=== PATIENT | female | born 1935 | race African-American/Black ===

== ENCOUNTER 2023-05-22 13:44 | Inpatient (IN) | payer MEDICARE, BC, SELFPAY ==
[2023-05-22] VITALS (25 sets, daily range): BP systolic 90–153; BP diastolic 47–126; PULSE 78–117; RESP 16–48; TEMP 36.3–36.8; O2SAT 77–100; BMI 18.2
--- NOTE | ~2023-05-22 | CT_ITS ---
EXAMINATION: CT abdomen pelvis w con DATE: 05/31/2023 14:13 INDICATION: Perforated diverticulitis with pelvic abscess TECHNIQUE: Computed tomography (CT) of the abdomen and pelvis was performed with 100 mL Omnipaque-350 intravenous contrast and following administration of oral and rectal contrast.. Automated exposure c ontrol and iterative reconstruction technique were employed. The dose-length product was 500.26 mGy-c m. COMPARISON: None FINDINGS: Small bilateral posterior layering pleural effusions with dependent compressive atelectasis in the lo wer lobes, left greater than right. Cardiomegaly. Atherosclerotic or artery calcific lesion. No peric ardial effusion. Tip of the right upper extremity PICC line extends into the high right atrium approx imately 2 cm below the level of the superior cavoatrial junction. Gallbladder is distended but withou t evident wall thickening or pericholecystic inflammatory stranding to suggest acute cholecystitis. L iver, spleen, pancreas, bilateral adrenal glands and kidneys are normal. Gas and a Edmonds catheter in the bladder. Extensive body wall edema. Chronic appearing compression fracture at T11 with mild centr al vertebral body height loss. The rectal contrast extends throughout the length of the colon with additional oral contrast extendin g through much of the proximal jejunum. No dilated bowel to suggest obstruction. Again seen are numer ous diverticula along the sigmoid colon. Oral contrast extends from a diverticulum on the medial side of the proximal sigmoid colon to communicate with a gas and contrast filled 3.0 x 2.2 cm loculated e xtraluminal collection. At the operative site of the collection is a contrast-filled proximally 7 mm diameter tract which follows a serpiginous course of approximately 6 cm in length caudally and more p osteriorly to communicate with the 6.6 x 4.0 x 2.8 cm gas and fluid containing pelvic abscess cavity within which is positioned the loop of the percutaneous abscess drain. The diverticulum and adjacent small enhanced abscess cavity can be appreciated on axial series 3, image 127 and coronal series 601, image 52. The MP and the draining tract into the pelvic abscess cavity can be seen in axial series 3 , image 137 and coronal series 601, images 68 & 69. There are a few additional small peripherally enhancing loculated centrally low-attenuation fluid col lections situated amongst the bowels more cephalad in the central lower abdomen which are without vickie dent contrast opacification. The largest collection extends along a 12 cm serpiginous tract from the right lower quadrant of the central abdomen the largest pocket measuring 2.9 x 2.1 x 2.2 cm in the ri ght lower quadrant surrounded by multiple loops of bowel. IMPRESSION: 1. Perforated diverticulitis at the proximal sigmoid colon with rectal contrast extending into an adj acent 3 x 2 cm abscess cavity and from dense along a 6 cm sinus tract to indicate with a larger 6.6 x 4.0 x 2.8 cm pelvic abscess cavity within which is the left transgluteal abscess drain. 2. A few additional small peripherally enhancing loculated abscesses without contrast enhancement in the more cephalad lower abdomen, all of which are surrounded by bowel with no clear path for percutan eous drainage. 3. Small bilateral posterior layering pleural effusions with compressive atelectasis in the bilateral lower lobes. 4. Cardiomegaly. Reviewed, dictated and finalized at location A. IMPRESSION: 1. Perforated diverticulitis at the proximal sigmoid colon with rectal contrast extending into an adjacent 3 x 2 cm abscess cavity and from dense along a 6 cm sinus tract to indicate with a larger 6.6 x 4.0 x 2.8 cm pelvic abscess cavity within which is the left transgluteal abscess drain. 2. A few additional small p
--- NOTE | ~2023-05-22 | CT_ITS ---
EXAMINATION: CT guide absc cath placement DATE: 05/25/2023 16:05 INDICATION: Pelvic abscess TECHNIQUE: The procedure including the risks and benefits was discussed with the patient. Risks discu ssed included bleeding and infection. The patient understood the risks and benefits and agreed to pro ceed. Oral and written consent were also obtained previously from the patient's power of litigation attorney. Th e patient was confirmed to be receiving appropriate antibiotic coverage. The skin overlying the infe rior left buttock was prepped and draped in usual sterile fashion. Anesthetic was administered with 1% lidocaine subcutaneously. Patient also received 50 mcg fentanyl IV for conscious sedation. An 18-g auge trochar needle was inserted into the pelvic fluid collection by trocar technique. The inner styl ette was removed and a J-wire advanced into the fluid collection with position confirmed by CT. Utili zing Seldinger technique the needle was removed over the wire and the tract serially dilated to 10 Fr ench. A 10 Romanian pigtail catheter was advanced over the wire into the fluid collection with position confirmed by CT. The loop was formed and locked and approximately 16 mm of opaque tannish-brown foul -smelling purulent fluid was aspirated and sent to the lab for Gram stain and cultures. The catheter was stitched to the skin with suture. Anabiotic ligament and a sterile dressing were applied. An kae tional adhesive fixation device was applied. There were no immediate complications. The catheter was then attached to suction drainage and was draining additional small amount of purulent fluid at the c onclusion of the procedure. Final CT images were obtained demonstrating the formed pigtail loop of th e catheter within the now nearly decompressed abscess. The dose-length product was 137.22 mGy-cm. FINDINGS: CT images demonstrate the catheter within the fluid collection. 60 mL fluid was aspirated f or testing. IMPRESSION: 1. Successful CT-guided left transgluteal pelvic abscess drain placement. 2. 60 mL fluid was sent for aerobic and anaerobic cultures. 3. The catheter will be managed by Dr. Langford. Reviewed, dictated and finalized at location A. IMPRESSION: 1. Successful CT-guided left transgluteal pelvic abscess drain placement. 2. 60 mL fluid was sent for aerobic and anaerobic cultures. 3. The catheter will be managed by Dr. Lagnford.
--- NOTE | ~2023-05-22 | US_ITS ---
EXAMINATION: US arterial ankle brachial ind DATE: 05/26/2023 12:25 INDICATION: Diminished posterior left lower limb and cool and discolored bilateral lower extremities. TECHNIQUE: Segmental pressures and plethysmographic and Doppler waveforms of the brachial and lower e xtremity arteries were obtained. COMPARISON: None. FINDINGS: Right and left brachial artery pressures of 146 mm Hg and 130 mm Hg, respectively, are concordant (no rmal difference <= 30 mmHg). The right ankle-brachial index (PETER) is unable to be assessed due to inability to occlude the vessels at either ankle (normal >= 0.9-1.0). The right great toe-brachial index (TBI) is unable be obtained with no discernible pulse at the great toe (normal >= 0.65). Arterial Doppler waveforms are biphasic with brisk systolic upstrokes at both right posterior tibial and dorsalis pedis arteries. The left PETER is 1.14. The left TBI is unable to be obtained with no discernible pulse at the left gre at toe. Arterial Doppler waveforms are biphasic with brisk systolic upstrokes at both left posterior tibial and dorsalis pedis arteries. IMPRESSION: 1. No dopplerable pulses at either great toe but with normal left PETER. Right PETER is indeterminate due to inability to occlude the vessels at the right ankle but with biphasic waveforms with brisk systol ic upstrokes at both the right posterior tibial and dorsalis pedis arteries. 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 Reviewed, dictated and finalized at location A. IMPRESSION: 1. No dopplerable pulses at either great toe but with normal left PETER. Right AB I is indeterminate due to inability to occlude the vessels at the right ankle b ut with biphasic waveforms with brisk systolic upstrokes at both the right post erior tibial and dorsalis pedis arteries. Findings suggest more peripheral murphy rial occlusive disease in the smaller vessels below the ankles.
--- NOTE | ~2023-05-22 | CT_ITS ---
EXAMINATION: CTA chest abdomen pelvis DATE: 05/22/2023 15:19 INDICATION: dissection . TECHNIQUE: Computed tomography (CT) of the chest, abdomen, and pelvis was performed with 100 mL Omnip aque-350 intravenous contrast, in the arterial phase. Automated exposure control and iterative recons truction technique were employed. The dose-length product was 340.95 mGy-cm. 3-D volume rendering per formed by the technologist on a separate workstation. COMPARISON: X-ray chest, same date. FINDINGS: Examination is motion limited. CHEST: Thoracic aorta: No significant dilation or calcification. Mild unfolding and arch calcification. Lung parenchyma and airways: Senescent change. Bibasilar scar/atelectasis. Clear airways. Thoracic inlet, axillae and chest wall: No thyroid or soft tissue mass. No axillary lymphadenopathy. Mediastinum: No mass or lymphadenopathy. Heart and pericardium: Cardiomegaly. No pericardial effusion. Coronary artery calcifications: Absent. Pleura: No effusion or mass. Thoracic bones: Moderate compression deformity of T8. ABDOMEN/PELVIS: Liver: Normal. Biliary/Gallbladder: Marked gallbladder enlargement. No wall thickening. Moderate pericholecystic flu id, with fluid extending into Morison's pouch and the right paracolic gutter. No bile duct dilation. Pancreas: No mass or duct dilation. Spleen: Normal. Adrenals:No mass. Kidneys: No suspicious mass, obstructing stone, or hydronephrosis. GI tract: No small or large bowel dilation. Normal appendix. Moderate diverticulosis. 1.7 cm fluid an d gas collection with mild surrounding enhancement adjacent to a segment of proximal sigmoid, possibl y in communication with the serpiginous collection described below. Mesentery/Peritoneum: Mild-moderate volume free air. Retroperitoneum: No mass. Atherosclerotic abdominal aortic and/or arterial calcifications. Pelvis: Absent uterus. 4.8 x 4.4 cm fluid and gas collection in the deep pelvis with mild surrounding enhancement. This appears to be in communication with a serpiginous fluid and gas collection that in sinuates in between adjacent bowel loops extending superiorly. Soft Tissues: Soft tissues and body wall unremarkable. Abdominopelvic bones: No acute osseous finding in the abdomen/pelvis. IMPRESSION: Motion limited examination. No CT evidence of aortic dissection. Mild-moderate pneumoperitoneum. 1.7 cm perisigmoid and 4.8 cm deep pelvic abdominal abscesses, likely in communication with a interco nnecting serpiginous fluid and gas collection that is interspace between adjacent bowel loops. Source may be a ruptured diverticular abscess but is not conclusively visualized. Marked gallbladder hydrops, correlate with biliary labs and right upper quadrant pain. Adjacent fluid may be related to the intraabdominal abscesses, however bile leak cannot be excluded. Moderate compression deformity of T8, of uncertain age, correlate with pain/tenderness. Reviewed, dictated and finalized at location K. IMPRESSION: Motion limited examination. No CT evidence of aortic dissection. Mild-moderate pneumoperitoneum. 1.7 cm perisigmoid and 4.8 cm deep pelvic abdominal abscesses, likely in commun ication with a interconnecting serpiginous fluid and gas collection that is int erspace between adjacent bowel loops. Source may be a ruptured diverticular abs cess but is not conclusively visualized. Marked gallbladder hydrops, correlate with biliary labs and right upper quadran t pain. Adjacent fluid may be related to the intraabdominal abscesses, however bile leak cannot be excluded. Moderate compression deformity of T8, of uncertain age, correlate with pain/ten derness.
--- NOTE | ~2023-05-22 | XR_ITS ---
EXAMINATION: XR chest 1V portable Exam Date/Time: 05/22/2023 13:50 CDT HISTORY: chest pain Comparison: None. RESULT: Lines, tubes, and devices: None. Lungs and pleura: Clear. Cardiomediastinal silhouette: Stable. Other: No acute osseous or upper abdominal finding. IMPRESSION: No acute cardiopulmonary process. Reviewed, dictated and finalized at location K.
--- NOTE | ~2023-05-22 | XR_ITS ---
EXAMINATION: XR chest PICC line DATE: 05/28/2023 13:32 INDICATION: Right PICC line placement TECHNIQUE: frontal view of the chest was obtained. COMPARISON: Chest radiograph dated 05/22/2023 FINDINGS: Right upper extremity peripherally inserted central venous catheter (PICC) tip at the caudal superio r vena cava. Gradient of basilar predominant hazy airspace opacities in bilateral mid to lower lung z ones with more dense opacities and blunting at the costophrenic angles consistent with posterior laye ring small bilateral pleural effusions, left greater than right, with associated atelectasis and/or p neumonia. No pneumothorax. Mild cardiomegaly. IMPRESSION: 1. Right PICC line tip at the caudal superior vena cava. 2. New small bilateral pleural effusions, left greater than right, with associated basilar atelectasi s and/or pneumonia. 3. Cardiomegaly. Reviewed, dictated and finalized at location A. IMPRESSION: 1. Right PICC line tip at the caudal superior vena cava. 2. New small bilateral pleural effusions, left greater than right, with associa bon basilar atelectasis and/or pneumonia. 3. Cardiomegaly.
--- NOTE | ~2023-05-22 | XR_ITS ---
XR chest 1V portable DATE: 05/29/2023 11:29 INDICATION: Decreased oxygen saturation TECHNIQUE: Portable upright AP chest on 05/29/2023 1122 hours COMPARISON: 05/28/2023 portable AP chest FINDINGS: Right upper extremity PIC catheter tip situated near the superior cavoatrial junction. Cardiomegaly. Aortic calcification. There is pulmonary vascular congestion and redistribution. There is interstitial prominence including Jesus B-lines consistent with pulmonary interstitial edema. There are prominent infiltrates particu larly in the central and to a greater extent lower lung zones suggesting pulmonary edema. Pneumonia i s not excluded. There are bilateral moderate moderate pleural effusions. No pneumothorax. Osteopenia. One or more thoracic spine fracture deformities is suggested. IMPRESSION: Congestive changes, bilateral pulmonary infiltrates, increased since 05/28/2023 Reviewed, dictated and finalized at location A. IMPRESSION: Congestive changes, bilateral pulmonary infiltrates, increased sinc e 05/28/2023
--- NOTE | ~2023-05-22 | CT_ITS ---
EXAMINATION: CT pelvis wo con DATE: 06/10/2023 12:04 INDICATION: Persistent pelvic abscesses related to perforated diverticulitis despite left transglutea l abscess drain placement. Plan for upsizing of the abscess drainage catheter and potential placement of a new abscess drain closer to the site of bowel perforation. TECHNIQUE: Computed tomography (CT) of the pelvis was performed without intravenous contrast. Repeat CT of the pelvis was performed following injection of a 19:1 mixture of sterile saline: Omnipaque-350 intravenously existing left transgluteal abscess drain. The drainage catheter was then reattached to suction drainage and additional imaging of the pelvis was obtained. The mAs was manually decreased t o reduce the radiation dosage.The dose-length product was 212.29 mGy-cm. Given the findings which can be discussed below after discussion with calcified vessels with, the planned drainage catheter excha nge and new catheter placement were deferred. The dressing at the existing drainage catheter access s ite was removed, the skin sterilely prepped and antibiotic ointment and a new sterile dressing were a pplied. COMPARISON: 06/08/2023 FINDINGS: Initial research technician image demonstrates a left abdominal diverting colostomy with suture line at the proxima l margin of the long Senior's pouch. There is a small amount of residual contrast material within th e Senior's pouch related to the rectal contrast administered on study 2 days prior. There are multip le diverticula along the compartments pouch. There is also residual excreted contrast along with a sm all amount of gas within the bladder. The previously seen prominent abscess cavity surrounding the lo w loop of the left transgluteal percutaneous abscess drain appears completely decompressed. Significa nt decrease in size of a prior 4.6 x 2.9 cm gas and fluid containing abscess cavity adjacent to the p erforated diverticulum at the proximal aspect of the Senior's pouch which currently is filled with g as measuring 1.5 x 2.5 cm. The 20 mL of injected contrast distends the collapsed cavity to 4.7 x 1.3 x 2.6 cm with small amount of contrast extending cephalad along a narrow tract to the more cephalad a bscess cavity which is decreased in size since the initial imaging and with small amount of contrast extending into the Senior's pouch. There is only minimal residual contrast along the tract between t he Senior's pouch and the drainage catheter on imaging following reattachment of the drainage cathet er to suction. Given the functioning status of the current catheter the planned catheter upsizing and new catheter placement were deferred. IMPRESSION: 1. Functioning left transgluteal percutaneous abscess drain with no residual abscess along the draini ng sinus tract which extends to the perforated diverticulum at the proximal aspect of the Senior's p ouch. Given this finding the planned catheter upsizing and new catheter placement were deferred. Reviewed, dictated and finalized at location A. ORICAL SOCIETY DIRECTOR IMPRESSION: 1. Functioning left transgluteal percutaneous abscess drain with no residual ab scess along the draining sinus tract which extends to the perforated diverticul um at the proximal aspect of the Senior's pouch. Given this finding the planne d catheter upsizing and new catheter placement were deferred.
--- NOTE | ~2023-05-22 | CT_ITS ---
EXAMINATION: CT abdomen pelvis w con INDICATION: Diverticulitis, status post diverting colostomy TECHNIQUE: Computed tomographic images of the abdomen and pelvis were obtained after the administrati on of 100 cc of Omnipaque 350 intravenous contrast. The dose-length product (DLP) was 721.01 mGy-cm. Automated exposure control and iterative reconstruction technique were employed. COMPARISON: 05/31/2023 FINDINGS: There are small to moderate-sized pleural effusions with associated passive dependent atele ctasis of the lungs. Cardiomegaly is noted. The liver, spleen, pancreas, and adrenal glands are reynaldo l. There is unchanged distention of the gallbladder, likely due to fasting state. The kidneys are unr emarkable. There is calcified atherosclerosis of the aorta and many of the other arteries. There are changes of interval left lower quadrant diverting colostomy formation. Tiny foci of intraperitoneal g as and in the anterior abdominal wall are consistent with surgical change. Gas is also present in the urinary bladder which could be due to catheterization. There is a 5.4 x 4.0 cm abscess of the left pelvis with an indwelling percutaneous drainage catheter which is slightly decreased in size. 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 T here is a stable abscess of the mid abdomen measuring approximately 9 cm x 1.1 cm. There are no dilat ed loops of bowel. Diffuse anasarca is noted. IMPRESSION: 1. Interval diverting colostomy formation of the left lower quadrant. 2. Slight decrease in size of a left pelvic abscess with percutaneous drainage catheter in place. 3. 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 Abscess in the midabdomen without significant change. 5. Small pleural effusions with passive atelectasis in the lower lobes. Reviewed, dictated and finalized at location [facility]. [employer]
--- NOTE | 2023-05-22 13:49 | ECG_ITS ---
Measurements Intervals [place] Rate: 103 P: 75 HI: 154 QRS: -23 QRSD: 72 T: 67 QT: 355 QTc: 466 Interpretive Statements POOR QUALITY ECG WITH SIGNIFICANT MOTION ARTIFACT SINUS TACHYCARDIA POSSIBLE LEFT ATRIAL ENLARGEMENT [-0.1mV P WAVE IN V1/V2] LOW QRS VOLTAGE IN EXTREMITY LEADS [QRS DEFLECTION < 0.5 mV IN LIMB LEADS] ANTERIOR MYOCARDIAL INFARCTION , OF INDETERMINATE AGE [40+ ms Q WAVE AND/OR ST/T ABNORMALITY IN V3/V4] INFERIOR MYOCARDIAL INFARCTION , OF INDETERMINATE AGE [40+ ms Q WAVE AND/OR ST/T ABNORMALITY IN II/aVF] ABNORMAL ECG NO PREVIOUS ECG AVAILABLE FOR COMPARISON Electronically Signed On 05-23-2023 8:19:31 CDT by Colin Hoyos M.D.
--- NOTE | 2023-05-22 13:57 | ECG_ITS ---
Measurements Intervals [place] Rate: 64 P: 17 [place]: 196 QRS: 0 QRSD: 85 T: -14 QT: 499 QTc: 516 Interpretive Statements SINUS RHYTHM PROLONGED QT INTERVAL COMPARED TO ECG 05/22/2023 13:47:00 SINUS RHYTHM NOW PRESENT PROLONGED QT INTERVAL NOW PRESENT NONSPECIFIC INFERIOR ST/T CHANGES PRESENT Electronically Signed On 05-25-2023 19:43:36 CDT by Serena Tariq M.D.
[2023-05-22] MEDS: ONDANSETRON INJ 4 MG/2 ML VIAL IV PUSH (14:01)
[2023-05-22] MEDS: MORPHINE SULFATE (*CRX) 2 MG/ML INJ IV PUSH (14:01)
[2023-05-22 14:08] LABS: Hematocrit 40.7 % (37.0-47.0); Hemoglobin 12.8 g/dL (12.0-15.0); Mean Corpuscular HGB Conc 31.4 g/dl (32-36); Mean Corpuscular Hemoglobin 30.7 pg (26-34); Mean Corpuscular Volume 97.6 fl (80-100); Mean Platelet Volume 11.7 fl (7.4-10.4); Platelet Count Result 266 k/mm3 (150-375); Red Blood Count 4.17 M/mm3 (4.2-5.4); White Blood Count 4.5 K/mm3 (4.5-10.0)
[2023-05-22 14:18] LABS: Alanine Aminotransferase 49 U/L (6-35); Albumin Level 3.3 g/dL (3.5-5.1); Alkaline Phosphatase 127 U/L (38-126); Anion Gap 11 mmol/L (8-16); Aspartate Amino Transferase 61 U/L (14-36); Bilirubin,Total 1.3 mg/dL (0.2-1.3); Blood Urea Nitrogen 45 mg/dL (7-17); Calcium 9.1 mg/dL (8.4-10.2); Carbon Dioxide 22 mmol/L (22-30); Chloride 102 mmol/L (98-107); Estimated CRCL calculation 22 ml/min; Estimated Glomerular Filt Rate 43; Glucose 160 mg/dL (65-110); Lipase 90 U/L (23-300); Potassium 3.7 mmol/L (3.4-5.0); Sodium 135 mmol/L (137-145)
[2023-05-22 14:23] LABS: INR 1.3; Prothrombin Time 16.7 Seconds (11.1-14.7)
[2023-05-22 14:24] LABS: Partial Thromboplastin Time 23.7 SECONDS (22.3-36.8)
[2023-05-22 14:35] LABS: Band Neutrophils Percent 34 % (0-6); Eosinophils Absolute Manual 0.04 K/mm3 (0.02-0.5); Eosinophils Percent Manual 1 % (0-4); Lymphocytes Absolute Manual 0.27 K/mm3 (1.1-4.5); Metamyelocytes Percent 1 %; Monocytes Absolute Manual 0.18 K/mm3 (0.1-0.90); Monocytes Percent Manual 4 % (3-9); Neutrophils Absolute Manual 3.96 K/mm3 (1.7-7.2); Neutrophils Percent Manual 54 % (46-73); Total Cells Counted 100
[2023-05-22 14:36] LABS: Anisocytosis 2+ (NORMAL); Crenated RBC 1+ (NORMAL); Large Platelets Present; Ovalocytes 1+ (NORMAL); Platelet Estimate Adequate (Adequate); Schistocytes 1+ (NORMAL)
[2023-05-22 15:34] LABS: NT Pro B Type Natriuretic Pept 745 pg/mL (19.9-100)
--- NOTE | 2023-05-22 16:35 | ED.GENADULT ---
HPI - General Adult General Chief complaint: Abdominal Pain Stated complaint: stemi Time Seen by Provider: 05/22/23 13:49 History of Present Illness HPI narrative: Patient is an 87-year-old male who presents to the ER with abdominal pain. Patient was diagnosed 1 week ago with COVID at home on a home test after having a cough. 3 days ago patient began having lower abdominal as well as epigastric pain. Sharp and crampy in nature. Occasional radiation in the chest. No fevers chills or sweats. Patient fatigued and not providing history but patient's daughter is present and providing history. At baseline patient lives at home and is able to care for self and interact normally. Patient only has history of hypertension according to daughter. EMS in route felt patient had concerns for ST elevation and activated an ST elevation [place] alert. After review of EKG here and prehospital EKG as well as clinical history and discussion with cardiology the STEMI was canceled as patient has severe abdominal pain with guarding. Related Data Allergies Allergy/AdvReac Type Severity Reaction Status Date / Time aloe Allergy Unknown Verified 05/22/23 13:58 Review of Systems Review of Systems: ROS unobtainable: Yes unobtainable due to medical condition PMFSH Past Medical History Medical History (Updated 05/22/23 @ 18:16 by Fernie Frey MD) Hyperlipidemia Hypertension Macular degeneration disease Surgical History Surgical History (Updated 05/22/23 @ 18:07 by Fernie Frey MD) No pertinent past surgical history Exam Narrative: GENERAL: Chronically ill-appearing, then, and in no acute distress. HEAD: Normocephalic, atraumatic. EYES: PERRL and EOMI. ENT: Mucous membranes moist. CHEST: Clear to auscultation. No respiratory distress. HEART: Tachycardic and regular. Normal peripheral pulses. ABDOMEN: Soft, diffusely tender abdomen with guarding, nondistended, normal active bowel sounds. EXTREMITIES: Normal range of motion. No edema. SKIN: Warm, dry, no rash. NEURO: Alert and oriented x3 but poor historian she is withdrawn. Course Course Emergency Course: Patient denied chest pain upon arrival to the ER. Patient with a lot of motion artifact on her EKG different morphologies of the QRS complexes. Patient with abdominal pain with guarding. Work-up shows elevated troponin, additionally he and aortic dissection ruled out by CTA. Patient does have deep abdominal abscess related to diverticular perforation. There is question whether could be gallbladder infection as well however LFTs are not significantly elevated lipase is normal. Care was discussed with Dr. Reina. Patient not recommended to have surgery and is felt more appropriate to have IV antibiotics and percutaneous drain at a later time. Patient has been started on IV Zosyn. Patient has received 1500 mL of fluid which is close to 30 mL/kg dosing per sepsis. Additional fluid is felt agitated at this time as patient's cardiac enzymes are trending up. Per recommendations from cardiology heparin has been initiated. They are aware that enzymes are trending up significantly to 16.9. Diagnosis and treatment plan explained to patient and family. Discussed that patient is seriously ill. Patient is a full code. Patient has been accepted by the hospitalist service. Vital Signs Vital signs: Vital Signs Temperature 98.2 F 05/22/23 13:43 Pulse Rate 105 H 05/22/23 13:43 Respiratory Rate 24 H 05/22/23 13:43 Blood Pressure 144/99 H 05/22/23 13:43 Pulse Oximetry 83 L 05/22/23 13:43 Oxygen Delivery Room Air 05/22/23 13:43 Temperature 98.2 F 05/22/23 13:43 Pulse Rate 94 05/22/23 17:37 Respiratory Rate 33 H 05/22/23 17:37 Blood Pressure 92/59 L 05/22/23 17:37 Pulse Oximetry 98 05/22/23 17:37 Oxygen Delivery Nasal Cannula 05/22/23 14:04 Oxygen Flow Rate 4 05/22/23 14:04 Medical Decision Making Vital Signs Vital Signs: Vital Signs
[2023-05-22] MEDS: SODIUM CHLORIDE 0.9% IV 1,000 ML 999 ML IV CONT (16:52)
[2023-05-22] MEDS: PIPERACILLN/TAZ 3.375GM/NS50ML 3.375 GM/50 ML BAG IVPB (16:53)
[2023-05-22 16:59] LABS: Lactic Acid Reflex 3.7 mmol/L (0.7-2.0)
--- NOTE | 2023-05-22 17:53 | PM.IMHP ---
H&P: HPI History of Present Illness Date/Time: 05/22/23 17:53 Chief Complaint: Abdominal pain History of Present Illnes This is a 87-year-old female patient who has a past medical history of hypertension and hyperlipidemia. The patient was diagnosed a week ago with COVID with a home test after having a cough. Three days ago she developed some lower abdominal pain as well as some epigastric pain.the patient's daughter is at the bedside answering questions for her. According to the daughter the patient has not had any coronary artery disease. The patient typically lives on her own and cares for self. According to the daughter the patient's pain was severe in the activated EMS. EMS had concerns for an elevated AST. The activated the ST-elevation [place] alert. Upon review over EKG in the emergency room he was determined that the patient was not a STEMI but was a non-STEMI. Abnormal labs RBC 4.17. Sodium 135. BUN 45 creatinine 1.40. No previous labs for comparison. AST 61 ALT 49 and alkaline phosphatase 127. Troponin 3.74 and repeat was 16.900. Chest x-ray was read as no acute cardiopulmonary process. CT was read as followsMotion limited examination. No CT evidence of aortic dissection. Mild-moderate pneumoperitoneum. 1.7 cm perisigmoid and 4.8 cm deep pelvic abdominal abscesses, likely in communication with a interconnecting serpiginous fluid and gas collection that is interspace between adjacent bowel loops. Source may be a ruptured diverticular abscess but is not conclusively visualized. Marked gallbladder hydrops, correlate with biliary labs and right upper quadrant pain. Adjacent fluid may be related to the intraabdominal abscesses, however bile leak cannot be excluded. Moderate compression deformity of T8, of uncertain age, correlate with pain/tenderness. Cardiology and surgery have been consulted. The patient was given Zosyn and started on heparin drip. She was given a bolus of IV fluids as well as morphine in the emergency room. Her initial blood pressure is 144/99 and is now 91/60. The patient is being admitted to observation status on the date of service of 05/22/2023. Review of Systems Constitutional: Constitutional: Reports as per HPI and Reports no additional constitutional complaints Eyes: Eyes: Reports as per HPI and Reports no additional eye complaints ENT: Reports system reviewed and no additional complaints, except as documented and Reports Normal hearing present Cardiovascular: Cardiovascular: Reports no additional cardiovascular complaints Respiratory: Respiratory: Reports no additional respiratory complaints and Reports no additional respiratory complaints Gastrointestinal: Gastrointestinal: Reports as per HPI Genitourinary: Genitourinary: Reports no additional female genitourinary complaints Musculoskeletal: Musculoskeletal: Reports as per HPI Integumentary/Breasts: Skin/Breast: Reports system reviewed and no additional complaints, except as docu and Reports as per HPI Neurologic: Reports system reviewed and no additional complaints, except as documented, Reports as per HPI and Reports Normal hearing present Psychiatric: Psychiatric: Reports no additional psychiatric complaints and Reports as per HPI Endocrine: Endocrine: Reports no additional endocrine complaints Hematologic/Lymphatic: Hematologic/Lymphatic: Reports no additional hematologic/lymphatic complaints Allergic/Immunologic: Allergic/Immunologic: Reports no additional allergic/immunologic complaints [facility] Past Medical History Medical History (Updated 05/22/23 @ 19:33 by Chana Nixon NP) Hyperlipidemia Hypertension Macular degeneration disease Ovarian cyst Surgical History Surgical History (Updated 05/22/23 @ 19:08 by Chana Nixon NP) H/O ovarian cystectomy No pertinent past surgical history Family History Family History (Updated 05/22/23 @ 19:08 by Chana Nixon NP) Mother Hypertension Social History Social His
[2023-05-22] MEDS: HEPARIN SODIUM 5,000 UNITS/ML VIAL 3000 UNITS IV PUSH (17:57)
[2023-05-22] MEDS: HEPARIN SOD/D5W 100 UNITS/ML 25,000 UNITS/250 ML BAG 6 UNITS IV CONT (17:59)
[2023-05-22] MEDS: SODIUM CHLORIDE 0.9% IV 500 ML 999 ML IV CONT (18:07)
--- NOTE | 2023-05-22 18:53 | ADMGEN ---
This patient, Promise English, was admitted to IMU Room 200-01. Patient/family oriented to hospital policies and general routines including ID bracelet, bed and alarms, visiting hours, pain management, procedures, bathroom and other care routines, personal items, smoking policy, room service/diet, and visiting hours. Information on how to activate the Rapid Response Team has been discussed. Patient/Family are encouraged to report perceived risks to care and to ask questions if they do not understand what they are told or what they should do.
[2023-05-22 19:47] LABS: Reflex Lactic Acid Yes or No Add Lactic
[2023-05-22 20:55] LABS: Hemoglobin 12.2 g/dL (12.0-15.0); Mean Corpuscular HGB Conc 32.1 g/dl (32-36); Mean Corpuscular Hemoglobin 31.4 pg (26-34); Mean Corpuscular Volume 97.9 fl (80-100); Mean Platelet Volume 12.5 fl (7.4-10.4); Platelet Count Result 244 k/mm3 (150-375); Red Blood Count 3.88 M/mm3 (4.2-5.4); Red Cell Distribution Width 14.2 % (11.5-14.5); White Blood Count 10.7 K/mm3 (4.5-10.0)
[2023-05-22 21:05] LABS: Lactic Acid 2.4 mmol/L (0.7-2.0)
[2023-05-22 21:06] LABS: INR 1.5; Prothrombin Time 19.3 Seconds (11.1-14.7)
[2023-05-22 21:07] LABS: Partial Thromboplastin Time 84.9 SECONDS (22.3-36.8)
[2023-05-22] MEDS: SIMVASTATIN 20 MG TABLET PO (21:12)
[2023-05-22 22:03] LABS: Band Neutrophils Percent 9 % (0-6); Lymphocytes Absolute Manual 0.53 K/mm3 (1.1-4.5); Metamyelocytes Percent 1 %; Monocytes Absolute Manual 0.32 K/mm3 (0.1-0.90); Monocytes Percent Manual 3 % (3-9); Neutrophils Absolute Manual 9.73 K/mm3 (1.7-7.2); Neutrophils Percent Manual 82 % (46-73); Platelet Estimate Adequate (Adequate); Total Cells Counted 100
[2023-05-22 22:04] LABS: Large Platelets Present; Schistocytes None Seen (NORMAL)
[2023-05-22] MEDS: SODIUM CHLORIDE 0.9% IV 1,000 ML 100 ML IV CONT (22:05)
[2023-05-22 22:07] LABS: Burr Cells 1+ (NORMAL)
[2023-05-23] VITALS (16 sets, daily range): BP systolic 91–107; BP diastolic 49–59; PULSE 66–90; RESP 16–17; TEMP 36.5–36.7; O2SAT 91–100
[2023-05-23] MEDS: PIPERACILLIN/TAZ 2.25G/NS 50ML 2.25 GM/50 ML BAG IVPB ×4 (00:01→18:04)
[2023-05-23 02:32] LABS: Hematocrit 35.5 % (37.0-47.0); Hemoglobin 11.5 g/dL (12.0-15.0); Mean Corpuscular HGB Conc 32.4 g/dl (32-36); Mean Corpuscular Hemoglobin 31.5 pg (26-34); Mean Corpuscular Volume 97.3 fl (80-100); Mean Platelet Volume 11.9 fl (7.4-10.4); Platelet Count Result 247 k/mm3 (150-375); Red Blood Count 3.65 M/mm3 (4.2-5.4); Red Cell Distribution Width 14.3 % (11.5-14.5); White Blood Count 20.9 K/mm3 (4.5-10.0)
[2023-05-23 02:45] LABS: Lactic Acid Reflex 1.5 mmol/L (0.7-2.0)
[2023-05-23 02:46] LABS: Alanine Aminotransferase 35 U/L (6-35); Albumin Level 2.5 g/dL (3.5-5.1); Alkaline Phosphatase 72 U/L (38-126); Anion Gap 8 mmol/L (8-16); Aspartate Amino Transferase 63 U/L (14-36); Bilirubin,Total 2.5 mg/dL (0.2-1.3); Blood Urea Nitrogen 44 mg/dL (7-17); Calcium 7.9 mg/dL (8.4-10.2); Carbon Dioxide 19 mmol/L (22-30); Chloride 107 mmol/L (98-107); Estimated CRCL calculation 18 ml/min; Estimated Glomerular Filt Rate 35; Glucose 129 mg/dL (65-110); Potassium 3.9 mmol/L (3.4-5.0); Sodium 134 mmol/L (137-145)
[2023-05-23 02:55] LABS: Partial Thromboplastin Time 131.8 SECONDS (22.3-36.8)
[2023-05-23 02:59] LABS: Band Neutrophils Percent 12 % (0-6); Lymphocytes Absolute Manual 0.62 K/mm3 (1.1-4.5); Metamyelocytes Percent 3 %; Monocytes Absolute Manual 1.67 K/mm3 (0.1-0.90); Monocytes Percent Manual 8 % (3-9); Neutrophils Absolute Manual 17.97 K/mm3 (1.7-7.2); Neutrophils Percent Manual 74 % (46-73); Platelet Estimate Adequate (Adequate); Total Cells Counted 100
[2023-05-23 03:00] LABS: Anisocytosis 1+ (NORMAL); Schistocytes Rare (NORMAL)
--- NOTE | 2023-05-23 05:00 | ECG_ITS ---
Measurements Intervals [place] Rate: 77 P: 42 SC: 160 QRS: -36 QRSD: 93 T: 193 QT: 383 QTc: 433 Interpretive Statements SINUS RHYTHM WITH SINUS ARRHYTHMIA MARKED LEFT AXIS DEVIATION [QRS AXIS < -30] PREVIOUS ANTERIOR AND PREVIOUS INFERIOR INFARCTION ABNORMAL ECG LEFT-AXIS DEVIATION NOW PRESENT Q-WAVES INDICATIVE OF IA ARE NOW PRESENT Electronically Signed On 05-24-2023 6:57:15 CDT by Colin Hoyos M.D.
[2023-05-23 08:56] LABS: Partial Thromboplastin Time 72.1 SECONDS (22.3-36.8)
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
--- NOTE | 2023-05-23 11:37 | PM.IMPN ---
Progress Note: A&P Assessment and Plan (1) Non-ST elevation NM (NSTEMI): Code(s): I21.4 - Non-ST elevation (NSTEMI) myocardial infarction Status: Acute Assessment and Plan: 1st troponin 3.74 and 2nd 16.900. trend troponins. Cardiology has been consulted. Heparin drip has been started. Further recommendations per Cardiology. no previous cardiology history. Her heart score is 7 with her age and risk factors and highly suspicious history. (2) Colonic diverticular abscess: Code(s): K57.20 - Diverticulitis of large intestine with perforation and abscess without bleeding Status: Acute Assessment and Plan: Continue IV antibiotics. Appreciate surgical consult. (3) Hypertension: Code(s): I10 - Essential (primary) hypertension Status: Acute Assessment and Plan: Patient is hypotensive at this time so we will hold her olmesartan. (4) Hyperlipidemia: Code(s): E78.5 - Hyperlipidemia, unspecified Status: Acute Assessment and Plan: continue with simvastatin (5) Macular degeneration disease: Code(s): H35.30 - Unspecified macular degeneration Status: Acute Assessment and Plan: continue with latanoprost (6) Acute renal failure: Code(s): N17.9 - Acute kidney failure, unspecified Status: Acute Assessment and Plan: Continue with IV fluids. Continue to monitor renal function. Subjective Date/time seen: 05/23/23 11:37 Interval history: Patient has complaints of abdominal pain. Denies chest pain. Exam Const: General: cooperative, comfortable, no acute distress, well developed, alert, awake, Physically active, ill appearing, average body habitus and well nourished Nutritional Appearance: average body habitus and well nourished Orientation/consciousness: oriented to person, oriented to place, oriented to time and patient oriented x3 Limitations: no limitations HENMT: Head: normal to inspection, No palpable skull fracture present, normocephalic, atraumatic and abrasion Ears: hearing grossly normal bilaterally, external ears normal and TM's normal bilaterally Face/Nose/Sinus: Normal external nose present, Normal nares present and No nasal polyps present Mouth: Yes Normal oral and palatal mucosa present Throat: posterior oropharynx normal Eyes: General: appearance normal, both eyes and all related structures Alignment and Position: alignment normal Periorbital: periorbital findings normal Eyelids: eyelids normal Conjunctivae: conjunctivae normal Sclera: sclerae normal Cornea: corneas normal Pupils: Equal, round and reactive pupils present and Pupil accommodation reflex normal EOM: EOMs intact bilaterally Neck: Neck: normal visual inspection, full ROM, no lymphadenopathy, trachea midline and supple Thyroid: thyroid normal Carotids: normal carotid upstroke Lymphatic: no lymphadenopathy noted Chest: Chest palpation & inspection: normal inspection of the chest Resp: Effort & Inspection: normal respiratory effort Auscultation: clear to auscultation bilaterally Percussion: percussion normal Other: O2 at 3 liters currently and not usually on oxygen Cardio: Palpation: normal PMI Rate: regular rate Rhythm: regular rhythm Heart sounds: S1 normal heart sound present and S2 normal heart sound present Peripheral pulses: Peripheral pulses 2+ throughout Other: pulse 93 GI: Inspection: normal to inspection Auscultation: normal bowel sounds Rectal Exam: deferred Other: tenderness tolower abdomen : General: Yes no CVA tenderness Back/Spine/Pelvis: Back: no CVA tenderness Cervical Spine: cervical ROM normal Thoracic/Lumbar Spine: thoracic and lumbar spine normal to inspection Pelvis: no pain with anterior-posterior compression Skin: General skin exam: normal color Lesions: no lesions Rashes: no rashes Trauma: no lacerations or abrasions Wounds: no wounds Hair: normal Nails: normal Neuro:
--- NOTE | 2023-05-23 11:53 | WPDCN ---
Assessment and Plan Assessment and plan (1) Colonic diverticular abscess: Code(s): K57.20 - Diverticulitis of large intestine with perforation and abscess without bleeding Status: Acute Assessment and Plan: Patient has a 5cm pelvic abscess most likely due to diverticular disease and diverticulitis. No free air in the abdomen is noted. No feculent peritonitis is noted. White blood count is elevated 20,000 today. Blood pressure is stable. Continue IV antibiotics. Discussed with radiologist tomorrow to see if the pelvic abscess is amenable to percutaneous CT-guided drainage. Continue supportive management. After discussing with Cardiology there is no plan for intervention for her recent heart attack. Heparin drip has been started but can be stopped tomorrow. Patient has some ice chips but otherwise needs to stay NPO. HPI Data of Consult Date/Time: 05/23/23 11:53 Requesting Physician: Phill Prasad MD Primary Care Provider: RAM CAR OPERATOR PHYSICIAN Consult Narrative Reason for consult: Abdominal pain, pelvic abscess and possible diverticulitis. Narrative: Promise English is a 87 year old female who last week had COVID but within the last 2 days started having lower abdominal pain. She had a bowel movement yesterday which started all solid but then ended up loose towards the end. No blood in the bowel movement. Patient has had a prior history of diverticulitis but no hospitalizations. Her last colonoscopy was about 5 years ago. No history of colon cancer. She did have elevated white blood cell count emergency room which was 10,700 which has increased to 20,000 today. She was started on IV antibiotics to include Zosyn and Flagyl. CT scan of the abdomen pelvis showed up deep pelvic abscess which may be due to diverticulitis. Of note the patient appears to have had a cardiac infarction and has been seen by Cardiology. The recommendation is supportive management and no need for acute intervention. She is on a heparin drip at this point but cardiology has told me that this can be stopped tomorrow. I reviewed the CT scan with the radiologist today and there is a deep pelvic abscess measuring approximately 5cm in diameter. Gallbladder is also very distended a possible hydrops. Liver enzymes are normal. Review of Systems Review of Systems: The remainder of the review of systems to include constitutional, HEENT, cardiovascular, respiratory, GI, , integumentary, musculoskeletal, endocrine, immunologic, hematologic, psychiatric, and neurologic are all negative except for which is mentioned above in the HPI. [facility] Past Medical History Medical History Hyperlipidemia Hypertension Macular degeneration disease Ovarian cyst Surgical History Surgical History H/O ovarian cystectomy No pertinent past surgical history Family History Family History Mother Hypertension Social History Social History Social History: She is and she lives home alone. She has 1 child who is the durable power state's attorney. The patient is a full code. She is a former smoker. Smoking packs per day: 1 Smoking cigarettes per day: 20.0 Years smoked: 20 Smoking pack-years: 20.00 Smoking status: Former smoker Alcohol intake: never Substance use: never Substance use type: does not use Lack of Transportation: No Lack of Food: Never True Current Housing: I Have Housing Concerned About Future Housing: No Difficulty Paying Gas/Electric Bills: No Difficulty Paying for Meds: No Currently Unemployed: No Education: High School Diploma/GED Difficulty w/ Childcare or Family Care: No Occupation/Education: retired Additional occupation/education comments: Retired from the [employer]
[2023-05-23] MEDS: LATANOPROST 0.005% OP SOLN 2.5 ML BTL 1 DROP EACH EYE (15:19)
[2023-05-23] MEDS: SODIUM CHLORIDE 0.9% IV 1,000 ML 100 ML IV CONT ×2 (15:24→20:28)
--- NOTE | 2023-05-23 17:02 | ECG_ITS ---
Measurements Intervals [place] Rate: 82 P: 30 NC: 155 QRS: -38 QRSD: 92 T: 190 QT: 387 QTc: 452 Interpretive Statements SINUS RHYTHM MARKED LEFT AXIS DEVIATION [QRS AXIS < -30] PREVIOUS ANTERIOR AND INFERIOR INFARCTION NONSPECIFIC T-WAVE CHANGES ABNORMAL ECG COMPARED TO ECG 05/23/2023 10:01:44 NO SIGNIFICANT CHANGES Electronically Signed On 05-24-2023 7:04:16 CDT by Colin Hoyos M.D.
[2023-05-23 17:14] LABS: Partial Thromboplastin Time 95.7 SECONDS (22.3-36.8)
[2023-05-23] MEDS: SIMVASTATIN 20 MG TABLET PO (20:19)
[2023-05-24] VITALS (14 sets, daily range): BP systolic 102–117; BP diastolic 51–69; PULSE 59–81; RESP 16–24; TEMP 36.3–37.1; O2SAT 95–100
--- NOTE | 2023-05-24 | ECHO_ITS ---
Patient Info Name: Promise English Age: 87 years : 1935 Gender: Female Ht: 67 in Wt: 116 lbs BSA: 1.57 m2 HR: 73 bpm BP: 102 / 58 mmHg Heart Rhythm: Sinus Rhythm Technical Quality: Fair Exam Date: 05/24/2023 9:10 AM Exam Location: [facility] Room: 200 Patient Status: Inpatient Admit Date: 05/23/2023 Staff Ordering Physician: Colin Hoyos MD Agriculture Extension Specialist: Annel Hernandez RDCS Attending Provider: Phill Prasad MD Referring Physician: Soha KAPADIA; Exam Type: CA echo doppler color flow Study Info Indications - MYOCARDIAL INFARCTION Complete two-dimensional, color flow and Doppler transthoracic echocardiogram is performed. Summary 1. Complete two-dimensional, color flow and Doppler transthoracic echocardiogram is performed. 2. Normal left ventricular size with severe hypokinesis of the apical 1/3 of the LV, dyskinesis of the apex. 3. Pattern of left ventricular dysfunction suggestive of takotsubo cardiomyopathy. 4. Current ejection fraction visually estimates to be 35-40% with grade 1 diastolic noncompliance. 5. Left atrial enlargement. 6. Small amount of tricuspid regurgitation. Left Ventricle Left ventricular chamber dimension is normal. Left ventricular systolic function is moderately reduced, estimated at 35-40%. The left ventricular diastolic function is grade I diastolic dysfunction. Right Ventricle Right ventricular chamber dimension is normal. Left Atria Left atrial chamber dimension is moderately enlarged. Right Atria Right atrial chamber dimension is normal. Aortic Valve The aortic valve is normal. Pulmonic Valve The pulmonic valve is normal. Mitral Valve The mitral valve has normal leaflets. Tricuspid Valve The tricuspid valve leaflets are normal. There is mild tricuspid valve regurgitation. Pericardium/Pleural The pericardium appears normal. Aorta The aortic root size at the sinus of Valsalva is normal. Left Ventricular Outflow Tract Name Value Normal LVOT 2D LVOT Diameter 2.0 cm LVOT Doppler LVOT Peak Gradient 4 mmHg LVOT Mean Gradient 2 mmHg LVOT VTI 20 cm LVOT VTI/AV VTI Ratio 0.8 LVOT Stroke Volume 64 ml LVOT CO 13.1 l/min LVOT CI 8.3 l/min/m2 Pulmonic Valve Name Value Normal RVOT Doppler RVOT Peak Gradient 2 mmHg PV Doppler PV Peak Gradient 2 mmHg Mitral Valve Name Value Normal MV Doppler
[2023-05-24] MEDS: PIPERACILLIN/TAZ 2.25G/NS 50ML 2.25 GM/50 ML BAG IVPB ×4 (00:21→18:55)
[2023-05-24 04:59] LABS: Partial Thromboplastin Time 98.5 SECONDS (22.3-36.8)
[2023-05-24 08:54] LABS: Basophils Absolute Auto 0.2 K/mm3 (0.0-0.1); Basophils Percent Auto 0.7 % (0.2-1.2); Eosinophils Percent Auto 0.1 % (0-4.4); Hematocrit 34.4 % (37.0-47.0); Hemoglobin 10.7 g/dL (12.0-15.0); Immature Granulocyte Absolute 0.85 K/mm3 (0.00-0.031); Immature Granulocyte Percent A 4.1 % (0-0.5); Immature Platelet Fraction Pct 4.1 % (0.9-11.2); Lymphocytes Absolute Auto 0.62 K/mm3 (0.9-3.2); Mean Corpuscular HGB Conc 31.1 g/dl (32-36); Mean Corpuscular Hemoglobin 31.1 pg (26-34); Mean Platelet Volume 13.1 fl (7.4-10.4); Monocytes Absolute Auto 0.6 K/mm3 (0.1-0.6); Monocytes Percent Auto 2.7 % (2.6-8.5); Neutrophils Absolute Auto 18.8 K/mm3 (1.3-6.7); Neutrophils Percent Auto 89.4 % (45.5-73.1); Platelet Count Result 234 k/mm3 (150-375); Red Blood Count 3.44 M/mm3 (4.2-5.4); Red Cell Distribution Width 14.9 % (11.5-14.5)
[2023-05-24 09:03] LABS: Anion Gap 7 mmol/L (8-16); Blood Urea Nitrogen 52 mg/dL (7-17); Calcium 7.7 mg/dL (8.4-10.2); Carbon Dioxide 19 mmol/L (22-30); Chloride 113 mmol/L (98-107); Estimated CRCL calculation 17 ml/min; Estimated Glomerular Filt Rate 30; Glucose 101 mg/dL (65-110); Potassium 4.1 mmol/L (3.4-5.0); Sodium 139 mmol/L (137-145)
--- NOTE | 2023-05-24 09:58 | PM.PNCARD ---
Progress Note: A&P Assessment and Plan (1) Non-ST elevation NV (NSTEMI): Code(s): I21.4 - Non-ST elevation (NSTEMI) myocardial infarction Status: Acute Assessment and Plan: Evidence of probably a completed infarct with Q waves in the anterior and inferior leads on ECG and troponin elevation to 17.5. Because of her late presentation, age, frailty, and comorbidities, will continue with conservative medical management. Continue ASA Continue statin Heparin gtt can be stopped today Echo pending Since she continues to be asymptomatic, no recommendation for coronary angiography Further recommendations to follow when echo is available to review Subjective Date/time seen: 05/24/23 09:58 Interval history: Patient has complaints of abdominal pain. Denies chest pain. Date of service 05/24/2023: Denies chest pain and abdominal pain. States she feels alright. Review of Systems Constitutional: Constitutional: Reports fatigue Eyes: Eyes: Reports no additional eye complaints ENT: Reports system reviewed and no additional complaints, except as documented Cardiovascular: Cardiovascular: Reports as per HPI Respiratory: Respiratory: Reports no additional respiratory complaints Gastrointestinal: Gastrointestinal: Reports as per HPI Musculoskeletal: Musculoskeletal: Reports no additional musculoskeletal complaints Integumentary/Breasts: Skin/Breast: Reports system reviewed and no additional complaints, except as docu Neurologic: Reports system reviewed and no additional complaints, except as documented Endocrine: Endocrine: Reports no additional endocrine complaints and Reports fatigue Hematologic/Lymphatic: Hematologic/Lymphatic: Reports no additional hematologic/lymphatic complaints Allergic/Immunologic: Allergic/Immunologic: Reports no additional allergic/immunologic complaints Exam Const: General: comfortable and no acute distress Other: Pleasant frail elderly lady no distress of any kind HENMT: Mouth: Yes moist mucous membranes Eyes: Sclera: sclerae normal Neck: Neck: supple and no JVD Other: Carotid pulses are intact there are no audible bruits Resp: Effort & Inspection: normal respiratory effort Auscultation: clear to auscultation bilaterally Cardio: Rate: regular rate Rhythm: regular rhythm Other: The PMI is not displaced there is currently no murmur or gallop GI: Auscultation: normal bowel sounds Skin: General skin exam: normal color Neuro: Other: Alert and oriented x3 Extrem: General: normal to inspection Other: No edema at all, good distal perfusion Objective Data Vital Signs Vital Signs: Vital Signs - 24 hr 05/23/23 12:00 05/23/23 12:00 05/23/23 10:00 Temperature 36.6 C Pulse Rate 79 79 Respiratory Rate 17 Blood Pressure 93/49 L Pulse Oximetry 100 98 Oxygen Delivery Nasal Cannula Oxygen Flow Rate 3 05/23/23 12:00 05/23/23 14:00 05/23/23 16:00 Temperature Pulse Rate 79 81 90 Respiratory Rate Blood Pressure Pulse Oximetry Oxygen Delivery Oxygen Flow Rate 05/23/23 16:00 05/23/23 16:00 05/23/23 18:00 Temperature 36.6 C Pulse Rate 66 88 Respiratory Rate 16 Blood Pressure 100/54 L Pulse Oximetry 98 91 Oxygen Delivery Nasal Cannula Oxygen Flow Rate 3 05/23/23 19:40 05/23/23 20:00 05/23/23 20:00 Temperature 36.7 C Pulse Rate 88 78 Respiratory Rate 16 Blood Pressure 104/56 L Pulse Oximetry 100 98 Oxygen Delivery Nasal Cannula Oxygen Flow Rate 3 05/23/23 22:00 05/24/23 00:00 05/24/23 00:00 Temperature 37.1 C Pulse Rate 74 76 Respiratory Rate 18 Blood Pressure 113/51 L Pulse Oximetry 100 100 Oxygen Delivery Nasal Cannula Oxygen Flow Rate 3 05/24/23 00:00 05/24/23 02:00 05/24/23 03:05 Temperature 36.5 C Pulse Rate 78 72 59 L Respiratory Rate 18 Blood Pressure 102/58 L Pulse Oximetry 98 Oxygen Delivery Oxygen Flow
[2023-05-24] MEDS: LATANOPROST 0.005% OP SOLN 2.5 ML BTL 1 DROP EACH EYE (10:07)
[2023-05-24] MEDS: SODIUM CHLORIDE 0.9% IV 1,000 ML 100 ML IV CONT ×2 (10:07→20:32)
--- NOTE | 2023-05-24 11:16 | PM.IMPN ---
Progress Note: A&P Assessment and Plan (1) Non-ST elevation [place] (NSTEMI): Code(s): I21.4 - Non-ST elevation (NSTEMI) myocardial infarction Status: Acute Assessment and Plan: 1st troponin 3.74 and 2nd 16.900. trend troponins. Cardiology has been consulted. Heparin drip has been started. Further recommendations per Cardiology. no previous cardiology history. Her heart score is 7 with her age and risk factors and highly suspicious history. (2) Colonic diverticular abscess: Code(s): K57.20 - Diverticulitis of large intestine with perforation and abscess without bleeding Status: Acute Assessment and Plan: Continue IV antibiotics. Appreciate surgical consult. (3) Hypertension: Code(s): I10 - Essential (primary) hypertension Status: Acute Assessment and Plan: Patient is hypotensive at this time so we will hold her olmesartan. (4) Hyperlipidemia: Code(s): E78.5 - Hyperlipidemia, unspecified Status: Acute Assessment and Plan: continue with simvastatin (5) Macular degeneration disease: Code(s): H35.30 - Unspecified macular degeneration Status: Acute Assessment and Plan: continue with latanoprost (6) Acute renal failure: Code(s): N17.9 - Acute kidney failure, unspecified Status: Acute Assessment and Plan: Continue with IV fluids. Continue to monitor renal function. (7) Positive blood cultures: Code(s): R78.81 - Bacteremia Status: Acute Assessment and Plan: Continue IV antibiotics. Await ID and sensitivity Subjective Date/time seen: 05/24/23 11:16 Interval history: White blood cell count still elevated. Patient denies new complaints. Exam Const: General: cooperative, comfortable, no acute distress, well developed, alert, awake, Physically active, ill appearing, average body habitus and well nourished Nutritional Appearance: average body habitus and well nourished Orientation/consciousness: oriented to person, oriented to place, oriented to time and patient oriented x3 Limitations: no limitations HENMT: Head: normal to inspection, No palpable skull fracture present, normocephalic, atraumatic and abrasion Ears: hearing grossly normal bilaterally, external ears normal and TM's normal bilaterally Face/Nose/Sinus: Normal external nose present, Normal nares present and No nasal polyps present Mouth: Yes Normal oral and palatal mucosa present Throat: posterior oropharynx normal Eyes: General: appearance normal, both eyes and all related structures Alignment and Position: alignment normal Periorbital: periorbital findings normal Eyelids: eyelids normal Conjunctivae: conjunctivae normal Sclera: sclerae normal Cornea: corneas normal Pupils: Equal, round and reactive pupils present and Pupil accommodation reflex normal EOM: EOMs intact bilaterally Neck: Neck: normal visual inspection, full ROM, no lymphadenopathy, trachea midline and supple Thyroid: thyroid normal Carotids: normal carotid upstroke Lymphatic: no lymphadenopathy noted Chest: Chest palpation & inspection: normal inspection of the chest Resp: Effort & Inspection: normal respiratory effort Auscultation: clear to auscultation bilaterally Percussion: percussion normal Other: O2 at 3 liters currently and not usually on oxygen Cardio: Palpation: normal PMI Rate: regular rate Rhythm: regular rhythm Heart sounds: S1 normal heart sound present and S2 normal heart sound present Peripheral pulses: Peripheral pulses 2+ throughout Other: pulse 93 GI: Inspection: normal to inspection Auscultation: normal bowel sounds Rectal Exam: deferred Other: tenderness tolower abdomen : General: Yes no CVA tenderness Back/Spine/Pelvis: Back: no CVA tenderness Cervical Spine: cervical ROM normal Thoracic/Lumbar Spine: thoracic and lumbar spine normal to inspection Pelvis: no pain with anterior-posterior compre
--- NOTE | 2023-05-24 11:54 | PM.PNGS ---
Progress Note: A&P Assessment and Plan (1) Colonic diverticular abscess: Code(s): K57.20 - Diverticulitis of large intestine with perforation and abscess without bleeding Status: Acute Assessment and Plan: Patient has a 5cm pelvic abscess most likely due to diverticular disease and diverticulitis. WBC count still up at 21,000 today. Continue IV antibiotics. I have reviewed the CT scan with the Radiologist today who feels this pelvic abscess is amenable to percutaneous drainage. Her INR was 1.5 on 05/22 and she is currently on the Heparin drip, which the Radiologist would like to be stopped 6 hours prior to the procedure. We will repeat coags today and schedule the CT-guided percutaneous drainage tomorrow possibly with anesthesia. If Cardiology is not planning to stop the Heparin drip today, then we will plan to have this stopped 6 hours before her procedure tomorrow. Will keep her NPO with ice chips for now. Plan I have discussed the patient's case and plan of care with Dr. Langford. Subjective Subjective Date/Time Seen: 05/24/23 09:54 Patient reports: afebrile Interval history: This is an 87-year-old woman who had COVID last week and developed abdominal pain a few days ago which prompted her to come into the ER for evaluation. Workup showed CT evidence of a deep pelvic abscess that could be due to diverticulitis. She was started on IV antibiotics. She was also started on a heparin infusion for NSTEMI, which Cardiology is following. She had an echocardiogram this morning. Chart reviewed. Patient is now seen this morning with her daughter at the bedside. She reports still having some lower abdominal pain that has improved since admission. She still feels very tender in this area. She denies any nausea or vomiting. She is only on ice chips at this time. Exam Const: General: comfortable and no acute distress GI: Inspection: non-distended GI Palp: Yes Soft to palpation, Yes Tenderness to palpation present (GI) (tenderness across the lower abdomen), Yes Guarding due to palpation present (GI) (voluntary guarding with palpation in the mid to left lower abdomen) and No Rebound tenderness present Auscultation: normal bowel sounds Objective Data Vital Signs Vital Signs: Vital Signs - 24 hr 05/23/23 12:00 05/23/23 12:00 05/23/23 12:00 Temperature 97.9 F Pulse Rate 79 79 Respiratory Rate 17 Blood Pressure 93/49 L Pulse Oximetry 100 98 Oxygen Delivery Nasal Cannula Oxygen Flow Rate 3 05/23/23 14:00 05/23/23 16:00 05/23/23 16:00 Temperature Pulse Rate 81 90 Respiratory Rate Blood Pressure Pulse Oximetry 98 Oxygen Delivery Nasal Cannula Oxygen Flow Rate 3 05/23/23 16:00 05/23/23 18:00 05/23/23 19:40 Temperature 97.8 F 98.1 F Pulse Rate 66 88 88 Respiratory Rate 16 16 Blood Pressure 100/54 L 104/56 L Pulse Oximetry 91 100 Oxygen Delivery Oxygen Flow Rate 05/23/23 20:00 05/23/23 20:00 05/23/23 22:00 Temperature Pulse Rate 78 74 Respiratory Rate Blood Pressure Pulse Oximetry 98 Oxygen Delivery Nasal Cannula Oxygen Flow Rate 3 05/24/23 00:00 05/24/23 00:00 05/24/23 00:00 Temperature 98.8 F Pulse Rate 76 78 Respiratory Rate 18 Blood Pressure 113/51 L Pulse Oximetry 100 100 Oxygen Delivery Nasal Cannula Oxygen Flow Rate 3 05/24/23 02:00 05/24/23 03:05 05/24/23 04:00 Temperature 97.7 F Pulse Rate 72 59 L Respiratory Rate 18 Blood Pressure 102/58 L Pulse Oximetry 98 95 Oxygen Delivery Nasal Cannula Oxygen Flow Rate 3 05/24/23 04:00 05/24/23 06:00 05/24/23 08:00 Temperature 97.6 F Pulse Rate 76 73 78 Respiratory Rate 20 Blood Pressure 109/52 L Pulse Oximetry 98 Oxygen Delivery Oxygen Flow Rate Intake/Output Intake/Output: Intake & Output 05/21/23 05/22/23 05/23/23 05/24/23 23:59 23:59 23:59 23:59 Intake Total 1550 2200 1050 Output Total 200 Balance 1550 1999
[2023-05-24 13:13] LABS: INR 1.8; Prothrombin Time 22.4 Seconds (11.1-14.7)
[2023-05-24] MEDS: SIMVASTATIN 20 MG TABLET PO (20:32)
[2023-05-25] VITALS (36 sets, daily range): BP systolic 115–143; BP diastolic 55–83; PULSE 66–103; RESP 16–29; TEMP 36.4–37.1; O2SAT 92–100
[2023-05-25 05:09] LABS: Basophils Absolute Auto 0.1 K/mm3 (0.0-0.1); Basophils Percent Auto 0.4 % (0.2-1.2); Eosinophils Percent Auto 0.1 % (0-4.4); Hematocrit 33.9 % (37.0-47.0); Hemoglobin 10.7 g/dL (12.0-15.0); Immature Granulocyte Absolute 0.35 K/mm3 (0.00-0.031); Immature Granulocyte Percent A 1.9 % (0-0.5); Lymphocytes Absolute Auto 0.78 K/mm3 (0.9-3.2); Lymphocytes Percent Auto 4.2 % (18.3-44.2); Mean Corpuscular HGB Conc 31.6 g/dl (32-36); Mean Corpuscular Hemoglobin 31.1 pg (26-34); Mean Corpuscular Volume 98.5 fl (80-100); Mean Platelet Volume 12.4 fl (7.4-10.4); Monocytes Absolute Auto 0.5 K/mm3 (0.1-0.6); Monocytes Percent Auto 2.6 % (2.6-8.5); Neutrophils Absolute Auto 16.8 K/mm3 (1.3-6.7); Neutrophils Percent Auto 90.8 % (45.5-73.1); Platelet Count Result 256 k/mm3 (150-375); Red Blood Count 3.44 M/mm3 (4.2-5.4); Red Cell Distribution Width 15.2 % (11.5-14.5); White Blood Count 18.5 K/mm3 (4.5-10.0)
[2023-05-25] MEDS: PIPERACILLIN/TAZ 2.25G/NS 50ML 2.25 GM/50 ML BAG IVPB ×3 (05:09→17:18)
[2023-05-25 05:23] LABS: INR 1.7; Partial Thromboplastin Time 38.4 SECONDS (22.3-36.8); Prothrombin Time 21.3 Seconds (11.1-14.7)
[2023-05-25 05:25] LABS: Anion Gap 7 mmol/L (8-16); Blood Urea Nitrogen 48 mg/dL (7-17); Calcium 7.8 mg/dL (8.4-10.2); Carbon Dioxide 18 mmol/L (22-30); Chloride 116 mmol/L (98-107); Estimated CRCL calculation 19 ml/min; Estimated Glomerular Filt Rate 32; Glucose 85 mg/dL (65-110); Potassium 3.5 mmol/L (3.4-5.0); Sodium 141 mmol/L (137-145)
[2023-05-25] MEDS: SODIUM CHLORIDE 0.9% IV 1,000 ML 100 ML IV CONT (09:38)
[2023-05-25] MEDS: LATANOPROST 0.005% OP SOLN 2.5 ML BTL 1 DROP EACH EYE (09:39)
--- NOTE | 2023-05-25 10:23 | PM.PNGS ---
Progress Note: A&P Assessment and Plan (1) Colonic diverticular abscess: Code(s): K57.20 - Diverticulitis of large intestine with perforation and abscess without bleeding Status: Acute Assessment and Plan: Patient has a 5cm pelvic abscess most likely due to diverticular disease and diverticulitis. WBC count down to 18.5 today. Continue IV antibiotics. Plan to proceed with percutaneous drainage of the pelvic abscess today in Radiology. Her heparin drip was stopped yesterday per Cardiology. INR 1.7 today and the radiologist recommends having an INR below 1.5 for the procedure this afternoon. Will give 2 units of FFP to finish at the time she is going down for the procedure. Discussed timing with nursing. Hopefully she can start a clear liquid diet following the procedure if she does well. Plan I have discussed the patient's case and plan of care with Dr. Langford. Subjective Subjective Date/Time Seen: 05/25/23 08:23 Patient reports: no new complaints, feels better, pain is less, flatus, bowel movement and afebrile Interval history: Patient seen this morning. Her abdominal pain continues to improve. She still has some lower abdominal pain, but feels comfortable at this time. Denies any nausea or vomiting. She is thirsty and eager to try liquids. She is NPO for her percutaneous drainage today. No acute events overnight. INR 1.7 this morning. Heparin drip stopped yesterday. Discussed the procedure with the radiologist this morning, who would like her INR below 1.5 for the procedure this afternoon. Exam Const: General: comfortable and no acute distress GI: Inspection: other (mildly distended) GI Palp: Yes Soft to palpation, Yes Tenderness to palpation present (GI) (tenderness across the lower abdomen), No Guarding due to palpation present (GI) and No Rebound tenderness present Auscultation: normal bowel sounds Objective Data Vital Signs Vital Signs: Vital Signs - 24 hr 05/24/23 12:00 05/24/23 16:00 05/24/23 12:00 Temperature 98.1 F 97.4 F L Pulse Rate 74 75 77 Respiratory Rate 16 24 H Blood Pressure 104/52 L 117/69 Pulse Oximetry 100 100 Oxygen Delivery Oxygen Flow Rate Fraction of Inspired Oxygen 05/24/23 14:00 05/24/23 16:00 05/24/23 18:00 Temperature Pulse Rate 74 73 74 Respiratory Rate Blood Pressure Pulse Oximetry Oxygen Delivery Oxygen Flow Rate Fraction of Inspired Oxygen 05/24/23 12:00 05/24/23 16:00 05/24/23 20:00 Temperature 98.2 F Pulse Rate 74 Respiratory Rate 16 Blood Pressure 104/66 Pulse Oximetry 96 100 100 Oxygen Delivery Nasal Cannula Nasal Cannula Oxygen Flow Rate 2 2 Fraction of Inspired Oxygen 05/24/23 20:00 05/24/23 20:00 05/24/23 22:00 Temperature Pulse Rate 72 68 Respiratory Rate Blood Pressure Pulse Oximetry 97 Oxygen Delivery Nasal Cannula Oxygen Flow Rate 2 Fraction of Inspired Oxygen 05/25/23 00:00 05/24/23 21:00 05/25/23 00:00 Temperature 98.2 F Pulse Rate 75 72 Respiratory Rate 16 Blood Pressure 119/55 L Pulse Oximetry 98 97 Oxygen Delivery Nasal Cannula Oxygen Flow Rate 2 Fraction of Inspired Oxygen 28 05/25/23 00:00 05/25/23 02:00 05/25/23 04:00 Temperature Pulse Rate 82 89 Respiratory Rate Blood Pressure Pulse Oximetry 100 Oxygen Delivery Nasal Cannula Oxygen Flow Rate 2 Fraction of Inspired Oxygen 05/25/23 04:00 05/25/23 04:00 05/25/23 06:00 Temperature 98.7 F Pulse Rate 78 78 Respiratory Rate 18 Blood Pressure 129/57 L Pulse Oximetry 96 98 Oxygen Delivery Nasal Cannula Oxygen Flow Rate 2 Fraction of Inspired Oxygen 05/25/23 08:00 05/25/23 08:00 05/25/23 07:45 Temperature 98.2 F Pulse Rate 79 96 Respiratory Rate 16 Blood Pressure 130/69 Pulse Oximetry 94 94 Oxygen Delivery Nasal Cannula Oxygen Flow Rate 2 Fraction of Inspired Oxygen 05/25/23 09:49 05/25/23 10:02
--- NOTE | 2023-05-25 11:29 | PM.PNCARD ---
Progress Note: A&P Assessment and Plan (1) Non-ST elevation [place] (NSTEMI): Code(s): I21.4 - Non-ST elevation (NSTEMI) myocardial infarction Status: Acute Assessment and Plan: Evidence of probably a completed infarct with Q waves in the anterior and inferior leads on ECG and troponin elevation to 17.5. Because of her late presentation, age, frailty, and comorbidities, will continue with conservative medical management. 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 Monitor renal function closely. Repeat TTE as outpatient in a couple of months to re-evaluate LVSF Subjective Date/time seen: 05/25/23 11:29 Interval history: Patient has complaints of abdominal pain. Denies chest pain. Date of service 05/24/2023: Denies chest pain and abdominal pain. States she feels alright. Date of service 05/25/2023: No acute events overnight. Plan for perc drainage of abdominal abscess later today. Feels okay this morning, no specific complaints. Review of Systems Constitutional: Constitutional: Reports fatigue Eyes: Eyes: Reports no additional eye complaints ENT: Reports system reviewed and no additional complaints, except as documented Cardiovascular: Cardiovascular: Reports as per HPI Respiratory: Respiratory: Reports no additional respiratory complaints Gastrointestinal: Gastrointestinal: Reports as per HPI Musculoskeletal: Musculoskeletal: Reports no additional musculoskeletal complaints Integumentary/Breasts: Skin/Breast: Reports system reviewed and no additional complaints, except as docu Neurologic: Reports system reviewed and no additional complaints, except as documented Endocrine: Endocrine: Reports no additional endocrine complaints and Reports fatigue Hematologic/Lymphatic: Hematologic/Lymphatic: Reports no additional hematologic/lymphatic complaints Allergic/Immunologic: Allergic/Immunologic: Reports no additional allergic/immunologic complaints Exam Const: General: comfortable and no acute distress Other: Pleasant frail elderly lady no distress of any kind HENMT: Mouth: Yes moist mucous membranes Eyes: Sclera: sclerae normal Neck: Neck: supple and no JVD Resp: Effort & Inspection: normal respiratory effort Auscultation: clear to auscultation bilaterally Cardio: Rate: regular rate Rhythm: regular rhythm GI: Auscultation: normal bowel sounds Skin: General skin exam: normal color Neuro: Other: Alert and oriented x3 Extrem: General: normal to inspection Other: No edema Objective Data Vital Signs Vital Signs: Vital Signs - 24 hr 05/24/23 12:00 05/24/23 16:00 05/24/23 12:00 Temperature 36.7 C 36.3 C L Pulse Rate 74 75 77 Respiratory Rate 16 24 H Blood Pressure 104/52 L 117/69 Pulse Oximetry 100 100 Oxygen Delivery Oxygen Flow Rate Fraction of Inspired Oxygen 05/24/23 14:00 05/24/23 16:00 05/24/23 18:00 Temperature Pulse Rate 74 73 74 Respiratory Rate Blood Pressure Pulse Oximetry Oxygen Delivery Oxygen Flow Rate Fraction of Inspired Oxygen 05/24/23 12:00 05/24/23 16:00 05/24/23 20:00 Temperature 36.8 C Pulse Rate 74 Respiratory Rate 16 Blood Pressure 104/66 Pulse Oximetry 96 100 100 Oxygen Delivery Nasal Cannula Nasal Cannula Oxygen Flow Rate 2 2 Fraction of Inspired Oxygen 05/24/23 20:00 05/24/23 20:00 05/24/23 22:00 Temperature Pulse Rate 72 68 Respiratory Rate Blood Pressure Pulse Oximetry 97 Oxygen Delivery Nasal Cannula Oxygen Flow Rate 2 Fraction of Inspired Oxygen 05/25/23 00:00 05/24/23 21:00 05/25/23 00:00 Temperature 36.8 C Pulse Rate 75 72 Respiratory Rate 16 Blood Pressure 119/55 L Pulse Oximetry 98 97 Oxygen Delivery Nasal Cannula Oxygen Flow Rate 2 Fraction of Inspir
--- NOTE | 2023-05-25 13:13 | PM.IMPN ---
Progress Note: A&P Assessment and Plan (1) Non-ST elevation [place] (NSTEMI): Code(s): I21.4 - Non-ST elevation (NSTEMI) myocardial infarction Status: Acute Assessment and Plan: Appreciate cardiology input. (2) Colonic diverticular abscess: Code(s): K57.20 - Diverticulitis of large intestine with perforation and abscess without bleeding Status: Acute Assessment and Plan: Continue IV antibiotics. Appreciate surgical consult. Positive blood cultures. (3) Hypertension: Code(s): I10 - Essential (primary) hypertension Status: Acute Assessment and Plan: Patient is hypotensive at this time so we will hold her olmesartan. Monitor blood pressure (4) Hyperlipidemia: Code(s): E78.5 - Hyperlipidemia, unspecified Status: Acute Assessment and Plan: continue with simvastatin (5) Macular degeneration disease: Code(s): H35.30 - Unspecified macular degeneration Status: Acute Assessment and Plan: continue with latanoprost (6) Acute renal failure: Code(s): N17.9 - Acute kidney failure, unspecified Status: Acute Assessment and Plan: Monitor electrolytes and kidney function (7) Positive blood cultures: Code(s): R78.81 - Bacteremia Status: Acute Assessment and Plan: Continue IV antibiotics. Await ID and sensitivity Subjective Date/time seen: 05/25/23 13:13 Interval history: No new complaints. Exam Const: General: cooperative, comfortable, no acute distress, well developed, alert, awake, Physically active, ill appearing, average body habitus and well nourished Nutritional Appearance: average body habitus and well nourished Orientation/consciousness: oriented to person, oriented to place, oriented to time and patient oriented x3 Limitations: no limitations HENMT: Head: normal to inspection, No palpable skull fracture present, normocephalic, atraumatic and abrasion Ears: hearing grossly normal bilaterally, external ears normal and TM's normal bilaterally Face/Nose/Sinus: Normal external nose present, Normal nares present and No nasal polyps present Mouth: Yes Normal oral and palatal mucosa present Throat: posterior oropharynx normal Eyes: General: appearance normal, both eyes and all related structures Alignment and Position: alignment normal Periorbital: periorbital findings normal Eyelids: eyelids normal Conjunctivae: conjunctivae normal Sclera: sclerae normal Cornea: corneas normal Pupils: Equal, round and reactive pupils present and Pupil accommodation reflex normal EOM: EOMs intact bilaterally Neck: Neck: normal visual inspection, full ROM, no lymphadenopathy, trachea midline and supple Thyroid: thyroid normal Carotids: normal carotid upstroke Lymphatic: no lymphadenopathy noted Chest: Chest palpation & inspection: normal inspection of the chest Resp: Effort & Inspection: normal respiratory effort Auscultation: clear to auscultation bilaterally Percussion: percussion normal Other: O2 at 3 liters currently and not usually on oxygen Cardio: Palpation: normal PMI Rate: regular rate Rhythm: regular rhythm Heart sounds: S1 normal heart sound present and S2 normal heart sound present Peripheral pulses: Peripheral pulses 2+ throughout Other: pulse 93 GI: Inspection: normal to inspection Auscultation: normal bowel sounds Rectal Exam: deferred Other: tenderness tolower abdomen : General: Yes no CVA tenderness Back/Spine/Pelvis: Back: no CVA tenderness Cervical Spine: cervical ROM normal Thoracic/Lumbar Spine: thoracic and lumbar spine normal to inspection Pelvis: no pain with anterior-posterior compression Skin: General skin exam: normal color Lesions: no lesions Rashes: no rashes Trauma: no lacerations or abrasions Wounds: no wounds Hair: normal Nails: normal Neuro: General: oriented to person, oriented to place, oriented to time and patient oriented x3
[2023-05-25] MEDS: MORPHINE SULFATE (*CRX) 4 MG/ML INJ 2 MG IV PUSH (17:17)
[2023-05-25] MEDS: SIMVASTATIN 20 MG TABLET PO (20:12)
[2023-05-26] VITALS (17 sets, daily range): BP systolic 138–149; BP diastolic 74–85; PULSE 75–97; RESP 16–18; TEMP 36.3–37.1; O2SAT 92–100; BMI 16.3
[2023-05-26] MEDS: PIPERACILLIN/TAZ 2.25G/NS 50ML 2.25 GM/50 ML BAG IVPB ×5 (00:22→23:57)
[2023-05-26] MEDS: SODIUM CHLORIDE 0.9% IV 1,000 ML 100 ML IV CONT ×2 (03:43→23:57)
[2023-05-26 09:44] LABS: Hematocrit 33.5 % (37.0-47.0); Hemoglobin 10.8 g/dL (12.0-15.0); Mean Corpuscular HGB Conc 32.2 g/dl (32-36); Mean Corpuscular Hemoglobin 31.4 pg (26-34); Mean Corpuscular Volume 97.4 fl (80-100); Mean Platelet Volume 12.2 fl (7.4-10.4); Platelet Count Result 253 k/mm3 (150-375); Red Blood Count 3.44 M/mm3 (4.2-5.4); Red Cell Distribution Width 15.4 % (11.5-14.5); White Blood Count 15.9 K/mm3 (4.5-10.0)
[2023-05-26 09:58] LABS: Anion Gap 10 mmol/L (8-16); Blood Urea Nitrogen 38 mg/dL (7-17); Calcium 8.3 mg/dL (8.4-10.2); Carbon Dioxide 18 mmol/L (22-30); Chloride 117 mmol/L (98-107); Estimated CRCL calculation 19 ml/min; Estimated Glomerular Filt Rate 43; Glucose 121 mg/dL (65-110); Potassium 3.4 mmol/L (3.4-5.0); Sodium 145 mmol/L (137-145)
[2023-05-26] MEDS: LATANOPROST 0.005% OP SOLN 2.5 ML BTL 1 DROP EACH EYE (10:20)
--- NOTE | 2023-05-26 10:30 | PC.NURSE ---
Brown, foul drainage from percutaneous drain. ARGENIS Méndez aware.
--- NOTE | 2023-05-26 13:33 | PM.PNGS ---
Progress Note: A&P Assessment and Plan (1) Colonic diverticular abscess: Code(s): K57.20 - Diverticulitis of large intestine with perforation and abscess without bleeding Status: Acute Assessment and Plan: S/p percutaneous drainage of the pelvic abscess yesterday in Radiology. Cultures pending. Slowly improving and WBC trending down to 15.9 today. Continue IV antibiotics. She is adamant about having Pepsi, so we will continue clear liquids today with the addition of Pepsi. Her albumin on admission was 2.5. Will add Ensure supplements and recheck labs tomorrow. Plan I have discussed the patient's case and plan of care with Dr. Langford. Subjective Subjective Date/Time Seen: 05/26/23 13:33 Patient reports: no new complaints, feels better, pain is less, tolerating liquids well, flatus and afebrile Interval history: Patient seen this morning and reportedly feels better again today. Abdominal pain has improved, but grout machine tender in the lower abdomen. White blood cell count down to 15,900 today. She is tolerating clear liquids. Denies any nausea or vomiting. Exam Const: General: comfortable and no acute distress GI: Inspection: other (Still mildly distended) GI Palp: Yes Soft to palpation, Yes Tenderness to palpation present (GI) (Tender across the lower abdomen), Yes Guarding due to palpation present (GI) (Voluntary guarding with palpation of the lower abdomen) and No Rebound tenderness present Auscultation: normal bowel sounds Other: Transgluteal percutaneous drain with light brown foul-smelling drainage Objective Data Vital Signs Vital Signs: Vital Signs - 24 hr 05/25/23 14:15 05/25/23 14:00 05/25/23 14:57 Temperature 97.8 F Pulse Rate 85 81 98 Respiratory Rate 22 H 26 H Blood Pressure 131/68 142/79 H Pulse Oximetry 93 100 Oxygen Delivery Nasal Cannula Oxygen Flow Rate 2 Fraction of Inspired Oxygen 05/25/23 15:10 05/25/23 15:15 05/25/23 15:20 Temperature Pulse Rate 99 99 103 H Respiratory Rate 29 H 26 H 25 H Blood Pressure 134/76 141/80 H 137/78 Pulse Oximetry 95 96 92 Oxygen Delivery Nasal Cannula Nasal Cannula Nasal Cannula Oxygen Flow Rate 2 2 2 Fraction of Inspired Oxygen 05/25/23 15:25 05/25/23 15:30 05/25/23 15:35 Temperature Pulse Rate 102 H 103 H 100 Respiratory Rate 24 H 28 H 26 H Blood Pressure 140/78 143/79 H 137/79 Pulse Oximetry 97 99 95 Oxygen Delivery Nasal Cannula Nasal Cannula Nasal Cannula Oxygen Flow Rate 2 2 2 Fraction of Inspired Oxygen 05/25/23 15:40 05/25/23 15:45 05/25/23 15:50 Temperature Pulse Rate 98 101 H 102 H Respiratory Rate 24 H 26 H 25 H Blood Pressure 134/75 138/77 136/75 Pulse Oximetry 99 99 97 Oxygen Delivery Nasal Cannula Nasal Cannula Nasal Cannula Oxygen Flow Rate 2 2 2 Fraction of Inspired Oxygen 05/25/23 15:55 05/25/23 16:00 05/25/23 16:57 Temperature 98.6 F Pulse Rate 101 H 100 92 Respiratory Rate 26 H 26 H 24 H Blood Pressure 139/80 138/78 142/71 H Pulse Oximetry 95 96 Oxygen Delivery Nasal Cannula Nasal Cannula Oxygen Flow Rate 2 2 Fraction of Inspired Oxygen 05/25/23 16:00 05/25/23 16:00 05/25/23 17:55 Temperature Pulse Rate 99 97 Respiratory Rate Blood Pressure Pulse Oximetry 96 Oxygen Delivery Nasal Cannula Oxygen Flow Rate 2 Fraction of Inspired Oxygen 05/25/23 19:53 05/25/23 20:00 05/25/23 20:00 Temperature 98.4 F Pulse Rate 100 100 99 Respiratory Rate 18 18 Blood Pressure 138/80 Pulse Oximetry 97 97 Oxygen Delivery Nasal Cannula Oxygen Flow Rate 2 Fraction of Inspired Oxygen 05/25/23 22:00 05/25/23 23:53 05/25/23 23:59 Temperature 98.5 F Pulse Rate 94 86 86 Respiratory Rate 16 16 Blood Pressure 134/70 Pulse Oximetry 95 95 Oxygen Delivery Nasal Cannula Oxygen Flow Rate 2 Fraction of Inspired Oxygen 05/26/23 00:00 05/26/23 02:00 05/26/23 04:00 Temperature 97.3 F L Pulse Rate 79 78 87 Respiratory Ra
--- NOTE | 2023-05-26 16:01 | PM.IMPN ---
Progress Note: A&P Assessment and Plan (1) Non-ST elevation ID (NSTEMI): Code(s): I21.4 - Non-ST elevation (NSTEMI) myocardial infarction Status: Acute Assessment and Plan: Takotsubo cardiomyopathy continue medical treatment per cardiology cardiology following (2) Colonic diverticular abscess: Code(s): K57.20 - Diverticulitis of large intestine with perforation and abscess without bleeding Status: Acute Assessment and Plan: perc drainage in place continue current abx f/u culture surgery on board appreciate input monitor (3) Hypertension: Code(s): I10 - Essential (primary) hypertension Status: Acute Assessment and Plan: Patient is hypotensive at this time so we will hold her olmesartan. Monitor blood pressure (4) Hyperlipidemia: Code(s): E78.5 - Hyperlipidemia, unspecified Status: Acute Assessment and Plan: continue with simvastatin (5) Macular degeneration disease: Code(s): H35.30 - Unspecified macular degeneration Status: Acute Assessment and Plan: continue with latanoprost (6) Acute renal failure: Code(s): N17.9 - Acute kidney failure, unspecified Status: Acute Assessment and Plan: improving Cr 1.4 Monitor electrolytes and kidney function (7) Positive blood cultures: Code(s): R78.81 - Bacteremia Status: Acute Assessment and Plan: E coli, pansensitive repeat blood cultures ordered continue current abx Subjective Date/time seen: 05/26/23 16:01 Interval history: s/p percu drainage yesterday awaiting culture continue current abx Review of Systems Constitutional: Constitutional: Reports as per HPI and Reports no additional constitutional complaints Eyes: Eyes: Reports as per HPI and Reports no additional eye complaints ENT: Reports system reviewed and no additional complaints, except as documented and Reports Normal hearing present Cardiovascular: Cardiovascular: Reports no additional cardiovascular complaints Respiratory: Respiratory: Reports no additional respiratory complaints and Reports no additional respiratory complaints Gastrointestinal: Gastrointestinal: Reports as per HPI Genitourinary: Genitourinary: Reports no additional female genitourinary complaints Musculoskeletal: Musculoskeletal: Reports as per HPI Integumentary/Breasts: Skin/Breast: Reports system reviewed and no additional complaints, except as docu and Reports as per HPI Neurologic: Reports system reviewed and no additional complaints, except as documented, Reports as per HPI and Reports Normal hearing present Psychiatric: Psychiatric: Reports no additional psychiatric complaints and Reports as per HPI Endocrine: Endocrine: Reports no additional endocrine complaints Hematologic/Lymphatic: Hematologic/Lymphatic: Reports no additional hematologic/lymphatic complaints Allergic/Immunologic: Allergic/Immunologic: Reports no additional allergic/immunologic complaints Exam Const: General: cooperative, comfortable, no acute distress, well developed, alert, awake, Physically active, ill appearing, average body habitus and well nourished Nutritional Appearance: average body habitus and well nourished Orientation/consciousness: oriented to person, oriented to place, oriented to time and patient oriented x3 Limitations: no limitations HENMT: Head: normal to inspection, No palpable skull fracture present, normocephalic, atraumatic and abrasion Ears: hearing grossly normal bilaterally, external ears normal and TM's normal bilaterally Face/Nose/Sinus: Normal external nose present, Normal nares present and No nasal polyps present Mouth: Yes Normal oral and palatal mucosa present Throat: posterior oropharynx normal Eyes: General: appearance normal, both eyes and all related structures Alignment and Position: alignment normal Periorbital: periorbital findings normal Eyelids: eyelids nor
[2023-05-26] MEDS: POTASSIUM CHLORIDE 20 MEQ PACKET (FOR LIQUID) PO (17:48)
--- NOTE | 2023-05-26 18:47 | PC.NURSE ---
Detailed message left Dr. Means, with impression from ankle brachial study.
[2023-05-26] MEDS: SIMVASTATIN 20 MG TABLET PO (20:05)
[2023-05-27] VITALS (13 sets, daily range): BP systolic 138–153; BP diastolic 76–94; PULSE 73–103; RESP 16–28; TEMP 36.3–36.9; O2SAT 96–100
[2023-05-27 04:29] LABS: Basophils Percent Auto 0.3 % (0.2-1.2); Eosinophils Percent Auto 0.3 % (0-4.4); Hematocrit 32.7 % (37.0-47.0); Hemoglobin 10.3 g/dL (12.0-15.0); Immature Granulocyte Absolute 0.57 K/mm3 (0.00-0.031); Immature Granulocyte Percent A 4.5 % (0-0.5); Lymphocytes Absolute Auto 0.87 K/mm3 (0.9-3.2); Lymphocytes Percent Auto 6.9 % (18.3-44.2); Mean Corpuscular HGB Conc 31.5 g/dl (32-36); Mean Corpuscular Hemoglobin 30.7 pg (26-34); Mean Corpuscular Volume 97.3 fl (80-100); Mean Platelet Volume 12.7 fl (7.4-10.4); Monocytes Absolute Auto 0.8 K/mm3 (0.1-0.6); Monocytes Percent Auto 6.1 % (2.6-8.5); Neutrophils Absolute Auto 10.3 K/mm3 (1.3-6.7); Neutrophils Percent Auto 81.9 % (45.5-73.1); Platelet Count Result 229 k/mm3 (150-375); Red Blood Count 3.36 M/mm3 (4.2-5.4); Red Cell Distribution Width 15.3 % (11.5-14.5); White Blood Count 12.6 K/mm3 (4.5-10.0)
[2023-05-27 04:38] LABS: Alanine Aminotransferase 26 U/L (6-35); Albumin Level 2.6 g/dL (3.5-5.1); Alkaline Phosphatase 123 U/L (38-126); Anion Gap 7 mmol/L (8-16); Aspartate Amino Transferase 47 U/L (14-36); Bilirubin,Total 2.2 mg/dL (0.2-1.3); Blood Urea Nitrogen 34 mg/dL (7-17); Calcium 8.4 mg/dL (8.4-10.2); Carbon Dioxide 19 mmol/L (22-30); Chloride 116 mmol/L (98-107); Estimated CRCL calculation 22 ml/min; Estimated Glomerular Filt Rate 47; Glucose 142 mg/dL (65-110); Potassium 3.7 mmol/L (3.4-5.0); Sodium 142 mmol/L (137-145)
[2023-05-27 04:43] LABS: Lactic Acid Reflex 1.6 mmol/L (0.7-2.0)
[2023-05-27] MEDS: PIPERACILLIN/TAZ 2.25G/NS 50ML 2.25 GM/50 ML BAG IVPB ×3 (07:00→17:19)
[2023-05-27] MEDS: LATANOPROST 0.005% OP SOLN 2.5 ML BTL 1 DROP EACH EYE (09:51)
--- NOTE | 2023-05-27 13:24 | PM.PNGS ---
Progress Note: A&P Assessment and Plan (1) Colonic diverticular abscess: Code(s): K57.20 - Diverticulitis of large intestine with perforation and abscess without bleeding Status: Acute Assessment and Plan: S/p percutaneous drainage of the pelvic abscess on 05/25 in Radiology. Cultures pending, gram stain shows gram neg bacilli, gram positive cocci, gram positive bacilli. Slowly improving and WBC continues to trend down. Continue IV antibiotics. Not eating much, but it seems it is due to lack of interest in the taste of the clear liquid diet options. As she is clinically improving, we will advance her to a full liquid diet and I will switch her supplements to Ensure compact TID. Discussed with the patient and her daughter to encourage small frequent meals during the day and to help encourage her to take in the supplements. Albumin is 2.6 today, continue to monitor her nutrition. Potassium was replaced yesterday and up to 3.7 today. Repeat labs tomorrow. (2) Positive blood cultures: Code(s): R78.81 - Bacteremia Status: Acute Assessment and Plan: Blood cultures 05/22 with growth of E.coli, sensitive to IV Zosyn which is continued. Repeat blood cultures on 05/26 NGTD. Continue IV antibiotics. Plan I have discussed the patient's case and plan of care with Dr. Langford. Subjective Subjective Date/Time Seen: 05/27/23 13:24 Patient reports: no new complaints, feels better, pain is less, flatus, no bowel movement (last BM was 2 days ago) and afebrile Interval history: Patient seen with her daughter at the bedside. She is sleeping and appears comfortable, but is easily aroused. She reports only very mild lower abdominal pain that is still improving. She is sprinkler tender in the lower abdomen. Denies any pain near the transgluteal perc drain. She is not taking in much clear liquids as she does not like the taste. She states everything is so sweet. Denies nausea or vomiting. Exam Const: General: comfortable and no acute distress GI: Inspection: other (Still mildly distended) GI Palp: Yes Soft to palpation, Yes Tenderness to palpation present (GI) (lower abdominal tenderness), Yes Guarding due to palpation present (GI) (voluntary guarding across the lower abdomen) and No Rebound tenderness present Auscultation: normal bowel sounds Other: Transgluteal percutaneous drain with light brown foul-smelling drainage Objective Data Vital Signs Vital Signs: Vital Signs - 24 hr 05/26/23 14:00 05/26/23 15:18 05/26/23 16:00 Temperature 98.4 F Pulse Rate 76 82 75 Respiratory Rate 16 Blood Pressure 147/77 H Pulse Oximetry 97 Oxygen Delivery Oxygen Flow Rate 05/26/23 18:00 05/26/23 16:00 05/26/23 19:42 Temperature 97.9 F Pulse Rate 92 94 Respiratory Rate 18 Blood Pressure 143/85 H Pulse Oximetry 98 100 Oxygen Delivery Nasal Cannula Oxygen Flow Rate 2 05/26/23 20:00 05/26/23 20:00 05/26/23 22:00 Temperature Pulse Rate 93 97 Respiratory Rate Blood Pressure Pulse Oximetry 97 Oxygen Delivery Nasal Cannula Oxygen Flow Rate 2 05/26/23 23:37 05/27/23 00:00 05/27/23 00:00 Temperature 98.3 F Pulse Rate 85 98 Respiratory Rate 18 Blood Pressure 149/83 H Pulse Oximetry 96 97 Oxygen Delivery Nasal Cannula Oxygen Flow Rate 2 05/27/23 04:00 05/27/23 02:00 05/27/23 04:00 Temperature 98.4 F Pulse Rate 103 H 89 73 Respiratory Rate 18 Blood Pressure 146/86 H Pulse Oximetry 96 Oxygen Delivery Oxygen Flow Rate 05/27/23 04:00 05/27/23 05:58 05/27/23 08:00 Temperature 97.4 F L Pulse Rate 98 95 Respiratory Rate 24 H Blood Pressure 153/94 H Pulse Oximetry 97 96 Oxygen Delivery Nasal Cannula Oxygen Flow Rate 2 05/27/23 12:00 Temperature 98.1 F Pulse Rate 89 Respiratory Rate 28 H Blood Pressure 151/91 H Pulse Oximetry 97 Oxygen Delivery Oxygen Flow Rate Intake/Output Intake/Output: Intake & Outpu
--- NOTE | 2023-05-27 15:20 | PM.IMPN ---
Progress Note: A&P Assessment and Plan (1) Non-ST elevation [place] (NSTEMI): Code(s): I21.4 - Non-ST elevation (NSTEMI) myocardial infarction Status: Acute Assessment and Plan: Takotsubo cardiomyopathy continue medical treatment per cardiology cardiology following (2) Colonic diverticular abscess: Code(s): K57.20 - Diverticulitis of large intestine with perforation and abscess without bleeding Status: Acute Assessment and Plan: perc drainage in place continue current abx f/u culture advance diet per surgery surgery on board appreciate input monitor (3) Hypertension: Code(s): I10 - Essential (primary) hypertension Status: Acute Assessment and Plan: titrate home meds with clinical course (4) Hyperlipidemia: Code(s): E78.5 - Hyperlipidemia, unspecified Status: Acute Assessment and Plan: continue with simvastatin (5) Macular degeneration disease: Code(s): H35.30 - Unspecified macular degeneration Status: Acute Assessment and Plan: continue with latanoprost (6) Acute renal failure: Code(s): N17.9 - Acute kidney failure, unspecified Status: Acute Assessment and Plan: improving Cr 1.4-->1.3 Monitor electrolytes and kidney function (7) Positive blood cultures: Code(s): R78.81 - Bacteremia Status: Acute Assessment and Plan: E coli, pansensitive repeat blood cultures ordered continue current abx Subjective Date/time seen: 05/27/23 15:20 Interval history: s/p percu drainage yesterday awaiting culture continue current abx Patient noted mild improvement surgery advancing diet Review of Systems Constitutional: Constitutional: Reports as per HPI and Reports no additional constitutional complaints Eyes: Eyes: Reports as per HPI and Reports no additional eye complaints ENT: Reports system reviewed and no additional complaints, except as documented and Reports Normal hearing present Cardiovascular: Cardiovascular: Reports no additional cardiovascular complaints Respiratory: Respiratory: Reports no additional respiratory complaints and Reports no additional respiratory complaints Gastrointestinal: Gastrointestinal: Reports as per HPI Genitourinary: Genitourinary: Reports no additional female genitourinary complaints Musculoskeletal: Musculoskeletal: Reports as per HPI Integumentary/Breasts: Skin/Breast: Reports system reviewed and no additional complaints, except as docu and Reports as per HPI Neurologic: Reports system reviewed and no additional complaints, except as documented, Reports as per HPI and Reports Normal hearing present Psychiatric: Psychiatric: Reports no additional psychiatric complaints and Reports as per HPI Endocrine: Endocrine: Reports no additional endocrine complaints Hematologic/Lymphatic: Hematologic/Lymphatic: Reports no additional hematologic/lymphatic complaints Allergic/Immunologic: Allergic/Immunologic: Reports no additional allergic/immunologic complaints Exam Const: General: cooperative, comfortable, no acute distress, well developed, alert, awake, Physically active, ill appearing, average body habitus and well nourished Nutritional Appearance: average body habitus and well nourished Orientation/consciousness: oriented to person, oriented to place, oriented to time and patient oriented x3 Limitations: no limitations HENMT: Head: normal to inspection, No palpable skull fracture present, normocephalic, atraumatic and abrasion Ears: hearing grossly normal bilaterally, external ears normal and TM's normal bilaterally Face/Nose/Sinus: Normal external nose present, Normal nares present and No nasal polyps present Mouth: Yes Normal oral and palatal mucosa present Throat: posterior oropharynx normal Eyes: General: appearance normal, both eyes and all related structures Alignment and Position: alignment normal Periorbital: periorbital
[2023-05-27] MEDS: SIMVASTATIN 20 MG TABLET PO (20:29)
[2023-05-28] VITALS (13 sets, daily range): BP systolic 133–149; BP diastolic 68–85; PULSE 77–100; RESP 16–20; TEMP 36.7–36.9; O2SAT 95–100
[2023-05-28] MEDS: PIPERACILLIN/TAZ 2.25G/NS 50ML 2.25 GM/50 ML BAG IVPB (00:25)
[2023-05-28] MEDS: ACETAMINOPHEN 325 MG TABLET 650 MG PO (03:45)
[2023-05-28 04:44] LABS: Basophils Percent Auto 0.3 % (0.2-1.2); Eosinophils Absolute Auto 0.1 K/mm3 (0-0.3); Eosinophils Percent Auto 0.5 % (0-4.4); Hematocrit 33.7 % (37.0-47.0); Hemoglobin 10.8 g/dL (12.0-15.0); Immature Granulocyte Absolute 0.29 K/mm3 (0.00-0.031); Immature Granulocyte Percent A 3.1 % (0-0.5); Immature Platelet Fraction Pct 6.2 % (0.9-11.2); Lymphocytes Absolute Auto 1.12 K/mm3 (0.9-3.2); Lymphocytes Percent Auto 12.1 % (18.3-44.2); Mean Corpuscular Hemoglobin 31.3 pg (26-34); Mean Corpuscular Volume 97.7 fl (80-100); Mean Platelet Volume 12.9 fl (7.4-10.4); Monocytes Absolute Auto 0.8 K/mm3 (0.1-0.6); Monocytes Percent Auto 8.4 % (2.6-8.5); Neutrophils Percent Auto 75.6 % (45.5-73.1); Platelet Count Result 236 k/mm3 (150-375); Red Blood Count 3.45 M/mm3 (4.2-5.4); Red Cell Distribution Width 15.2 % (11.5-14.5); White Blood Count 9.3 K/mm3 (4.5-10.0)
[2023-05-28] MEDS: SODIUM CHLORIDE 0.9% IV 1,000 ML 100 ML IV CONT (04:50)
[2023-05-28 05:00] LABS: Lactic Acid Reflex 1.3 mmol/L (0.7-2.0)
[2023-05-28 05:02] LABS: Alanine Aminotransferase 25 U/L (6-35); Albumin Level 2.8 g/dL (3.5-5.1); Alkaline Phosphatase 105 U/L (38-126); Anion Gap 7 mmol/L (8-16); Aspartate Amino Transferase 36 U/L (14-36); Blood Urea Nitrogen 29 mg/dL (7-17); Calcium 8.7 mg/dL (8.4-10.2); Carbon Dioxide 20 mmol/L (22-30); Chloride 115 mmol/L (98-107); Estimated CRCL calculation 3 ml/min; Estimated Glomerular Filt Rate 57; Glucose 135 mg/dL (65-110); Potassium 3.9 mmol/L (3.4-5.0); Sodium 142 mmol/L (137-145)
[2023-05-28 08:30] LABS: Iron 80 ug/dL (37-170)
[2023-05-28 08:41] LABS: Percent Iron Saturation 45 % (20-50)
[2023-05-28] MEDS: LATANOPROST 0.005% OP SOLN 2.5 ML BTL 1 DROP EACH EYE (09:15)
--- NOTE | 2023-05-28 10:16 | PCPTNOTE ---
Patient refused therapy at this time stating she was too tired . Patient was educated on the benefits of therapy however continued to refuse treatment at this time.
--- NOTE | 2023-05-28 11:04 | PCNFU ---
Nutrition Follow-Up Complete: Severe protein calorie malnutrition related to chronic loss of appetite and acute altered GI function as evidenced by NFPE findings of severe muscle wasting and fat loss. Goal:Improve PO intake to at least 50% meals and supplements Maintain current weight Pt not meeting goal, continue with same goals. Pt current nutrition is Full liquids, just recently advanced, Ensure compact TID with meals. Nutrition recommendation: encourage po intake Last recorded weight is 51 kg. Bowel Motility:No BM recorded at this time Labs Reviewed: Hgb:10.8, HCT:33.7, Alb:2.8, GFR:57, BUN:29, Cr:1.1, Glu:135 Meds Noted: zofran Skin: no pressure injuries noted Additional Notes: Pt diet just recently upgraded to full liquids, intake minimal. Daughter encouraging po intake, encouraged supplements first. Monitoring intakes, weights, labs, diet tolerance, plan of care Follow up in 3 days
--- NOTE | 2023-05-28 11:17 | PM.PNCARD ---
Progress Note: A&P Assessment and Plan (1) Non-ST elevation [place] (NSTEMI): Code(s): I21.4 - Non-ST elevation (NSTEMI) myocardial infarction Status: Acute Assessment and Plan: Evidence of probably a completed infarct with Q waves in the anterior and inferior leads on ECG and troponin elevation to 17.5. Because of her late presentation, age, frailty, and comorbidities, will continue with conservative medical management. 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 Monitor renal function and BP closely. Outpatient follow up Cardiology will sign off please call with any questions. Subjective Date/time seen: 05/28/23 11:17 Interval history: Cardiology follow up for DIANA Feels okay today. Denies any chest pain, shortness of breath. Seems depressed. Review of Systems Constitutional: Constitutional: Reports fatigue Eyes: Eyes: Reports no additional eye complaints ENT: Reports system reviewed and no additional complaints, except as documented Cardiovascular: Cardiovascular: Reports as per HPI Respiratory: Respiratory: Reports no additional respiratory complaints Gastrointestinal: Gastrointestinal: Reports as per HPI Musculoskeletal: Musculoskeletal: Reports no additional musculoskeletal complaints Integumentary/Breasts: Skin/Breast: Reports system reviewed and no additional complaints, except as docu Neurologic: Reports system reviewed and no additional complaints, except as documented Endocrine: Endocrine: Reports no additional endocrine complaints and Reports fatigue Hematologic/Lymphatic: Hematologic/Lymphatic: Reports no additional hematologic/lymphatic complaints Allergic/Immunologic: Allergic/Immunologic: Reports no additional allergic/immunologic complaints Exam Const: General: comfortable and no acute distress Other: Pleasant frail elderly lady no distress of any kind HENMT: Mouth: Yes moist mucous membranes Eyes: Sclera: sclerae normal Neck: Neck: supple and no JVD Other: Carotid pulses are intact there are no audible bruits Resp: Effort & Inspection: normal respiratory effort Auscultation: clear to auscultation bilaterally Cardio: Rate: regular rate Rhythm: regular rhythm Other: The PMI is not displaced there is currently no murmur or gallop GI: Auscultation: normal bowel sounds Skin: General skin exam: normal color Neuro: Other: Alert and oriented x3 Extrem: General: normal to inspection Other: No edema Objective Data Vital Signs Vital Signs: Vital Signs - 24 hr 05/27/23 12:00 05/27/23 12:00 05/27/23 14:50 Temperature 36.7 C Pulse Rate 89 Respiratory Rate 28 H Blood Pressure 151/91 H Pulse Oximetry 97 97 Oxygen Delivery Nasal Cannula Nasal Cannula Oxygen Flow Rate 2 2 Fraction of Inspired Oxygen 05/27/23 12:00 05/27/23 14:00 05/27/23 13:01 Temperature Pulse Rate 95 102 H Respiratory Rate Blood Pressure Pulse Oximetry Oxygen Delivery Nasal Cannula Oxygen Flow Rate 2 Fraction of Inspired Oxygen 05/27/23 16:00 05/27/23 16:00 05/27/23 16:00 Temperature 36.8 C Pulse Rate 95 94 Respiratory Rate 24 H Blood Pressure 149/89 H Pulse Oximetry 100 100 Oxygen Delivery Nasal Cannula Oxygen Flow Rate 2 Fraction of Inspired Oxygen 05/27/23 18:00 05/27/23 20:00 05/27/23 20:00 Temperature 36.6 C Pulse Rate 95 93 90 Respiratory Rate 16 Blood Pressure 148/82 H Pulse Oximetry 100 Oxygen Delivery Oxygen Flow Rate Fraction of Inspired Oxygen 05/27/23 20:00 05/27/23 22:00 05/27/23 23:59 Temperature 36.6 C Pulse Rate 78 76 Respiratory Rate 18 Blood Pressure 138/76 Pulse Oximetry 98 100 Oxygen Delivery Nasal Cannula Oxygen Flow Rate 2 Fraction of Inspired Oxygen 05/28/23 0
--- NOTE | 2023-05-28 12:16 | PM.PNGS ---
Progress Note: A&P Assessment and Plan (1) Colonic diverticular abscess: Code(s): K57.20 - Diverticulitis of large intestine with perforation and abscess without bleeding Status: Acute Assessment and Plan: Patient had ruptured diverticulitis with formation of pelvic abscess. CT-guided percutaneous drain has been placed and the output appears to be feculent. However her white blood count is decreased to normal now and her pain is much improved. I suspect that she probably has a contained perforation at this point but is not completely closed off. Like to get a repeat CT scan abdomen pelvis tomorrow with IV, oral, and rectal contrast. If there is extravasation of dye from the sigmoid colon then the drain will need to stay in place for an extended period and she will likely developed a colocutaneous fistula. Continue IV antibiotics. PICC line is being placed in anticipation of an extended period of IV antibiotics and perhaps even need for parental alimentation for nutrition. She overall as a poor surgical candidate at this time due to her recent myocardial infarction. Subjective Subjective Date/Time Seen: 05/28/23 12:16 Interval history: Patient is doing better. Does not have a huge appetite but has been tolerating some full liquids and Ensure compact. She did have a bowel movement yesterday. The pelvic drain is still feculent. White blood cell count is decreased and she has much less to no abdominal pain now. Peripheral IVs have blown and so plan is to place a PICC line for continued IV antibiotics. Exam GI: Other: Abdomen is soft and nondistended. Minimal tenderness to palpation in the suprapubic and lower abdominal regions. Transgluteal drain still in place with output appearing feculent. Objective Data Vital Signs Vital Signs: Vital Signs - 24 hr 05/27/23 14:50 05/27/23 14:00 05/27/23 13:01 Temperature Pulse Rate 102 H Respiratory Rate Blood Pressure Pulse Oximetry Oxygen Delivery Nasal Cannula Nasal Cannula Oxygen Flow Rate 2 2 Fraction of Inspired Oxygen 05/27/23 16:00 05/27/23 16:00 05/27/23 16:00 Temperature 36.8 C Pulse Rate 95 94 Respiratory Rate 24 H Blood Pressure 149/89 H Pulse Oximetry 100 100 Oxygen Delivery Nasal Cannula Oxygen Flow Rate 2 Fraction of Inspired Oxygen 05/27/23 18:00 05/27/23 20:00 05/27/23 20:00 Temperature 36.6 C Pulse Rate 95 93 90 Respiratory Rate 16 Blood Pressure 148/82 H Pulse Oximetry 100 Oxygen Delivery Oxygen Flow Rate Fraction of Inspired Oxygen 05/27/23 20:00 05/27/23 22:00 05/27/23 23:59 Temperature 36.6 C Pulse Rate 78 76 Respiratory Rate 18 Blood Pressure 138/76 Pulse Oximetry 98 100 Oxygen Delivery Nasal Cannula Oxygen Flow Rate 2 Fraction of Inspired Oxygen 05/28/23 00:00 05/28/23 00:00 05/28/23 02:00 Temperature Pulse Rate 82 78 Respiratory Rate Blood Pressure Pulse Oximetry 98 Oxygen Delivery Nasal Cannula Oxygen Flow Rate 2 Fraction of Inspired Oxygen 05/28/23 03:38 05/28/23 03:52 05/28/23 03:52 Temperature 36.9 C Pulse Rate 87 84 Respiratory Rate 16 Blood Pressure 149/81 H Pulse Oximetry 100 97 Oxygen Delivery Nasal Cannula Oxygen Flow Rate 2 Fraction of Inspired Oxygen 05/28/23 06:00 05/28/23 08:00 05/28/23 08:46 Temperature 36.7 C Pulse Rate 84 85 Respiratory Rate 20 Blood Pressure 133/68 Pulse Oximetry 100 99 Oxygen Delivery Nasal Cannula Oxygen Flow Rate 2 Fraction of Inspired Oxygen 28 05/28/23 08:59 05/28/23 08:00 05/28/23 11:43 Temperature 36.7 C Pulse Rate 83 91 Respiratory Rate 20 16 Blood Pressure 144/81 H Pulse Oximetry 97 98 Oxygen Delivery Room Air Room Air Oxygen Flow Rate Fraction of Inspired Oxygen 21 Intake/Output Intake/Output: Intake & Output 05/25/23 05/26/23 05/27/23 05/28/23 23:59 23:59 23:59 23:59 Intake Total 2812 1
[2023-05-28] MEDS: LIDOCAINE HCL 1% PF INJ 5 ML VIAL INFILTRATE (13:00)
--- NOTE | 2023-05-28 13:16 | PM.IMPN ---
Progress Note: A&P Assessment and Plan (1) Non-ST elevation GA (NSTEMI): Code(s): I21.4 - Non-ST elevation (NSTEMI) myocardial infarction Status: Acute Assessment and Plan: Takotsubo cardiomyopathy appearance on Echo continue medical treatment per cardiology Cardiology following--they plan low dose RUFUS and Beta Humera (2) Colonic diverticular abscess: Code(s): K57.20 - Diverticulitis of large intestine with perforation and abscess without bleeding Status: Acute Assessment and Plan: perc drainage in place continue current abx f/u culture advance diet per surgery surgery on board appreciate input monitor 05/28: Antibiotics changed based on abscess culture/sensitivity, perc drain remains in place, CT abd/pelvis with IV, oral and rectal contrast ordered for Wednesday, poor dietary intake but improving some. (3) Hypertension: Code(s): I10 - Essential (primary) hypertension Status: Acute Assessment and Plan: titrate home meds with clinical course Blood pressure reviewed 05/28 (4) Hyperlipidemia: Code(s): E78.5 - Hyperlipidemia, unspecified Status: Acute Assessment and Plan: continue with simvastatin (5) Macular degeneration disease: Code(s): H35.30 - Unspecified macular degeneration Status: Acute Assessment and Plan: continue with latanoprost (6) Acute renal failure: Code(s): N17.9 - Acute kidney failure, unspecified Status: Acute Assessment and Plan: improving Cr 1.4-->1.3-->1.1 Monitor electrolytes and kidney function (7) Positive blood cultures: Code(s): R78.81 - Bacteremia Status: Acute Assessment and Plan: E coli, pansensitive repeat blood cultures ordered continue current abx 05/28: Repeat cultures negative for 48 hours, PICC line placed. Antibiotics changed to Rocephin based on bloodstream and abscess culture results. Will coordinate with Surgery to determine length of antibiotic treatment Plan Downgrade to Med/Surg as patient is stable PICC line ok to use Time Spent With Patient Time with patient: Greater than 35 minutes Subjective Date/time seen: 05/28/23 13:45 Interval history: Patient on full liquid diet with insufficient intake but she is drinking Ensure and some Pepsi. No nausea/vomiting. Patient denies fever, chills or resting abdominal pain. She does note some left abdomen tenderness to palpation. BM yesterday. Perc tube draining feculent material, culture growing Bacteroides fragilis and E. Coli. Patient transitioned to Rocephin daily IV and Flagyl PO Q8H. Dr. Langford aware of cultures, poor intake and change in antibiotics. Patient denies chest pain or dyspnea. Vital signs stable. Will downgrade patient to Med/Surg. Family aware of plans and in agreement. Double lumen PICC placed today for continuous churn buttermaker antibiotics and in case TPN is needed. Patient tolerated procedure but reports being worn out afterwards. Review of Systems Review of Systems: All systems reviewed & are unremarkable except as noted in HPI and below Objective Data Vital Signs Vital Signs: Vital Signs - 24 hr 05/27/23 14:50 05/27/23 14:00 05/27/23 16:00 Temperature 36.8 C Pulse Rate 102 H 95 Respiratory Rate 24 H Blood Pressure 149/89 H Pulse Oximetry 100 Oxygen Delivery Nasal Cannula Oxygen Flow Rate 2 Fraction of Inspired Oxygen 05/27/23 16:00 05/27/23 16:00 05/27/23 18:00 Temperature Pulse Rate 94 95 Respiratory Rate Blood Pressure Pulse Oximetry 100 Oxygen Delivery Nasal Cannula Oxygen Flow Rate 2 Fraction of Inspired Oxygen 05/27/23 20:00 05/27/23 20:00 05/27/23 20:00 Temperature 36.6 C Pulse Rate 93 90 Respiratory Rate 16 Blood Pressure 148/82 H Pulse Oximetry 100 98 Oxygen Delivery Nasal Cannula Oxygen Flow Rate 2 Fraction of Inspired Oxygen 05/27/23 22:00 05/27/23 23:59 05/28/23 00:00
[2023-05-28] MEDS: metroNIDAZOLE 250 MG TABLET 500 MG PO ×2 (13:46→21:37)
[2023-05-28] MEDS: CENTRAL LINE FLUSH 10 ML IV PUSH ×3 (13:47→22:00)
[2023-05-28] MEDS: cefTRIAXone 2 GM/NS 100 ML 2 GM/100 ML BAG IVPB (13:47)
--- NOTE | 2023-05-28 15:58 | PC.NURSE ---
Patient pulled IV out in the morning, got an order for a PICC line. Waiting for PICC line to be placed.
--- NOTE | 2023-05-28 18:44 | PC.NURSE ---
1729 faxed sbar to [address] [place] [address], called to give report at 1808, nurse in a patients room was told she would call back, 1840 called back after no phone call spoke to Mo who stated the nurse requested bedside report.
--- NOTE | 2023-05-28 18:47 | PC.NURSE ---
This patient, Promise English, was transferred to [[address] [place] [address] ] on 05/28/23 at 1848. Personal belongings sent with patient. Report given to [nurse at bedside ]. Appropriate documentation sent with patient.
[2023-05-28] MEDS: SIMVASTATIN 20 MG TABLET PO (21:37)
[2023-05-29] VITALS: BP 151/87; PULSE 94; RESP 20; TEMP 37.6; O2SAT 97
[2023-05-29] MEDS: metroNIDAZOLE 250 MG TABLET 500 MG PO ×3 (06:18→21:36)
[2023-05-29] MEDS: SODIUM CHLORIDE 0.9% IV 1,000 ML 100 ML IV CONT (06:25)
[2023-05-29] MEDS: CENTRAL LINE FLUSH 10 ML IV PUSH ×6 (06:56→21:41)
[2023-05-29 06:57] VITALS: BP 141/78; PULSE 87; RESP 28; TEMP 35.9; O2SAT 96
[2023-05-29] MEDS: cefTRIAXone 2 GM/NS 100 ML 2 GM/100 ML BAG IVPB (09:10)
[2023-05-29 09:12] VITALS: PULSE 92
[2023-05-29] MEDS: METOPROLOL SUCCINATE EXT REL 12.5 MG TABCR PO (09:12)
[2023-05-29] MEDS: lisinopriL 5 MG TABLET PO (09:15)
[2023-05-29] MEDS: LATANOPROST 0.005% OP SOLN 2.5 ML BTL 1 DROP EACH EYE (09:18)
[2023-05-29 09:24] LABS: Basophils Percent Auto 0.3 % (0.2-1.2); Eosinophils Percent Auto 0.2 % (0-4.4); Hematocrit 31.6 % (37.0-47.0); Hemoglobin 10.1 g/dL (12.0-15.0); Immature Granulocyte Absolute 0.14 K/mm3 (0.00-0.031); Immature Granulocyte Percent A 1.1 % (0-0.5); Lymphocytes Absolute Auto 1.04 K/mm3 (0.9-3.2); Lymphocytes Percent Auto 8.4 % (18.3-44.2); Mean Corpuscular Hemoglobin 30.9 pg (26-34); Mean Corpuscular Volume 96.6 fl (80-100); Mean Platelet Volume 12.7 fl (7.4-10.4); Monocytes Absolute Auto 0.8 K/mm3 (0.1-0.6); Monocytes Percent Auto 6.4 % (2.6-8.5); Neutrophils Absolute Auto 10.4 K/mm3 (1.3-6.7); Neutrophils Percent Auto 83.6 % (45.5-73.1); Platelet Count Result 211 k/mm3 (150-375); Red Blood Count 3.27 M/mm3 (4.2-5.4); Red Cell Distribution Width 14.9 % (11.5-14.5); White Blood Count 12.4 K/mm3 (4.5-10.0)
[2023-05-29 09:42] LABS: Alanine Aminotransferase 20 U/L (6-35); Albumin Level 2.3 g/dL (3.5-5.1); Alkaline Phosphatase 91 U/L (38-126); Anion Gap 6 mmol/L (8-16); Aspartate Amino Transferase 26 U/L (14-36); Bilirubin,Total 1.1 mg/dL (0.2-1.3); Blood Urea Nitrogen 22 mg/dL (7-17); Calcium 8.2 mg/dL (8.4-10.2); Carbon Dioxide 19 mmol/L (22-30); Chloride 114 mmol/L (98-107); Estimated CRCL calculation 38 ml/min; Estimated Glomerular Filt Rate > 60; Glucose 123 mg/dL (65-110); Potassium 3.2 mmol/L (3.4-5.0); Sodium 139 mmol/L (137-145)
--- NOTE | 2023-05-29 10:11 | PM.IMPN ---
Progress Note: A&P Assessment and Plan (1) Non-ST elevation PR (NSTEMI): Code(s): I21.4 - Non-ST elevation (NSTEMI) myocardial infarction Status: Acute Assessment and Plan: Takotsubo cardiomyopathy appearance on Echo continue medical treatment per cardiology Cardiology following--they plan low dose RUFUS and Beta Humera (2) Colonic diverticular abscess: Code(s): K57.20 - Diverticulitis of large intestine with perforation and abscess without bleeding Status: Acute Assessment and Plan: perc drainage in place continue current abx f/u culture advance diet per surgery surgery on board appreciate input monitor 05/28: Antibiotics changed based on abscess culture/sensitivity, perc drain remains in place, CT abd/pelvis with IV, oral and rectal contrast ordered for Wednesday, poor dietary intake but improving some. (3) Hypertension: Code(s): I10 - Essential (primary) hypertension Status: Acute Assessment and Plan: titrate home meds with clinical course Blood pressure reviewed 05/29 (4) Hyperlipidemia: Code(s): E78.5 - Hyperlipidemia, unspecified Status: Acute Assessment and Plan: continue with simvastatin (5) Macular degeneration disease: Code(s): H35.30 - Unspecified macular degeneration Status: Acute Assessment and Plan: continue with latanoprost (6) Acute renal failure: Code(s): N17.9 - Acute kidney failure, unspecified Status: Acute Assessment and Plan: improving Cr 1.4-->1.3-->1.1-->0.9 Monitor electrolytes and kidney function (7) Positive blood cultures: Code(s): R78.81 - Bacteremia Status: Acute Assessment and Plan: E coli, pansensitive repeat blood cultures ordered continue current abx 05/28: Repeat cultures negative for 48 hours, PICC line placed. Antibiotics changed to Rocephin based on bloodstream and abscess culture results. Will coordinate with Surgery to determine length of antibiotic treatment (8) Pulmonary edema cardiac cause: Code(s): I50.1 - Left ventricular failure, unspecified Status: Acute Assessment and Plan: Takasobu Cardiomyopathy pattern on Echo ProBNP 765 on admit, >30,000 on 05/29 with CXR showing pulmonary edema and B-lines Stopped IV fluids, IV Lasix one time ordered Patient on supplemental oxygen for 88% room air sats Plan Stop IV fluids Oxygen PRN IV Lasix for pulmonary edema Time Spent With Patient Time with patient: Greater than 35 minutes Subjective Date/time seen: 05/29/23 10:11 Interval history: 05/28: Patient on full liquid diet with insufficient intake but she is drinking Ensure and some Pepsi. No nausea/vomiting. Patient denies fever, chills or resting abdominal pain. She does note some left abdomen tenderness to palpation. BM yesterday. Perc tube draining feculent material, culture growing Bacteroides fragilis and E. Coli. Patient transitioned to Rocephin daily IV and Flagyl PO Q8H. Dr. Langford aware of cultures, poor intake and change in antibiotics. Patient denies chest pain or dyspnea. Vital signs stable. Will downgrade patient to Med/Surg. Family aware of plans and in agreement. Double lumen PICC placed today for mcfp antibiotics and in case TPN is needed. Patient tolerated procedure but reports being worn out afterwards. 05/29: This morning patient is short of breath with 88% saturation, mild tachypnea and mild labored respirations. Diminished lung sounds on auscultation. Expected atelectasis but CXR showed pulmonary edema/congestive pattern. ProBNP >30,000. IV fluids stopped. IV Lasix ordered. Potassium replaced via IV. Decreased drainage from perc drain. No fevers, chills, nausea, vomiting or other concerning symptoms. Review of Systems Review of Systems: All systems reviewed & are unremarkable except as noted in HPI and below Exam Narrative: GENERAL: Moderately ill-appearing alert
[2023-05-29] MEDS: KCL 40 MEQ/WATER 100 ML 100 ML 25 ML IVPB (10:21)
[2023-05-29 12:26] LABS: NT Pro B Type Natriuretic Pept > 30000 pg/mL (19.9-100)
[2023-05-29 13:33] VITALS: O2SAT 95
[2023-05-29 14:00] VITALS: BP 148/84; PULSE 92; RESP 26; TEMP 36.2; O2SAT 94
[2023-05-29] MEDS: FUROSEMIDE INJ 40 MG/4 ML VIAL IV PUSH (14:55)
--- NOTE | 2023-05-29 15:05 | PM.PNGS ---
Progress Note: A&P Assessment and Plan (1) Colonic diverticular abscess: Code(s): K57.20 - Diverticulitis of large intestine with perforation and abscess without bleeding Status: Acute Assessment and Plan: Diverticulitis with pelvic abscess. Drained but drainage appears feculent. Normally this would necessitate resection and probably colostomy but surgical risks are extremely high in the face of recent OK and congestive heart failure. Continue to manage with IV antibiotics and pigtail catheter drain. Patient had PICC line placed yesterday and is scheduled for a repeat CT scan on Wednesday. Continue full liquid diet for now (2) Non-ST elevation OK (NSTEMI): Code(s): I21.4 - Non-ST elevation (NSTEMI) myocardial infarction Status: Acute Assessment and Plan: Being managed conservatively per cardiology. On beta-griffin and lisinopril. (3) Pulmonary edema cardiac cause: Code(s): I50.1 - Left ventricular failure, unspecified Status: Acute Assessment and Plan: BNP over 30,000 today. Received a dose of Lasix. (4) Positive blood cultures: Code(s): R78.81 - Bacteremia Status: Acute Assessment and Plan: On admission, showed E coli sensitive to all. Abscess drain showed E coli and Bacteroides. Subjective Subjective Date/Time Seen: 05/29/23 15:05 Patient reports: bowel movement, afebrile and other (Having some back pain.) Review of Systems Review of Systems: All systems reviewed & are unremarkable except as noted in HPI and below (HPI and those items noted below) Constitutional: Constitutional: Denies chills and Denies fever(s) Cardiovascular: Cardiovascular: Denies chest pain, Denies diaphoresis, Denies dyspnea and Denies paroxysmal nocturnal dyspnea Respiratory: Respiratory: Denies chest congestion, Denies cough and Denies dyspnea Integumentary/Breasts: Skin/Breast: Denies lesions and Denies rash Exam Const: General: comfortable, no acute distress, awake, lethargic and thin GI: Inspection: non-distended, no visible herniation and other (Pigtail drain per left buttocks shows feculent drainage. 75 cc yesterday) GI Palp: Yes Soft to palpation, No Tenderness to palpation present (GI), No Guarding due to palpation present (GI) and No Rebound tenderness present Auscultation: normal bowel sounds Skin: Lesions: no lesions Rashes: no rashes Neuro: General: no focal motor deficits Cranial nerves: Yes facial symmetry, Yes Midline tongue present and No Nystagmus present Speech: normal speech Gait exam (Neuro): Unable to assess gait Extrem: General: no calf tenderness and no edema Psych: Appearance: grossly normal Affect: normal affect Insight: Fair insight present (Psych) Judgement: Fair judgement present (Psych) Objective Data Vital Signs Vital Signs: Vital Signs - 24 hr 05/28/23 15:27 05/29/23 00:00 05/29/23 06:57 Temperature 36.9 C 37.6 C H 35.9 C L Pulse Rate 95 94 87 Respiratory Rate 16 20 28 H Blood Pressure 145/85 H 151/87 H 141/78 H Pulse Oximetry 95 97 96 Oxygen Delivery Fraction of Inspired Oxygen 05/29/23 09:12 05/29/23 09:10 05/29/23 13:33 Temperature Pulse Rate 92 Respiratory Rate Blood Pressure Pulse Oximetry 95 Oxygen Delivery Room Air Room Air Fraction of Inspired Oxygen 21 05/29/23 14:00 Temperature 36.2 C L Pulse Rate 92 Respiratory Rate 26 H Blood Pressure 148/84 H Pulse Oximetry 94 Oxygen Delivery Fraction of Inspired Oxygen Intake/Output Intake/Output: Intake & Output 05/26/23 05/27/23 05/28/23 05/29/23 23:59 23:59 23:59 23:59 Intake Total 1325 1440 1320 1100 Output Total 730 350 475 400 Balance 595 1090 845 700 Meds/Results Medications: Active Medications Generic Name Dose Route Start Last Admin Trade Name Freq PRN Reason Stop Dose Admin Acetaminophen 650 mg 05/26/23 13:36 05/28/23 03:45 Acetaminophen 325 Mg Tablet PO 650 mg Q4H PRN Administ
--- NOTE | 2023-05-29 16:22 | PCPTNOTE ---
Patient completing exercises with OT when I entered room this afternoon. Patient refused to participate in bed mobility, transfers, and gait.
[2023-05-29] MEDS: SIMVASTATIN 20 MG TABLET PO (21:37)
[2023-05-29 22:00] VITALS: BP 148/90; PULSE 95; RESP 18; TEMP 36; O2SAT 92
[2023-05-30 06:00] VITALS: BP 140/84; PULSE 82; RESP 20; TEMP 36.8; O2SAT 100
[2023-05-30] MEDS: metroNIDAZOLE 250 MG TABLET 500 MG PO (06:10)
[2023-05-30] MEDS: CENTRAL LINE FLUSH 10 ML IV PUSH ×4 (06:10→22:02)
[2023-05-30 06:44] LABS: Basophils Percent Auto 0.3 % (0.2-1.2); Eosinophils Absolute Auto 0.1 K/mm3 (0-0.3); Eosinophils Percent Auto 0.5 % (0-4.4); Hematocrit 31.7 % (37.0-47.0); Hemoglobin 9.8 g/dL (12.0-15.0); Immature Granulocyte Percent A 0.8 % (0-0.5); Lymphocytes Absolute Auto 1.28 K/mm3 (0.9-3.2); Lymphocytes Percent Auto 9.7 % (18.3-44.2); Mean Corpuscular HGB Conc 30.9 g/dl (32-36); Mean Corpuscular Volume 100.3 fl (80-100); Monocytes Absolute Auto 0.8 K/mm3 (0.1-0.6); Monocytes Percent Auto 6.1 % (2.6-8.5); Neutrophils Absolute Auto 10.9 K/mm3 (1.3-6.7); Neutrophils Percent Auto 82.6 % (45.5-73.1); Platelet Count Result 214 k/mm3 (150-375); Red Blood Count 3.16 M/mm3 (4.2-5.4); Red Cell Distribution Width 14.7 % (11.5-14.5); White Blood Count 13.2 K/mm3 (4.5-10.0)
[2023-05-30 06:55] LABS: Alanine Aminotransferase 19 U/L (6-35); Albumin Level 2.3 g/dL (3.5-5.1); Alkaline Phosphatase 80 U/L (38-126); Anion Gap 6 mmol/L (8-16); Aspartate Amino Transferase 31 U/L (14-36); Bilirubin,Total 0.9 mg/dL (0.2-1.3); Blood Urea Nitrogen 21 mg/dL (7-17); Calcium 8.5 mg/dL (8.4-10.2); Carbon Dioxide 22 mmol/L (22-30); Chloride 113 mmol/L (98-107); Estimated CRCL calculation 35 ml/min; Estimated Glomerular Filt Rate > 60; Glucose 114 mg/dL (65-110); Potassium 3.3 mmol/L (3.4-5.0); Sodium 141 mmol/L (137-145)
[2023-05-30 08:40] VITALS: PULSE 91
[2023-05-30] MEDS: METOPROLOL SUCCINATE EXT REL 12.5 MG TABCR PO (08:40)
[2023-05-30] MEDS: lisinopriL 5 MG TABLET PO (08:45)
[2023-05-30] MEDS: LATANOPROST 0.005% OP SOLN 2.5 ML BTL 1 DROP EACH EYE (08:51)
[2023-05-30] MEDS: KCL 40 MEQ/WATER 100 ML 100 ML 25 ML IVPB (09:17)
[2023-05-30] MEDS: cefTRIAXone 2 GM/NS 100 ML 2 GM/100 ML BAG IVPB (09:19)
[2023-05-30 09:30] VITALS: O2SAT 100
[2023-05-30 10:14] LABS: Appearance Urine Cloudy (Clear); Bacteria Urine None Seen /hpf; Bilirubin Urine Negative (Negative); Blood Urine Negative (Negative); Color Urine Yellow (Yellow); Glucose Urine UA Negative (Negative); Ketones Urine Trace mg/dL (Negative); Leukocyte Esterase Ur 2+ LEU/UL (Negative); Need Manual Microscopic Reviewed; Nitrate Urine Negative (Negative); Non Pathogenic Casts 0-2; Protein Urine Negative (Negative); RBC Urine 0-2 /hpf (0-2); Specific Grav Ur 1.013 (1.001-1.035); Squamous Epithelial Cell Urine Moderate /hpf (Few); Urobilinogen Urine 0.2 mg/dL (<2.0)
[2023-05-30 10:16] LABS: Add Urine Microscopic? YES
--- NOTE | 2023-05-30 12:26 | PM.PNGS ---
Progress Note: A&P Assessment and Plan (1) Colonic diverticular abscess: Code(s): K57.20 - Diverticulitis of large intestine with perforation and abscess without bleeding Status: Acute Assessment and Plan: Fecal appearing drainage in TANYA drain. Lower abdomen tender bilaterally but no evidence of advancing sepsis with abscess drained by pigtail catheter 05/25/2023. With recent DE and congestive heart failure, very high surgical risk. (2) Non-ST elevation DE (NSTEMI): Code(s): I21.4 - Non-ST elevation (NSTEMI) myocardial infarction Status: Acute Assessment and Plan: Cardiology following (3) Pulmonary edema cardiac cause: Code(s): I50.1 - Left ventricular failure, unspecified Status: Acute Assessment and Plan: Per hospitalist and intelligence agent (4) Positive blood cultures: Code(s): R78.81 - Bacteremia Status: Acute Assessment and Plan: E coli bacteremia Subjective Subjective Date/Time Seen: 05/30/23 12:26 Patient reports: pain is less (Back pain improved, no complaints of abdominal pain), tolerating liquids well, bowel movement and afebrile Review of Systems Review of Systems: All systems reviewed & are unremarkable except as noted in HPI and below (HPI) Exam Const: General: cooperative, awake, lethargic, well groomed and thin Orientation/consciousness: No confusion GI: Inspection: normal to inspection, non-distended and other (Fecal appearing material in pigtail drain as before) GI Palp: Yes abdominal tenderness (Bilateral lower quadrant tenderness), Yes Soft to palpation, No Hernia present, No Palpable mass present and No Ascites present Auscultation: Hypoactive bowel sounds present Urinary Catheter: Urinary Catheter: patent and draining Psych: Appearance: grossly normal and well kempt Mental Status: mental status grossly normal Affect: Blunted affect present Attitude: cooperative Insight: Fair insight present (Psych) Judgement: Fair judgement present (Psych) Objective Data Vital Signs Vital Signs: Vital Signs - 24 hr 05/29/23 13:33 05/29/23 14:00 05/29/23 22:00 Temperature 36.2 C L 36.0 C L Pulse Rate 92 95 Respiratory Rate 26 H 18 Blood Pressure 148/84 H 148/90 H Pulse Oximetry 95 94 92 Oxygen Delivery Room Air Oxygen Flow Rate Fraction of Inspired Oxygen 21 05/30/23 06:00 05/30/23 08:40 05/30/23 09:30 Temperature 36.8 C Pulse Rate 82 91 Respiratory Rate 20 Blood Pressure 140/84 Pulse Oximetry 100 100 Oxygen Delivery Nasal Cannula Oxygen Flow Rate 2 Fraction of Inspired Oxygen Intake/Output Intake/Output: Intake & Output 05/27/23 05/28/23 05/29/23 05/30/23 23:59 23:59 23:59 23:59 Intake Total 1440 1320 1560 470 Output Total 746 865 0503 335 Balance 1090 845 -240 135 No drain output recorded yesterday. 25 cc recorded since midnight Meds/Results Medications: Active Medications Generic Name Dose Route Start Last Admin Trade Name Freq PRN Reason Stop Dose Admin Acetaminophen 650 mg 05/26/23 13:36 05/28/23 03:45 Acetaminophen 325 Mg Tablet PO 650 mg Q4H PRN Administration Mild Pain (1-3) or Fever Hydrocodone Bitart/Acetaminophen 1 tab 05/26/23 13:36 Hydrocodone/Acetaminophen (*Crx) 5-325 Mg Tablet PO Q6H PRN Pain Rated 4-6 Ceftriaxone Sodium 2 gm in 100 mls @ 200 mls/hr 05/28/23 10:00 05/30/23 09:50 Rocephin 2 Gm/Ns 100 Ml IVPB Infused DAILY SANDIE Infusion Metronidazole 500 mg in 100 mls @ 100 mls/hr 05/30/23 14:00 Flagyl 500 Mg/Iso Soln 100 Ml IVPB Q8H SANDIE Latanoprost 1 drop 05/23/23 09:00 05/30/23 08:51 Latanoprost 0.005% Op Soln 2.5 Ml Btl EACH EYE 1 drop DAILY SANDIE Administration Lisinopril 5 mg 05/29/23 09:00 05/30/23 08:45 Lisinopril 5 Mg Tablet PO 5 mg QAM SANDIE Administration Metoprolol Succinate 12.5 mg 05/29/23 09:00 05/30/23 08:40 Metoprolol Succinate Ext Rel 12.5 Mg Tabcr PO 12.
--- NOTE | 2023-05-30 13:49 | PM.IMPN ---
Progress Note: A&P Assessment and Plan (1) Non-ST elevation [place] (NSTEMI): Code(s): I21.4 - Non-ST elevation (NSTEMI) myocardial infarction Status: Acute Assessment and Plan: Takotsubo cardiomyopathy appearance on Echo continue medical treatment per cardiology Cardiology following--they plan low dose RUFUS and Beta Humera (2) Colonic diverticular abscess: Code(s): K57.20 - Diverticulitis of large intestine with perforation and abscess without bleeding Status: Acute Assessment and Plan: perc drainage in place continue current abx f/u culture advance diet per surgery surgery on board appreciate input monitor 05/28: Antibiotics changed based on abscess culture/sensitivity, perc drain remains in place, CT abd/pelvis with IV, oral and rectal contrast ordered for Wednesday, poor dietary intake but improving some. 05/30: Decreasing amount of perc tube drainage in past 24 hours. Mild WBC rise noted. Surgery on board. (3) Hypertension: Code(s): I10 - Essential (primary) hypertension Status: Acute Assessment and Plan: titrate home meds with clinical course Blood pressure reviewed 05/30 (4) Hyperlipidemia: Code(s): E78.5 - Hyperlipidemia, unspecified Status: Acute Assessment and Plan: continue with simvastatin (5) Macular degeneration disease: Code(s): H35.30 - Unspecified macular degeneration Status: Acute Assessment and Plan: continue with latanoprost (6) Acute renal failure: Code(s): N17.9 - Acute kidney failure, unspecified Status: Acute Assessment and Plan: improving Cr 1.4-->1.3-->1.1-->0.9-->1.0 Monitor electrolytes and kidney function (7) Positive blood cultures: Code(s): R78.81 - Bacteremia Status: Acute Assessment and Plan: E coli, pansensitive repeat blood cultures ordered continue current abx 05/28: Repeat cultures negative for 48 hours, PICC line placed. Antibiotics changed to Rocephin based on bloodstream and abscess culture results. Will coordinate with Surgery to determine length of antibiotic treatment (8) Pulmonary edema cardiac cause: Code(s): I50.1 - Left ventricular failure, unspecified Status: Acute Assessment and Plan: IV Lasix daily, today is day 2 of treatment. IV fluids discontinued. Cardiology signed off but will talk with ACCOUNT MANAGER SALES REPRESENTATIVE Poppy Cooper tomorrow. Plan Encourage improved PO intake Edmonds catheter for accurate I&O Potassium replaced via PICC Flagyl changed to IV as RN stated patient won't take PO Time Spent With Patient Time with patient: Greater than 35 minutes Subjective Date/time seen: 05/30/23 13:49 Interval history: Per family, patient is still not taking in good oral intake. IV fluids were discontinued due to fluid overload/pulmonary edema yesterday. Patient breathing much easier and fewer crackles noted. Ordered Edmonds catheter for accurate I&O and family instructed on the importance of accurate I&O. Patient denies pain or dyspnea but states she does not feel good. CT ordered for tomorrow. Minimal increase in WBCs. UA/culture ordered and UA unremarkable. Review of Systems Review of Systems: All systems reviewed & are unremarkable except as noted in HPI and below Exam Narrative: GENERAL: Moderately ill-appearing alert oriented in no respiratory distress, tired appearing. HEENT: Pupils are equally round and briskly reactive to light. Extraocular muscles are intact. Oral mucous membranes are dry without lesions. NECK: The patient has no noted JVD. No adenopathy is appreciated. CHEST/LUNGS: Lungs are diminished bilaterally, no tenderness to the chest. Supplemental oxygen remains in place. HEART: The patient has a regular rate and regular rhythm. No murmurs, rubs, or gallops are appreciated. Distal pulses are 2+. ABDOMEN: The patient?s abdomen is soft, nontender, and nondistended. Bowel sounds are positive. No peritonea
[2023-05-30 14:00] VITALS: BP 140/79; PULSE 93; RESP 18; TEMP 36.6; O2SAT 100
[2023-05-30] MEDS: metroNIDAZOLE 500 MG/ISO 100ML 500 MG/100 ML BAG 100 MG IVPB ×2 (14:24→22:02)
[2023-05-30] MEDS: SIMVASTATIN 20 MG TABLET PO (20:36)
[2023-05-30 22:00] VITALS: BP 133/66; PULSE 83; RESP 20; TEMP 37.4; O2SAT 95
[2023-05-30] MEDS: ACETAMINOPHEN 325 MG TABLET 650 MG PO (23:17)
[2023-05-31] VITALS (8 sets, daily range): BP systolic 129–161; BP diastolic 58–90; PULSE 82–95; RESP 14–20; TEMP 35.6–37.1; O2SAT 92–100
[2023-05-31] MEDS: metroNIDAZOLE 500 MG/ISO 100ML 500 MG/100 ML BAG 100 MG IVPB ×3 (05:28→21:00)
[2023-05-31] MEDS: CENTRAL LINE FLUSH 10 ML IV PUSH ×3 (05:28→21:06)
[2023-05-31 05:53] LABS: Basophils Percent Auto 0.2 % (0.2-1.2); Eosinophils Percent Auto 0.3 % (0-4.4); Hematocrit 29.1 % (37.0-47.0); Hemoglobin 9.1 g/dL (12.0-15.0); Immature Granulocyte Percent A 0.8 % (0-0.5); Lymphocytes Absolute Auto 0.98 K/mm3 (0.9-3.2); Lymphocytes Percent Auto 7.4 % (18.3-44.2); Mean Corpuscular HGB Conc 31.3 g/dl (32-36); Mean Corpuscular Hemoglobin 31.5 pg (26-34); Mean Corpuscular Volume 100.7 fl (80-100); Monocytes Absolute Auto 0.8 K/mm3 (0.1-0.6); Monocytes Percent Auto 5.9 % (2.6-8.5); Neutrophils Absolute Auto 11.4 K/mm3 (1.3-6.7); Neutrophils Percent Auto 85.4 % (45.5-73.1); Platelet Count Result 241 k/mm3 (150-375); Red Blood Count 2.89 M/mm3 (4.2-5.4); Red Cell Distribution Width 14.8 % (11.5-14.5); White Blood Count 13.3 K/mm3 (4.5-10.0)
[2023-05-31 05:54] LABS: Alanine Aminotransferase 17 U/L (6-35); Albumin Level 2.2 g/dL (3.5-5.1); Alkaline Phosphatase 81 U/L (38-126); Anion Gap 0 mmol/L (8-16); Aspartate Amino Transferase 29 U/L (14-36); Bilirubin,Total 0.7 mg/dL (0.2-1.3); Blood Urea Nitrogen 20 mg/dL (7-17); Calcium 8.3 mg/dL (8.4-10.2); Carbon Dioxide 26 mmol/L (22-30); Chloride 112 mmol/L (98-107); Estimated CRCL calculation 38 ml/min; Estimated Glomerular Filt Rate > 60; Glucose 114 mg/dL (65-110); Potassium 3.4 mmol/L (3.4-5.0); Sodium 138 mmol/L (137-145)
[2023-05-31] MEDS: cefTRIAXone 2 GM/NS 100 ML 2 GM/100 ML BAG IVPB (08:37)
[2023-05-31] MEDS: lisinopriL 5 MG TABLET PO (08:38)
[2023-05-31] MEDS: LATANOPROST 0.005% OP SOLN 2.5 ML BTL 1 DROP EACH EYE (08:38)
[2023-05-31] MEDS: METOPROLOL SUCCINATE EXT REL 12.5 MG TABCR PO (08:38)
--- NOTE | 2023-05-31 08:48 | PC.NURSE ---
pt family c/o pt stating she was sob, placed on 2L NC and informed provider and respiratory therapist. Pt c/o sob with attempting to eat. pt famiy c/o nausea but refused zofran at this time.
[2023-05-31] MEDS: KCL 40 MEQ/WATER 100 ML 100 ML 25 ML IVPB (09:47)
--- NOTE | 2023-05-31 10:14 | PM.IMPN ---
Progress Note: A&P Assessment and Plan (1) Non-ST elevation [place] (NSTEMI): Code(s): I21.4 - Non-ST elevation (NSTEMI) myocardial infarction Status: Acute Assessment and Plan: Takotsubo cardiomyopathy appearance on Echo continue medical treatment per cardiology Cardiology following--they plan low dose RUFUS and Beta Humera (2) Colonic diverticular abscess: Code(s): K57.20 - Diverticulitis of large intestine with perforation and abscess without bleeding Status: Acute Assessment and Plan: perc drainage in place continue current abx f/u culture advance diet per surgery surgery on board appreciate input monitor 05/28: Antibiotics changed based on abscess culture/sensitivity, perc drain remains in place, CT abd/pelvis with IV, oral and rectal contrast ordered for Wednesday, poor dietary intake but improving some. 05/30: Decreasing amount of perc tube drainage in past 24 hours. Mild WBC rise noted. Surgery on board. 05/31: Repeat CT scan ordered (3) Hypertension: Code(s): I10 - Essential (primary) hypertension Status: Acute Assessment and Plan: titrate home meds with clinical course Blood pressure reviewed 05/31 (4) Hyperlipidemia: Code(s): E78.5 - Hyperlipidemia, unspecified Status: Acute Assessment and Plan: continue with simvastatin (5) Macular degeneration disease: Code(s): H35.30 - Unspecified macular degeneration Status: Acute Assessment and Plan: continue with latanoprost (6) Acute renal failure: Code(s): N17.9 - Acute kidney failure, unspecified Status: Acute Assessment and Plan: improving Cr 1.4-->1.3-->1.1-->0.9-->1.0-->0.9 Monitor electrolytes and kidney function (7) Positive blood cultures: Code(s): R78.81 - Bacteremia Status: Acute Assessment and Plan: E coli, pansensitive repeat blood cultures ordered continue current abx 05/28: Repeat cultures negative for 48 hours, PICC line placed. Antibiotics changed to Rocephin based on bloodstream and abscess culture results. Will coordinate with Surgery to determine length of antibiotic treatment (8) Pulmonary edema cardiac cause: Code(s): I50.1 - Left ventricular failure, unspecified Status: Acute Assessment and Plan: 05/31: IV Lasix daily, today is day 3 of treatment. Cardiology BOBTAILER Poppy Cooper contacted and will see patient today Plan Encourage improved PO intake Edmonds catheter for accurate I&O Potassium replaced via PICC Rocephin and Flagyl IV continue Time Spent With Patient Time with patient: Greater than 35 minutes Subjective Date/time seen: 05/31/23 10:14 Interval history: Patient doing better with PO fluid intake and diet, family helping to feed patient and working with incentive spirometer. CT scan ordered for today. Patient requested oxygen be reapplied. Potassium replacement ordered since patient is on Lasix currently and level is 3.4. Patient remains on IV and oral antibiotics for E. coli and Bacteroides fragilis intraabdominal abscess. Perc drain in place. Patient is quite weak. TARUN was looking at patient but she does not seem strong enough to qualify for 3 hours of therapy a day at this point. Review of Systems Review of Systems: All systems reviewed & are unremarkable except as noted in HPI and below Exam Narrative: GENERAL: Moderately ill-appearing alert oriented in no respiratory distress, tired appearing. HEENT: Pupils are equally round and briskly reactive to light. Extraocular muscles are intact. Oral mucous membranes are dry without lesions. NECK: The patient has no noted JVD. No adenopathy is appreciated. CHEST/LUNGS: Lungs are diminished bilaterally, some crackles, no tenderness to the chest. Supplemental oxygen remains in place. HEART: The patient has a regular rate and irregular rhythm. No murmurs, rubs, or gallops are appreciated. ABDOMEN: The patient?s abdome
--- NOTE | 2023-05-31 11:17 | PC.NURSE ---
called ARGENIS Enrique about repeat cxr pt continues to c/o sob
--- NOTE | 2023-05-31 11:22 | PC.NURSE ---
informed Chucky Enrique LITERACY CONSULTANT about continued c/o sob, pt scheduled of CTA abd, LITERACY CONSULTANT Chucky Goodrich will look at lungs on CTA abd imaging. NNO placed back on o2 due to c/o sob continues.
--- NOTE | 2023-05-31 11:46 | PCNFU ---
Nutrition Follow-Up Complete: Severe protein calorie malnutrition related to chronic loss of appetite and acute altered GI function as evidenced by NFPE findings of severe muscle wasting and fat loss. Goal:Improve PO intake to at least 50% meals and supplements Maintain current weight Pt current nutrition is Full liquids, Ensure compact and nutrition ice cream cups TID with meals. Nutrition recommendation: continue with current plan of care. Last recorded weight is 64.4 kg. Bowel Motility: +BM 05/31 Labs Reviewed: Hgb:9.1, HCT:29.1, Alb:2.2, BUN:20 Meds Noted: zofran, KCL Skin: no pressure ulcers Additional Notes: Pt continues on a full liquids diet, intake improved some with encouragement of family. Ensure compact and nutrition ice cream cups with each meal, encouraging those first. Monitoring intakes, weights, labs, diet tolerance, plan of care Follow up in 3 days
--- NOTE | 2023-05-31 11:59 | PM.PNCARD ---
Progress Note: A&P Assessment and Plan (1) Non-ST elevation [place] (NSTEMI): Code(s): I21.4 - Non-ST elevation (NSTEMI) myocardial infarction Status: Acute Assessment and Plan: Evidence of probably a completed infarct with Q waves in the anterior and inferior leads on ECG and troponin elevation to 17.5. Because of her late presentation, age, frailty, and comorbidities, will continue with conservative medical management. Continue ASA Continue statin Echo showed EF 35 - 40% with pattern of LV dysfunction suggestive of Takotsubo CMY Will add low dose RUFUS and beta griffin for medical management of this BP has tolerated thus far - will increase lisinopril to 10mg daily Monitor renal function and BP closely. Furosemide 40mg p.o. daily for now Outpatient follow up Cardiology will follow along on an as needed basis, please call with questions. Subjective Date/time seen: 05/31/23 11:59 Interval history: Cardiology follow up for Takotsubo CMY, CHF Had acute shortness of breath over the weekend and was found to have pulmonary edema. She was given one dose of IV lasix and had improvement. She is feeling better today, remains on 1L O2. No chest pain. Review of Systems Constitutional: Constitutional: Reports fatigue Eyes: Eyes: Reports no additional eye complaints ENT: Reports system reviewed and no additional complaints, except as documented Cardiovascular: Cardiovascular: Reports as per HPI Respiratory: Respiratory: Reports no additional respiratory complaints Gastrointestinal: Gastrointestinal: Reports as per HPI Musculoskeletal: Musculoskeletal: Reports no additional musculoskeletal complaints Integumentary/Breasts: Skin/Breast: Reports system reviewed and no additional complaints, except as docu Neurologic: Reports system reviewed and no additional complaints, except as documented Endocrine: Endocrine: Reports no additional endocrine complaints and Reports fatigue Hematologic/Lymphatic: Hematologic/Lymphatic: Reports no additional hematologic/lymphatic complaints Allergic/Immunologic: Allergic/Immunologic: Reports no additional allergic/immunologic complaints Exam Const: General: comfortable and no acute distress Other: Pleasant frail elderly lady no distress of any kind HENMT: Mouth: Yes moist mucous membranes Eyes: Sclera: sclerae normal Neck: Neck: supple and no JVD Other: Carotid pulses are intact there are no audible bruits Resp: Effort & Inspection: normal respiratory effort Auscultation: rales (R base ) Cardio: Rate: regular rate Rhythm: regular rhythm Other: The PMI is not displaced there is currently no murmur or gallop GI: Auscultation: normal bowel sounds Skin: General skin exam: normal color Neuro: Other: Alert and oriented x3 Extrem: General: normal to inspection Other: No edema Objective Data Vital Signs Vital Signs: Vital Signs - 24 hr 05/30/23 14:00 05/30/23 22:00 05/31/23 06:00 Temperature 36.6 C 37.4 C 35.6 C L Pulse Rate 93 83 95 Respiratory Rate 18 20 20 Blood Pressure 140/79 133/66 129/58 L Pulse Oximetry 100 95 100 Oxygen Delivery Oxygen Flow Rate Fraction of Inspired Oxygen 05/31/23 08:35 05/31/23 08:38 05/31/23 08:00 Temperature 36.8 C Pulse Rate 82 82 82 Respiratory Rate 18 18 Blood Pressure 141/65 H Pulse Oximetry 92 92 Oxygen Delivery Nasal Cannula Oxygen Flow Rate 2 Fraction of Inspired Oxygen 05/31/23 09:51 Temperature Pulse Rate 88 Respiratory Rate 18 Blood Pressure Pulse Oximetry 96 Oxygen Delivery Room Air Oxygen Flow Rate Fraction of Inspired Oxygen 21 Intake/Output Intake/Output: Intake & Output 05/28/23 05/29/23 05/30/23 05/31/23 23:59 23:59 23:59 23:59 Intake Total 1320 2560 1130 420 Output Total 475 1800 730 200 Balance 845 760 400 220 Meds/Results Medications: Active Medications Generic Name Dose Route Start Last Ad
[2023-05-31] MEDS: FUROSEMIDE 40 MG TABLET PO (12:41)
--- NOTE | 2023-05-31 13:09 | PM.PNGS ---
Progress Note: A&P Assessment and Plan (1) Colonic diverticular abscess: Code(s): K57.20 - Diverticulitis of large intestine with perforation and abscess without bleeding Status: Acute Assessment and Plan: Fecal appearing drainage in transgluteal perc drain. Will continue IV antibiotics. We have ordered a repeat CT scan of the abdomen and pelvis with IV and water soluble oral and rectal contrast to re-evaluate. WBC still at 13k today. Will await CT results. Advanced to a low residue diet with supplements. (2) Non-ST elevation [place] (NSTEMI): Code(s): I21.4 - Non-ST elevation (NSTEMI) myocardial infarction Status: Acute Assessment and Plan: Cardiology following (3) Pulmonary edema cardiac cause: Code(s): I50.1 - Left ventricular failure, unspecified Status: Acute Assessment and Plan: Per hospitalist and acquisition analyst (4) Positive blood cultures: Code(s): R78.81 - Bacteremia Status: Acute Assessment and Plan: E coli bacteremia (5) Protein calorie malnutrition: Code(s): E46 - Unspecified protein-calorie malnutrition Status: Acute Assessment and Plan: Still with poor appetite and low oral intake. She had more intake in the past 24 hours than she has since admission, but she is still only eating 30% or less of her meals. Albumin only 2.2. Family is encouraging supplements first, which she has both Ensure and ice cream supplements ordered. Her daughter does feel her intake would improve if she had more options. We advanced her to a low residue diet and will continue supplements. Still encourage small frequent meals with supplements. Plan I have discussed the patient's case and plan of care with Dr. Langford. Subjective Subjective Date/Time Seen: 05/31/23 11:09 Patient reports: no new complaints, flatus, bowel movement (yesterday, not today yet) and afebrile Interval history: Chart reviewed since last seen. Patient seen with her daughter at the bedside. Patient denies abdominal pain at this time. She says she is boom tender. Transgluteal perc drain with 35 cc output documented yesterday morning, but no output documented in the past 24 hours. There is about 20-30 cc drainage in the bag currently. Her daughter states she is still not wanting to eat much. She has a poor appetite and this morning complained of nausea for the first time this weekend. Family is trying to encourage meals and the supplement, but patient is typically refusing and stating she is not hungry. She is still on full liquids and her daughter feels she would eat more if she had more options. She ate less than 30% of all meals yesterday and this morning. She did drink a full supplement around dinner time and part of the Ensure supplement was in her cream of wheat this morning, which she took a few bites of. No other complaints at this time. WBC 13k today and yesterday. Exam Const: General: comfortable, no acute distress and lethargic GI: Inspection: non-distended GI Palp: Yes Soft to palpation, Yes Tenderness to palpation present (GI) (boom tender across the lower abdomen), No Guarding due to palpation present (GI) and No Rebound tenderness present Auscultation: normal bowel sounds Other: Transgluteal perc drain with feculent appearing drainage Urinary Catheter: Urinary Catheter: patent and draining Extrem: General: no calf tenderness and no edema Objective Data Vital Signs Vital Signs: Vital Signs - 24 hr 05/30/23 14:00 05/30/23 22:00 05/31/23 06:00 Temperature 97.9 F 99.4 F 96.1 F L Pulse Rate 93 83 95 Respiratory Rate 18 20 20 Blood Pressure 140/79 133/66 129/58 L Pulse Oximetry 100 95 100 Oxygen Delivery Oxygen Flow Rate Fraction of Inspired Oxygen 05/31/23 08:35 05/31/23 08:38 05/31/23 08:00 Temperature 98.3 F Pulse Rate 82 82 82 Respiratory Rate 18 18 Blood Pressure 141/65 H Pulse Oximetry 92 92 Oxygen Delivery Nasal Cannula Oxyge
--- NOTE | 2023-05-31 13:30 | PCPTNOTE ---
The patient treatment was not able to be completed at this time due to patient out of room for testing. Will plan to continue treatment per plan of care.
--- NOTE | 2023-05-31 15:14 | PCPTNOTE ---
Attempted to see patient for PT, however patient declined. Patient reported she was too tired from testing earlier this afternoon and wanted to rest.
--- NOTE | 2023-05-31 16:34 | PC.NURSE ---
pt refused therapy today, stated was tired from testing today.
[2023-05-31] MEDS: SIMVASTATIN 20 MG TABLET PO (20:57)
[2023-06-01] MEDS: CENTRAL LINE FLUSH 10 ML IV PUSH ×3 (05:12→21:15)
[2023-06-01] MEDS: metroNIDAZOLE 500 MG/ISO 100ML 500 MG/100 ML BAG 100 MG IVPB ×3 (05:12→21:15)
[2023-06-01 05:18] LABS: Basophils Absolute Auto 0.1 K/mm3 (0.0-0.1); Basophils Percent Auto 0.3 % (0.2-1.2); Eosinophils Percent Auto 0.3 % (0-4.4); Hematocrit 29.1 % (37.0-47.0); Hemoglobin 9.1 g/dL (12.0-15.0); Immature Granulocyte Percent A 0.7 % (0-0.5); Lymphocytes Absolute Auto 0.84 K/mm3 (0.9-3.2); Lymphocytes Percent Auto 5.8 % (18.3-44.2); Mean Corpuscular HGB Conc 31.3 g/dl (32-36); Mean Corpuscular Hemoglobin 31.4 pg (26-34); Mean Corpuscular Volume 100.3 fl (80-100); Mean Platelet Volume 12.3 fl (7.4-10.4); Monocytes Percent Auto 6.7 % (2.6-8.5); Neutrophils Absolute Auto 12.4 K/mm3 (1.3-6.7); Neutrophils Percent Auto 86.2 % (45.5-73.1); Platelet Count Result 265 k/mm3 (150-375); Red Cell Distribution Width 14.7 % (11.5-14.5); White Blood Count 14.4 K/mm3 (4.5-10.0)
[2023-06-01 05:28] LABS: Alanine Aminotransferase 16 U/L (6-35); Albumin Level 2.2 g/dL (3.5-5.1); Alkaline Phosphatase 67 U/L (38-126); Anion Gap 5 mmol/L (8-16); Aspartate Amino Transferase 23 U/L (14-36); Bilirubin,Total 0.7 mg/dL (0.2-1.3); Blood Urea Nitrogen 16 mg/dL (7-17); Calcium 8.4 mg/dL (8.4-10.2); Carbon Dioxide 25 mmol/L (22-30); Chloride 108 mmol/L (98-107); Estimated CRCL calculation 35 ml/min; Estimated Glomerular Filt Rate > 60; Glucose 108 mg/dL (65-110); Potassium 3.5 mmol/L (3.4-5.0); Sodium 138 mmol/L (137-145)
[2023-06-01 05:41] VITALS: BP 140/75; PULSE 91; RESP 14; TEMP 36.1; O2SAT 90
[2023-06-01 08:00] VITALS: O2SAT 92
[2023-06-01 09:20] VITALS: PULSE 91
[2023-06-01] MEDS: METOPROLOL SUCCINATE EXT REL 12.5 MG TABCR PO (09:20)
[2023-06-01] MEDS: LATANOPROST 0.005% OP SOLN 2.5 ML BTL 1 DROP EACH EYE (09:21)
[2023-06-01] MEDS: cefTRIAXone 2 GM/NS 100 ML 2 GM/100 ML BAG IVPB (09:21)
[2023-06-01] MEDS: lisinopriL 5 MG TABLET PO (09:21)
[2023-06-01] MEDS: FUROSEMIDE 40 MG TABLET PO (09:21)
--- NOTE | 2023-06-01 10:52 | PM.IMPN ---
Progress Note: A&P Assessment and Plan (1) Colonic diverticular abscess: Code(s): K57.20 - Diverticulitis of large intestine with perforation and abscess without bleeding Status: Acute Assessment and Plan: 06/01: CT abdomen and pelvis yesterday showed perforated diverticulitis at the proximal sigmoid colon with rectal contrast extending into an adjacent abscess that tracts to a larger pelvic abscess where the percutaneous transgluteal drain is located. There is additionally a few small loculated abscesses without contrast enhancement in the lower abdomen that are not amenable to percutaneous drainage. Discussed CT findings with Dr. Langford, who will be speaking with family and the patient regarding possible surgical options at this point. Continue IV antibiotics Tolerating a low fiber diet with better oral intake (2) Positive blood cultures: Code(s): R78.81 - Bacteremia Status: Acute Assessment and Plan: E coli bacteremia, on Rocephin and Flagyl (abscess culture Bacteroides and E. coli) (3) Protein calorie malnutrition: Code(s): E46 - Unspecified protein-calorie malnutrition Status: Acute Assessment and Plan: Appetite and intake improved. Continue to encourage supplements first and small frequent meals. (4) Non-ST elevation [place] (NSTEMI): Code(s): I21.4 - Non-ST elevation (NSTEMI) myocardial infarction Status: Acute Assessment and Plan: Takotsubo cardiomyopathy appearance on Echo continue medical treatment per cardiology Cardiology following--they plan low dose RUFUS and Beta Humera (5) Hypertension: Code(s): I10 - Essential (primary) hypertension Status: Acute Assessment and Plan: titrate home meds with clinical course Blood pressure reviewed 06/01 (6) Hyperlipidemia: Code(s): E78.5 - Hyperlipidemia, unspecified Status: Acute Assessment and Plan: continue with simvastatin (7) Macular degeneration disease: Code(s): H35.30 - Unspecified macular degeneration Status: Acute Assessment and Plan: continue with latanoprost (8) Acute renal failure: Code(s): N17.9 - Acute kidney failure, unspecified Status: Acute Assessment and Plan: improving Cr 1.4-->1.3-->1.1-->0.9-->1.0-->0.9-->1.0 Monitor electrolytes and kidney function (9) Pulmonary edema cardiac cause: Code(s): I50.1 - Left ventricular failure, unspecified Status: Acute Assessment and Plan: 05/31: IV Lasix daily, today is day 3 of treatment. Cardiology [facility]ICE PRESIDENT Poppy Cooper contacted and will see patient today 06/01: Lasix changed to PO per Cardiology. Plan Surgery to speak with family about surgical procedure options Patient requiring oxygen again Diet and appetite improving Time Spent With Patient Time with patient: Greater than 35 minutes Subjective Date/time seen: 06/01/23 15:45 Interval history: 06/01: Patient wearing oxygen again but normal respiratory rate and pattern. CT scan with multiple abscess some with contrast spillage and others without. Surgery to discuss operative management with patient's daughter. Patient sitting in bedside chair, appears stronger than before. Reports good appetite and doing well with drinking fluids. Review of Systems Review of Systems: All systems reviewed & are unremarkable except as noted in HPI and below Exam Narrative: GENERAL: Moderately ill-appearing alert oriented in no respiratory distress, tired appearing. HEENT: Pupils are equally round and briskly reactive to light. Extraocular muscles are intact. Oral mucous membranes are dry without lesions. NECK: The patient has no noted JVD. No adenopathy is appreciated. CHEST/LUNGS: Lungs are diminished bilaterally, some crackles, no tenderness to the chest. Supplemental oxygen remains in place. HEART: The patient has a regular rate and irregular rhythm. No murmurs, rubs, or gallops are appreciat
--- NOTE | 2023-06-01 13:26 | PM.PNGS ---
Progress Note: A&P Assessment and Plan (1) Colonic diverticular abscess: Code(s): K57.20 - Diverticulitis of large intestine with perforation and abscess without bleeding Status: Acute Assessment and Plan: CT abdomen and pelvis yesterday showed perforated diverticulitis at the proximal sigmoid colon with rectal contrast extending into an adjacent abscess that tracts to a larger pelvic abscess where the percutaneous transgluteal drain is located. There is additionally a few small loculated abscesses without contrast enhancement in the lower abdomen that are not amenable to percutaneous drainage. Discussed CT findings with Dr. Langford, who will be speaking with family and the patient regarding possible surgical options at this point. Continue IV antibiotics Tolerating a low fiber diet with better oral intake (2) Non-ST elevation [place] (NSTEMI): Code(s): I21.4 - Non-ST elevation (NSTEMI) myocardial infarction Status: Acute Assessment and Plan: Cardiology following. Increases surgical risks (3) Pulmonary edema cardiac cause: Code(s): I50.1 - Left ventricular failure, unspecified Status: Acute Assessment and Plan: Per hospitalist and detector car operator (4) Positive blood cultures: Code(s): R78.81 - Bacteremia Status: Acute Assessment and Plan: E coli bacteremia (5) Protein calorie malnutrition: Code(s): E46 - Unspecified protein-calorie malnutrition Status: Acute Assessment and Plan: Appetite and intake improved. Continue to encourage supplements first and small frequent meals. Plan I have discussed the patient's case and plan of care with Dr. Langford. Subjective Subjective Date/Time Seen: 06/01/23 13:26 Patient reports: no new complaints, tolerating a regular diet, flatus, bowel movement and afebrile Interval history: Patient seen today with her daughter at the bedside. No acute events overnight. No abdominal pain at this time. Still having lower abdominal tenderness. No nausea or vomiting. Appetite is better this morning. Her daughter states she is eating better now that she is on solid foods. Exam Const: General: comfortable, no acute distress and awake GI: Inspection: non-distended GI Palp: Yes Soft to palpation and Yes Tenderness to palpation present (GI) (lower abdominal tenderness) Auscultation: normal bowel sounds Other: Transgluteal perc drain with feculent appearing drainage Objective Data Vital Signs Vital Signs: Vital Signs - 24 hr 05/31/23 14:00 05/31/23 21:47 05/31/23 20:35 Temperature 98.8 F Pulse Rate 87 Respiratory Rate 14 Blood Pressure 161/90 H 140/70 Pulse Oximetry 92 92 Oxygen Delivery Nasal Cannula Oxygen Flow Rate 2 06/01/23 05:41 06/01/23 09:20 06/01/23 08:00 Temperature 96.9 F L Pulse Rate 91 91 Respiratory Rate 14 Blood Pressure 140/75 Pulse Oximetry 90 92 Oxygen Delivery Nasal Cannula Oxygen Flow Rate 2 Intake/Output Intake/Output: Intake & Output 05/29/23 05/30/23 05/31/23 06/01/23 23:59 23:59 23:59 23:59 Intake Total 2560 1130 1980 720 Output Total 7438 513 6885 450 Balance 760 400 -820 270 Meds/Results Medications: Active Medications Generic Name Dose Route Start Last Admin Trade Name Freq PRN Reason Stop Dose Admin Acetaminophen 650 mg 05/26/23 13:36 05/30/23 23:17 Acetaminophen 325 Mg Tablet PO 650 mg Q4H PRN Administration Mild Pain (1-3) or Fever Hydrocodone Bitart/Acetaminophen 1 tab 05/26/23 13:36 Hydrocodone/Acetaminophen (*Crx) 5-325 Mg Tablet PO Q6H PRN Pain Rated 4-6 Furosemide 40 mg 05/31/23 12:00 06/01/23 09:21 Furosemide 40 Mg Tablet PO 40 mg DAILY SANDIE Administration Ceftriaxone Sodium 2 gm in 100 mls @ 200 mls/hr 05/28/23 10:00 06/01/23 09:21 Rocephin 2 Gm/Ns 100 Ml IVPB 200 mls/hr DAILY SANDIE Administration Metronidazole 500 mg in 100 mls @ 100 mls/hr 05/30
[2023-06-01 13:56] VITALS: BP 142/78; PULSE 86; RESP 16; TEMP 36.6; O2SAT 94
[2023-06-01] MEDS: SIMVASTATIN 20 MG TABLET PO (20:48)
[2023-06-01 21:00] VITALS: O2SAT 91
[2023-06-01 21:36] VITALS: BP 125/67; PULSE 62; RESP 14; TEMP 36.5; O2SAT 90
[2023-06-02] MEDS: metroNIDAZOLE 500 MG/ISO 100ML 500 MG/100 ML BAG 100 MG IVPB ×3 (05:06→20:27)
[2023-06-02] MEDS: CENTRAL LINE FLUSH 10 ML IV PUSH ×3 (05:07→21:39)
[2023-06-02 05:50] VITALS: BP 133/63; PULSE 79; RESP 14; TEMP 36.6; O2SAT 90
[2023-06-02 06:08] LABS: Basophils Percent Auto 0.2 % (0.2-1.2); Eosinophils Absolute Auto 0.1 K/mm3 (0-0.3); Eosinophils Percent Auto 0.6 % (0-4.4); Hematocrit 26.9 % (37.0-47.0); Hemoglobin 8.5 g/dL (12.0-15.0); Immature Granulocyte Absolute 0.06 K/mm3 (0.00-0.031); Immature Granulocyte Percent A 0.6 % (0-0.5); Lymphocytes Absolute Auto 0.83 K/mm3 (0.9-3.2); Lymphocytes Percent Auto 8.3 % (18.3-44.2); Mean Corpuscular HGB Conc 31.6 g/dl (32-36); Mean Corpuscular Hemoglobin 31.3 pg (26-34); Mean Corpuscular Volume 98.9 fl (80-100); Mean Platelet Volume 12.1 fl (7.4-10.4); Neutrophils Absolute Auto 8.1 K/mm3 (1.3-6.7); Neutrophils Percent Auto 80.3 % (45.5-73.1); Platelet Count Result 271 k/mm3 (150-375); Red Blood Count 2.72 M/mm3 (4.2-5.4); White Blood Count 10.1 K/mm3 (4.5-10.0)
[2023-06-02 06:38] LABS: Alanine Aminotransferase 14 U/L (6-35); Albumin Level 2.1 g/dL (3.5-5.1); Alkaline Phosphatase 60 U/L (38-126); Anion Gap 6 mmol/L (8-16); Aspartate Amino Transferase 23 U/L (14-36); Bilirubin,Total 0.6 mg/dL (0.2-1.3); Blood Urea Nitrogen 15 mg/dL (7-17); Calcium 8.2 mg/dL (8.4-10.2); Carbon Dioxide 25 mmol/L (22-30); Chloride 107 mmol/L (98-107); Estimated CRCL calculation 37 ml/min; Estimated Glomerular Filt Rate > 60; Glucose 92 mg/dL (65-110); Potassium 2.9 mmol/L (3.4-5.0); Sodium 138 mmol/L (137-145)
--- NOTE | 2023-06-02 08:32 | PM.IMPN ---
Progress Note: A&P Assessment and Plan (1) Colonic diverticular abscess: Code(s): K57.20 - Diverticulitis of large intestine with perforation and abscess without bleeding Status: Acute Assessment and Plan: 06/01: CT abdomen and pelvis yesterday showed perforated diverticulitis at the proximal sigmoid colon with rectal contrast extending into an adjacent abscess that tracts to a larger pelvic abscess where the percutaneous transgluteal drain is located. There is additionally a few small loculated abscesses without contrast enhancement in the lower abdomen that are not amenable to percutaneous drainage. Discussed CT findings with Dr. Langford, who will be speaking with family and the patient regarding possible surgical options at this point. Continue IV antibiotics Rocephin and Flagyl Tolerating a low fiber diet + supplements with better oral intake (2) Positive blood cultures: Code(s): R78.81 - Bacteremia Status: Acute Assessment and Plan: E coli bacteremia, on Rocephin and Flagyl (abscess culture Bacteroides and E. coli) (3) Protein calorie malnutrition: Code(s): E46 - Unspecified protein-calorie malnutrition Status: Acute Assessment and Plan: Appetite and intake improved. Continue to encourage supplements first and small frequent meals. (4) Non-ST elevation [place] (NSTEMI): Code(s): I21.4 - Non-ST elevation (NSTEMI) myocardial infarction Status: Acute Assessment and Plan: Takotsubo cardiomyopathy appearance on Echo continue medical treatment per cardiology Cardiology following--Lisinopril 40 mg daily, Lasix 40 mg daily and Metoprolol 12.5 mg daily Daughter feels that the lisinopril is causing her mother to be more tired. She also feels that since starting this she developed a rash to her right axilla and back as well as concerns for making her speech thick . Asking cardiology for rec's with changes from RUFUS to ARB therapy. (5) Hypertension: Code(s): I10 - Essential (primary) hypertension Status: Acute Assessment and Plan: titrate home meds with clinical course Blood pressure reviewed 06/02 (6) Hyperlipidemia: Code(s): E78.5 - Hyperlipidemia, unspecified Status: Acute Assessment and Plan: continue with simvastatin (7) Macular degeneration disease: Code(s): H35.30 - Unspecified macular degeneration Status: Acute Assessment and Plan: continue with latanoprost (8) Acute renal failure: Code(s): N17.9 - Acute kidney failure, unspecified Status: Acute Assessment and Plan: improving Cr 1.4-->1.3-->1.1-->0.9-->1.0-->0.9-->1.0-->0.9 Monitor electrolytes and kidney function 06/02: K+ 2.9. Replacing with 80 meq of K today. (9) Pulmonary edema cardiac cause: Code(s): I50.1 - Left ventricular failure, unspecified Status: Acute Assessment and Plan: 05/31: IV Lasix daily, today is day 3 of treatment. Cardiology TOLL BRIDGE ATTENDANT Poppy Cooper contacted and will see patient today 06/01: Lasix changed to PO per Cardiology. Plan Surgery to speak with family about surgical procedure options today 06/02. Family is discussing the options which were presented and will give an answer tomorrow 06/03. Patient requiring oxygen again Diet and appetite improving Family has received resources for [facility] and local SNFs. They are assessing the facilities currently. Therapy currently recommending [facility]. Subjective Date/time seen: 06/02/23 08:32 Interval history: HPI obtained from the chart, This is a 87-year-old female patient presenting on 05/22, who has a past medical history of hypertension and hyperlipidemia.? The patient was diagnosed a week ago with COVID with a home test after having a cough.? Three days ago she developed some lower abdominal pain as well as some epigastric pain.the patient's daughter is at the bedside answering questions for her. The patient was diagnosed with a perforate
[2023-06-02] MEDS: cefTRIAXone 2 GM/NS 100 ML 2 GM/100 ML BAG IVPB (08:37)
[2023-06-02 08:38] VITALS: PULSE 80
[2023-06-02] MEDS: METOPROLOL SUCCINATE EXT REL 12.5 MG TABCR PO (08:38)
[2023-06-02] MEDS: LATANOPROST 0.005% OP SOLN 2.5 ML BTL 1 DROP EACH EYE (08:39)
[2023-06-02] MEDS: FUROSEMIDE 40 MG TABLET PO (08:39)
--- NOTE | 2023-06-02 09:07 | PCPTNOTE ---
Attempted therapy session, Pt on commode. Will attempt again.
[2023-06-02] MEDS: POTASSIUM CHLORIDE 20 MEQ PACKET (FOR LIQUID) 40 MEQ PO ×2 (09:39→16:14)
--- NOTE | 2023-06-02 11:09 | PM.PNGS ---
Progress Note: A&P Assessment and Plan (1) Colonic diverticular abscess: Code(s): K57.20 - Diverticulitis of large intestine with perforation and abscess without bleeding Status: Acute Assessment and Plan: Recent CT scan with oral IV and rectal contrast shows persistent perforation of the proximal sigmoid colon leading to an abscess cavity with extravasation of dye within it. Pelvic drain is in place controlling sepsis. Unfortunately the patient had a recent myocardial infarction. He has been seen by Cardiology and they do not recommend any interventions. Ejection fraction of the heart is around 45%. I had a long discussion with the patient and her daughter who is her power of real estate associate attorney at the bedside today. I explained that in a normal situation laparotomy with sigmoid colon resection and end colostomy would be the initial treatment for this problem. Unfortunately with the patient's advanced age and overall health a colostomy would likely be permanent. High risk for perioperative cardiac complications was discussed and subsequent possible multi-system organ failure. Non operative options would include hospice care or long-term transgluteal drain which is already uncomfortable for the patient. The surgical plan that I recommended would be an open laparotomy incision with placement of a diverting colostomy. If the patient is doing well and resection of the sigmoid colon would be fairly straightforward and easy then sigmoid resection and drainage of pelvic abscess could possibly be done same time. However at the very least to minimize the anesthetic time I would perform a diverting end colostomy and leave the sigmoid colon in place if the patient was unstable or resection would be difficult with possible excessive blood loss. Patient and family understand these issues and will be thinking about whether it was to proceed with surgical intervention. The indicated they will get back to me tomorrow with her decision. (2) Non-ST elevation [place] (NSTEMI): Code(s): I21.4 - Non-ST elevation (NSTEMI) myocardial infarction Status: Acute Assessment and Plan: Presently stable and medically treated. No plans for cardiac intervention as per cardiology evaluation. Recent kylie our infarction certainly increases perioperative risk for cardiac event with general anesthetic. Subjective Subjective Date/Time Seen: 06/02/23 11:09 Interval history: Patient is sitting up in chair today. She answers questions appropriately. Family is at the bedside today. She had a bowel movement this morning. Output from the pelvic drain is still feculent. White blood count 10,100 she has been afebrile. Albumin is low at 2.1. Exam GI: Other: Abdomen is soft and nondistended. Minimal tenderness palpation lower portion of the abdomen. Transgluteal drain in place with small amount of feculent drainage. Objective Data Vital Signs Vital Signs: Vital Signs - 24 hr 06/01/23 13:56 06/01/23 21:36 06/01/23 21:00 Temperature 36.6 C 36.5 C Pulse Rate 86 62 Respiratory Rate 16 14 Blood Pressure 142/78 H 125/67 Pulse Oximetry 94 90 91 Oxygen Delivery Nasal Cannula Oxygen Flow Rate 2 06/02/23 05:50 06/02/23 08:38 Temperature 36.6 C Pulse Rate 79 80 Respiratory Rate 14 Blood Pressure 133/63 Pulse Oximetry 90 Oxygen Delivery Oxygen Flow Rate Intake/Output Intake/Output: Intake & Output 05/30/23 05/31/23 06/01/23 06/02/23 23:59 23:59 23:59 23:59 Intake Total 1130 1980 1260 720 Output Total 730 2800 1100 300 Balance 400 -820 160 420 Meds/Results Medications: Active Medications Generic Name Dose Route Start Last Admin Trade Name Freq PRN Reason Stop Dose Admin Acetaminophen 650 mg 05/26/23 13:36 05/30/23 23:17 Acetaminophen 325 Mg Tablet PO 650 mg Q4H PRN Administration Mild Pain (1-3) or Fever Hydrocodone Bitart/Acetaminophen 1 tab 05/26/23 13:36 Hydrocodone/
[2023-06-02 14:00] VITALS: BP 123/69; PULSE 78; RESP 22; TEMP 36.5; O2SAT 95
[2023-06-02] MEDS: POTASSIUM CHLORIDE 20 MEQ ER TABLET 40 MEQ PO (18:54)
[2023-06-02 20:00] VITALS: O2SAT 91
[2023-06-02] MEDS: SIMVASTATIN 20 MG TABLET PO (20:27)
[2023-06-02] MEDS: HYDROcodone/acetaminophen (*CRX) 5-325 MG TABLET 1 TAB PO (20:27)
[2023-06-02 20:41] VITALS: BP 130/72; PULSE 83; RESP 16; TEMP 36.3; O2SAT 91
[2023-06-03 04:54] VITALS: BP 149/93; PULSE 81; RESP 16; TEMP 36.6; O2SAT 94
[2023-06-03] MEDS: metroNIDAZOLE 500 MG/ISO 100ML 500 MG/100 ML BAG 100 MG IVPB ×3 (06:25→21:35)
[2023-06-03] MEDS: CENTRAL LINE FLUSH 10 ML IV PUSH ×2 (06:27→13:12)
[2023-06-03] MEDS: HYDROcodone/acetaminophen (*CRX) 5-325 MG TABLET 1 TAB PO ×2 (06:30→21:35)
[2023-06-03 06:58] LABS: Basophils Percent Auto 0.3 % (0.2-1.2); Eosinophils Percent Auto 0.3 % (0-4.4); Hematocrit 29.7 % (37.0-47.0); Hemoglobin 9.3 g/dL (12.0-15.0); Immature Granulocyte Absolute 0.06 K/mm3 (0.00-0.031); Immature Granulocyte Percent A 0.6 % (0-0.5); Lymphocytes Absolute Auto 1.19 K/mm3 (0.9-3.2); Lymphocytes Percent Auto 12.2 % (18.3-44.2); Mean Corpuscular HGB Conc 31.3 g/dl (32-36); Mean Corpuscular Hemoglobin 31.2 pg (26-34); Mean Corpuscular Volume 99.7 fl (80-100); Mean Platelet Volume 12.1 fl (7.4-10.4); Monocytes Absolute Auto 1.3 K/mm3 (0.1-0.6); Neutrophils Absolute Auto 7.2 K/mm3 (1.3-6.7); Neutrophils Percent Auto 73.6 % (45.5-73.1); Platelet Count Result 349 k/mm3 (150-375); Red Blood Count 2.98 M/mm3 (4.2-5.4); Red Cell Distribution Width 14.9 % (11.5-14.5); White Blood Count 9.8 K/mm3 (4.5-10.0)
[2023-06-03 07:05] LABS: Alanine Aminotransferase 15 U/L (6-35); Albumin Level 2.5 g/dL (3.5-5.1); Alkaline Phosphatase 67 U/L (38-126); Anion Gap 5 mmol/L (8-16); Aspartate Amino Transferase 23 U/L (14-36); Bilirubin,Total 0.8 mg/dL (0.2-1.3); Blood Urea Nitrogen 14 mg/dL (7-17); Calcium 8.5 mg/dL (8.4-10.2); Carbon Dioxide 27 mmol/L (22-30); Chloride 104 mmol/L (98-107); Estimated CRCL calculation 37 ml/min; Estimated Glomerular Filt Rate > 60; Glucose 113 mg/dL (65-110); Potassium 3.4 mmol/L (3.4-5.0); Sodium 136 mmol/L (137-145)
[2023-06-03 08:00] VITALS: O2SAT 94
[2023-06-03 08:05] VITALS: PULSE 80
[2023-06-03] MEDS: LATANOPROST 0.005% OP SOLN 2.5 ML BTL 1 DROP EACH EYE (08:05)
[2023-06-03] MEDS: METOPROLOL SUCCINATE EXT REL 12.5 MG TABCR PO (08:05)
[2023-06-03] MEDS: cefTRIAXone 2 GM/NS 100 ML 2 GM/100 ML BAG IVPB (08:05)
[2023-06-03] MEDS: FUROSEMIDE 40 MG TABLET PO (08:05)
[2023-06-03] MEDS: LOSARTAN POTASSIUM 12.5 MG TABLET PO (08:05)
--- NOTE | 2023-06-03 10:10 | PCOTNOTE ---
attempted to see Patient for A.M. treatment session. Patient stated she is not feeling well and movement causes nausea. Patient declined any activity. 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
--- NOTE | 2023-06-03 10:24 | PM.IMPN ---
Progress Note: A&P Assessment and Plan (1) Colonic diverticular abscess: Code(s): K57.20 - Diverticulitis of large intestine with perforation and abscess without bleeding Status: Acute Assessment and Plan: 06/01: CT abdomen and pelvis yesterday showed perforated diverticulitis at the proximal sigmoid colon with rectal contrast extending into an adjacent abscess that tracts to a larger pelvic abscess where the percutaneous transgluteal drain is located. There is additionally a few small loculated abscesses without contrast enhancement in the lower abdomen that are not amenable to percutaneous drainage. Discussed CT findings with Dr. Langford, who will be speaking with family and the patient regarding possible surgical options at this point. Continue IV antibiotics Rocephin and Flagyl Tolerating a low fiber diet + supplements with better oral intake (2) Positive blood cultures: Code(s): R78.81 - Bacteremia Status: Acute Assessment and Plan: E coli bacteremia, on Rocephin and Flagyl (abscess culture Bacteroides and E. coli) (3) Protein calorie malnutrition: Code(s): E46 - Unspecified protein-calorie malnutrition Status: Acute Assessment and Plan: Appetite and intake improved. Continue to encourage supplements first and small frequent meals. (4) Non-ST elevation [place] (NSTEMI): Code(s): I21.4 - Non-ST elevation (NSTEMI) myocardial infarction Status: Acute Assessment and Plan: Takotsubo cardiomyopathy appearance on Echo continue medical treatment per cardiology Cardiology following--Lasix 40 mg daily and Metoprolol 12.5 mg daily Daughter feels that the lisinopril is causing her mother to be more tired. She also feels that since starting this she developed a rash to her right axilla and back as well as concerns for making her speech thick . Asking cardiology for rec's with changes from RUFUS to ARB therapy. Stopped lisinopril and started losartan 12.5 mg daily (5) Hypertension: Code(s): I10 - Essential (primary) hypertension Status: Acute Assessment and Plan: titrate home meds with clinical course Blood pressure reviewed 06/03 (6) Hyperlipidemia: Code(s): E78.5 - Hyperlipidemia, unspecified Status: Acute Assessment and Plan: continue with simvastatin (7) Macular degeneration disease: Code(s): H35.30 - Unspecified macular degeneration Status: Acute Assessment and Plan: continue with latanoprost (8) Acute renal failure: Code(s): N17.9 - Acute kidney failure, unspecified Status: Acute Assessment and Plan: improving Cr 1.4-->1.3-->1.1-->0.9-->1.0-->0.9-->1.0-->0.9 Monitor electrolytes and kidney function 06/02: K+ 2.9. Replacing with 80 meq of K today. 06/04:3.4 (9) Pulmonary edema cardiac cause: Code(s): I50.1 - Left ventricular failure, unspecified Status: Acute Assessment and Plan: 05/31: IV Lasix daily, today is day 3 of treatment. Cardiology [employer] Poppy Cooper contacted and will see patient today 06/01: Lasix changed to PO per Cardiology. Plan Surgery to speak with family about surgical procedure options today 06/02. Family is discussing the options which were presented and will give an answer tomorrow 06/03. Patient requiring oxygen again Diet and appetite improving Family has received resources for TARUN and local SNFs. They are assessing the facilities currently. Therapy currently recommending TARUN. Subjective Date/time seen: 06/03/23 10:24 Interval history: HPI obtained from the chart, This is a 87-year-old female patient presenting on 05/22, who has a past medical history of hypertension and hyperlipidemia.? The patient was diagnosed a week ago with COVID with a home test after having a cough.? Three days ago she developed some lower abdominal pain as well as some epigastric pain.the patient's daughter is at the bedside answering questions for her.
--- NOTE | 2023-06-03 11:59 | PM.PNGS ---
Progress Note: A&P Assessment and Plan (1) Colonic diverticular abscess: Code(s): K57.20 - Diverticulitis of large intestine with perforation and abscess without bleeding Status: Acute Assessment and Plan: Patient is still deciding whether she was to proceed with surgery tomorrow for placement of a diverting descending end colostomy with possible sigmoid resection and washout of the pelvis. Patient's daughter will discuss this again with her and get back to me as to whether she wants to proceed with surgery tomorrow. Subjective Subjective Date/Time Seen: 06/03/23 11:59 Interval history: Patient clinically stable. Patient's daughter did discuss with her surgical options versus nonsurgical options. The patient initially declined having any surgery mostly because she did not have a permanent colostomy. I discussed again with the patient's daughter that I cannot know for sure that the colostomy will be permanent at this point but given the patient's advanced age and cardiac history would be unlikely that the colostomy will be taken down in the future. She will further discuss this with the patient and back to me with an answer about surgery today. Exam GI: Other: Abdomen is soft and nondistended. Transgluteal drain in place with minimal fecal output. Objective Data Vital Signs Vital Signs: Vital Signs - 24 hr 06/02/23 14:00 06/02/23 20:41 06/02/23 20:00 Temperature 36.5 C 36.3 C L Pulse Rate 78 83 Respiratory Rate 22 H 16 Blood Pressure 123/69 130/72 Pulse Oximetry 95 91 91 Oxygen Delivery Nasal Cannula Oxygen Flow Rate 2 06/03/23 04:54 06/03/23 08:05 06/03/23 08:00 Temperature 36.6 C Pulse Rate 81 80 Respiratory Rate 16 Blood Pressure 149/93 H Pulse Oximetry 94 94 Oxygen Delivery Nasal Cannula Oxygen Flow Rate 2 Intake/Output Intake/Output: Intake & Output 05/31/23 06/01/23 06/02/23 06/03/23 23:59 23:59 23:59 23:59 Intake Total 1980 1260 1290 100 Output Total 2800 1100 1150 650 Balance -820 160 140 -550 Meds/Results Medications: Active Medications Generic Name Dose Route Start Last Admin Trade Name Freq PRN Reason Stop Dose Admin Acetaminophen 650 mg 05/26/23 13:36 05/30/23 23:17 Acetaminophen 325 Mg Tablet PO 650 mg Q4H PRN Administration Mild Pain (1-3) or Fever Hydrocodone Bitart/Acetaminophen 1 tab 05/26/23 13:36 06/03/23 06:30 Hydrocodone/Acetaminophen (*Crx) 5-325 Mg Tablet PO 1 tab Q6H PRN Administration Pain Rated 4-6 Furosemide 40 mg 05/31/23 12:00 06/03/23 08:05 Furosemide 40 Mg Tablet PO 40 mg DAILY SANDIE Administration Ceftriaxone Sodium 2 gm in 100 mls @ 200 mls/hr 05/28/23 10:00 06/03/23 08:05 Rocephin 2 Gm/Ns 100 Ml IVPB 200 mls/hr DAILY SNADIE Administration Metronidazole 500 mg in 100 mls @ 100 mls/hr 05/30/23 14:00 06/03/23 07:25 Flagyl 500 Mg/Iso Soln 100 Ml IVPB Infused Q8H SANDIE Infusion Latanoprost 1 drop 05/23/23 09:00 06/03/23 08:05 Latanoprost 0.005% Op Soln 2.5 Ml Btl EACH EYE 1 drop DAILY SANDIE Administration Losartan Potassium 12.5 mg 06/03/23 09:00 06/03/23 08:05 Losartan Potassium 12.5 Mg Tablet PO 12.5 mg DAILY SANDIE Administration Metoprolol Succinate 12.5 mg 05/29/23 09:00 06/03/23 08:05 Metoprolol Succinate Ext Rel 12.5 Mg Tabcr PO 12.5 mg QAM SANDIE Administration Morphine Sulfate 2 mg 05/25/23 16:53 05/25/23 17:17 Morphine Sulfate (*Crx) 4 Mg/Ml Inj IV PUSH 2 mg Q6HR PRN Administration Moderate Pain (4-6) Ondansetron HCl 4 mg 05/22/23 17:11 Ondansetron Inj 4 Mg/2 Ml Vial IV PUSH Q4H PRN Nausea Simvastatin 20 mg 05/22/23 21:00 06/02/23 20:27 Simvastatin 20 Mg Tablet PO 20 mg HS SANDIE Administration Sodium Chloride 10 ml 05/28/23 14:00 06/03/23 06:27 Central Line Flush IV PUSH 10 ml Q8HR SANDIE Administration Sodium Chloride 10 ml 05/28/23 13:32 Central
[2023-06-03 14:00] VITALS: BP 123/63; PULSE 88; RESP 16; TEMP 36.5; O2SAT 100
[2023-06-03 20:00] VITALS: O2SAT 93
[2023-06-03 20:48] VITALS: BP 128/79; PULSE 89; RESP 14; TEMP 36.7; O2SAT 93
[2023-06-03] MEDS: SIMVASTATIN 20 MG TABLET PO (21:35)
[2023-06-03] MEDS: LACTATED RINGERS 1,000 ML 75 ML IV CONT (23:59)
[2023-06-04] VITALS (15 sets, daily range): BP systolic 139–156; BP diastolic 68–90; PULSE 70–93; RESP 16–27; TEMP 36–37; O2SAT 92–100
[2023-06-04] MEDS: metroNIDAZOLE 500 MG/ISO 100ML 500 MG/100 ML BAG 100 MG IVPB ×3 (05:35→22:03)
[2023-06-04] MEDS: CENTRAL LINE FLUSH 10 ML IV PUSH ×2 (05:35→22:04)
[2023-06-04 05:36] LABS: Basophils Percent Auto 0.3 % (0.2-1.2); Eosinophils Percent Auto 0.4 % (0-4.4); Hematocrit 27.6 % (37.0-47.0); Hemoglobin 8.6 g/dL (12.0-15.0); Immature Granulocyte Absolute 0.05 K/mm3 (0.00-0.031); Immature Granulocyte Percent A 0.5 % (0-0.5); Lymphocytes Percent Auto 10.2 % (18.3-44.2); Mean Corpuscular HGB Conc 31.2 g/dl (32-36); Mean Corpuscular Hemoglobin 31.3 pg (26-34); Mean Corpuscular Volume 100.4 fl (80-100); Mean Platelet Volume 11.9 fl (7.4-10.4); Monocytes Absolute Auto 1.3 K/mm3 (0.1-0.6); Monocytes Percent Auto 13.3 % (2.6-8.5); Neutrophils Absolute Auto 7.4 K/mm3 (1.3-6.7); Neutrophils Percent Auto 75.3 % (45.5-73.1); Platelet Count Result 333 k/mm3 (150-375); Red Blood Count 2.75 M/mm3 (4.2-5.4); Red Cell Distribution Width 14.9 % (11.5-14.5); White Blood Count 9.8 K/mm3 (4.5-10.0)
[2023-06-04 05:46] LABS: Alanine Aminotransferase 13 U/L (6-35); Albumin Level 2.2 g/dL (3.5-5.1); Alkaline Phosphatase 60 U/L (38-126); Anion Gap 4 mmol/L (8-16); Aspartate Amino Transferase 22 U/L (14-36); Bilirubin,Total 0.7 mg/dL (0.2-1.3); Blood Urea Nitrogen 11 mg/dL (7-17); Carbon Dioxide 30 mmol/L (22-30); Chloride 101 mmol/L (98-107); Estimated CRCL calculation 38 ml/min; Estimated Glomerular Filt Rate > 60; Glucose 102 mg/dL (65-110); Sodium 135 mmol/L (137-145)
[2023-06-04 06:38] LABS: Anisocytosis 2+ (NORMAL); Ovalocytes 1+ (NORMAL); Poikilocytosis 2+ (NORMAL); Schistocytes None Seen (NORMAL); Tear Drop Cells 1+ (NORMAL)
[2023-06-04] MEDS: METOPROLOL SUCCINATE EXT REL 12.5 MG TABCR PO (08:30)
[2023-06-04] MEDS: cefTRIAXone 2 GM/NS 100 ML 2 GM/100 ML BAG IVPB (08:31)
[2023-06-04] MEDS: LATANOPROST 0.005% OP SOLN 2.5 ML BTL 1 DROP EACH EYE (08:40)
--- NOTE | 2023-06-04 09:39 | PCNFU ---
Nutrition Follow-Up Complete: Severe protein calorie malnutrition related to chronic loss of appetite and acute altered GI function as evidenced by NFPE findings of severe muscle wasting and fat loss. Improve PO intake to at least 50% meals and supplements - Not meeting goal; NPO today for surgery. Intakes on previous low fiber diet 20-50% Maintain current weight Goal: Pt current nutrition is NPO with ice chips for surgery. Nutrition recommendation: Advance diet per surgery. If TPN is needed, start Clinmix 5/15E @ 40 ml/h for 1182 kcal, 46 g protien, 1210 ml total volume Last recorded weight is 61.5 kg. Bowel Motility: +3 BMs 06/03/23 Labs Reviewed: Hgb 8.6, Hct 27.6, Alb 2.2, Na 132, K+ 3.0 Meds Noted: Zofran Skin: WNL Additional Notes: Pt having surgery today for diverting end colostomy s/t sigmoid colon perforation. Will continue to follow patient. Monitoring intakes, weights, labs, diet tolerance, plan of care Follow up in 3 days
--- NOTE | 2023-06-04 10:33 | PM.IMPN ---
Progress Note: A&P Assessment and Plan (1) Colonic diverticular abscess: Code(s): K57.20 - Diverticulitis of large intestine with perforation and abscess without bleeding Status: Acute Assessment and Plan: 06/01: CT abdomen and pelvis yesterday showed perforated diverticulitis at the proximal sigmoid colon with rectal contrast extending into an adjacent abscess that tracts to a larger pelvic abscess where the percutaneous transgluteal drain is located. There is additionally a few small loculated abscesses without contrast enhancement in the lower abdomen that are not amenable to percutaneous drainage. Discussed CT findings with Dr. Langford, who will be speaking with family and the patient regarding possible surgical options at this point. Continue IV antibiotics Rocephin and Flagyl Tolerating a low fiber diet + supplements with better oral intake (2) Positive blood cultures: Code(s): R78.81 - Bacteremia Status: Acute Assessment and Plan: E coli bacteremia, on Rocephin and Flagyl (abscess culture Bacteroides and E. coli) (3) Protein calorie malnutrition: Code(s): E46 - Unspecified protein-calorie malnutrition Status: Acute Assessment and Plan: Appetite and intake improved. Continue to encourage supplements first and small frequent meals. (4) Non-ST elevation [place] (NSTEMI): Code(s): I21.4 - Non-ST elevation (NSTEMI) myocardial infarction Status: Acute Assessment and Plan: Takotsubo cardiomyopathy appearance on Echo continue medical treatment per cardiology Cardiology following--Lasix 40 mg daily and Metoprolol 12.5 mg daily Daughter feels that the lisinopril is causing her mother to be more tired. She also feels that since starting this she developed a rash to her right axilla and back as well as concerns for making her speech thick . Asking cardiology for rec's with changes from RUFUS to ARB therapy. Stopped lisinopril and started losartan 12.5 mg daily (5) Hypertension: Code(s): I10 - Essential (primary) hypertension Status: Acute Assessment and Plan: titrate home meds with clinical course Blood pressure reviewed 06/03 (6) Hyperlipidemia: Code(s): E78.5 - Hyperlipidemia, unspecified Status: Acute Assessment and Plan: continue with simvastatin (7) Macular degeneration disease: Code(s): H35.30 - Unspecified macular degeneration Status: Acute Assessment and Plan: continue with latanoprost (8) Acute renal failure: Code(s): N17.9 - Acute kidney failure, unspecified Status: Acute Assessment and Plan: improving Cr 1.4-->1.3-->1.1-->0.9-->1.0-->0.9-->1.0-->0.9 Monitor electrolytes and kidney function 06/02: K+ 2.9. Replacing with 80 meq of K today. 06/04:3.4 (9) Pulmonary edema cardiac cause: Code(s): I50.1 - Left ventricular failure, unspecified Status: Acute Assessment and Plan: 05/31: IV Lasix daily, today is day 3 of treatment. Cardiology [employer] PERSON Poppy Cooper contacted and will see patient today 06/01: Lasix changed to PO per Cardiology. Plan Surgery to speak with family about surgical procedure options today 06/02. Family is discussing the options which were presented and will give an answer tomorrow 06/03. Patient requiring oxygen again Diet and appetite improving Family has received resources for TARUN and local SNFs. They are assessing the facilities currently. Therapy currently recommending TARUN. Subjective Date/time seen: 06/04/23 10:33 Interval history: HPI obtained from the chart, This is a 87-year-old female patient presenting on 05/22, who has a past medical history of hypertension and hyperlipidemia.? The patient was diagnosed a week ago with COVID with a home test after having a cough.? Three days ago she developed some lower abdominal pain as well as some epigastric pain.the patient's daughter is at the bedside answering questions for her.
--- NOTE | 2023-06-04 10:53 | PCWOUND ---
WOCN NOTE Marked left abdomen for best ostomy placement site. had patient sit up and lay flat to determine best site. placed black marker X at site and covered with transparent dressing.
[2023-06-04] MEDS: POTASSIUM CHLORIDE INJ 40 MEQ in SODIUM CHLORIDE 0.9% IV 500 ML 130 MEQ IVPB (10:54)
[2023-06-04 11:50] LABS: Magnesium 1.5 mg/dL (1.6-2.3)
--- NOTE | 2023-06-04 12:12 | PC.NURSE ---
pt to surgery @ 1212 w/ K rider running - daughter Angella called @ [phone] to be informed of surgery time change. stated she would be up here as soon as possible
--- NOTE | 2023-06-04 12:48 | WPDANESEPPF ---
Anes - Initial Pre Proc Eval Procedure: Operation Date: 05/25/23 14:30 Proposed Procedures p Radiology Procedure Mod.Sed.Rn - Abscess Drain Placement - Ric Glover MD Operation Date: 06/04/23 13:30 Proposed Procedures p Open Diverting Colostomy, Possible Bowel Resection - Constantin Langford MD Date/Time: 06/04/23 12:48 Surgeon: Phill Prasad MD Pre Op Diagnosis: Diverticulitis with abscess, non-ST elevation AR Patient Data Age: 87 Gender: F Height: 1.7 m Weight: 61.5 kg Last Vital Signs Temp 37.0 C 06/04/23 05:09 Pulse 70 06/04/23 08:30 Resp 16 06/04/23 08:00 BP 140/90 06/04/23 05:09 Pulse Ox 100 06/04/23 08:00 O2 Del Method Nasal Cannula 06/04/23 08:00 O2 Flow Rate 1.5 06/04/23 08:00 FiO2 21 06/04/23 08:00 Allergies Allergy/AdvReac Type Severity Reaction Status Date / Time aloe Allergy Unknown Verified 05/22/23 13:58 Penicillins Allergy Rash Verified 05/24/23 09:29 Home Medications Medication Instructions Recorded Confirmed Type dorzolamide 22.3 mg-timolol 6.8 1 drp EACH EYE Q12H 05/22/23 05/22/23 History mg/mL eye drops latanoprost 0.005 % eye drops 1 drp EACH EYE DAILY 05/22/23 05/22/23 History olmesartan 40 mg tablet 40 mg PO DAILY 05/22/23 05/22/23 History simvastatin 20 mg tablet 20 mg PO HS 05/22/23 05/22/23 History Laboratory Tests 06/04/23 06/04/23 05:11 05:12 WBC 9.8 K/mm3 (4.5-10.0) RBC 2.75 L M/mm3 (4.2-5.4) Hgb 8.6 L g/dL (12.0-15.0) Hct 27.6 L % (37.0-47.0) MCV 100.4 H fl (80-100) MCH 31.3 pg (26-34) MCHC 31.2 L g/dl (32-36) RDW 14.9 H % (11.5-14.5) Plt Count 333 k/mm3 (150-375) MPV 11.9 H fl (7.4-10.4) Immature Gran % (Auto) 0.5 % (0-0.5) Neut % (Auto) 75.3 H % (45.5-73.1) Lymph % (Auto) 10.2 L % (18.3-44.2) [place] % (Auto) 13.3 H % (2.6-8.5) Eos % (Auto) 0.4 % (0-4.4) Baso % (Auto) 0.3 % (0.2-1.2) Lymph # (Auto) 1.00 K/mm3 (0.9-3.2) [place] # (Auto) 1.3 H K/mm3 (0.1-0.6) Eos # (Auto) 0.0 K/mm3 (0-0.3) Baso # (Auto) 0.0 K/mm3 (0.0-0.1) Abs Immat Gran (auto) 0.05 H K/mm3 (0.00-0.031) Absolute Neuts (auto) 7.4 H K/mm3 (1.3-6.7) Absolute Nucleated RBC 0.0 K/mm3 (0.0-0.012) Nucleated RBC % 0.0 % (0.0-0.2) Platelet Estimate Slightly increased (Adequate) Poikilocytosis 2+ (NORMAL) Anisocytosis 2+ (NORMAL) Tear Drop Cells 1+ (NORMAL) Ovalocytes 1+ (NORMAL) Schistocytes None seen (NORMAL) Sodium 135 L mmol/L (137-145) Potassium 3.0 L mmol/L (3.4-5.0) Chloride 101 mmol/L (98-107) Carbon Dioxide 30 mmol/L (22-30) Anion Gap 4 L mmol/L (8-16) BUN 11 mg/dL (7-17) Creatinine 0.90 mg/dL (0.7-1.0) Estim Creat Clear Calc 38 ml/min Estimated GFR > 60 (59 - ) Glucose 102 mg/dL (65-110) Calcium 8.0 L mg/dL (8.4-10.2) Magnesium 1.5 L mg/dL (1.6-2.3) Total Bilirubin 0.7 mg/dL (0.2-1.3) AST 22 U/L (14-36) ALT 13 U/L (6-35) Alkaline Phosphatase 60 U/L (38-126) Total Protein 5.0 L g/dL (6.3-8.2) Albumin 2.2 L g/dL (3.5-5.1) Patient hx anesthesia problems: none Family hx anesthesia problems: none Results Review: All pre-operative results and documents have been reviewed as part of the pre-operative evaluation. [facility] Past Medical History Medical History Hyperlipidemia Hypertension Macular degeneration disease Ovarian cyst Surgical History Surgical History H/O ovarian cystectomy No pertinent past surgical history Family History Family History Mother Hy
--- NOTE | 2023-06-04 13:14 | WPDHPUPDATE1 ---
History and Physical Update Update Date/Time: 06/04/23 13:14 History and Physical has been reviewed, including an updated exam of the patient. There are NO changes in the patient's condition. Risks, benefits, and alternatives have been discussed and questions answered. Patient agrees to proceed with procedure.
[2023-06-04] MEDS: LIDO 1%/EPINEPHRINE 1:100,000 50 ML VIAL 15 ML INFILTRATE (14:20)
[2023-06-04] MEDS: BUPivacaine HCL 0.25% PF 30 ML VIAL 15 ML INFILTRATE (14:21)
--- NOTE | 2023-06-04 15:20 | SUR.OPER ---
200mL tea colored with sediment urine drained from mann catheter in OR. Dr. Langford aware
[2023-06-04] MEDS: LACTATED RINGERS 1,000 ML 75 ML IV CONT (17:30)
[2023-06-04] MEDS: METOPROLOL TARTRATE INJ 5 MG/5 ML VIAL IV PUSH (17:35)
[2023-06-04] MEDS: IBUPROFEN IV 400 MG in SODIUM CHLORIDE 0.9% IV 100 ML 208 MG IVPB (17:46)
[2023-06-04] MEDS: AMINO ACIDS 5%/D15W/E-LYTES/CA 2,000 ML with MULTIVITAMINS-12 INJ VIAL 1 2.5 ML, MULTIV... 40 ML IV CONT (18:17)
[2023-06-04 18:22] LABS: Glucose Point of Care 101 mg/dl (65-105)
[2023-06-04 18:35] LABS: Hematocrit 30.8 % (37.0-47.0); Hemoglobin 9.5 g/dL (12.0-15.0); Mean Corpuscular HGB Conc 30.8 g/dl (32-36); Mean Corpuscular Hemoglobin 31.3 pg (26-34); Mean Corpuscular Volume 101.3 fl (80-100); Platelet Count Result 388 k/mm3 (150-375); Red Blood Count 3.04 M/mm3 (4.2-5.4); White Blood Count 11.4 K/mm3 (4.5-10.0)
[2023-06-04 18:45] LABS: Magnesium 1.2 mg/dL (1.6-2.3)
[2023-06-04 18:47] LABS: Alanine Aminotransferase 13 U/L (6-35); Albumin Level 2.1 g/dL (3.5-5.1); Alkaline Phosphatase 62 U/L (38-126); Anion Gap 8 mmol/L (8-16); Aspartate Amino Transferase 24 U/L (14-36); Bilirubin,Total 0.7 mg/dL (0.2-1.3); Blood Urea Nitrogen 13 mg/dL (7-17); Calcium 8.1 mg/dL (8.4-10.2); Carbon Dioxide 25 mmol/L (22-30); Chloride 103 mmol/L (98-107); Estimated CRCL calculation 38 ml/min; Estimated Glomerular Filt Rate > 60; Glucose 106 mg/dL (65-110); Sodium 136 mmol/L (137-145)
[2023-06-04 19:14] LABS: Band Neutrophils Percent 15 % (0-6); Lymphocytes Absolute Manual 0.45 K/mm3 (1.1-4.5); Monocytes Absolute Manual 0.34 K/mm3 (0.1-0.90); Monocytes Percent Manual 3 % (3-9); Neutrophils Percent Manual 78 % (46-73); Platelet Estimate Adequate (Adequate); Schistocytes None Seen (NORMAL); Total Cells Counted 100
[2023-06-04 19:15] LABS: Anisocytosis 2+ (NORMAL); Hypochromasia 1+ (NORMAL)
[2023-06-04 20:25] LABS: Transferrin < 80 mg/dL (206-381)
--- NOTE | 2023-06-04 20:36 | W.PM.PROC2 ---
Procedure Note - Detailed Date of Procedure 06/04/23 Pre-op Diagnosis Diverticulitis with abscess, non-ST elevation CT Post-op Diagnosis Same Procedure Performed Placement of descending end colostomy and repair of small bowel entertomy x 1. Surgeon Constantin Langford MD [employer] YOSVANY Nagel Anesthesia General Indications Pt with perforated diverticulitis and pelvic abscess. Recent CT. Findings Small bowel inflammatory adhesions to bladder, sigmoid colon, and pelvic side breaux. SB enterotomy made in attempt to mobilize SB out of pelvis. Due to pt's recent CT, decision was made not to extend surgical case time or cause large blood loss or more small bowel holes. A diverting end colostomy was placed. Description of Procedure After informed consent was obtained, pt was brought to the OR and placed supine on the OR table. General endotracheal anesthesia was administered and the abdomen was prepped in the usual sterile fashion. A time out was performed identifying the patient and the procedure to be done and verifying that she was getting scheduled IV abx. I then made a midline incision starting just above the umbilicus and extending it down to the pubic synphysis. the fascia was divided with electrocautery and the the abdomen was entered. Omental adhesions to the anterior abdominal wall were divided with Ligasure and bovie cautery. I tried to mobilize the loops of small bowel out of the pelvis but the inflammatory adhesions to the bladder, sigmoid colon, and pelvic side breaux were dense and I made a small bowel enterotomy trying to perform the adhesiolysis and drain the pelvic abscess. I repaired the small bowel enterotomy with 3-0 silk sutures. At this point, I decided that the risk of making more small bowel enterotomies and having significant blood loss was too risky in light of her recent acute CT less than 2 weeks ago. I then decided to just perform a diverting end colostomy and leave the pelvic abscess as it already had a CT guided percutaneous transgluteal drain in it. At the junction of the descending left colon and sigmoid colon, I then incised the lateral peritoneal reflection on the left side with electrocautery and mobilized the descending left colon to the midline. I then made a defect in the mesentery to the left colon and divided it with a AMANDA 75 stapler. I then further mobilized the descending colon by dividing some of the mesentery with the Ligasure device. I then made sure that I had enough length to bring the end of the colon through the abdominal wall. I then resected a quarter sized piece of skin off of the LLQ abdominal wall with a scalpel. I then dissected down through the subcutaneous tissue and incised the anterior rectus fascia longitudinally. The rectus muscle fibers were split and not divided and the posterior rectus fascial was opened. I then dilated the stoma aperature to a diameter of 2 fingerbreaths. The end of the descending colon was then delivered through the opening and secured to the undersurface of the abdominal wall with 3-0 silk sutures. I then closed the abdomen with placement of looped #1 PDS sutures stared at each end of the incision. They were run until they met just below the umbilicus and then tied together. The subcutaneous tissues were then closed with a running 3-0 vicryl suture and then the skin edges were approximated with skin may. A blue towel was then used to cover the midline incision and the colostomy was then matured. I resected the staple line off of the end of the colon and then placed 3-0 vicryl sutures at the 4 cardinal points everting the mucosa in alutiiq fashion. Additional 3-0 vicryl sutures were then placed to further approximate the mucosa to the dermis of the skin. I then placed my index finger through the stoma and it entered the abdomen easily without obstruction. A colostomy appliance was then placed and the sterile dressing was placed on the midline incision. The
[2023-06-04] MEDS: MAG HYDROX/AL HYDROX/SIMETH 30 ML UDC PO (22:03)
[2023-06-05 00:01] LABS: Glucose Point of Care 203 mg/dl (65-105)
[2023-06-05 00:04] VITALS: BP 122/67; PULSE 83; RESP 16; TEMP 36.5; O2SAT 94
[2023-06-05] MEDS: IBUPROFEN IV 400 MG in SODIUM CHLORIDE 0.9% IV 100 ML 208 MG IVPB ×2 (01:53→22:31)
[2023-06-05 04:53] VITALS: BP 122/73; PULSE 83; RESP 16; TEMP 36.3; O2SAT 99
[2023-06-05] MEDS: metroNIDAZOLE 500 MG/ISO 100ML 500 MG/100 ML BAG 100 MG IVPB ×3 (05:39→21:15)
[2023-06-05] MEDS: MAG HYDROX/AL HYDROX/SIMETH 30 ML UDC PO ×3 (05:45→21:14)
[2023-06-05] MEDS: CENTRAL LINE FLUSH 10 ML IV PUSH (05:45)
[2023-06-05 06:20] LABS: Basophils Percent Auto 0.2 % (0.2-1.2); Hematocrit 28.9 % (37.0-47.0); Lymphocytes Absolute Auto 0.73 K/mm3 (0.9-3.2); Mean Corpuscular HGB Conc 31.1 g/dl (32-36); Mean Corpuscular Hemoglobin 31.1 pg (26-34); Monocytes Absolute Auto 0.8 K/mm3 (0.1-0.6); Monocytes Percent Auto 7.6 % (2.6-8.5); Neutrophils Absolute Auto 8.9 K/mm3 (1.3-6.7); Neutrophils Percent Auto 84.2 % (45.5-73.1); Platelet Count Result 384 k/mm3 (150-375); Red Blood Count 2.89 M/mm3 (4.2-5.4); Red Cell Distribution Width 15.3 % (11.5-14.5); White Blood Count 10.5 K/mm3 (4.5-10.0)
[2023-06-05 06:25] LABS: Alanine Aminotransferase 15 U/L (6-35); Albumin Level 2.3 g/dL (3.5-5.1); Alkaline Phosphatase 61 U/L (38-126); Anion Gap -2 mmol/L (8-16); Aspartate Amino Transferase 21 U/L (14-36); Bilirubin,Total 0.6 mg/dL (0.2-1.3); Blood Urea Nitrogen 22 mg/dL (7-17); Carbon Dioxide 34 mmol/L (22-30); Chloride 101 mmol/L (98-107); Estimated CRCL calculation 27 ml/min; Estimated Glomerular Filt Rate 47; Glucose 292 mg/dL (65-110); Phosphorus 3.3 mg/dL (2.5-4.5); Potassium 3.8 mmol/L (3.4-5.0); Sodium 133 mmol/L (137-145)
[2023-06-05 06:53] LABS: Crenated RBC 1+ (NORMAL); Hypochromasia 1+ (NORMAL); Ovalocytes 1+ (NORMAL); Platelet Clumps Present; Poikilocytosis 1+ (NORMAL); Schistocytes Rare (NORMAL)
[2023-06-05 08:09] LABS: Glucose Point of Care 283 mg/dl (65-105)
--- NOTE | 2023-06-05 08:21 | PM.IMPN ---
Progress Note: A&P Assessment and Plan (1) Colonic diverticular abscess: Code(s): K57.20 - Diverticulitis of large intestine with perforation and abscess without bleeding Status: Acute Assessment and Plan: 06/01: CT abdomen and pelvis yesterday showed perforated diverticulitis at the proximal sigmoid colon with rectal contrast extending into an adjacent abscess that tracts to a larger pelvic abscess where the percutaneous transgluteal drain is located. There is additionally a few small loculated abscesses without contrast enhancement in the lower abdomen that are not amenable to percutaneous drainage. Discussed CT findings with Dr. Langford, who will be speaking with family and the patient regarding possible surgical options at this point. POD 1 for placement of descending end colostomy and repair of small bowel enterotomy x [address] Langford. Continue with IV antibiotics Rocehpin and Flagyl IVF LR at 35 ml per hour + TPN at 40 ml per hour for total of 75 ml per hour of fluids. DVT prophalyxis with Lovenox per surgery PRN Dilaudid or morphine for pain control. No oral medications at this time. NG tube placed during surgery to LIWS NPO except Ice chips PT/OT can continue OOB to chair. IS already ordered. (2) Positive blood cultures: Code(s): R78.81 - Bacteremia Status: Acute Assessment and Plan: E coli bacteremia, on Rocephin and Flagyl (abscess culture Bacteroides and E. coli) Repeat blood cultures from 05/26 were negative for growth (3) Protein calorie malnutrition: Code(s): E46 - Unspecified protein-calorie malnutrition Status: Acute Assessment and Plan: Appetite and intake improved. Continue to encourage supplements first and small frequent meals. Consulted dietitian post-op given NPO status TPN orders were obtained. (4) Non-ST elevation [place] (NSTEMI): Code(s): I21.4 - Non-ST elevation (NSTEMI) myocardial infarction Status: Acute Assessment and Plan: Takotsubo cardiomyopathy appearance on Echo continue medical treatment per cardiology Cardiology following--Lasix 40 mg daily and Metoprolol 12.5 mg daily Daughter feels that the lisinopril is causing her mother to be more tired. She also feels that since starting this she developed a rash to her right axilla and back as well as concerns for making her speech thick . Asking cardiology for rec's with changes from RUFUS to ARB therapy. Stopped lisinopril and started losartan 12.5 mg daily Holding oral medication at this time s/p surgery. Lopressor 5 mg IVP BID, IV lasix 20 mg. (5) Hypertension: Code(s): I10 - Essential (primary) hypertension Status: Acute Assessment and Plan: titrate home meds with clinical course Blood pressure reviewed 06/04 Holding IV lasix 20 mg daily due to Cr bump after surgery. It appears she had some hypotensive episodes at the end of surgery which could be the cause of the Cr increase. (6) Hyperlipidemia: Code(s): E78.5 - Hyperlipidemia, unspecified Status: Acute Assessment and Plan: continue with simvastatin on hold after surgery (7) Macular degeneration disease: Code(s): H35.30 - Unspecified macular degeneration Status: Acute Assessment and Plan: continue with latanoprost (8) Acute renal failure: Code(s): N17.9 - Acute kidney failure, unspecified Status: Acute Assessment and Plan: improving Cr 1.4-->1.3-->1.1-->0.9-->1.0-->0.9-->1.0-->0.9-->1.3 post-op Monitor electrolytes and kidney function 06/02: K+ 2.9. Replacing with 80 meq of K today. 06/04: K + 3.4 (9) Pulmonary edema cardiac cause: Code(s): I50.1 - Left ventricular failure, unspecified Status: Acute Assessment and Plan: 05/31: IV Lasix daily, today is day 3 of treatment. Cardiology PHYSICS DEPARTMENT CHAIR Poppy Cooper contacted and will see patient today 06/01: Lasix changed to PO per Cardiology. 06/05: Lasix IV now
[2023-06-05] MEDS: ENOXAPARIN 30 MG/0.3 ML SYRINGE SUB-Q (09:08)
[2023-06-05] MEDS: cefTRIAXone 2 GM/NS 100 ML 2 GM/100 ML BAG IVPB (09:08)
[2023-06-05 09:09] VITALS: PULSE 78
[2023-06-05] MEDS: METOPROLOL TARTRATE INJ 5 MG/5 ML VIAL IV PUSH ×2 (09:09→17:11)
[2023-06-05] MEDS: FAMOTIDINE 20 MG/2 ML VIAL IV PUSH (09:21)
--- NOTE | 2023-06-05 09:45 | PM.PNGS ---
Progress Note: A&P Assessment and Plan (1) Colonic diverticular abscess: Code(s): K57.20 - Diverticulitis of large intestine with perforation and abscess without bleeding Status: Acute Assessment and Plan: await ostomy output, cont NG, bowel rest for now, cont TPN, IV abx, will get PT/OT (2) Protein calorie malnutrition: Code(s): E46 - Unspecified protein-calorie malnutrition Status: Acute Assessment and Plan: cont TPN Subjective Subjective Date/Time Seen: 06/05/23 09:45 Interval history: no acute issues, still pretty lethargic this am Review of Systems Review of Systems: All systems reviewed & are unremarkable except as noted in HPI and below Exam Const: General: cooperative, comfortable, no acute distress, lethargic and tired appearing Resp: Auscultation: clear to auscultation bilaterally Cardio: Rate: regular rate Rhythm: regular rhythm GI: Inspection: normal to inspection, distended and incision GI Palp: Yes abdominal tenderness, Yes Soft to palpation and Yes Tenderness to palpation present (GI) Other: ostomy - pink, viable drain - moderate output feculent Objective Data Vital Signs Vital Signs: Vital Signs - 24 hr 06/04/23 12:15 06/04/23 15:57 06/04/23 16:12 Temperature 36.8 C Pulse Rate 87 86 87 Respiratory Rate 18 21 H 22 H Blood Pressure 149/73 H 146/69 H 156/73 H Pulse Oximetry 100 100 100 Oxygen Delivery Nasal Cannula Simple Face Mask Simple Face Mask Oxygen Flow Rate 1.5 6 6 06/04/23 16:25 06/04/23 16:40 06/04/23 16:55 Temperature Pulse Rate 87 89 Respiratory Rate 26 H 23 H 27 H Blood Pressure 150/75 H 148/73 H 150/68 H Pulse Oximetry 96 96 100 Oxygen Delivery Room Air Room Air Room Air Oxygen Flow Rate 06/04/23 17:15 06/04/23 17:35 06/04/23 17:30 Temperature 36.4 C L 36.2 C L Pulse Rate 93 93 92 Respiratory Rate 18 18 Blood Pressure 152/72 H 148/69 H Pulse Oximetry 92 92 Oxygen Delivery Oxygen Flow Rate 06/04/23 18:10 06/04/23 19:00 06/05/23 00:04 Temperature 36.3 C L 36.0 C L 36.5 C Pulse Rate 79 78 83 Respiratory Rate 17 17 16 Blood Pressure 140/70 139/69 122/67 Pulse Oximetry 95 96 94 Oxygen Delivery Oxygen Flow Rate 06/04/23 20:46 06/05/23 04:53 06/05/23 09:09 Temperature 36.3 C L Pulse Rate 83 78 Respiratory Rate 16 Blood Pressure 122/73 Pulse Oximetry 95 99 Oxygen Delivery Room Air Oxygen Flow Rate Intake/Output Intake/Output: Intake & Output 06/02/23 06/03/23 06/04/23 06/05/23 23:59 23:59 23:59 23:59 Intake Total 9246 292 4336 100 Output Total 1150 1150 555 100 Balance 140 -250 849 0 Meds/Results Medications: Active Medications Generic Name Dose Route Start Last Admin Trade Name Freq PRN Reason Stop Dose Admin Acetaminophen 650 mg 06/04/23 17:02 Acetaminophen 650 Mg Suppository RECTAL Q6H PRN Mild Pain (1-3) or Fever Al Hydrox/Mg Hydrox/Simethicone 30 ml 06/04/23 22:00 06/05/23 05:45 Mag Hydrox/Al Hydrox/Simeth 30 Ml Udc PO 30 ml Q8H SANDIE Administration Enoxaparin Sodium 30 mg 06/05/23 09:00 06/05/23 09:08 Enoxaparin 30 Mg/0.3 Ml Syringe SUB-Q 30 mg DAILY SANDIE Administration Famotidine 20 mg 06/05/23 09:00 06/05/23 09:21 Famotidine 20 Mg/2 Ml Vial IV PUSH 20 mg Q12HR SANDIE Administration Furosemide 20 mg 06/05/23 09:00 Furosemide Inj 40 Mg/4 Ml Vial IV PUSH DAILY SANDIE Hydromorphone HCl 1 mg 06/04/23 17:02 Hydromorphone Hcl Inj (*Crx) 1 Mg/Ml Syr IV PUSH Q4H PRN Pain Rated 7-10 Ceftriaxone Sodium 2 gm in 100 mls @ 200 mls/hr 05/28/23 10:00 06/05/23 09:08 Rocephin 2 Gm/Ns 100 Ml IVPB 200 mls/hr DAILY SANDIE Administration Metronidazole 500 mg in 100 mls @ 100 mls/hr 05/30/23 14:00 06/05/23 05:39 Flagyl 500 Mg/Iso Soln 100 Ml IVPB 100 mls/hr Q8H SANDIE Administration Lactated Ringer's 1,000 mls @ 35 mls/hr 06/04/23 00:01 06/05/23 04:04 Lr - Lac
[2023-06-05 12:10] LABS: Glucose Point of Care 299 mg/dl (65-105)
[2023-06-05] MEDS: LATANOPROST 0.005% OP SOLN 2.5 ML BTL 1 DROP EACH EYE (12:31)
[2023-06-05 14:35] VITALS: BP 110/72; PULSE 75; RESP 16; TEMP 36.9; O2SAT 98
[2023-06-05 16:43] LABS: Triglycerides 66 mg/dL (<150)
[2023-06-05 17:11] VITALS: PULSE 113
[2023-06-05] MEDS: AMINO ACIDS 5%/D15W/E-LYTES/CA 2,000 ML with MULTIVITAMINS-12 INJ VIAL 1 2.5 ML, MULTIV... 40 ML IV CONT (17:12)
[2023-06-05 18:29] LABS: Glucose Point of Care 316 mg/dl (65-105)
[2023-06-05] MEDS: INSULIN ASPART (*BKC) 100 UNITS/ML SUB-Q (18:59)
[2023-06-05 20:00] VITALS: BP 124/76; PULSE 73; RESP 18; TEMP 36.3; O2SAT 93
[2023-06-06] VITALS (9 sets, daily range): BP systolic 109–145; BP diastolic 53–82; PULSE 65–83; RESP 16–20; TEMP 35.5–36.8; O2SAT 92–99
[2023-06-06 01:18] LABS: Glucose Point of Care 276 mg/dl (65-105)
--- NOTE | 2023-06-06 01:22 | PC.NURSE ---
Daylight Savings Time For Daylight Savings Time Ending in the Fall - Clocks are moved back. For Daylight Savings Time Beginning in the Spring - Clocks are moved ahead. For [facility], the time of change occurs at 0200 hrs. Time is taken from the sql server developer. This entry on the patient's chart recognizes the change in time reflected during documentation. Example: 2 entries for vital signs may be charted for 0200 hrs.
[2023-06-06] MEDS: INSULIN ASPART (*BKC) 100 UNITS/ML SUB-Q ×3 (01:24→18:01)
[2023-06-06] MEDS: CENTRAL LINE FLUSH 10 ML IV PUSH ×2 (05:34→21:14)
[2023-06-06] MEDS: MAG HYDROX/AL HYDROX/SIMETH 30 ML UDC PO ×3 (05:34→21:13)
[2023-06-06] MEDS: metroNIDAZOLE 500 MG/ISO 100ML 500 MG/100 ML BAG 100 MG IVPB ×3 (05:34→21:13)
[2023-06-06 05:41] LABS: Basophils Percent Auto 0.3 % (0.2-1.2); Eosinophils Percent Auto 0.3 % (0-4.4); Hematocrit 24.1 % (37.0-47.0); Hemoglobin 7.4 g/dL (12.0-15.0); Immature Granulocyte Absolute 0.13 K/mm3 (0.00-0.031); Immature Granulocyte Percent A 1.5 % (0-0.5); Lymphocytes Absolute Auto 0.93 K/mm3 (0.9-3.2); Lymphocytes Percent Auto 10.7 % (18.3-44.2); Mean Corpuscular HGB Conc 30.7 g/dl (32-36); Mean Corpuscular Hemoglobin 31.2 pg (26-34); Mean Corpuscular Volume 101.7 fl (80-100); Mean Platelet Volume 11.7 fl (7.4-10.4); Monocytes Percent Auto 10.9 % (2.6-8.5); Neutrophils Absolute Auto 6.6 K/mm3 (1.3-6.7); Neutrophils Percent Auto 76.3 % (45.5-73.1); Platelet Count Result 289 k/mm3 (150-375); Red Blood Count 2.37 M/mm3 (4.2-5.4); Red Cell Distribution Width 15.1 % (11.5-14.5); White Blood Count 8.7 K/mm3 (4.5-10.0)
[2023-06-06 05:52] LABS: Alanine Aminotransferase 14 U/L (6-35); Albumin Level 1.9 g/dL (3.5-5.1); Alkaline Phosphatase 53 U/L (38-126); Anion Gap 0 mmol/L (8-16); Aspartate Amino Transferase 23 U/L (14-36); Bilirubin,Total 0.4 mg/dL (0.2-1.3); Blood Urea Nitrogen 32 mg/dL (7-17); Calcium 8.1 mg/dL (8.4-10.2); Carbon Dioxide 33 mmol/L (22-30); Chloride 102 mmol/L (98-107); Estimated CRCL calculation 24 ml/min; Estimated Glomerular Filt Rate 40; Glucose 250 mg/dL (65-110); Phosphorus 2.1 mg/dL (2.5-4.5); Potassium 3.2 mmol/L (3.4-5.0); Sodium 135 mmol/L (137-145)
--- NOTE | 2023-06-06 07:09 | PM.IMPN ---
Progress Note: A&P Assessment and Plan (1) Colonic diverticular abscess: Code(s): K57.20 - Diverticulitis of large intestine with perforation and abscess without bleeding Status: Acute Assessment and Plan: 06/01: CT abdomen and pelvis yesterday showed perforated diverticulitis at the proximal sigmoid colon with rectal contrast extending into an adjacent abscess that tracts to a larger pelvic abscess where the percutaneous transgluteal drain is located. There is additionally a few small loculated abscesses without contrast enhancement in the lower abdomen that are not amenable to percutaneous drainage. Discussed CT findings with Dr. Langford, who will be speaking with family and the patient regarding possible surgical options at this point. POD 1 for placement of descending end colostomy and repair of small bowel enterotomy x [address] Langford. Continue with IV antibiotics Rocehpin and Flagyl IVF LR at 75 ml per hour + TPN at 40 ml per hour for total of 115 ml per hour of fluids for low blood pressure, increase Cr, and low urine output. DVT prophylaxis with Lovenox per surgery PRN Dilaudid or morphine for pain control. No oral medications at this time. NG tube placed during surgery to LIWS ---0 ml out overnight. NPO except Ice chips PT/OT can continue--recommending SNF OOB to chair. IS already ordered. (2) Positive blood cultures: Code(s): R78.81 - Bacteremia Status: Acute Assessment and Plan: E coli bacteremia, on Rocephin and Flagyl (abscess culture Bacteroides and E. coli) Repeat blood cultures from 05/26 were negative for growth Unable to achieve source control to abscess with surgery on 06/04 given recent [place]. Diverting ostomy was placed and pelvic abscess was left with IR drain. 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 Leukocytosis has improved though. 06/06 WBC 8.7 (3) Protein calorie malnutrition: Code(s): E46 - Unspecified protein-calorie malnutrition Status: Acute Assessment and Plan: Consulted dietitian post-op given NPO status TPN orders were obtained. Re-order daily before 1400. 06/06 K 3.2, mg 1.2, phos 2.1. Replacing with K+phos and Mg 2 gram. Monitor daily CMP Hyperglycemia 2/2 TPN. Added Q6 accu checks and sliding scale insulin with hypoglycemic protocol. (4) Non-ST elevation [place] (NSTEMI): Code(s): I21.4 - Non-ST elevation (NSTEMI) myocardial infarction Status: Acute Assessment and Plan: Takotsubo cardiomyopathy appearance on Echo continue medical treatment per cardiology Cardiology following--Lasix 40 mg daily and Metoprolol 12.5 mg daily Daughter feels that the lisinopril is causing her mother to be more tired. She also feels that since starting this she developed a rash to her right axilla and back as well as concerns for making her speech thick . Asking cardiology for rec's with changes from RUFUS to ARB therapy. Stopped lisinopril and started losartan 12.5 mg daily Holding oral medication at this time s/p surgery. Lopressor 5 mg IVP BID, IV lasix 20 mg (lasix held due to DONOVAN). (5) Hypertension: Code(s): I10 - Essential (primary) hypertension Status: Acute Assessment and Plan: titrate home meds with clinical course Blood pressure reviewed 06/06 Holding IV lasix 20 mg daily due to Cr bump after surgery. It appears she had some hypotensive episodes at the end of surgery which could be the cause of the Cr increase. (6) Hyperlipidemia: Code(s): E78.5 - Hyperlipidemia, unspecified Status: Acute Assessment and Plan: continue with simvastatin on hold after surgery (7) Macular degeneration disease: Code(s): H35.30 - Unspecified macular degeneration Status: Acute Assessment and Plan: continue with latanoprost (8) Acute renal failure: Code(s): N17.9 - Acute kidney failure, unspecified Status: Acute Assessment and Plan: Cr 1.4-->1.3-->1.1--
[2023-06-06 07:40] LABS: Magnesium 1.8 mg/dL (1.6-2.3)
[2023-06-06 08:20] LABS: Glucose Point of Care 224 mg/dl (65-105)
--- NOTE | 2023-06-06 09:22 | PM.PNGS ---
Progress Note: A&P Assessment and Plan (1) Colonic diverticular abscess: Code(s): K57.20 - Diverticulitis of large intestine with perforation and abscess without bleeding Status: Acute Assessment and Plan: await ostomy fxn, cont drain, abx (2) Protein calorie malnutrition: Code(s): E46 - Unspecified protein-calorie malnutrition Status: Acute Assessment and Plan: cont TPN for now, await ostomy fxn Subjective Subjective Date/Time Seen: 06/06/23 09:22 Interval history: no acute issues, arron sips, await ostomy fxn Review of Systems Review of Systems: All systems reviewed & are unremarkable except as noted in HPI and below Exam Const: General: cooperative, comfortable and no acute distress Resp: Auscultation: clear to auscultation bilaterally Cardio: Rate: regular rate Rhythm: regular rhythm GI: Inspection: normal to inspection, non-distended and incision GI Palp: No abdominal tenderness, Yes Soft to palpation, No Tenderness to palpation present (GI), No Guarding due to palpation present (GI) and No Rigid due to palpation Other: ostomy - sweat, viable TANYA - scant output Objective Data Vital Signs Vital Signs: Vital Signs - 24 hr 06/05/23 13:06 06/05/23 14:35 06/05/23 17:11 Temperature 36.9 C Pulse Rate 75 113 H Respiratory Rate 16 Blood Pressure 110/72 Pulse Oximetry 98 Oxygen Delivery Room Air 06/05/23 20:00 06/05/23 20:00 06/06/23 01:30 CDT Temperature 36.3 C L 36.2 C L Pulse Rate 73 71 Respiratory Rate 18 18 Blood Pressure 124/76 109/58 L Pulse Oximetry 93 96 Oxygen Delivery Room Air 06/06/23 06:00 06/06/23 08:00 Temperature 36.8 C 36.3 C L Pulse Rate 74 69 Respiratory Rate 20 20 Blood Pressure 111/53 L 121/60 Pulse Oximetry 98 97 Oxygen Delivery Intake/Output Intake/Output: Intake & Output 06/03/23 06/04/23 06/05/23 06/06/23 23:59 23:59 23:59 22:59 Intake Total 900 8054 2713 820 Output Total 1150 555 100 225 Balance -250 1369 2613 595 Meds/Results Medications: Active Medications Generic Name Dose Route Start Last Admin Trade Name Freq PRN Reason Stop Dose Admin Acetaminophen 650 mg 06/04/23 17:02 Acetaminophen 650 Mg Suppository RECTAL Q6H PRN Mild Pain (1-3) or Fever Al Hydrox/Mg Hydrox/Simethicone 30 ml 06/04/23 22:00 06/06/23 05:34 Mag Hydrox/Al Hydrox/Simeth 30 Ml Udc PO 30 ml Q8H SANDIE Administration Dextrose 12.5 gm 06/05/23 18:37 Dextrose 50% 25 Gm/50 Ml Syringe IV PUSH PRN PRN Hypoglycemia Protocol Enoxaparin Sodium 30 mg 06/05/23 09:00 06/05/23 09:08 Enoxaparin 30 Mg/0.3 Ml Syringe SUB-Q 30 mg DAILY SANDIE Administration Famotidine 20 mg 06/05/23 09:00 06/05/23 21:19 Famotidine 20 Mg/2 Ml Vial IV PUSH Not Given Q12HR SANDIE Furosemide 20 mg 06/05/23 09:00 Furosemide Inj 40 Mg/4 Ml Vial IV PUSH DAILY SANDIE Glucagon 1 mg 06/05/23 18:37 Glucagon For Inj 1 Mg Vial IM PRN PRN Hypoglycemia Protocol Glucose 15 gm 06/05/23 18:37 Glucose Oral Gel 15 Gm Of Glucse In 37.5 Gm Tube PO PRN PRN Hypoglycemia Protocol Hydromorphone HCl 1 mg 06/04/23 17:02 Hydromorphone Hcl Inj (*Crx) 1 Mg/Ml Syr IV PUSH Q4H PRN Pain Rated 7-10 Metronidazole 500 mg in 100 mls @ 100 mls/hr 05/30/23 14:00 06/06/23 06:34 Flagyl 500 Mg/Iso Soln 100 Ml IVPB Infused Q8H SANDIE Infusion Dextrose 1,000 mls @ 50 mls/hr 06/04/23 17:02 Dextrose 10% IV CONT .Q20H PRN if PN is interrupted Ibuprofen 400 mg/ Sodium 104 mls @ 208 mls/hr 06/05/23 17:10 06/05/23 23:01 Chloride IVPB Infused Q8H PRN Infusion PAIN RATED 1-3 Dextrose 1,000 mls @ 100 mls/hr 06/05/23 18:37 Dextrose 5% 1,000 Ml IVPB PRN PRN Hypoglycemia Protocol Potassium Phosphate 40 mmol/ 263.3333 mls @ 43.889 mls/hr 06/06/23 07:30 Sodium Chloride IVPB 06/06/23 13:29 O
[2023-06-06] MEDS: LACTATED RINGERS 1,000 ML 999 ML IV CONT (09:24)
[2023-06-06] MEDS: MAGNESIUM SULF 2 GM/WATER 50ML 2 GM/50 ML BAG IVPB (09:29)
[2023-06-06] MEDS: METOPROLOL TARTRATE INJ 5 MG/5 ML VIAL IV PUSH ×2 (09:38→18:04)
[2023-06-06] MEDS: ENOXAPARIN 30 MG/0.3 ML SYRINGE SUB-Q (09:41)
[2023-06-06] MEDS: LATANOPROST 0.005% OP SOLN 2.5 ML BTL 1 DROP EACH EYE (09:41)
[2023-06-06] MEDS: IBUPROFEN IV 400 MG in SODIUM CHLORIDE 0.9% IV 100 ML 208 MG IVPB ×2 (11:56→21:13)
[2023-06-06 12:08] LABS: Glucose Point of Care 185 mg/dl (65-105)
[2023-06-06] MEDS: SODIUM CHLORIDE 0.9% IV 1,000 ML 75 ML IV CONT (12:36)
[2023-06-06] MEDS: POTASSIUM PHOS,M-BASIC-D-BASIC 40 MMOL in SODIUM CHLORIDE 0.9% IV 250 ML 43.89 MMOL IVPB (12:37)
[2023-06-06] MEDS: cefTRIAXone 2 GM/NS 100 ML 2 GM/100 ML BAG IVPB (14:42)
[2023-06-06 15:41] LABS: Creatinine Urine 97.3 mg/dL
[2023-06-06 15:42] LABS: Sodium Urine Random 54 meq/L
[2023-06-06 17:06] LABS: Glucose Point of Care 213 mg/dl (65-105)
[2023-06-06] MEDS: AMINO ACIDS 5%/D15W/E-LYTES/CA 2,000 ML with MULTIVITAMINS-12 INJ VIAL 1 2.5 ML, MULTIV... 40 ML IV CONT (17:57)
[2023-06-07] VITALS (8 sets, daily range): BP systolic 142–167; BP diastolic 65–80; PULSE 74–93; RESP 18–20; TEMP 35.7–36.6; O2SAT 96–99
[2023-06-07 00:07] LABS: Glucose Point of Care 217 mg/dl (65-105)
[2023-06-07] MEDS: INSULIN ASPART (*BKC) 100 UNITS/ML SUB-Q ×2 (00:54→06:30)
[2023-06-07 06:26] LABS: Glucose Point of Care 221 mg/dl (65-105)
[2023-06-07] MEDS: metroNIDAZOLE 500 MG/ISO 100ML 500 MG/100 ML BAG 100 MG IVPB ×3 (06:29→21:43)
[2023-06-07] MEDS: MAG HYDROX/AL HYDROX/SIMETH 30 ML UDC PO ×2 (06:30→15:15)
[2023-06-07] MEDS: CENTRAL LINE FLUSH 10 ML IV PUSH (06:30)
[2023-06-07 06:35] LABS: Basophils Absolute Auto 0.1 K/mm3 (0.0-0.1); Basophils Percent Auto 0.5 % (0.2-1.2); Eosinophils Absolute Auto 0.1 K/mm3 (0-0.3); Eosinophils Percent Auto 1.1 % (0-4.4); Hematocrit 26.5 % (37.0-47.0); Hemoglobin 8.1 g/dL (12.0-15.0); Immature Granulocyte Absolute 0.14 K/mm3 (0.00-0.031); Immature Granulocyte Percent A 1.5 % (0-0.5); Lymphocytes Absolute Auto 1.01 K/mm3 (0.9-3.2); Mean Corpuscular HGB Conc 30.6 g/dl (32-36); Mean Corpuscular Hemoglobin 31.2 pg (26-34); Mean Corpuscular Volume 101.9 fl (80-100); Mean Platelet Volume 11.4 fl (7.4-10.4); Monocytes Percent Auto 10.3 % (2.6-8.5); Neutrophils Absolute Auto 6.9 K/mm3 (1.3-6.7); Neutrophils Percent Auto 75.6 % (45.5-73.1); Platelet Count Result 297 k/mm3 (150-375); Red Cell Distribution Width 15.2 % (11.5-14.5); White Blood Count 9.2 K/mm3 (4.5-10.0)
[2023-06-07 06:49] LABS: INR 1.3; Prothrombin Time 17.1 Seconds (11.1-14.7)
[2023-06-07 06:50] LABS: Partial Thromboplastin Time 29.3 SECONDS (22.3-36.8)
[2023-06-07 06:58] LABS: Alanine Aminotransferase 16 U/L (6-35); Albumin Level 2.1 g/dL (3.5-5.1); Alkaline Phosphatase 44 U/L (38-126); Anion Gap 4 mmol/L (8-16); Aspartate Amino Transferase 25 U/L (14-36); Bilirubin,Total 0.5 mg/dL (0.2-1.3); Blood Urea Nitrogen 28 mg/dL (7-17); Carbon Dioxide 28 mmol/L (22-30); Chloride 101 mmol/L (98-107); Estimated CRCL calculation 32 ml/min; Estimated Glomerular Filt Rate 57; Glucose 570 mg/dL (65-110); Magnesium 2.2 mg/dL (1.6-2.3); Phosphorus 4.5 mg/dL (2.5-4.5); Potassium 4.5 mmol/L (3.4-5.0); Sodium 133 mmol/L (137-145)
[2023-06-07 07:02] LABS: Transferrin < 80 mg/dL (206-381)
[2023-06-07] MEDS: MORPHINE SULFATE (*CRX) 2 MG/ML INJ IV PUSH ×2 (09:38→15:10)
[2023-06-07] MEDS: ENOXAPARIN 30 MG/0.3 ML SYRINGE SUB-Q (09:38)
[2023-06-07] MEDS: METOPROLOL TARTRATE INJ 5 MG/5 ML VIAL IV PUSH ×2 (09:38→16:47)
[2023-06-07] MEDS: LATANOPROST 0.005% OP SOLN 2.5 ML BTL 1 DROP EACH EYE (09:38)
[2023-06-07] MEDS: SODIUM CHLORIDE 0.9% IV 1,000 ML 75 ML IV CONT (10:01)
--- NOTE | 2023-06-07 10:05 | P.PNIM_ITS ---
Progress Note: A&P Assessment and Plan (1) Colonic diverticular abscess: Code(s): K57.20 - Diverticulitis of large intestine with perforation and abscess without bleeding Status: Acute Assessment and Plan: 06/01: * CT abdomen and pelvis yesterday showed perforated diverticulitis at the proximal sigmoid colon with rectal contrast extending into an adjacent abscess that tracts to a larger pelvic abscess where the percutaneous transgluteal drain is located. There is additionally a few small loculated abscesses without contrast enhancement in the lower abdomen that are not amenable to percutaneous drainage. Discussed CT findings with Dr. Lanfgord, who will be speaking with family and the patient regarding possible surgical options at this point. * POD 1 for placement of descending end colostomy and repair of small bowel enterotomy x [address] Langford. * Continue with IV antibiotics Rocehpin and Flagyl * IVF LR at 30 ml per hour + TPN at 40 ml per hour * DVT prophylaxis with Lovenox per surgery * PRN Dilaudid or morphine for pain control. No oral medications at this time. * NG tube placed during surgery to LIWS ---0 ml out overnight. And she needs to remain until ostomy is producing stool. * NPO except Ice chips * PT/OT can continue--recommending SNF * OOB to chair. IS already ordered. * DC Edmonds catheter today (2) Positive blood cultures: Code(s): R78.81 - Bacteremia Status: Acute Assessment and Plan: * E coli bacteremia, on Rocephin and Flagyl (abscess culture Bacteroides and E. coli) * Repeat blood cultures from 05/26 were negative for growth * Unable to achieve source control to abscess with surgery on 06/04 given recent [place]. Diverting ostomy was placed and pelvic abscess was left with IR drain. 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 * Leukocytosis has improved though. 06/06 WBC 8.7-->9.2 * Needs repeat CT of her abdomen and pelvis in a couple of days to assess remaining pelvic abscess and determine antibiotic duration (3) Protein calorie malnutrition: Code(s): E46 - Unspecified protein-calorie malnutrition Status: Acute Assessment and Plan: * Consulted dietitian post-op given NPO status * TPN orders were obtained. Re-order daily before 1400. * 06/06 K 3.2, mg 1.2, phos 2.1. Replacing with K+phos and Mg 2 gram. * Monitor daily CMP * Hyperglycemia 2/2 TPN. Added Q6 accu checks and sliding scale insulin with hypoglycemic protocol. * BG consistently in the 200's. * Add Lantus 7 units HS (4) Non-ST elevation [place] (NSTEMI): Code(s): I21.4 - Non-ST elevation (NSTEMI) myocardial infarction Status: Acute Assessment and Plan: Takotsubo cardiomyopathy appearance on Echo continue medical treatment per cardiology Cardiology following--Lasix 40 mg daily and Metoprolol 12.5 mg daily Daughter feels that the lisinopril is causing her mother to be more tired. She also feels that since starting this she developed a rash to her right axilla and back as well as concerns for making her speech thick . Asking cardiology for rec's with changes from RUFUS to ARB therapy. Stopped lisinopril and started losartan 12.5 mg daily Holding oral medication at this time s/p surgery. Lopressor 5 mg IVP BID, IV lasix 20 mg. (5) Hypertension: Code(s): I10 - Essential (primary) hypertension Status: Acute Assessment and Plan: titrate home meds with clinical course Blood pressure reviewed 06/06 Holding IV lasix 20 mg daily due to Cr bump after surgery. It appears she had some hypotensive episodes at the end of surgery which could be the cause of th
--- NOTE | 2023-06-07 10:05 | PM.IMPN ---
Progress Note: A&P Assessment and Plan (1) Colonic diverticular abscess: Code(s): K57.20 - Diverticulitis of large intestine with perforation and abscess without bleeding Status: Acute Assessment and Plan: 06/01: CT abdomen and pelvis yesterday showed perforated diverticulitis at the proximal sigmoid colon with rectal contrast extending into an adjacent abscess that tracts to a larger pelvic abscess where the percutaneous transgluteal drain is located. There is additionally a few small loculated abscesses without contrast enhancement in the lower abdomen that are not amenable to percutaneous drainage. Discussed CT findings with Dr. Langford, who will be speaking with family and the patient regarding possible surgical options at this point. POD 1 for placement of descending end colostomy and repair of small bowel enterotomy x [address] Langford. Continue with IV antibiotics Rocehpin and Flagyl IVF LR at 30 ml per hour + TPN at 40 ml per hour DVT prophylaxis with Lovenox per surgery PRN Dilaudid or morphine for pain control. No oral medications at this time. NG tube placed during surgery to LIWS ---0 ml out overnight. And she needs to remain until ostomy is producing stool. NPO except Ice chips PT/OT can continue--recommending SNF OOB to chair. IS already ordered. DC Edmonds catheter today (2) Positive blood cultures: Code(s): R78.81 - Bacteremia Status: Acute Assessment and Plan: E coli bacteremia, on Rocephin and Flagyl (abscess culture Bacteroides and E. coli) Repeat blood cultures from 05/26 were negative for growth Unable to achieve source control to abscess with surgery on 06/04 given recent [place]. Diverting ostomy was placed and pelvic abscess was left with IR drain. 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 Leukocytosis has improved though. 06/06 WBC 8.7-->9.[address] of her abdomen and pelvis in a couple of days to assess remaining pelvic abscess and determine antibiotic duration (3) Protein calorie malnutrition: Code(s): E46 - Unspecified protein-calorie malnutrition Status: Acute Assessment and Plan: Consulted dietitian post-op given NPO status TPN orders were obtained. Re-order daily before 1400. 06/06 K 3.2, mg 1.2, phos 2.1. Replacing with K+phos and Mg 2 gram. Monitor daily CMP Hyperglycemia 2/2 TPN. Added Q6 accu checks and sliding scale insulin with hypoglycemic protocol. BG consistently in the 200's. Add Lantus 7 units HS (4) Non-ST elevation [place] (NSTEMI): Code(s): I21.4 - Non-ST elevation (NSTEMI) myocardial infarction Status: Acute Assessment and Plan: Takotsubo cardiomyopathy appearance on Echo continue medical treatment per cardiology Cardiology following--Lasix 40 mg daily and Metoprolol 12.5 mg daily Daughter feels that the lisinopril is causing her mother to be more tired. She also feels that since starting this she developed a rash to her right axilla and back as well as concerns for making her speech thick . Asking cardiology for rec's with changes from RUFUS to ARB therapy. Stopped lisinopril and started losartan 12.5 mg daily Holding oral medication at this time s/p surgery. Lopressor 5 mg IVP BID, IV lasix 20 mg. (5) Hypertension: Code(s): I10 - Essential (primary) hypertension Status: Acute Assessment and Plan: titrate home meds with clinical course Blood pressure reviewed 06/06 Holding IV lasix 20 mg daily due to Cr bump after surgery. It appears she had some hypotensive episodes at the end of surgery which could be the cause of the Cr increase. -DONOVAN is resolving. Restarting lasix. -Blood pressures elevated 140-150's (6) Hyperlipidemia: Code(s): E78.5 - Hyperlipidemia, unspecified Status: Acute Assessment and Plan: continue with simvastatin on hold after surgery (7) Macular degeneration disease: Code(s): H35.30 - Unspecified macular degeneration
--- NOTE | 2023-06-07 10:34 | PCDIET ---
Pt started on TPN: Clinmix 5/15E @ 40 ml/h for 1182 kcal, 46 g protien, 1210 ml total volume. Agree with current orders. Will follow up Wednesday and Wednesday.
--- NOTE | 2023-06-07 10:42 | PCOTNOTE ---
Attempted to see Patient at this time. Patient's daughter verbalized, No therapy services this date. Mom has some other things going on that I want to speak to the doctor about . Mom needs rest today .
--- NOTE | 2023-06-07 11:04 | PCPTNOTE ---
OT informed PT that patient's daughter declined therapy services today.
[2023-06-07 11:35] LABS: Glucose Point of Care 177 mg/dl (65-105)
[2023-06-07] MEDS: cefTRIAXone 2 GM/NS 100 ML 2 GM/100 ML BAG IVPB (12:37)
--- NOTE | 2023-06-07 15:28 | PM.PNGS ---
Progress Note: A&P Assessment and Plan (1) Colonic diverticular abscess: Code(s): K57.20 - Diverticulitis of large intestine with perforation and abscess without bleeding Status: Acute Assessment and Plan: Patient is status post placement of descending end colostomy and repair of small bowel entertomy x 1 on 06/04. Ostomy started functioning today. Will have nursing do a bedside swallow test. If she is able to swallow, then we can remove her NG tube and start clear liquids. Will continue TPN again for today until she is able to tolerate a substantial diet. Flushed her transgluteal perc drain with 1/2 strength hydrogen peroxide today. Will flush daily if she is able to tolerate this. Continue IV antibiotics. We will repeat a CT scan of the abdomen and pelvis tomorrow with IV contrast and water soluble rectal contrast to re-evaluate. Wound/ostomy nurses planning to work on teaching with family tomorrow. (2) Protein calorie malnutrition: Code(s): E46 - Unspecified protein-calorie malnutrition Status: Acute Assessment and Plan: Continue TPN, will add lipids. I have asked nursing to perform a bedside swallow test. If she is able to swallow, hopefully we can remove her NG tube and start advancing her diet tomorrow. Plan I have discussed the patient's case and plan of care with Dr. Langford. Subjective Subjective Date/Time Seen: 06/07/23 15:28 Post Op day: 3 (Placement of descending end colostomy and repair of small bowel entertomy x 1) Patient reports: no new complaints and afebrile (WBC normal) Interval history: Chart reviewed since last seen. She does report some mild lower abdominal pain. No nausea. 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 Ostomy with some stool in the bag this afternoon. No other specific complaints. She had her mann catheter removed today and received Lasix. She has had urinary incontinence and they now placed a purewick. Still on TPN at 40 mL/hr. Exam Const: General: no acute distress and tired appearing GI: Inspection: non-distended GI Palp: Yes Soft to palpation and Yes Tenderness to palpation present (GI) (lower abdominal tenderness) Auscultation: normal bowel sounds Other: Left-sided colostomy with stoma pink and viable, some soft stool in bag. Midline incision dressing intact with scant dry drainage at the bottom of the dressing. Left transgluteal pigtail percutaneous drain with feculant-appearing drainage, flushed with 10 cc of 1/2 strength hydrogen peroxide. Dressing changed with feculant drainage on gauze, surrounding skin around drain is slightly pink and macerated. Skin: Other: dark nonblanchable area over coccyx with skin intact, no open wound Extrem: General: no calf tenderness and edema bilateral (bilateral 2-3+ pitting edema of lower extremities) Objective Data Vital Signs Vital Signs: Vital Signs - 24 hr 06/06/23 18:04 06/06/23 16:00 06/06/23 20:00 Temperature 98.2 F Pulse Rate 70 67 68 Respiratory Rate 16 18 Blood Pressure 127/74 Pulse Oximetry 95 96 Oxygen Delivery Room Air Fraction of Inspired Oxygen 21 06/06/23 20:50 06/07/23 00:05 06/07/23 04:00 Temperature 96 F L 97.4 F L 96.5 F L Pulse Rate 77 74 78 Respiratory Rate 20 19 18 Blood Pressure 145/82 H 144/65 H 142/67 H Pulse Oximetry 92 96 97 Oxygen Delivery Fraction of Inspired Oxygen 06/07/23 09:38 06/07/23 08:00 06/07/23 12:00 Temperature 97.5 F L 97.9 F Pulse Rate 80 93 86 Respiratory Rate 20 20 Blood Pressure 154/68 H 145/77 H Pulse Oximetry 97 99 Oxygen Delivery Fraction of Inspired Oxygen Intake/Output Intake/Output: Intake & Output 06/05/23 06/06/23 06/06/23 06/07/23 00:59 00:59 23:59 23:59 Intake Total 1200 Output Total 400 Balance 800 Meds/Results Medications: Active Medications Generic Name Dose Route Start Last Admin Trade Name Freq PRN Reason Stop Dose Admin Acetaminop
[2023-06-07] MEDS: ALBUMIN HUMAN 25% 12.5 GM/50ML 50 ML IVPB (16:48)
[2023-06-07] MEDS: AMINO ACIDS 5%/D15W/E-LYTES/CA 2,000 ML with MULTIVITAMINS-12 INJ VIAL 1 2.5 ML, MULTIV... 40 ML IV CONT (16:51)
[2023-06-07] MEDS: FAT EMULSIONS IV 20% 250 ML 20.83 ML IVPB (16:52)
[2023-06-07] MEDS: SODIUM CHLORIDE 0.9% IV 1,000 ML 30 ML IV CONT (16:52)
[2023-06-07 17:12] LABS: Glucose Point of Care 180 mg/dl (65-105)
[2023-06-07] MEDS: INSULIN GLARGINE (*BKC) 100 UNITS/ML 7 UNITS SUB-Q (21:42)
[2023-06-07 22:14] LABS: Triglycerides 133 mg/dL (<150)
[2023-06-08] VITALS (7 sets, daily range): BP systolic 118–179; BP diastolic 71–92; PULSE 84–94; RESP 16–24; TEMP 35.6–36.5; O2SAT 93–99
[2023-06-08 00:53] LABS: Glucose Point of Care 213 mg/dl (65-105)
[2023-06-08] MEDS: metroNIDAZOLE 500 MG/ISO 100ML 500 MG/100 ML BAG 100 MG IVPB ×3 (05:34→20:46)
[2023-06-08 06:55] LABS: Glucose Point of Care 182 mg/dl (65-105)
[2023-06-08 07:29] LABS: Anion Gap -2 mmol/L (8-16); Blood Urea Nitrogen 26 mg/dL (7-17); Calcium 8.2 mg/dL (8.4-10.2); Carbon Dioxide 35 mmol/L (22-30); Chloride 102 mmol/L (98-107); Estimated CRCL calculation 38 ml/min; Estimated Glomerular Filt Rate > 60; Glucose 197 mg/dL (65-110); Phosphorus 2.5 mg/dL (2.5-4.5); Potassium 3.4 mmol/L (3.4-5.0); Sodium 135 mmol/L (137-145)
[2023-06-08] MEDS: LATANOPROST 0.005% OP SOLN 2.5 ML BTL 1 DROP EACH EYE (08:48)
[2023-06-08] MEDS: FUROSEMIDE INJ 40 MG/4 ML VIAL 20 MG IV PUSH (08:49)
[2023-06-08] MEDS: METOPROLOL TARTRATE INJ 5 MG/5 ML VIAL IV PUSH (08:55)
[2023-06-08] MEDS: ENOXAPARIN 30 MG/0.3 ML SYRINGE SUB-Q (08:55)
--- NOTE | 2023-06-08 09:27 | PCNFU ---
Nutrition Follow-Up Complete: Severe protein calorie malnutrition related to chronic loss of appetite and acute altered GI function as evidenced by NFPE findings of severe muscle wasting and fat loss. Goal:Improve PO intake to at least 50% meals and supplements Maintain current weight Pt is not meeting goal. Pt is NPO. New goal is to meet estimated needs via parental nutrition therapy Pt current nutrition is NPO, TPN. Nutrition recommendation: consider advancing TPN rate to 60ml/hr to better meet estimated needs Last recorded weight is 77.2 kg. Bowel Motility: last recorded BM is 06/03 Labs Reviewed: NA:135, BUN:26, Glu:197 Meds Noted: zofran, KCL, lovenox, lasix, lantus/novolog Skin: New pressure area to coccyx Additional Notes: Pt started on TPN: Clinmix 5/15E @ 40 ml/h for 1182 kcal, 46 g protien, 1210 ml total volume. Recommend advancing TPN to 60ml/hr to better meet needs, especially with new wound: 1522kcals, 72g protein. Monitoring intakes, weights, labs, diet tolerance, plan of care Follow up every Wednesday and Wednesday.
--- NOTE | 2023-06-08 10:00 | PCOTNOTE ---
OT had started treatment session this A.M. The hospital transporters came in to take her down for a CT scan at this time and had to stop session. Will plan to check back at a later time.
--- NOTE | 2023-06-08 10:22 | P.PNIM_ITS ---
Progress Note: A&P Assessment and Plan (1) Colonic diverticular abscess: Code(s): K57.20 - Diverticulitis of large intestine with perforation and abscess without bleeding Status: Acute Assessment and Plan: 06/01: * CT abdomen and pelvis yesterday showed perforated diverticulitis at the proximal sigmoid colon with rectal contrast extending into an adjacent abscess that tracts to a larger pelvic abscess where the percutaneous transgluteal drain is located. There is additionally a few small loculated abscesses without contrast enhancement in the lower abdomen that are not amenable to percutaneous drainage. Discussed CT findings with Dr. Langford, who will be speaking with family and the patient regarding possible surgical options at this point. * POD 1 for placement of descending end colostomy and repair of small bowel enterotomy x [address] Langford. * Continue with IV antibiotics Rocehpin and Flagyl * IVF LR at 30 ml per hour + TPN at 40 ml per hour * DVT prophylaxis with Lovenox per surgery * PRN Dilaudid or morphine for pain control. No oral medications at this time. * NG tube was removed * PT/OT can continue--recommending SNF * OOB to chair. IS already ordered. * DC Edmonds catheter today. Voiding spontaneously * Ordered clear liquid diet per surgery (2) Positive blood cultures: Code(s): R78.81 - Bacteremia Status: Acute Assessment and Plan: * E coli bacteremia, on Rocephin and Flagyl (abscess culture Bacteroides and E. coli) * Repeat blood cultures from 05/26 were negative for growth * Unable to achieve source control to abscess with surgery on 06/04 given recent MD. Diverting ostomy was placed and pelvic abscess was left with IR drain. * Anticipate needing antibiotics snf. * Leukocytosis has improved though. 06/06 WBC 8.7-->9.2 * Needs repeat CT of her abdomen and pelvis in a couple of days to assess remaining pelvic abscess and determine antibiotic duration * 06/08: Repeat CTA in results as followed, 1. Interval diverting colostomy formation of the left lower quadrant. 2. Slight decrease in size of a left pelvic abscess with percutaneous drainage catheter in place. 3. 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 Abscess in the midabdomen without significant change. 5. Small pleural effusions with passive atelectasis in the lower lobes. (3) Protein calorie malnutrition: Code(s): E46 - Unspecified protein-calorie malnutrition Status: Acute Assessment and Plan: * Consulted dietitian post-op given NPO status * TPN orders were obtained. Re-order daily before 1400. * 11/5 K 3.2, mg 1.2, phos 2.1. Replacing with K+phos and Mg 2 gram. * Monitor daily CMP * Hyperglycemia 2/2 TPN. Added Q6 accu checks and sliding scale insulin with hypoglycemic protocol. * BG consistently in the 200's. * Add Lantus 7 units HS---increase to 10 units HS for better control. * Dietitian recommending Arnel supplements. (4) Non-ST elevation MD (NSTEMI): Code(s): I21.4 - Non-ST elevation (NSTEMI) myocardial infarction Status: Acute Assessment and Plan: Takotsubo cardiomyopathy appearance on Echo continue medical treatment per cardiology Cardiology following--Lasix 40 mg daily and Metoprolol 12.5 mg daily Daughter feels that the lisinopril is causing her mother to be more tired. She also feels that since starting this she developed a rash to her right axilla and back as well as concerns for making her speech thick . Asking cardiology for rec's with changes from RUFUS to ARB therapy. Stopped lisinopril and started losartan 12.5
--- NOTE | 2023-06-08 10:22 | PM.IMPN ---
Progress Note: A&P Assessment and Plan (1) Colonic diverticular abscess: Code(s): K57.20 - Diverticulitis of large intestine with perforation and abscess without bleeding Status: Acute Assessment and Plan: 06/01: CT abdomen and pelvis yesterday showed perforated diverticulitis at the proximal sigmoid colon with rectal contrast extending into an adjacent abscess that tracts to a larger pelvic abscess where the percutaneous transgluteal drain is located. There is additionally a few small loculated abscesses without contrast enhancement in the lower abdomen that are not amenable to percutaneous drainage. Discussed CT findings with Dr. Langford, who will be speaking with family and the patient regarding possible surgical options at this point. POD 1 for placement of descending end colostomy and repair of small bowel enterotomy x [address] Langford. Continue with IV antibiotics Rocehpin and Flagyl IVF LR at 30 ml per hour + TPN at 40 ml per hour DVT prophylaxis with Lovenox per surgery PRN Dilaudid or morphine for pain control. No oral medications at this time. NG tube was removed PT/OT can continue--recommending SNF OOB to chair. IS already ordered. DC Edmonds catheter today. Voiding spontaneously Ordered clear liquid diet per surgery (2) Positive blood cultures: Code(s): R78.81 - Bacteremia Status: Acute Assessment and Plan: E coli bacteremia, on Rocephin and Flagyl (abscess culture Bacteroides and E. coli) Repeat blood cultures from 05/26 were negative for growth Unable to achieve source control to abscess with surgery on 06/04 given recent CA. Diverting ostomy was placed and pelvic abscess was left with IR drain. 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 Leukocytosis has improved though. 06/06 WBC 8.7-->9.[address] of her abdomen and pelvis in a couple of days to assess remaining pelvic abscess and determine antibiotic duration 06/08: Repeat CTA in results as followed, 1. Interval diverting colostomy formation of the left lower quadrant. 2. Slight decrease in size of a left pelvic abscess with percutaneous drainage catheter in place. 3. 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 Abscess in the midabdomen without significant change. 5. Small pleural effusions with passive atelectasis in the lower lobes. (3) Protein calorie malnutrition: Code(s): E46 - Unspecified protein-calorie malnutrition Status: Acute Assessment and Plan: Consulted dietitian post-op given NPO status TPN orders were obtained. Re-order daily before 1400. 06/06 K 3.2, mg 1.2, phos 2.1. Replacing with K+phos and Mg 2 gram. Monitor daily CMP Hyperglycemia 2/2 TPN. Added Q6 accu checks and sliding scale insulin with hypoglycemic protocol. BG consistently in the 200's. Add Lantus 7 units HS---increase to 10 units HS for better control. Dietitian recommending Arnel supplements. (4) Non-ST elevation CA (NSTEMI): Code(s): I21.4 - Non-ST elevation (NSTEMI) myocardial infarction Status: Acute Assessment and Plan: Takotsubo cardiomyopathy appearance on Echo continue medical treatment per cardiology Cardiology following--Lasix 40 mg daily and Metoprolol 12.5 mg daily Daughter feels that the lisinopril is causing her mother to be more tired. She also feels that since starting this she developed a rash to her right axilla and back as well as concerns for making her speech thick . Asking cardiology for rec's with changes from RUFUS to ARB therapy. Stopped lisinopril and started losartan 12.5 mg daily Switched IV meds back to oral agents. (5) Hypertension: Code(s): I10 - Essential (primary) hypertension Status: Acute Assessment and Plan: titrate home meds with clinical course Blood pressure reviewed 06/06 Holding IV lasix 20 mg daily due to Cr bump after surgery. It appears she had some hypotensive episodes at the end o
[2023-06-08 10:42] LABS: Basophils Percent Auto 0.3 % (0.2-1.2); Eosinophils Absolute Auto 0.1 K/mm3 (0-0.3); Hematocrit 26.2 % (37.0-47.0); Hemoglobin 7.9 g/dL (12.0-15.0); Immature Granulocyte Absolute 0.17 K/mm3 (0.00-0.031); Immature Granulocyte Percent A 1.9 % (0-0.5); Mean Corpuscular HGB Conc 30.2 g/dl (32-36); Mean Corpuscular Hemoglobin 30.6 pg (26-34); Mean Corpuscular Volume 101.6 fl (80-100); Mean Platelet Volume 12.6 fl (7.4-10.4); Monocytes Absolute Auto 0.8 K/mm3 (0.1-0.6); Monocytes Percent Auto 8.8 % (2.6-8.5); Platelet Count Result 258 k/mm3 (150-375); Red Blood Count 2.58 M/mm3 (4.2-5.4); Red Cell Distribution Width 15.4 % (11.5-14.5); White Blood Count 9.1 K/mm3 (4.5-10.0)
[2023-06-08 11:47] LABS: Glucose Point of Care 167 mg/dl (65-105)
[2023-06-08] MEDS: cefTRIAXone 2 GM/NS 100 ML 2 GM/100 ML BAG IVPB (13:51)
--- NOTE | 2023-06-08 14:31 | PCOTNOTE ---
Patient refused to participate this P.M. Stated, she is tired, not up for it, try back in the morning .
--- NOTE | 2023-06-08 15:27 | PM.PNGS ---
Progress Note: A&P Assessment and Plan (1) Colonic diverticular abscess: Code(s): K57.20 - Diverticulitis of large intestine with perforation and abscess without bleeding Status: Acute Assessment and Plan: Patient is status post transgluteal percutaneous drain placement on 05/25 and placement of descending end colostomy and repair of small bowel enterotomy x 1 on 06/04. Her ostomy is functioning well and was assessed by the wound care nurses and Dr. Langford today. Repeat CT scan of the abdomen and pelvis today showed a persistent fistulous connection between the sigmoid colon abscess cavity with slight decrease in size of the left pelvic abscess with perc drain in place and stable 9 cm x 1.1 cm abscess in the mid abdomen without change. Discussed the CT with Dr. Langford. We will have the Radiologist try to replace the perc drain with a larger drain in the next few days to hopefully help facilitate better drainage as it is fairly thick. He may even try to place a drain in the other fluid collection in the midabdomen if possible. Continue to flush the perc drain with 1/2 strength hydrogen peroxide daily. Will advance her to full liquids today with supplements. Continue IV antibiotics. (2) Protein calorie malnutrition: Code(s): E46 - Unspecified protein-calorie malnutrition Status: Acute Assessment and Plan: Patient passed her bedside swallow. Will advance her to full liquids with supplements. Continue the TPN for today until patient is tolerating a substantial diet. She had issues with poor oral intake/nutrition even pre-operatively and her albumin is only 2.1. Plan I have discussed the patient's case and plan of care with Dr. Langford. Subjective Subjective Date/Time Seen: 06/08/23 15:27 Patient reports: no new complaints and afebrile Interval history: Patient seen today and sleeping comfortably. She denies any abdominal pain or nausea. Per nursing, she passed her bedside swallow. Ostomy functioning well. Transgluteal drain with 15 cc output yesterday and no output overnight. Exam Const: General: comfortable, no acute distress and tired appearing GI: Inspection: non-distended GI Palp: Yes Soft to palpation, Yes Tenderness to palpation present (GI) (lower abdominal tenderness and expected tenderness near incision) and No Guarding due to palpation present (GI) Auscultation: normal bowel sounds Other: Left-sided colostomy with stoma viable and brown stool in the bag. Midline incision dry and may intact, no erythema. Left transgluteal pigtail percutaneous drain with feculant-appearing drainage, flushed with 10 cc of 1/2 strength hydrogen peroxide. Extrem: General: no calf tenderness and edema bilateral (bilateral 2-3+ pitting edema of lower extremities) Objective Data Vital Signs Vital Signs: Vital Signs - 24 hr 06/07/23 16:47 06/07/23 16:00 06/07/23 22:05 Temperature 97.7 F 96.2 F L Pulse Rate 88 86 76 Respiratory Rate 20 18 Blood Pressure 142/76 H 167/80 H Pulse Oximetry 98 06/08/23 00:00 06/08/23 06:41 06/08/23 08:00 Temperature 96.1 F L 97.3 F L 97.7 F Pulse Rate 94 90 85 Respiratory Rate 16 24 H 20 Blood Pressure 136/92 H 179/75 H 148/79 H Pulse Oximetry 93 95 97 06/08/23 08:55 06/08/23 12:00 Temperature 97.6 F Pulse Rate 88 85 Respiratory Rate 20 Blood Pressure 155/72 H Pulse Oximetry 99 Intake/Output Intake/Output: Intake & Output 06/06/23 06/06/23 06/07/23 06/08/23 00:59 23:59 23:59 23:59 Intake Total 4505 550 Output Total 1400 900 Balance 3105 -350 Meds/Results Medications: Active Medications Generic Name Dose Route Start Last Admin Trade Name Freq PRN Reason Stop Dose Admin Acetaminophen 650 mg 06/04/23 17:02 Acetaminophen 650 Mg Suppository RECTAL Q6H PRN Mild Pain (1-3) or Fever Acetaminophen 650 mg 06/08/23 15:10 Acetaminophen 325 Mg Tablet PO Q4H PRN Headache Dextrose 12.5 gm 06/05/23 1
[2023-06-08] MEDS: FAT EMULSIONS IV 20% 250 ML 20.83 ML IVPB (18:21)
[2023-06-08] MEDS: AMINO ACIDS 5%/D15W/E-LYTES/CA 2,000 ML with MULTIVITAMINS-12 INJ VIAL 1 2.5 ML, MULTIV... 40 ML IV CONT (18:22)
[2023-06-08 18:28] LABS: Osmolality, Urine 585 mOsm/kg (50-1200)
--- NOTE | 2023-06-08 20:11 | PC.NURSE ---
Pt unwilling to talk much at beginning of shift, appearing very fatigued. By end of shift, pt communicating more. Barrier cream applied to pt bottom, continuing frequent turns, but pt not willing to turn every 2 hours. Dietitian recommended TPN increased to 60mls/hr or yaritza BID; info passed on to MD and surgeon. Pt CTA completed, notified provider results up. MD and surgery okay with full liquid diet, yaritza supplements, and continuing TPN and lipids. Pt states pain mildly present, but she denies wanting pain medication at this time. TPN and lipids changed at 1800. Pt attempted eating but was again fatigued. Requested food to be left at bedside in case pt wants to eat later.
[2023-06-08] MEDS: CENTRAL LINE FLUSH 10 ML IV PUSH (20:47)
[2023-06-08] MEDS: INSULIN GLARGINE (*BKC) 100 UNITS/ML 10 UNITS SUB-Q (20:56)
[2023-06-08 22:01] LABS: Glucose Point of Care 216 mg/dl (65-105)
[2023-06-09] VITALS (7 sets, daily range): BP systolic 106–158; BP diastolic 63–80; PULSE 78–91; RESP 16–20; TEMP 35.7–37.1; O2SAT 94–100
[2023-06-09 01:12] LABS: Glucose Point of Care 202 mg/dl (65-105)
[2023-06-09] MEDS: INSULIN ASPART (*BKC) 100 UNITS/ML SUB-Q (01:27)
[2023-06-09] MEDS: metroNIDAZOLE 500 MG/ISO 100ML 500 MG/100 ML BAG 100 MG IVPB ×3 (05:55→21:04)
[2023-06-09] MEDS: CENTRAL LINE FLUSH 10 ML IV PUSH ×3 (05:55→21:04)
[2023-06-09 06:24] LABS: Basophils Percent Auto 0.3 % (0.2-1.2); Eosinophils Absolute Auto 0.1 K/mm3 (0-0.3); Eosinophils Percent Auto 1.3 % (0-4.4); Hematocrit 26.2 % (37.0-47.0); Hemoglobin 8.1 g/dL (12.0-15.0); Immature Granulocyte Absolute 0.09 K/mm3 (0.00-0.031); Lymphocytes Absolute Auto 1.01 K/mm3 (0.9-3.2); Lymphocytes Percent Auto 11.3 % (18.3-44.2); Mean Corpuscular HGB Conc 30.9 g/dl (32-36); Mean Corpuscular Hemoglobin 31.2 pg (26-34); Mean Corpuscular Volume 100.8 fl (80-100); Mean Platelet Volume 11.9 fl (7.4-10.4); Monocytes Absolute Auto 0.9 K/mm3 (0.1-0.6); Monocytes Percent Auto 10.4 % (2.6-8.5); Neutrophils Absolute Auto 6.7 K/mm3 (1.3-6.7); Neutrophils Percent Auto 75.7 % (45.5-73.1); Platelet Count Result 209 k/mm3 (150-375); Red Cell Distribution Width 15.2 % (11.5-14.5); White Blood Count 8.9 K/mm3 (4.5-10.0)
[2023-06-09 06:28] LABS: Glucose Point of Care 179 mg/dl (65-105)
[2023-06-09 06:35] LABS: Anion Gap -2 mmol/L (8-16); Blood Urea Nitrogen 25 mg/dL (7-17); Calcium 7.9 mg/dL (8.4-10.2); Carbon Dioxide 34 mmol/L (22-30); Chloride 102 mmol/L (98-107); Estimated CRCL calculation 35 ml/min; Estimated Glomerular Filt Rate > 60; Glucose 166 mg/dL (65-110); Magnesium 1.8 mg/dL (1.6-2.3); Phosphorus 2.4 mg/dL (2.5-4.5); Sodium 134 mmol/L (137-145); Triglycerides 119 mg/dL (<150)
[2023-06-09] MEDS: METOPROLOL TARTRATE 12.5 MG TABLET PO (09:31)
[2023-06-09] MEDS: ENOXAPARIN 40 MG/0.4 ML SYRINGE SUB-Q (09:31)
[2023-06-09] MEDS: SIMVASTATIN 20 MG TABLET PO (09:31)
[2023-06-09] MEDS: LOSARTAN POTASSIUM 12.5 MG TABLET PO (09:31)
[2023-06-09] MEDS: FUROSEMIDE 40 MG TABLET PO (09:31)
[2023-06-09] MEDS: LATANOPROST 0.005% OP SOLN 2.5 ML BTL 1 DROP EACH EYE (09:33)
--- NOTE | 2023-06-09 10:54 | PM.PNGS ---
Progress Note: A&P Assessment and Plan (1) Colonic diverticular abscess: Code(s): K57.20 - Diverticulitis of large intestine with perforation and abscess without bleeding Status: Acute Assessment and Plan: Patient is status post transgluteal percutaneous drain placement on 05/25 and placement of descending end colostomy and repair of small bowel enterotomy x 1 on 06/04. Ostomy is functioning well. The patient wishes to stay on full liquids today with supplements. Continue TPN due to malnutrition until she is tolerating a substantial diet. Continue flushing the transgluteal perc drain with 1/2 strength hydrogen peroxide daily. We will discuss trying to replace the perc drain with a larger drain and potentially having another percutaneous drain placed in the more anterior abscess with the daughter today or tomorrow. She was not at the bedside this morning. Will make her NPO after midnight in case this is able to be done tomorrow. Continue IV antibiotics, her white blood cell count is down to normal. Potassium and phos are low this morning, will give K phos IV 15 mm once. Continue to monitor labs. (2) Protein calorie malnutrition: Code(s): E46 - Unspecified protein-calorie malnutrition Status: Acute Assessment and Plan: Continue TPN and full liquids with supplements. She has poor overall nutrition, but her oral intake is starting to improve. Will initiate a calorie count and continue to encourage oral intake. Plan I have discussed the patient's case and plan of care with Dr. Langford. Subjective Subjective Date/Time Seen: 06/09/23 10:54 Post Op day: 13 Patient reports: no new complaints, tolerating liquids well and afebrile Interval history: Patient doing well today. She is eating more on the full liquids and trying to take in the Rejuven supplement. She denies any abdominal pain. Her ostomy is functioning well. She is still on TPN. Left transgluteal perc drain with no output documented since 2 days ago. No acute events overnight. Exam Const: General: comfortable, no acute distress and awake GI: Inspection: non-distended GI Palp: Yes Soft to palpation, Yes Tenderness to palpation present (GI) (tenderness improving, still some lower abdominal tenderness and incisional) and No Guarding due to palpation present (GI) Auscultation: normal bowel sounds Other: Left-sided colostomy with stoma viable and brown stool in the bag. Midline incision dry and may intact, no erythema. Left transgluteal pigtail percutaneous drain with feculant-appearing drainage, flushed with 10 cc of 1/2 strength hydrogen peroxide. Extrem: General: no calf tenderness and edema bilateral (bilateral 2-3+ pitting edema of lower extremities) Objective Data Vital Signs Vital Signs: Vital Signs - 24 hr 06/08/23 12:00 06/08/23 16:00 06/08/23 20:00 Temperature 97.6 F 97.7 F 96.2 F L Pulse Rate 85 85 84 Respiratory Rate 20 20 18 Blood Pressure 155/72 H 152/75 H 118/71 Pulse Oximetry 99 94 96 06/09/23 00:00 06/09/23 05:50 06/09/23 08:00 Temperature 98 F 96.3 F L 97.3 F L Pulse Rate 78 80 80 Respiratory Rate 18 20 16 Blood Pressure 138/66 158/80 H 138/64 Pulse Oximetry 94 96 100 06/09/23 09:31 Temperature Pulse Rate 88 Respiratory Rate Blood Pressure Pulse Oximetry Intake/Output Intake/Output: Intake & Output 06/06/23 06/07/23 06/08/23 06/09/23 23:59 23:59 23:59 23:59 Intake Total 4505 4135 720 Output Total 1400 900 300 Balance 3105 3235 420 Meds/Results Medications: Active Medications Generic Name Dose Route Start Last Admin Trade Name Freq PRN Reason Stop Dose Admin Acetaminophen 650 mg 06/04/23 17:02 Acetaminophen 650 Mg Suppository RECTAL Q6H PRN Mild Pain (1-3) or Fever Acetaminophen 650 mg 06/08/23 15:10 Acetaminophen 325 Mg Tablet PO Q4H PRN Headache Dextrose 12.5 gm 06/05/23 18:37 Dextrose 50% 25 Gm/50 Ml Syringe IV PUSH PRN OR
--- NOTE | 2023-06-09 11:08 | PCPTNOTE ---
Attempted to see patient for PT, however patient was working with OT.
--- NOTE | 2023-06-09 11:17 | P.PNIM_ITS ---
Progress Note: A&P Assessment and Plan (1) Colonic diverticular abscess: Code(s): K57.20 - Diverticulitis of large intestine with perforation and abscess without bleeding Status: Acute Assessment and Plan: 06/01: * CT abdomen and pelvis yesterday showed perforated diverticulitis at the proximal sigmoid colon with rectal contrast extending into an adjacent abscess that tracts to a larger pelvic abscess where the percutaneous transgluteal drain is located. There is additionally a few small loculated abscesses without contrast enhancement in the lower abdomen that are not amenable to percutaneous drainage. Discussed CT findings with Dr. Langford, who will be speaking with family and the patient regarding possible surgical options at this point. * POD 1 for placement of descending end colostomy and repair of small bowel enterotomy x [address] Langford. * Continue with IV antibiotics Rocehpin and Flagyl * IVF LR at 30 ml per hour + TPN at 40 ml per hour * DVT prophylaxis with Lovenox per surgery * PRN Dilaudid or morphine for pain control. No oral medications at this time. * NG tube was removed * PT/OT can continue--recommending SNF * OOB to chair. IS already ordered. * DC Edmonds catheter today. Voiding spontaneously 06/09: Ordered full liquid diet per surgery, NPO after midnight (2) Positive blood cultures: Code(s): R78.81 - Bacteremia Status: Acute Assessment and Plan: * E coli bacteremia, on Rocephin and Flagyl (abscess culture Bacteroides and E. coli) * Repeat blood cultures from 05/26 were negative for growth * Unable to achieve source control to abscess with surgery on 06/04 given recent [place]. Diverting ostomy was placed and pelvic abscess was left with IR drain. * Anticipate needing antibiotics fdc. * Leukocytosis has improved though. 06/06 WBC 8.7-->9.2 * Needs repeat CT of her abdomen and pelvis in a couple of days to assess remaining pelvic abscess and determine antibiotic duration * 06/08: Repeat CTA in results as followed, 1. Interval diverting colostomy formation of the left lower quadrant. 2. Slight decrease in size of a left pelvic abscess with percutaneous drainage catheter in place. 3. 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 Abscess in the midabdomen without significant change. 5. Small pleural effusions with passive atelectasis in the lower lobes. (3) Protein calorie malnutrition: Code(s): E46 - Unspecified protein-calorie malnutrition Status: Acute Assessment and Plan: * Consulted dietitian post-op given NPO status * TPN orders were obtained. Re-order daily before 1400. * 11/5 K 3.2, mg 1.2, phos 2.1. Replacing with K+phos and Mg 2 gram. * Monitor daily CMP * Hyperglycemia 2/2 TPN. Added Q6 accu checks and sliding scale insulin with hypoglycemic protocol. * BG consistently in the 200's. * Add Lantus 7 units HS---increase to 10 units HS for better control. * Dietitian recommending Arnel supplements. (4) Non-ST elevation [place] (NSTEMI): Code(s): I21.4 - Non-ST elevation (NSTEMI) myocardial infarction Status: Acute Assessment and Plan: Takotsubo cardiomyopathy appearance on Echo continue medical treatment per cardiology Cardiology following--Lasix 40 mg daily and Metoprolol 12.5 mg daily Daughter feels that the lisinopril is causing her mother to be more tired. She also feels that since starting this she developed a rash to her right axilla and back as well as concerns for making her speech thick . Asking cardiology for rec's with changes from RUFUS to ARB therapy. Stopped lisinopril an
--- NOTE | 2023-06-09 11:17 | PM.IMPN ---
Progress Note: A&P Assessment and Plan (1) Colonic diverticular abscess: Code(s): K57.20 - Diverticulitis of large intestine with perforation and abscess without bleeding Status: Acute Assessment and Plan: 06/01: CT abdomen and pelvis yesterday showed perforated diverticulitis at the proximal sigmoid colon with rectal contrast extending into an adjacent abscess that tracts to a larger pelvic abscess where the percutaneous transgluteal drain is located. There is additionally a few small loculated abscesses without contrast enhancement in the lower abdomen that are not amenable to percutaneous drainage. Discussed CT findings with Dr. Langford, who will be speaking with family and the patient regarding possible surgical options at this point. POD 1 for placement of descending end colostomy and repair of small bowel enterotomy x [address] Langford. Continue with IV antibiotics Rocehpin and Flagyl IVF LR at 30 ml per hour + TPN at 40 ml per hour DVT prophylaxis with Lovenox per surgery PRN Dilaudid or morphine for pain control. No oral medications at this time. NG tube was removed PT/OT can continue--recommending SNF OOB to chair. IS already ordered. DC Edmonds catheter today. Voiding spontaneously 06/09: Ordered full liquid diet per surgery, NPO after midnight (2) Positive blood cultures: Code(s): R78.81 - Bacteremia Status: Acute Assessment and Plan: E coli bacteremia, on Rocephin and Flagyl (abscess culture Bacteroides and E. coli) Repeat blood cultures from 05/26 were negative for growth Unable to achieve source control to abscess with surgery on 06/04 given recent [place]. Diverting ostomy was placed and pelvic abscess was left with IR drain. 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 Leukocytosis has improved though. 06/06 WBC 8.7-->9.[address] of her abdomen and pelvis in a couple of days to assess remaining pelvic abscess and determine antibiotic duration 06/08: Repeat CTA in results as followed, 1. Interval diverting colostomy formation of the left lower quadrant. 2. Slight decrease in size of a left pelvic abscess with percutaneous drainage catheter in place. 3. 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 Abscess in the midabdomen without significant change. 5. Small pleural effusions with passive atelectasis in the lower lobes. (3) Protein calorie malnutrition: Code(s): E46 - Unspecified protein-calorie malnutrition Status: Acute Assessment and Plan: Consulted dietitian post-op given NPO status TPN orders were obtained. Re-order daily before 1400. 06/06 K 3.2, mg 1.2, phos 2.1. Replacing with K+phos and Mg 2 gram. Monitor daily CMP Hyperglycemia 2/2 TPN. Added Q6 accu checks and sliding scale insulin with hypoglycemic protocol. BG consistently in the 200's. Add Lantus 7 units HS---increase to 10 units HS for better control. Dietitian recommending Arnel supplements. (4) Non-ST elevation [place] (NSTEMI): Code(s): I21.4 - Non-ST elevation (NSTEMI) myocardial infarction Status: Acute Assessment and Plan: Takotsubo cardiomyopathy appearance on Echo continue medical treatment per cardiology Cardiology following--Lasix 40 mg daily and Metoprolol 12.5 mg daily Daughter feels that the lisinopril is causing her mother to be more tired. She also feels that since starting this she developed a rash to her right axilla and back as well as concerns for making her speech thick . Asking cardiology for rec's with changes from RUFUS to ARB therapy. Stopped lisinopril and started losartan 12.5 mg daily Switched IV meds back to oral agents. (5) Hypertension: Code(s): I10 - Essential (primary) hypertension Status: Acute Assessment and Plan: titrate home meds with clinical course Blood pressure reviewed 06/06 Holding IV lasix 20 mg daily due to Cr bump after surgery. It appears she had some hypotens
[2023-06-09 11:34] LABS: Glucose Point of Care 174 mg/dl (65-105)
--- NOTE | 2023-06-09 11:53 | PCPTNOTE ---
Attempted to see patient for PT, however patient was eating lunch.
[2023-06-09] MEDS: POTASSIUM PHOS,M-BASIC-D-BASIC 15 MMOL in SODIUM CHLORIDE 0.9% IV 250 ML 63.75 MMOL IVPB (12:16)
--- NOTE | 2023-06-09 12:54 | PCDIET ---
Nutrition note: Calorie count is ordered. Pt currently on full liquid diet. Oral intake is very poor. Had 4 bites of applesauce with meds for breakfast. Continues on TPN Clinmix E 12/14 @ 40 ml/h: 1182 kcal, 48 g protein, 1210 ml total volume. Discussed with RN.
[2023-06-09] MEDS: cefTRIAXone 2 GM/NS 100 ML 2 GM/100 ML BAG IVPB (14:32)
[2023-06-09] MEDS: KCL 40 MEQ/WATER 100 ML 100 ML 25 ML IVPB (15:44)
[2023-06-09] MEDS: FAT EMULSIONS IV 20% 250 ML 20.8 ML IVPB (16:59)
[2023-06-09] MEDS: AMINO ACIDS 5%/D15W/E-LYTES/CA 2,000 ML with MULTIVITAMINS-12 INJ VIAL 1 2.5 ML, MULTIV... 40 ML IV CONT (17:00)
[2023-06-09 18:54] LABS: Glucose Point of Care 148 mg/dl (65-105)
[2023-06-09] MEDS: INSULIN GLARGINE (*BKC) 100 UNITS/ML 10 UNITS SUB-Q (21:08)
[2023-06-10] VITALS (17 sets, daily range): BP systolic 130–161; BP diastolic 63–104; PULSE 58–103; RESP 14–22; TEMP 35.7–37.4; O2SAT 94–100
[2023-06-10 00:45] LABS: Glucose Point of Care 160 mg/dl (65-105)
[2023-06-10] MEDS: metroNIDAZOLE 500 MG/ISO 100ML 500 MG/100 ML BAG 100 MG IVPB (05:19)
[2023-06-10] MEDS: CENTRAL LINE FLUSH 10 ML IV PUSH ×4 (05:19→21:43)
[2023-06-10 05:34] LABS: Basophils Percent Auto 0.4 % (0.2-1.2); Eosinophils Absolute Auto 0.2 K/mm3 (0-0.3); Eosinophils Percent Auto 2.8 % (0-4.4); Hematocrit 25.4 % (37.0-47.0); Hemoglobin 7.9 g/dL (12.0-15.0); Immature Granulocyte Absolute 0.09 K/mm3 (0.00-0.031); Immature Granulocyte Percent A 1.1 % (0-0.5); Lymphocytes Absolute Auto 0.88 K/mm3 (0.9-3.2); Lymphocytes Percent Auto 11.1 % (18.3-44.2); Mean Corpuscular HGB Conc 31.1 g/dl (32-36); Mean Corpuscular Hemoglobin 31.2 pg (26-34); Mean Corpuscular Volume 100.4 fl (80-100); Monocytes Absolute Auto 0.8 K/mm3 (0.1-0.6); Monocytes Percent Auto 10.1 % (2.6-8.5); Neutrophils Absolute Auto 5.9 K/mm3 (1.3-6.7); Neutrophils Percent Auto 74.5 % (45.5-73.1); Platelet Count Result 183 k/mm3 (150-375); Red Blood Count 2.53 M/mm3 (4.2-5.4); Red Cell Distribution Width 15.7 % (11.5-14.5); White Blood Count 7.9 K/mm3 (4.5-10.0)
[2023-06-10 05:45] LABS: Alanine Aminotransferase 19 U/L (6-35); Albumin Level 2.1 g/dL (3.5-5.1); Alkaline Phosphatase 56 U/L (38-126); Anion Gap 0 mmol/L (8-16); Aspartate Amino Transferase 33 U/L (14-36); Bilirubin,Total 0.4 mg/dL (0.2-1.3); Blood Urea Nitrogen 26 mg/dL (7-17); Calcium 7.9 mg/dL (8.4-10.2); Carbon Dioxide 33 mmol/L (22-30); Chloride 103 mmol/L (98-107); Estimated CRCL calculation 35 ml/min; Estimated Glomerular Filt Rate > 60; Glucose 122 mg/dL (65-110); Magnesium 1.7 mg/dL (1.6-2.3); Phosphorus 2.9 mg/dL (2.5-4.5); Potassium 3.3 mmol/L (3.4-5.0); Sodium 136 mmol/L (137-145)
[2023-06-10 06:08] LABS: Glucose Point of Care 117 mg/dl (65-105)
[2023-06-10] MEDS: KCL 40 MEQ/WATER 100 ML 100 ML 25 ML IVPB (08:03)
[2023-06-10] MEDS: ONDANSETRON INJ 4 MG/2 ML VIAL IV PUSH (08:03)
[2023-06-10] MEDS: LATANOPROST 0.005% OP SOLN 2.5 ML BTL 1 DROP EACH EYE (08:03)
--- NOTE | 2023-06-10 09:51 | PM.PNGS ---
Progress Note: A&P Assessment and Plan (1) Colonic diverticular abscess: Code(s): K57.20 - Diverticulitis of large intestine with perforation and abscess without bleeding Status: Acute Assessment and Plan: Patient is status post transgluteal percutaneous drain placement on 05/25 and placement of descending end colostomy and repair of small bowel enterotomy x 1 on 06/04. Ostomy is functioning well. Continue TPN and full liquids for now. Could consider advancing her diet today to solids if the patient agrees. Better output from the perc drain yesterday. Continue to irrigate with 1/2 strength hydrogen peroxide daily, may increase to BID if patient does not want to replace her drain. Patient wishes to have a discussion with her daughter prior to agreeing to the drain replacement and possible placement of a second drain, will follow. Continue IV antibiotics. Her hgb between 7.4-8.1 for the past few days and is 7.9 this morning. Will get an up to date type and screen. Given her cardiac history, we will consider transfusing 1 unit of PRBCs. (2) Protein calorie malnutrition: Code(s): E46 - Unspecified protein-calorie malnutrition Status: Acute Assessment and Plan: Continue TPN and full liquids with supplements. Continue calorie count. May advance diet if patient wishes today. Plan I have discussed the patient's case and plan of care with Dr. Langford. Subjective Subjective Date/Time Seen: 06/10/23 09:51 Post Op day: 6 (placement of descending end colostomy and repair of small bowel enterotomy x 1) Patient reports: afebrile Interval history: Patient seen this morning with her daughter. The patient is unsure if she wants to proceed with drain replacement and possible placement of the drain in the anterior abscess. She wishes to have a private discussion with her daughter before deciding. She denies any abdominal pain, nausea, or vomiting. Colostomy still functioning well. There was 90 cc out of the perc drain yesterday. No other complaints at this time. Potassium 3.3 today and she is receiving 40 meq IV KCL. Review of Systems Review of Systems: All systems reviewed & are unremarkable except as noted in HPI and below Exam Const: General: comfortable, no acute distress and awake Orientation/consciousness: patient oriented x3 GI: Inspection: non-distended GI Palp: Yes Soft to palpation, No Tenderness to palpation present (GI) and No Guarding due to palpation present (GI) Auscultation: normal bowel sounds Other: Left-sided colostomy with stoma viable and brown stool in the bag. Midline incision dry and may intact, no erythema. Left transgluteal pigtail percutaneous drain with feculant-appearing drainage Extrem: General: edema bilateral (bilateral 2-3+ pitting edema of lower extremities) Psych: Mental Status: mental status grossly normal Insight: Fair insight present (Psych) Objective Data Vital Signs Vital Signs: Vital Signs - 24 hr 06/09/23 12:00 06/09/23 16:00 06/09/23 20:00 Temperature 98.8 F 98.2 F 96.4 F L Pulse Rate 91 86 79 Respiratory Rate 16 16 20 Blood Pressure 106/63 132/68 146/74 H Pulse Oximetry 97 98 06/10/23 00:00 06/10/23 04:00 06/10/23 08:00 Temperature 96.2 F L 96.3 F L 98.4 F Pulse Rate 81 85 58 L Respiratory Rate 18 20 16 Blood Pressure 151/76 H 149/70 H 149/75 H Pulse Oximetry 96 94 96 Intake/Output Intake/Output: Intake & Output 06/07/23 06/08/23 06/09/23 06/10/23 23:59 23:59 23:59 23:59 Intake Total 4505 4135 2371 550 Output Total 1400 900 600 200 Balance 3105 3235 1771 350 Meds/Results Medications: Active Medications Generic Name Dose Route Start Last Admin Trade Name Freq PRN Reason Stop Dose Admin Acetaminophen 650 mg 06/08/23 15:10 Acetaminophen 325 Mg Tablet PO Q4H PRN Headache Hydrocodone Bitart/Acetaminophen 1 tab 06/09/23 10:58 Hydrocodone/Acetaminophen (*Crx) 5-325 Mg Tablet PO Q4H PRN Pain Ra
--- NOTE | 2023-06-10 10:55 | PCOTNOTE ---
Patient out of the room at this time, went down for a procedure in radiology.
--- NOTE | 2023-06-10 11:25 | WPDMODSED ---
Moderate Sedation Note-Pt Data Patient Data Diagnosis: abscess related to diverticulitis Present Complaint: non resolving pelvic abscess Procedure to be performed/Plan: Upsizing of current pelvic abscess drain and CT guided placement of a new left lower quadrant abscess drain. Allergies Allergy/AdvReac Type Severity Reaction Status Date / Time aloe Allergy Unknown Verified 06/04/23 12:50 Penicillins Allergy Rash Verified 06/04/23 12:50 Home Medications Medication Instructions Recorded Confirmed Type dorzolamide 22.3 mg-timolol 6.8 1 drp EACH EYE Q12H 05/22/23 05/22/23 History mg/mL eye drops latanoprost 0.005 % eye drops 1 drp EACH EYE DAILY 05/22/23 05/22/23 History olmesartan 40 mg tablet 40 mg PO DAILY 05/22/23 05/22/23 History simvastatin 20 mg tablet 20 mg PO HS 05/22/23 05/22/23 History Current Medications: Active Medications Acetaminophen (Acetaminophen 325 Mg Tablet) 650 mg PO Q4H PRN PRN Reason: Headache Hydrocodone Bitart/Acetaminophen (Hydrocodone/Acetaminophen (*Crx) 5-325 Mg Tablet) 1 tab PO Q4H PRN PRN Reason: Pain Rated 4-6 Hydrocodone Bitart/Acetaminophen (Hydrocodone/Acetaminophen (*Crx) 7.5-325 Mg Tablet) 1 tab PO Q4H PRN PRN Reason: Pain Rated 7-10 Dextrose (Dextrose 50% 25 Gm/50 Ml Syringe) 12.5 gm IV PUSH PRN PRN; Protocol PRN Reason: Hypoglycemia Enoxaparin Sodium (Enoxaparin 40 Mg/0.4 Ml Syringe) 40 mg SUB-Q DAILY [facility] Last Admin: 06/09/23 09:31 Dose: 40 mg Furosemide (Furosemide 40 Mg Tablet) 40 mg PO DAILY [facility] Last Admin: 06/09/23 09:31 Dose: 40 mg Glucagon (Glucagon For Inj 1 Mg Vial) 1 mg IM PRN PRN; Protocol PRN Reason: Hypoglycemia Glucose (Glucose Oral Gel 15 Gm Of Glucse In 37.5 Gm Tube) 15 gm PO PRN PRN; Protocol PRN Reason: Hypoglycemia Hydromorphone HCl (Hydromorphone Hcl Inj (*Crx) 1 Mg/Ml Syr) 1 mg IV PUSH Q4H PRN PRN Reason: Pain Rated 7-10 Dextrose (Dextrose 10%) 1,000 mls @ 50 mls/hr IV CONT .Q20H PRN PRN Reason: if PN is interrupted Ibuprofen 400 mg/ Sodium (Chloride) 104 mls @ 208 mls/hr IVPB Q8H PRN PRN Reason: PAIN RATED 1-3 Last Admin: 06/06/23 21:13 Dose: 208 mls/hr Dextrose (Dextrose 5% 1,000 Ml) 1,000 mls @ 100 mls/hr IVPB PRN PRN; Protocol PRN Reason: Hypoglycemia Multivitamins 2.5 ml/Multivitamins 2.5 ml/ Amino Acids/Electrolytes/Dextrose 2,005 mls @ 40 mls/hr IV CONT .Q24H [facility]; Protocol Last Admin: 06/09/23 17:00 Dose: 40 mls/hr Ceftriaxone Sodium (Rocephin 2 Gm/Ns 100 Ml) 2 gm in 100 mls @ 200 mls/hr IVPB Q24H [facility] Last Infusion: 06/09/23 15:02 Dose: Infused Fat Emulsion Intravenous (Lipids 20%) 250 mls @ 20.833 mls/hr IVPB Q24H [facility] Last Infusion: 06/10/23 05:01 Dose: Infused Metronidazole (Flagyl 500 Mg/Iso Soln 100 Ml) 500 mg in 100 mls @ 100 mls/hr IVPB Q8HR [facility] Last Infusion: 06/10/23 06:19 Dose: Infused Insulin Aspart (Insulin Aspart (*Bkc) 100 Units/Ml) 2 - 5 units SUB-Q Q6HR [facility]; Protocol Last Admin: 06/10/23 06:08 Dose: Not Given Insulin Glargine (Insulin Glargine (*Bkc) 100 Units/Ml) 10 units SUB-Q HS [facility] Last Admin: 06/09/23 21:08 Dose: 10 units Latanoprost (Latanoprost 0.005% Op Soln 2.5 Ml Btl) 1 drop EACH EYE DAILY [facility] Last Admin: 06/10/23 08:03 Dose: 1 drop Losartan Potassium (Losartan Potassium 12.5 Mg Tablet) 12.5 mg PO DAILY [facility] Last Admin: 06/09/23 09:31 Dose: 12.5 mg Metoprolol Tartrate (Metoprolol Tartrate 12.5 Mg Tablet) 12.5 mg PO DAILY [facility] Last Admin: 06/09/23 09:31 Dose: 12.5 mg Morphine Sulfate (Morphine Sulfate (*Crx) 2 Mg/Ml Inj) 2 mg IV PUSH Q3H PRN PRN Reason: Pain Rated 4-6 Last Admin: 06/07/23 15:10 Dose: 2 mg Ondansetron HCl (Ondansetron Inj 4 Mg/2 Ml Vial) 4 mg IV PUSH Q4H PRN PRN Reason: Nausea Last Admin: 06/10/23 08:03 Dose: 4 mg Simvastatin (Simvastatin 20 Mg Tablet) [facility] [place] Admin: 06/09/23 09:31 Dose: 20 mg Sodium Chloride (Central Line Flush) 10 ml IV PUSH Q8HR [facility] Last Admin: 06/10/23 05:19 Dose: 10 ml Sodium
--- NOTE | 2023-06-10 11:42 | PCPTNOTE ---
The patient treatment was not able to be completed at this time due to patient out of room for surgical procedure. Will plan to continue treatment per plan of care.
[2023-06-10] MEDS: METOPROLOL TARTRATE 12.5 MG TABLET PO (12:40)
[2023-06-10] MEDS: LOSARTAN POTASSIUM 12.5 MG TABLET PO (12:40)
[2023-06-10] MEDS: ENOXAPARIN 40 MG/0.4 ML SYRINGE SUB-Q (12:40)
[2023-06-10] MEDS: FUROSEMIDE 40 MG TABLET PO (12:40)
[2023-06-10] MEDS: SIMVASTATIN 20 MG TABLET PO (12:40)
[2023-06-10 12:45] LABS: Glucose Point of Care 118 mg/dl (65-105)
--- NOTE | 2023-06-10 13:12 | PCDIET ---
Pt is on a calorie count. Family reports minimal po intake of full liquids. Stated pt ate bites of yogurt and cream of wheat for breakfast. 4 spoons of soup at lunch, and refused dinner. Also stated pt only will take 1-2 sips of Ensure compact supplement. No actual meal ticket in calorie count envelope. PO intake of calories is extremely poor. TPN continues - Clinmix E 12/14 @ 40 ml/h: 1182 kcal, 48 g protein, 1210 ml total volume.
--- NOTE | 2023-06-10 13:15 | PCOTNOTE ---
Patient is back into her room. Patient is having some confusion from the sedation for the prior procedure she had done. Per Patient and family not therapy at this time.
[2023-06-10] MEDS: metroNIDAZOLE 250 MG TABLET 500 MG PO ×2 (13:51→21:38)
[2023-06-10] MEDS: SODIUM CHLORIDE 0.9% IV 250 ML 30 ML IV CONT (13:51)
--- NOTE | 2023-06-10 13:53 | P.PNIM_ITS ---
Progress Note: A&P Assessment and Plan (1) Colonic diverticular abscess: Code(s): K57.20 - Diverticulitis of large intestine with perforation and abscess without bleeding Status: Acute Assessment and Plan: 06/01: * CT abdomen and pelvis yesterday showed perforated diverticulitis at the proximal sigmoid colon with rectal contrast extending into an adjacent abscess that tracts to a larger pelvic abscess where the percutaneous transgluteal drain is located. There is additionally a few small loculated abscesses without contrast enhancement in the lower abdomen that are not amenable to percutaneous drainage. Discussed CT findings with Dr. Langford, who will be speaking with family and the patient regarding possible surgical options at this point. * POD 1 for placement of descending end colostomy and repair of small bowel enterotomy x [address] Langford. * Continue with IV antibiotics Rocehpin and Flagyl * IVF LR at 30 ml per hour + TPN at 40 ml per hour * DVT prophylaxis with Lovenox per surgery * PRN Dilaudid or morphine for pain control. No oral medications at this time. * NG tube was removed * PT/OT can continue--recommending SNF * OOB to chair. IS already ordered. * DC Edmonds catheter today. Voiding spontaneously 06/09: Ordered full liquid diet per surgery, NPO after midnight 06/10: Liquid diet resumed after drain evaluation, no drain change required. (2) Positive blood cultures: Code(s): R78.81 - Bacteremia Status: Acute Assessment and Plan: * E coli bacteremia, on Rocephin and Flagyl (abscess culture Bacteroides and E. coli) * Repeat blood cultures from 05/26 were negative for growth * Unable to achieve source control to abscess with surgery on 06/04 given recent [place]. Diverting ostomy was placed and pelvic abscess was left with IR drain. * Anticipate needing antibiotics detention. * Leukocytosis has improved though. 06/06 WBC 8.7-->9.2 * Needs repeat CT of her abdomen and pelvis in a couple of days to assess remaining pelvic abscess and determine antibiotic duration * 06/08: Repeat CTA in results as followed, 1. Interval diverting colostomy formation of the left lower quadrant. 2. Slight decrease in size of a left pelvic abscess with percutaneous drainage catheter in place. 3. 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 Abscess in the midabdomen without significant change. 5. Small pleural effusions with passive atelectasis in the lower lobes. 06/10: 1. Functioning left transgluteal percutaneous abscess drain with no residual abscess along the draining sinus tract which extends to the perforated diverticulum at the proximal aspect of the Senior's pouch. Given this finding the planned catheter upsizing and new catheter placement were deferred. (3) Protein calorie malnutrition: Code(s): E46 - Unspecified protein-calorie malnutrition Status: Acute Assessment and Plan: * Consulted dietitian post-op given NPO status * TPN orders were obtained. Re-order daily before 1400. * 06/06 K 3.2, mg 1.2, phos 2.1. Replacing with K+phos and Mg 2 gram. * Monitor daily CMP * Hyperglycemia 2/2 TPN. Added Q6 accu checks and sliding scale insulin with hypoglycemic protocol. * BG consistently in the 200's. * Add Lantus 7 units HS---increase to 10 units HS for better control. * Dietitian recommending Arnel supplements. 06/10: Patient continues TPN, liquid diet resumed. Expect advancing diet and decrease TPN soon. (4) Non-ST elevation [place] (NSTEMI): Code(s): I21.4 - Non-ST elevation (NSTEMI) myocardial infarction Status: Acute Assessment and Pl
--- NOTE | 2023-06-10 13:53 | PM.IMPN ---
Progress Note: A&P Assessment and Plan (1) Colonic diverticular abscess: Code(s): K57.20 - Diverticulitis of large intestine with perforation and abscess without bleeding Status: Acute Assessment and Plan: 06/01: CT abdomen and pelvis yesterday showed perforated diverticulitis at the proximal sigmoid colon with rectal contrast extending into an adjacent abscess that tracts to a larger pelvic abscess where the percutaneous transgluteal drain is located. There is additionally a few small loculated abscesses without contrast enhancement in the lower abdomen that are not amenable to percutaneous drainage. Discussed CT findings with Dr. Langford, who will be speaking with family and the patient regarding possible surgical options at this point. POD 1 for placement of descending end colostomy and repair of small bowel enterotomy x [address] Langford. Continue with IV antibiotics Rocehpin and Flagyl IVF LR at 30 ml per hour + TPN at 40 ml per hour DVT prophylaxis with Lovenox per surgery PRN Dilaudid or morphine for pain control. No oral medications at this time. NG tube was removed PT/OT can continue--recommending SNF OOB to chair. IS already ordered. DC Edmonds catheter today. Voiding spontaneously 06/09: Ordered full liquid diet per surgery, NPO after midnight 06/10: Liquid diet resumed after drain evaluation, no drain change required. (2) Positive blood cultures: Code(s): R78.81 - Bacteremia Status: Acute Assessment and Plan: E coli bacteremia, on Rocephin and Flagyl (abscess culture Bacteroides and E. coli) Repeat blood cultures from 05/26 were negative for growth Unable to achieve source control to abscess with surgery on 06/04 given recent [place]. Diverting ostomy was placed and pelvic abscess was left with IR drain. Anticipate needing antibiotics snf. Leukocytosis has improved though. 06/06 WBC 8.7-->9.[address] of her abdomen and pelvis in a couple of days to assess remaining pelvic abscess and determine antibiotic duration 06/08: Repeat CTA in results as followed, 1. Interval diverting colostomy formation of the left lower quadrant. 2. Slight decrease in size of a left pelvic abscess with percutaneous drainage catheter in place. 3. 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 Abscess in the midabdomen without significant change. 5. Small pleural effusions with passive atelectasis in the lower lobes. 11/9: 1. Functioning left transgluteal percutaneous abscess drain with no residual abscess along the draining sinus tract which extends to the perforated diverticulum at the proximal aspect of the Senior's pouch. Given this finding the planned catheter upsizing and new catheter placement were deferred. (3) Protein calorie malnutrition: Code(s): E46 - Unspecified protein-calorie malnutrition Status: Acute Assessment and Plan: Consulted dietitian post-op given NPO status TPN orders were obtained. Re-order daily before 1400. 06/06 K 3.2, mg 1.2, phos 2.1. Replacing with K+phos and Mg 2 gram. Monitor daily CMP Hyperglycemia 2/2 TPN. Added Q6 accu checks and sliding scale insulin with hypoglycemic protocol. BG consistently in the 200's. Add Lantus 7 units HS---increase to 10 units HS for better control. Dietitian recommending Arnel supplements. 06/10: Patient continues TPN, liquid diet resumed. Expect advancing diet and decrease TPN soon. (4) Non-ST elevation [place] (NSTEMI): Code(s): I21.4 - Non-ST elevation (NSTEMI) myocardial infarction Status: Acute Assessment and Plan: Takotsubo cardiomyopathy appearance on Echo continue medical treatment per cardiology Cardiology following--Lasix 40 mg daily and Metoprolol 12.5 mg daily Daughter feels that the lisinopril is causing her mother to be more tired. She also feels that since starting this she developed a rash to her right axilla and back as well as concerns for
[2023-06-10] MEDS: AMINO ACIDS 5%/D15W/E-LYTES/CA 2,000 ML with MULTIVITAMINS-12 INJ VIAL 1 2.5 ML, MULTIV... 40 ML IV CONT (17:16)
[2023-06-10] MEDS: FAT EMULSIONS IV 20% 250 ML 20.8 ML IVPB (17:17)
[2023-06-10 18:32] LABS: Glucose Point of Care 144 mg/dl (65-105)
[2023-06-10] MEDS: CIPROFLOXACIN 500 MG TAB PO (21:34)
[2023-06-11] VITALS: BP 155/74; PULSE 60; RESP 16; TEMP 36.9; O2SAT 92
[2023-06-11 00:47] LABS: Glucose Point of Care 168 mg/dl (65-105)
[2023-06-11 04:00] VITALS: BP 161/78; PULSE 91; RESP 20; TEMP 36.7; O2SAT 97
[2023-06-11] MEDS: CENTRAL LINE FLUSH 10 ML IV PUSH ×3 (05:51→21:11)
[2023-06-11 06:01] LABS: Basophils Percent Auto 0.4 % (0.2-1.2); Eosinophils Absolute Auto 0.1 K/mm3 (0-0.3); Eosinophils Percent Auto 1.2 % (0-4.4); Hemoglobin 10.5 g/dL (12.0-15.0); Immature Granulocyte Percent A 1.1 % (0-0.5); Lymphocytes Percent Auto 8.8 % (18.3-44.2); Mean Corpuscular HGB Conc 31.8 g/dl (32-36); Mean Corpuscular Hemoglobin 31.6 pg (26-34); Mean Corpuscular Volume 99.4 fl (80-100); Mean Platelet Volume 12.5 fl (7.4-10.4); Monocytes Absolute Auto 0.8 K/mm3 (0.1-0.6); Monocytes Percent Auto 8.3 % (2.6-8.5); Neutrophils Absolute Auto 7.3 K/mm3 (1.3-6.7); Neutrophils Percent Auto 80.2 % (45.5-73.1); Platelet Count Result 150 k/mm3 (150-375); Red Blood Count 3.32 M/mm3 (4.2-5.4); Red Cell Distribution Width 16.6 % (11.5-14.5); White Blood Count 9.1 K/mm3 (4.5-10.0)
[2023-06-11 06:16] LABS: Anion Gap 7 mmol/L (8-16); Blood Urea Nitrogen 24 mg/dL (7-17); Calcium 8.1 mg/dL (8.4-10.2); Carbon Dioxide 26 mmol/L (22-30); Chloride 98 mmol/L (98-107); Estimated CRCL calculation 35 ml/min; Estimated Glomerular Filt Rate > 60; Glucose 450 mg/dL (65-110); Magnesium 1.8 mg/dL (1.6-2.3); Phosphorus 4.2 mg/dL (2.5-4.5); Potassium 4.3 mmol/L (3.4-5.0); Sodium 131 mmol/L (137-145); Triglycerides 368 mg/dL (<150)
[2023-06-11] MEDS: CIPROFLOXACIN 500 MG TAB PO ×2 (08:41→21:10)
[2023-06-11] MEDS: metroNIDAZOLE 250 MG TABLET 500 MG PO ×3 (08:41→22:49)
[2023-06-11] MEDS: ENOXAPARIN 40 MG/0.4 ML SYRINGE SUB-Q (08:42)
[2023-06-11] MEDS: LOSARTAN POTASSIUM 12.5 MG TABLET PO (08:43)
[2023-06-11] MEDS: LATANOPROST 0.005% OP SOLN 2.5 ML BTL 1 DROP EACH EYE (08:43)
[2023-06-11 08:44] VITALS: PULSE 77
[2023-06-11] MEDS: SIMVASTATIN 20 MG TABLET PO (08:44)
[2023-06-11] MEDS: METOPROLOL TARTRATE 12.5 MG TABLET PO (08:44)
[2023-06-11] MEDS: FUROSEMIDE 40 MG TABLET PO (08:55)
[2023-06-11 09:23] LABS: Glucose Point of Care 173 mg/dl (65-105)
--- NOTE | 2023-06-11 11:10 | P.PNIM_ITS ---
Progress Note: A&P Assessment and Plan (1) Colonic diverticular abscess: Code(s): K57.20 - Diverticulitis of large intestine with perforation and abscess without bleeding Status: Acute Assessment and Plan: 06/01: * CT abdomen and pelvis yesterday showed perforated diverticulitis at the proximal sigmoid colon with rectal contrast extending into an adjacent abscess that tracts to a larger pelvic abscess where the percutaneous transgluteal drain is located. There is additionally a few small loculated abscesses without contrast enhancement in the lower abdomen that are not amenable to percutaneous drainage. Discussed CT findings with Dr. Langford, who will be speaking with family and the patient regarding possible surgical options at this point. * POD 1 for placement of descending end colostomy and repair of small bowel enterotomy x [address] Langford. * Continue with IV antibiotics Rocehpin and Flagyl * IVF LR at 30 ml per hour + TPN at 40 ml per hour * DVT prophylaxis with Lovenox per surgery * PRN Dilaudid or morphine for pain control. No oral medications at this time. * NG tube was removed * PT/OT can continue--recommending SNF * OOB to chair. IS already ordered. * DC Edmonds catheter today. Voiding spontaneously 06/09: Ordered full liquid diet per surgery, NPO after midnight 06/10: Liquid diet resumed after drain evaluation, no drain change required. 06/11: Diet advanced to heart healthy continued with supplements. TPN continues to infuse but expect this to be decreased and titrated off over the next couple days (2) Positive blood cultures: Code(s): R78.81 - Bacteremia Status: Acute Assessment and Plan: * E coli bacteremia, on Rocephin and Flagyl (abscess culture Bacteroides and E. coli) * Repeat blood cultures from 05/26 were negative for growth * Unable to achieve source control to abscess with surgery on 06/04 given recent [place]. Diverting ostomy was placed and pelvic abscess was left with IR drain. 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 * Leukocytosis has improved though. 06/06 WBC 8.7-->9.2 * Needs repeat CT of her abdomen and pelvis in a couple of days to assess remaining pelvic abscess and determine antibiotic duration * 06/08: Repeat CTA in results as followed, 1. Interval diverting colostomy formation of the left lower quadrant. 2. Slight decrease in size of a left pelvic abscess with percutaneous drainage catheter in place. 3. 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 Abscess in the midabdomen without significant change. 5. Small pleural effusions with passive atelectasis in the lower lobes. 06/10: 1. Functioning left transgluteal percutaneous abscess drain with no residual abscess along the draining sinus tract which extends to the perforated diverticulum at the proximal aspect of the Senior's pouch. Given this finding the planned catheter upsizing and new catheter placement were deferred. 06/11: antibiotics have been changed to Cipro and Flagyl oral, IV antibiotics have been discontinued. (3) Protein calorie malnutrition: Code(s): E46 - Unspecified protein-calorie malnutrition Status: Acute Assessment and Plan: * Consulted dietitian post-op given NPO status * TPN orders were obtained. Re-order daily before 1400. * 06/06 K 3.2, mg 1.2, phos 2.1. Replacing with K+phos and Mg 2 gram. * Monitor daily CMP * Hyperglycemia 2/2 TPN. Added Q6 accu checks and sliding scale insulin with hypoglycemic protocol. * BG consistently in the 200's. * Add Lantus 7 units HS---increase to 10 units HS for better control. * Dietitian recommending Arnel supplements.
--- NOTE | 2023-06-11 11:10 | PM.IMPN ---
Progress Note: A&P Assessment and Plan (1) Colonic diverticular abscess: Code(s): K57.20 - Diverticulitis of large intestine with perforation and abscess without bleeding Status: Acute Assessment and Plan: 06/01: CT abdomen and pelvis yesterday showed perforated diverticulitis at the proximal sigmoid colon with rectal contrast extending into an adjacent abscess that tracts to a larger pelvic abscess where the percutaneous transgluteal drain is located. There is additionally a few small loculated abscesses without contrast enhancement in the lower abdomen that are not amenable to percutaneous drainage. Discussed CT findings with Dr. Langford, who will be speaking with family and the patient regarding possible surgical options at this point. POD 1 for placement of descending end colostomy and repair of small bowel enterotomy x [address] Langford. Continue with IV antibiotics Rocehpin and Flagyl IVF LR at 30 ml per hour + TPN at 40 ml per hour DVT prophylaxis with Lovenox per surgery PRN Dilaudid or morphine for pain control. No oral medications at this time. NG tube was removed PT/OT can continue--recommending SNF OOB to chair. IS already ordered. DC Edmonds catheter today. Voiding spontaneously 06/09: Ordered full liquid diet per surgery, NPO after midnight 06/10: Liquid diet resumed after drain evaluation, no drain change required. 06/11: Diet advanced to heart healthy continued with supplements. TPN continues to infuse but expect this to be decreased and titrated off over the next couple days (2) Positive blood cultures: Code(s): R78.81 - Bacteremia Status: Acute Assessment and Plan: E coli bacteremia, on Rocephin and Flagyl (abscess culture Bacteroides and E. coli) Repeat blood cultures from 05/26 were negative for growth Unable to achieve source control to abscess with surgery on 06/04 given recent [place]. Diverting ostomy was placed and pelvic abscess was left with IR drain. Anticipate needing antibiotics fdc. Leukocytosis has improved though. 06/06 WBC 8.7-->9.[address] of her abdomen and pelvis in a couple of days to assess remaining pelvic abscess and determine antibiotic duration 06/08: Repeat CTA in results as followed, 1. Interval diverting colostomy formation of the left lower quadrant. 2. Slight decrease in size of a left pelvic abscess with percutaneous drainage catheter in place. 3. 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 Abscess in the midabdomen without significant change. 5. Small pleural effusions with passive atelectasis in the lower lobes. 06/10: 1. Functioning left transgluteal percutaneous abscess drain with no residual abscess along the draining sinus tract which extends to the perforated diverticulum at the proximal aspect of the Senior's pouch. Given this finding the planned catheter upsizing and new catheter placement were deferred. 06/11: antibiotics have been changed to Cipro and Flagyl oral, IV antibiotics have been discontinued. (3) Protein calorie malnutrition: Code(s): E46 - Unspecified protein-calorie malnutrition Status: Acute Assessment and Plan: Consulted dietitian post-op given NPO status TPN orders were obtained. Re-order daily before 1400. 06/06 K 3.2, mg 1.2, phos 2.1. Replacing with K+phos and Mg 2 gram. Monitor daily CMP Hyperglycemia 2/2 TPN. Added Q6 accu checks and sliding scale insulin with hypoglycemic protocol. BG consistently in the 200's. Add Lantus 7 units HS---increase to 10 units HS for better control. Dietitian recommending Arnel supplements. 06/10: Patient continues TPN, liquid diet resumed. Expect advancing diet and decrease TPN soon. 06/11: Diet is being advanced to heart healthy diet continuing with calorie count, TPN still infusing. (4) Non-ST elevation [place] (NSTEMI): Code(s): I21.4 - Non-ST elevation (NSTEMI) myocardial infarction Status: Acute
[2023-06-11 11:41] LABS: Glucose Point of Care 185 mg/dl (65-105)
--- NOTE | 2023-06-11 13:54 | PCNFU ---
Nutrition Follow-Up Complete: Last recorded weight is 77.3 kg. Bowel Motility: Colostomy. BM: 06/11 Labs Reviewed: Triglycerides: 368, glucose: 450, Na: 131, Hgb: 10.5, Hct: 33.0 Meds Noted: [place], Lasix, Dilaudid, Lantus, Flagyl, Morphine, Zofran Skin: abdominal wound- may intact, coccyx deep tissue pressure ulcer, left buttocks drain Additional Notes: Post Op day: 6 (placement of descending end colostomy and repair of small bowel enterotomy x 1). Hyperglycemia 2/2 TPN. Accu-checks added Q6 and sliding scale insulin with hypoglycemic protocol. Edema: 1+ bilateral upper/lower leg Severe protein calorie malnutrition related to chronic loss of appetite and acute altered GI function as evidenced by NFPE findings of severe muscle wasting and fat loss. Pt current nutrition is heart-healthy diet with Ensure Compact and 2L Clinimix 5/15 E with 250mL 20% lipids. Per progress note in EHR, plan is to wean patient from TPN over the next several days. Calorie count assessed today and patient with 1 menu (this morning's breakfast = 0%). Clinmix 5/15E @ 40 ml/hr provides 1182 kcal, 46 g protein, 1210 ml total volume. Clinimix 5/15E with no lipids will provide 682 kcal, 46g protein. Nutrition recommendation: 1. Continue with TPN of Clinimix 5/15 E at 40mL/hr and heart-healthy diet with Glucerna once daily. 2. Infuse lipids every other day due to high triglycerides. 3. SSI added 2/2 hyperglycemia. Will switch oral supplement to Glucerna. 4. Continue calorie count. Will see if intake improves as TPN is decreased. Goal: Improve PO intake to at least 50% meals and supplements; weight maintenance Monitoring intakes, weights, labs, diet tolerance, plan of care Follow up in 3 days
[2023-06-11] MEDS: ACETAMINOPHEN 325 MG TABLET 650 MG PO (14:21)
--- NOTE | 2023-06-11 14:40 | PM.PNGS ---
Progress Note: A&P Assessment and Plan (1) Protein calorie malnutrition: Code(s): E46 - Unspecified protein-calorie malnutrition Status: Acute Assessment and Plan: Patient albumin 2 days ago was still 2.1. Her p.o. intake is relatively poor still. Counter count is ongoing. Continue with TPN. (2) Colonic diverticular abscess: Code(s): K57.20 - Diverticulitis of large intestine with perforation and abscess without bleeding Status: Acute Assessment and Plan: End colostomy was then placed and fecal stream has been diverted from the perforated sigmoid colon. Pelvic drain still in place with output low. Recent imaging showed decompression and resolution of the abscess cavity. Continue with oral antibiotics. Likely will remove the transgluteal pelvic drain on Wednesday as long as the output remains low and her white blood cell count remains normal and there is no fever. Apparently patient will be going to [facility] for [facility] care after discharge. Subjective Subjective Date/Time Seen: 06/11/23 14:40 Interval history: Patient remains clinically stable. She is still on TPN. P.o. intake is still relatively poor. She is on a calorie count. No fever. White blood cell count is normal. Transgluteal pelvic drain is still in place with minimal output. She has been transitioned to oral antibiotics and her white blood cell count remains normal no fever. Exam Const: General: comfortable and no acute distress GI: GI Palp: Yes Soft to palpation, No Firmness to palpation present (GI), No Tenderness to palpation present (GI), No Guarding due to palpation present (GI) and No Hernia present Other: Transgluteal drain output is minimal. Objective Data Vital Signs Vital Signs: Vital Signs - 24 hr 06/10/23 15:04 06/10/23 16:04 06/10/23 17:04 Temperature 36.8 C 37.4 C 37.1 C Pulse Rate 81 78 77 Respiratory Rate 18 18 18 Blood Pressure 145/63 H 161/76 H 151/73 H Pulse Oximetry 100 99 98 Oxygen Delivery 06/10/23 20:00 06/10/23 20:00 06/11/23 00:00 Temperature 36.3 C L 36.9 C Pulse Rate 81 60 Respiratory Rate 14 16 Blood Pressure 154/75 H 155/74 H Pulse Oximetry 99 92 Oxygen Delivery Room Air 06/11/23 04:00 06/11/23 08:44 06/11/23 08:30 Temperature 36.7 C Pulse Rate 91 77 Respiratory Rate 20 Blood Pressure 161/78 H Pulse Oximetry 97 Oxygen Delivery Room Air Intake/Output Intake/Output: Intake & Output 06/08/23 06/09/23 06/10/23 06/11/23 23:59 23:59 23:59 23:59 Intake Total 4135 2371 2590 0 Output Total 900 600 740 450 Balance 3235 1771 1850 -450 Meds/Results Medications: Active Medications Generic Name Dose Route Start Last Admin Trade Name Freq PRN Reason Stop Dose Admin Acetaminophen 650 mg 06/08/23 15:10 06/11/23 14:21 Acetaminophen 325 Mg Tablet PO 650 mg Q4H PRN Administration Headache Hydrocodone Bitart/Acetaminophen 1 tab 06/09/23 10:58 Hydrocodone/Acetaminophen (*Crx) 5-325 Mg Tablet PO Q4H PRN Pain Rated 4-6 Hydrocodone Bitart/Acetaminophen 1 tab 06/09/23 10:58 Hydrocodone/Acetaminophen (*Crx) 7.5-325 Mg Tablet PO Q4H PRN Pain Rated 7-10 Ciprofloxacin 500 mg 06/10/23 21:00 06/11/23 08:41 Ciprofloxacin 500 Mg Tab PO 500 mg Q12HR SANDIE Administration Dextrose 12.5 gm 06/05/23 18:37 Dextrose 50% 25 Gm/50 Ml Syringe IV PUSH PRN PRN Hypoglycemia Protocol Enoxaparin Sodium 40 mg 06/09/23 09:00 06/11/23 08:42 Enoxaparin 40 Mg/0.4 Ml Syringe SUB-Q 40 mg DAILY SANDIE Administration Furosemide 40 mg 06/09/23 09:00 06/11/23 08:55 Furosemide 40 Mg Tablet PO 40 mg DAILY SANDIE Administration Glucagon 1 mg 06/05/23 18:37 Glucagon For Inj 1 Mg Vial IM PRN PRN Hypoglycemia Protocol Glucose 15 gm 06/05/23 18:37 Glucose Oral Gel 15 Gm Of Glucse In 37.5 Gm Tube PO PRN PRN Hypoglycemi
[2023-06-11 15:09] VITALS: BP 134/77; PULSE 81; RESP 20; TEMP 37; O2SAT 97
[2023-06-11] MEDS: AMINO ACIDS 5%/D15W/E-LYTES/CA 2,000 ML with MULTIVITAMINS-12 INJ VIAL 1 2.5 ML, MULTIV... 40 ML IV CONT (17:05)
[2023-06-11] MEDS: FAT EMULSIONS IV 20% 250 ML 20.8 ML IVPB (17:05)
[2023-06-11 17:55] LABS: Glucose Point of Care 152 mg/dl (65-105)
[2023-06-11 21:25] VITALS: BP 120/52; PULSE 78; RESP 16; TEMP 36.2; O2SAT 97
[2023-06-11 23:54] LABS: Glucose Point of Care 138 mg/dl (65-105)
[2023-06-12 04:34] VITALS: BP 139/66; PULSE 71; RESP 16; TEMP 36.1; O2SAT 96
[2023-06-12 05:45] LABS: Glucose Point of Care 145 mg/dl (65-105)
[2023-06-12] MEDS: CENTRAL LINE FLUSH 10 ML IV PUSH ×3 (05:58→21:36)
[2023-06-12 06:07] LABS: Basophils Absolute Auto 0.1 K/mm3 (0.0-0.1); Basophils Percent Auto 0.6 % (0.2-1.2); Eosinophils Absolute Auto 0.1 K/mm3 (0-0.3); Eosinophils Percent Auto 1.4 % (0-4.4); Hematocrit 29.9 % (37.0-47.0); Hemoglobin 9.5 g/dL (12.0-15.0); Immature Granulocyte Absolute 0.07 K/mm3 (0.00-0.031); Immature Granulocyte Percent A 0.8 % (0-0.5); Lymphocytes Percent Auto 8.4 % (18.3-44.2); Mean Corpuscular HGB Conc 31.8 g/dl (32-36); Mean Corpuscular Hemoglobin 31.3 pg (26-34); Mean Corpuscular Volume 98.4 fl (80-100); Mean Platelet Volume 12.5 fl (7.4-10.4); Monocytes Absolute Auto 0.7 K/mm3 (0.1-0.6); Monocytes Percent Auto 8.2 % (2.6-8.5); Neutrophils Absolute Auto 6.7 K/mm3 (1.3-6.7); Neutrophils Percent Auto 80.6 % (45.5-73.1); Platelet Count Result 126 k/mm3 (150-375); Red Blood Count 3.04 M/mm3 (4.2-5.4); Red Cell Distribution Width 16.5 % (11.5-14.5); White Blood Count 8.3 K/mm3 (4.5-10.0)
[2023-06-12 06:29] LABS: Anion Gap 1 mmol/L (8-16); Blood Urea Nitrogen 24 mg/dL (7-17); Calcium 7.7 mg/dL (8.4-10.2); Carbon Dioxide 29 mmol/L (22-30); Chloride 97 mmol/L (98-107); Estimated CRCL calculation 32 ml/min; Estimated Glomerular Filt Rate 57; Glucose 615 mg/dL (65-110); Magnesium 1.8 mg/dL (1.6-2.3); Phosphorus 4.8 mg/dL (2.5-4.5); Potassium 4.7 mmol/L (3.4-5.0); Sodium 127 mmol/L (137-145)
[2023-06-12 06:37] LABS: Glucose Point of Care 144 mg/dl (65-105)
[2023-06-12 07:31] LABS: Anion Gap 4 mmol/L (8-16); Blood Urea Nitrogen 27 mg/dL (7-17); Carbon Dioxide 29 mmol/L (22-30); Chloride 100 mmol/L (98-107); Estimated CRCL calculation 35 ml/min; Estimated Glomerular Filt Rate > 60; Glucose 170 mg/dL (65-110); Potassium 3.8 mmol/L (3.4-5.0); Sodium 133 mmol/L (137-145)
[2023-06-12 09:27] VITALS: PULSE 73
[2023-06-12] MEDS: metroNIDAZOLE 250 MG TABLET 500 MG PO ×3 (09:27→21:36)
[2023-06-12] MEDS: METOPROLOL TARTRATE 12.5 MG TABLET PO (09:27)
[2023-06-12] MEDS: LATANOPROST 0.005% OP SOLN 2.5 ML BTL 1 DROP EACH EYE (09:28)
[2023-06-12] MEDS: SIMVASTATIN 20 MG TABLET PO (09:28)
[2023-06-12] MEDS: LOSARTAN POTASSIUM 12.5 MG TABLET PO (09:28)
[2023-06-12] MEDS: CIPROFLOXACIN 500 MG TAB PO ×2 (09:28→21:36)
[2023-06-12] MEDS: FUROSEMIDE 40 MG TABLET PO (09:28)
[2023-06-12] MEDS: ENOXAPARIN 40 MG/0.4 ML SYRINGE SUB-Q (09:31)
--- NOTE | 2023-06-12 12:03 | P.PNIM_ITS ---
Progress Note: A&P Assessment and Plan (1) Colonic diverticular abscess: Code(s): K57.20 - Diverticulitis of large intestine with perforation and abscess without bleeding Status: Acute Assessment and Plan: 06/01: * CT abdomen and pelvis yesterday showed perforated diverticulitis at the proximal sigmoid colon with rectal contrast extending into an adjacent abscess that tracts to a larger pelvic abscess where the percutaneous transgluteal drain is located. There is additionally a few small loculated abscesses without contrast enhancement in the lower abdomen that are not amenable to percutaneous drainage. Discussed CT findings with Dr. Langford, who will be speaking with family and the patient regarding possible surgical options at this point. * POD 1 for placement of descending end colostomy and repair of small bowel enterotomy x [address] Langford. * Continue with IV antibiotics Rocehpin and Flagyl * IVF LR at 30 ml per hour + TPN at 40 ml per hour * DVT prophylaxis with Lovenox per surgery * PRN Dilaudid or morphine for pain control. No oral medications at this time. * NG tube was removed * PT/OT can continue--recommending SNF * OOB to chair. IS already ordered. * DC Edmonds catheter today. Voiding spontaneously 06/09: Ordered full liquid diet per surgery, NPO after midnight 06/10: Liquid diet resumed after drain evaluation, no drain change required. 06/11: Diet advanced to heart healthy continued with supplements. TPN continues to infuse but expect this to be decreased and titrated off over the next couple days 06/12: Patient ate full breakfast tray this morning. TPN is being weaned by surgery (2) Positive blood cultures: Code(s): R78.81 - Bacteremia Status: Acute Assessment and Plan: * E coli bacteremia, on Rocephin and Flagyl (abscess culture Bacteroides and E. coli) * Repeat blood cultures from 05/26 were negative for growth * Unable to achieve source control to abscess with surgery on 06/04 given recent [place]. Diverting ostomy was placed and pelvic abscess was left with IR drain. 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 * Leukocytosis has improved though. 06/06 WBC 8.7-->9.2 * Needs repeat CT of her abdomen and pelvis in a couple of days to assess remaining pelvic abscess and determine antibiotic duration * 06/08: Repeat CTA in results as followed, 1. Interval diverting colostomy formation of the left lower quadrant. 2. Slight decrease in size of a left pelvic abscess with percutaneous drainage catheter in place. 3. 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 Abscess in the midabdomen without significant change. 5. Small pleural effusions with passive atelectasis in the lower lobes. 06/10: 1. Functioning left transgluteal percutaneous abscess drain with no residual abscess along the draining sinus tract which extends to the perforated diverticulum at the proximal aspect of the Senior's pouch. Given this finding the planned catheter upsizing and new catheter placement were deferred. 06/11: antibiotics have been changed to Cipro and Flagyl oral, IV antibiotics have been discontinued. (3) Protein calorie malnutrition: Code(s): E46 - Unspecified protein-calorie malnutrition Status: Acute Assessment and Plan: * Consulted dietitian post-op given NPO status * TPN orders were obtained. Re-order daily before 1400. * 06/06 K 3.2, mg 1.2, phos 2.1. Replacing with K+phos and Mg 2 gram. * Monitor daily CMP * Hyperglycemia 2/2 TPN. Added Q6 accu checks and sliding scale insulin with hypoglycemic protocol. * BG consistently in the 200's. * Add Lantus 7 units HS-
--- NOTE | 2023-06-12 12:03 | PM.IMPN ---
Progress Note: A&P Assessment and Plan (1) Colonic diverticular abscess: Code(s): K57.20 - Diverticulitis of large intestine with perforation and abscess without bleeding Status: Acute Assessment and Plan: 06/01: CT abdomen and pelvis yesterday showed perforated diverticulitis at the proximal sigmoid colon with rectal contrast extending into an adjacent abscess that tracts to a larger pelvic abscess where the percutaneous transgluteal drain is located. There is additionally a few small loculated abscesses without contrast enhancement in the lower abdomen that are not amenable to percutaneous drainage. Discussed CT findings with Dr. Langford, who will be speaking with family and the patient regarding possible surgical options at this point. POD 1 for placement of descending end colostomy and repair of small bowel enterotomy x [address] Langford. Continue with IV antibiotics Rocehpin and Flagyl IVF LR at 30 ml per hour + TPN at 40 ml per hour DVT prophylaxis with Lovenox per surgery PRN Dilaudid or morphine for pain control. No oral medications at this time. NG tube was removed PT/OT can continue--recommending SNF OOB to chair. IS already ordered. DC Edmonds catheter today. Voiding spontaneously 06/09: Ordered full liquid diet per surgery, NPO after midnight 06/10: Liquid diet resumed after drain evaluation, no drain change required. 06/11: Diet advanced to heart healthy continued with supplements. TPN continues to infuse but expect this to be decreased and titrated off over the next couple days 06/12: Patient ate full breakfast tray this morning. TPN is being weaned by surgery (2) Positive blood cultures: Code(s): R78.81 - Bacteremia Status: Acute Assessment and Plan: E coli bacteremia, on Rocephin and Flagyl (abscess culture Bacteroides and E. coli) Repeat blood cultures from 05/26 were negative for growth Unable to achieve source control to abscess with surgery on 06/04 given recent [place]. Diverting ostomy was placed and pelvic abscess was left with IR drain. Anticipate needing antibiotics lab[employer]. Leukocytosis has improved though. 06/06 WBC 8.7-->9.[address] of her abdomen and pelvis in a couple of days to assess remaining pelvic abscess and determine antibiotic duration 06/08: Repeat CTA in results as followed, 1. Interval diverting colostomy formation of the left lower quadrant. 2. Slight decrease in size of a left pelvic abscess with percutaneous drainage catheter in place. 3. 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 Abscess in the midabdomen without significant change. 5. Small pleural effusions with passive atelectasis in the lower lobes. 06/10: 1. Functioning left transgluteal percutaneous abscess drain with no residual abscess along the draining sinus tract which extends to the perforated diverticulum at the proximal aspect of the Senior's pouch. Given this finding the planned catheter upsizing and new catheter placement were deferred. 06/11: antibiotics have been changed to Cipro and Flagyl oral, IV antibiotics have been discontinued. (3) Protein calorie malnutrition: Code(s): E46 - Unspecified protein-calorie malnutrition Status: Acute Assessment and Plan: Consulted dietitian post-op given NPO status TPN orders were obtained. Re-order daily before 1400. 06/06 K 3.2, mg 1.2, phos 2.1. Replacing with K+phos and Mg 2 gram. Monitor daily CMP Hyperglycemia 2/2 TPN. Added Q6 accu checks and sliding scale insulin with hypoglycemic protocol. BG consistently in the 200's. Add Lantus 7 units HS---increase to 10 units HS for better control. Dietitian recommending Arnel supplements. 06/10: Patient continues TPN, liquid diet resumed. Expect advancing diet and decrease TPN soon. 06/11: Diet is being advanced to heart healthy diet continuing with calorie count, TPN still infusing. 06/12: Patient ate full breakfast tray, TPN
--- NOTE | 2023-06-12 13:24 | PM.PNGS ---
Progress Note: A&P Assessment and Plan (1) Protein calorie malnutrition: Code(s): E46 - Unspecified protein-calorie malnutrition Status: Acute Assessment and Plan: Low albumin. Her p.o. intake is relatively poor still. Calorie count is ongoing. Continue with TPN. (2) Colonic diverticular abscess: Code(s): K57.20 - Diverticulitis of large intestine with perforation and abscess without bleeding Status: Acute Assessment and Plan: End colostomy was then placed and fecal stream has been diverted from the perforated sigmoid colon. Pelvic drain still in place with output low. Recent imaging showed decompression and resolution of the abscess cavity. Continue with oral antibiotics. Likely will remove the transgluteal pelvic drain on Wednesday as long as the output remains low and her white blood cell count remains normal and there is no fever. Apparently patient will be going to [facility] for [facility] care after discharge. Subjective Subjective Date/Time Seen: 06/12/23 13:24 Interval history: Tolerating diet, but still not eating much. Pain controlled. Exam Const: General: comfortable and no acute distress GI: GI Palp: Yes Soft to palpation, No Firmness to palpation present (GI), No Tenderness to palpation present (GI), No Guarding due to palpation present (GI) and No Hernia present Other: Transgluteal drain output is minimal. Objective Data Vital Signs Vital Signs: Vital Signs - 24 hr 06/11/23 15:09 06/11/23 21:25 06/11/23 20:00 Temperature 37.0 C 36.2 C L Pulse Rate 81 78 Respiratory Rate 20 16 Blood Pressure 134/77 120/52 L Pulse Oximetry 97 97 Oxygen Delivery Room Air 06/12/23 04:34 06/12/23 09:27 06/12/23 09:25 Temperature 36.1 C L Pulse Rate 71 73 Respiratory Rate 16 Blood Pressure 139/66 Pulse Oximetry 96 Oxygen Delivery Room Air Intake/Output Intake/Output: Intake & Output 06/09/23 06/10/23 06/11/23 06/12/23 23:59 23:59 23:59 23:59 Intake Total 2371 2590 2495 120 Output Total 208 747 3357 625 Balance 1771 1850 1475 -505 Meds/Results Medications: Active Medications Generic Name Dose Route Start Last Admin Trade Name Freq PRN Reason Stop Dose Admin Acetaminophen 650 mg 06/08/23 15:10 06/11/23 14:21 Acetaminophen 325 Mg Tablet PO 650 mg Q4H PRN Administration Headache Hydrocodone Bitart/Acetaminophen 1 tab 06/09/23 10:58 Hydrocodone/Acetaminophen (*Crx) 5-325 Mg Tablet PO Q4H PRN Pain Rated 4-6 Hydrocodone Bitart/Acetaminophen 1 tab 06/09/23 10:58 Hydrocodone/Acetaminophen (*Crx) 7.5-325 Mg Tablet PO Q4H PRN Pain Rated 7-10 Ciprofloxacin 500 mg 06/10/23 21:00 06/12/23 09:28 Ciprofloxacin 500 Mg Tab PO 500 mg Q12HR SANDIE Administration Dextrose 12.5 gm 06/05/23 18:37 Dextrose 50% 25 Gm/50 Ml Syringe IV PUSH PRN PRN Hypoglycemia Protocol Enoxaparin Sodium 40 mg 06/09/23 09:00 06/12/23 09:31 Enoxaparin 40 Mg/0.4 Ml Syringe SUB-Q 40 mg DAILY SANDIE Administration Furosemide 40 mg 06/09/23 09:00 06/12/23 09:28 Furosemide 40 Mg Tablet PO 40 mg DAILY SANDIE Administration Glucagon 1 mg 06/05/23 18:37 Glucagon For Inj 1 Mg Vial IM PRN PRN Hypoglycemia Protocol Glucose 15 gm 06/05/23 18:37 Glucose Oral Gel 15 Gm Of Glucse In 37.5 Gm Tube PO PRN PRN Hypoglycemia Protocol Hydromorphone HCl 1 mg 06/04/23 17:02 Hydromorphone Hcl Inj (*Crx) 1 Mg/Ml Syr IV PUSH Q4H PRN Pain Rated 7-10 Dextrose 1,000 mls @ 50 mls/hr 06/04/23 17:02 Dextrose 10% IV CONT .Q20H PRN if PN is interrupted Ibuprofen 400 mg/ Sodium 104 mls @ 208 mls/hr 06/05/23 17:10 06/06/23 21:13 Chloride IVPB 208 mls/hr Q8H PRN Administration PAIN RATED 1-3 Dextrose 1,000 mls @ 100 mls/hr 06/05/23 18:37 Dextrose 5% 1,000 Ml IVPB PRN PRN Hypoglyc
[2023-06-12 14:00] VITALS: BP 129/67; PULSE 97; RESP 14; TEMP 36.4; O2SAT 100
--- NOTE | 2023-06-12 14:02 | PCOTNOTE ---
Attempted to see pt for Occupational Therapy treatment. Pt is sleeping when therapist entered room. Pt shook her head no when therapist attempted to have pt participate in session. Family is present and states that pt is having a relaxing day. Will continue per poc duration/frequency tomorrow.
[2023-06-12 14:16] LABS: Glucose Point of Care 134 mg/dl (65-105)
[2023-06-12] MEDS: AMINO ACIDS 5%/D15W/E-LYTES/CA 2,000 ML with MULTIVITAMINS-12 INJ VIAL 1 2.5 ML, MULTIV... 40 ML IV CONT (17:21)
[2023-06-12] MEDS: FAT EMULSIONS IV 20% 250 ML 20.8 ML IVPB (17:21)
[2023-06-12 19:14] LABS: Glucose Point of Care 131 mg/dl (65-105)
[2023-06-12 20:55] VITALS: BP 126/55; PULSE 79; RESP 16; TEMP 36.7; O2SAT 94
[2023-06-12] MEDS: INSULIN GLARGINE (*BKC) 100 UNITS/ML 10 UNITS SUB-Q (21:36)
[2023-06-12 23:16] LABS: Glucose Point of Care 159 mg/dl (65-105)
[2023-06-12 23:59] LABS: Glucose Point of Care 143 mg/dl (65-105)
[2023-06-13 04:53] VITALS: BP 135/65; PULSE 75; RESP 16; TEMP 36.2; O2SAT 97
[2023-06-13 05:52] LABS: Glucose Point of Care 141 mg/dl (65-105)
[2023-06-13] MEDS: metroNIDAZOLE 250 MG TABLET 500 MG PO ×3 (06:00→20:53)
[2023-06-13] MEDS: CENTRAL LINE FLUSH 10 ML IV PUSH ×3 (06:01→21:40)
[2023-06-13 06:30] LABS: Basophils Absolute Auto 0.1 K/mm3 (0.0-0.1); Basophils Percent Auto 0.6 % (0.2-1.2); Eosinophils Absolute Auto 0.1 K/mm3 (0-0.3); Hematocrit 30.4 % (37.0-47.0); Hemoglobin 9.5 g/dL (12.0-15.0); Immature Granulocyte Absolute 0.15 K/mm3 (0.00-0.031); Immature Granulocyte Percent A 1.8 % (0-0.5); Lymphocytes Absolute Auto 0.86 K/mm3 (0.9-3.2); Lymphocytes Percent Auto 10.3 % (18.3-44.2); Mean Corpuscular HGB Conc 31.3 g/dl (32-36); Mean Corpuscular Volume 99.3 fl (80-100); Mean Platelet Volume 12.7 fl (7.4-10.4); Monocytes Absolute Auto 0.7 K/mm3 (0.1-0.6); Monocytes Percent Auto 8.4 % (2.6-8.5); Neutrophils Absolute Auto 6.5 K/mm3 (1.3-6.7); Neutrophils Percent Auto 77.9 % (45.5-73.1); Platelet Count Result 103 k/mm3 (150-375); Red Blood Count 3.06 M/mm3 (4.2-5.4); Red Cell Distribution Width 16.4 % (11.5-14.5); White Blood Count 8.3 K/mm3 (4.5-10.0)
[2023-06-13 06:38] LABS: Phosphorus 2.9 mg/dL (2.5-4.5)
[2023-06-13 06:38] LABS: Magnesium 1.7 mg/dL (1.6-2.3)
[2023-06-13 06:39] LABS: Anion Gap 3 mmol/L (8-16); Blood Urea Nitrogen 25 mg/dL (7-17); Calcium 7.9 mg/dL (8.4-10.2); Carbon Dioxide 30 mmol/L (22-30); Chloride 100 mmol/L (98-107); Estimated CRCL calculation 38 ml/min; Estimated Glomerular Filt Rate > 60; Glucose 151 mg/dL (65-110); Potassium 3.5 mmol/L (3.4-5.0); Sodium 133 mmol/L (137-145)
[2023-06-13 08:17] LABS: Glucose Point of Care 182 mg/dl (65-105)
[2023-06-13 09:16] LABS: Triglycerides 158 mg/dL (<150)
[2023-06-13 09:55] VITALS: PULSE 70
[2023-06-13] MEDS: FUROSEMIDE 40 MG TABLET PO (09:55)
[2023-06-13] MEDS: LOSARTAN POTASSIUM 12.5 MG TABLET PO (09:55)
[2023-06-13] MEDS: ENOXAPARIN 40 MG/0.4 ML SYRINGE SUB-Q (09:55)
[2023-06-13] MEDS: SIMVASTATIN 20 MG TABLET PO (09:55)
[2023-06-13] MEDS: METOPROLOL TARTRATE 12.5 MG TABLET PO (09:55)
[2023-06-13] MEDS: CIPROFLOXACIN 500 MG TAB PO ×2 (09:55→20:53)
[2023-06-13] MEDS: LATANOPROST 0.005% OP SOLN 2.5 ML BTL 1 DROP EACH EYE (09:56)
--- NOTE | 2023-06-13 09:59 | PM.IMPN ---
Progress Note: A&P Assessment and Plan (1) Colonic diverticular abscess: Code(s): K57.20 - Diverticulitis of large intestine with perforation and abscess without bleeding Status: Acute Assessment and Plan: 06/01: CT abdomen and pelvis yesterday showed perforated diverticulitis at the proximal sigmoid colon with rectal contrast extending into an adjacent abscess that tracts to a larger pelvic abscess where the percutaneous transgluteal drain is located. There is additionally a few small loculated abscesses without contrast enhancement in the lower abdomen that are not amenable to percutaneous drainage. Discussed CT findings with Dr. Langford, who will be speaking with family and the patient regarding possible surgical options at this point. POD 1 for placement of descending end colostomy and repair of small bowel enterotomy x [address] Langford. Continue with IV antibiotics Rocehpin and Flagyl IVF LR at 30 ml per hour + TPN at 40 ml per hour DVT prophylaxis with Lovenox per surgery PRN Dilaudid or morphine for pain control. No oral medications at this time. NG tube was removed PT/OT can continue--recommending SNF OOB to chair. IS already ordered. DC Edmonds catheter today. Voiding spontaneously 06/09: Ordered full liquid diet per surgery, NPO after midnight 06/10: Liquid diet resumed after drain evaluation, no drain change required. 06/11: Diet advanced to heart healthy continued with supplements. TPN continues to infuse but expect this to be decreased and titrated off over the next couple days 06/12: Patient ate full breakfast tray this morning. TPN is being weaned by surgery 06/13: Still limited PO intake, TPN still infusing 40 mL/hr. Lipids off past 24 hours, triglycerides improved. (2) Positive blood cultures: Code(s): R78.81 - Bacteremia Status: Acute Assessment and Plan: E coli bacteremia, on Rocephin and Flagyl (abscess culture Bacteroides and E. coli) Repeat blood cultures from 05/26 were negative for growth Unable to achieve source control to abscess with surgery on 06/04 given recent [place]. Diverting ostomy was placed and pelvic abscess was left with IR drain. Anticipate needing antibiotics roasterman. Leukocytosis has improved though. 06/06 WBC 8.7-->9.[address] of her abdomen and pelvis in a couple of days to assess remaining pelvic abscess and determine antibiotic duration 06/08: Repeat CTA in results as followed, 1. Interval diverting colostomy formation of the left lower quadrant. 2. Slight decrease in size of a left pelvic abscess with percutaneous drainage catheter in place. 3. 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 Abscess in the midabdomen without significant change. 5. Small pleural effusions with passive atelectasis in the lower lobes. 06/10: 1. Functioning left transgluteal percutaneous abscess drain with no residual abscess along the draining sinus tract which extends to the perforated diverticulum at the proximal aspect of the Senior's pouch. Given this finding the planned catheter upsizing and new catheter placement were deferred. 06/11: antibiotics have been changed to Cipro and Flagyl oral, IV antibiotics have been discontinued. (3) Protein calorie malnutrition: Code(s): E46 - Unspecified protein-calorie malnutrition Status: Acute Assessment and Plan: Consulted dietitian post-op given NPO status TPN orders were obtained. Re-order daily before 1400. 06/06 K 3.2, mg 1.2, phos 2.1. Replacing with K+phos and Mg 2 gram. Monitor daily CMP Hyperglycemia 2/2 TPN. Added Q6 accu checks and sliding scale insulin with hypoglycemic protocol. BG consistently in the 200's. Add Lantus 7 units HS---increase to 10 units HS for better control. Dietitian recommending Arnel supplements. 06/10: Patient continues TPN, liquid diet resumed. Expect advancing diet and decrease TPN soon. 06/11: Diet is being advanced to he
[2023-06-13 12:04] LABS: Glucose Point of Care 161 mg/dl (65-105)
[2023-06-13 14:00] VITALS: BP 106/61; PULSE 76; RESP 17; TEMP 36.7; O2SAT 90
--- NOTE | 2023-06-13 14:24 | PM.PNGS ---
Progress Note: A&P Assessment and Plan (1) Protein calorie malnutrition: Code(s): E46 - Unspecified protein-calorie malnutrition Status: Acute Assessment and Plan: Low albumin. Her p.o. intake is relatively poor still. Calorie count is ongoing. Continue with TPN. (2) Colonic diverticular abscess: Code(s): K57.20 - Diverticulitis of large intestine with perforation and abscess without bleeding Status: Acute Assessment and Plan: End colostomy was then placed and fecal stream has been diverted from the perforated sigmoid colon. Pelvic drain still in place with output low. Recent imaging showed decompression and resolution of the abscess cavity. Continue with oral antibiotics. Likely will remove the transgluteal pelvic drain on Wednesday as long as the output remains low and her white blood cell count remains normal and there is no fever. Apparently patient will be going to [facility] for long-term care after discharge. Subjective Subjective Date/Time Seen: 06/13/23 14:24 Interval history: Not much change clinically. No abdominal pain. No nausea/vomiting. Exam Const: General: comfortable and no acute distress GI: GI Palp: Yes Soft to palpation, No Firmness to palpation present (GI), No Tenderness to palpation present (GI), No Guarding due to palpation present (GI) and No Hernia present Other: Transgluteal drain output is minimal. Objective Data Vital Signs Vital Signs: Vital Signs - 24 hr 06/12/23 20:55 06/12/23 20:00 06/13/23 04:53 Temperature 36.7 C 36.2 C L Pulse Rate 79 75 Respiratory Rate 16 16 Blood Pressure 126/55 L 135/65 Pulse Oximetry 94 97 Oxygen Delivery Room Air 06/13/23 09:55 06/13/23 08:00 Temperature Pulse Rate 70 Respiratory Rate Blood Pressure Pulse Oximetry Oxygen Delivery Room Air Intake/Output Intake/Output: Intake & Output 06/10/23 06/11/23 06/12/23 06/13/23 23:59 23:59 23:59 23:59 Intake Total 2590 2495 2495 Output Total 740 1020 975 450 Balance 1850 1475 1520 -450 Meds/Results Medications: Active Medications Generic Name Dose Route Start Last Admin Trade Name Freq PRN Reason Stop Dose Admin Acetaminophen 650 mg 06/08/23 15:10 06/11/23 14:21 Acetaminophen 325 Mg Tablet PO 650 mg Q4H PRN Administration Headache Hydrocodone Bitart/Acetaminophen 1 tab 06/09/23 10:58 Hydrocodone/Acetaminophen (*Crx) 5-325 Mg Tablet PO Q4H PRN Pain Rated 4-6 Hydrocodone Bitart/Acetaminophen 1 tab 06/09/23 10:58 Hydrocodone/Acetaminophen (*Crx) 7.5-325 Mg Tablet PO Q4H PRN Pain Rated 7-10 Ciprofloxacin 500 mg 06/10/23 21:00 06/13/23 09:55 Ciprofloxacin 500 Mg Tab PO 500 mg Q12HR SANDIE Administration Dextrose 12.5 gm 06/05/23 18:37 Dextrose 50% 25 Gm/50 Ml Syringe IV PUSH PRN PRN Hypoglycemia Protocol Enoxaparin Sodium 40 mg 06/09/23 09:00 06/13/23 09:55 Enoxaparin 40 Mg/0.4 Ml Syringe SUB-Q 40 mg DAILY SANDIE Administration Furosemide 40 mg 06/09/23 09:00 06/13/23 09:55 Furosemide 40 Mg Tablet PO 40 mg DAILY SANDIE Administration Glucagon 1 mg 06/05/23 18:37 Glucagon For Inj 1 Mg Vial IM PRN PRN Hypoglycemia Protocol Glucose 15 gm 06/05/23 18:37 Glucose Oral Gel 15 Gm Of Glucse In 37.5 Gm Tube PO PRN PRN Hypoglycemia Protocol Dextrose 1,000 mls @ 50 mls/hr 06/04/23 17:02 Dextrose 10% IV CONT .Q20H PRN if PN is interrupted Ibuprofen 400 mg/ Sodium 104 mls @ 208 mls/hr 06/05/23 17:10 06/06/23 21:13 Chloride IVPB 208 mls/hr Q8H PRN Administration PAIN RATED 1-3 Dextrose 1,000 mls @ 100 mls/hr 06/05/23 18:37 Dextrose 5% 1,000 Ml IVPB PRN PRN Hypoglycemia Protocol Multivitamins 2.5 ml/ 2,005 mls @ 40 mls/hr 06/06/23 10:00 06/12/23 17:21 Multivitamins 2.5 ml/ Amino IV CONT 40 mls/hr Acids/Electrolytes/
[2023-06-13] MEDS: FAT EMULSIONS IV 20% 250 ML 20.8 ML IVPB (16:18)
[2023-06-13] MEDS: AMINO ACIDS 5%/D15W/E-LYTES/CA 2,000 ML with MULTIVITAMINS-12 INJ VIAL 1 2.5 ML, MULTIV... 40 ML IV CONT (16:18)
[2023-06-13 17:17] LABS: Glucose Point of Care 103 mg/dl (65-105)
[2023-06-13 20:00] VITALS: PULSE 81; RESP 18; O2SAT 98
[2023-06-13 21:17] LABS: Glucose Point of Care 131 mg/dl (65-105)
[2023-06-13 21:21] VITALS: BP 132/58; PULSE 81; RESP 18; TEMP 36.4; O2SAT 98
[2023-06-14] MEDS: metroNIDAZOLE 250 MG TABLET 500 MG PO ×3 (05:38→21:44)
[2023-06-14] MEDS: CENTRAL LINE FLUSH 10 ML IV PUSH ×3 (05:41→21:45)
[2023-06-14 06:00] VITALS: BP 139/74; PULSE 63; RESP 18; TEMP 36.2; O2SAT 92
[2023-06-14 06:09] LABS: Basophils Absolute Auto 0.1 K/mm3 (0.0-0.1); Basophils Percent Auto 0.7 % (0.2-1.2); Eosinophils Absolute Auto 0.1 K/mm3 (0-0.3); Eosinophils Percent Auto 1.2 % (0-4.4); Hematocrit 29.6 % (37.0-47.0); Hemoglobin 9.1 g/dL (12.0-15.0); Immature Granulocyte Absolute 0.12 K/mm3 (0.00-0.031); Immature Granulocyte Percent A 1.6 % (0-0.5); Immature Platelet Fraction Pct 6.6 % (0.9-11.2); Lymphocytes Absolute Auto 1.33 K/mm3 (0.9-3.2); Lymphocytes Percent Auto 17.3 % (18.3-44.2); Mean Corpuscular HGB Conc 30.7 g/dl (32-36); Mean Corpuscular Hemoglobin 30.4 pg (26-34); Monocytes Absolute Auto 0.7 K/mm3 (0.1-0.6); Neutrophils Absolute Auto 5.4 K/mm3 (1.3-6.7); Neutrophils Percent Auto 70.2 % (45.5-73.1); Platelet Count Result 74 k/mm3 (150-375); Red Blood Count 2.99 M/mm3 (4.2-5.4); Red Cell Distribution Width 16.5 % (11.5-14.5); White Blood Count 7.7 K/mm3 (4.5-10.0)
[2023-06-14 06:17] LABS: Alanine Aminotransferase 32 U/L (6-35); Albumin Level 2.2 g/dL (3.5-5.1); Alkaline Phosphatase 84 U/L (38-126); Anion Gap 3 mmol/L (8-16); Aspartate Amino Transferase 70 U/L (14-36); Bilirubin,Total 0.5 mg/dL (0.2-1.3); Blood Urea Nitrogen 22 mg/dL (7-17); Carbon Dioxide 30 mmol/L (22-30); Chloride 102 mmol/L (98-107); Estimated CRCL calculation 35 ml/min; Estimated Glomerular Filt Rate > 60; Glucose 125 mg/dL (65-110); Magnesium 1.7 mg/dL (1.6-2.3); Potassium 3.4 mmol/L (3.4-5.0); Sodium 135 mmol/L (137-145)
[2023-06-14 06:19] LABS: INR 1.2
[2023-06-14 06:20] LABS: Partial Thromboplastin Time 32.6 SECONDS (22.3-36.8)
[2023-06-14 06:47] LABS: Glucose Point of Care 118 mg/dl (65-105)
[2023-06-14 07:47] LABS: Platelet Estimate Decreased (Adequate)
[2023-06-14 07:48] LABS: Anisocytosis 1+ (NORMAL); Hypochromasia 2+ (NORMAL); Ovalocytes 1+ (NORMAL); Poikilocytosis 1+ (NORMAL); Schistocytes Rare (NORMAL)
[2023-06-14] MEDS: FUROSEMIDE 40 MG TABLET PO (09:54)
[2023-06-14] MEDS: SIMVASTATIN 20 MG TABLET PO (09:54)
[2023-06-14] MEDS: LOSARTAN POTASSIUM 12.5 MG TABLET PO (09:54)
[2023-06-14] MEDS: LATANOPROST 0.005% OP SOLN 2.5 ML BTL 1 DROP EACH EYE (09:54)
[2023-06-14] MEDS: CIPROFLOXACIN 500 MG TAB PO ×2 (09:54→21:44)
[2023-06-14] MEDS: METOPROLOL TARTRATE 12.5 MG TABLET PO (09:54)
[2023-06-14] MEDS: ENOXAPARIN 40 MG/0.4 ML SYRINGE SUB-Q (09:55)
[2023-06-14 09:59] LABS: Transferrin < 80 mg/dL (206-381)
--- NOTE | 2023-06-14 10:05 | PCOTNOTE ---
Per Patient and her daughter, Patient just got re-positioned in the bed to get comfortable. Patient declined performing OT treatment at this time. Will check back at a later time.
--- NOTE | 2023-06-14 11:39 | PM.IMPN ---
Progress Note: A&P Assessment and Plan (1) Colonic diverticular abscess: Code(s): K57.20 - Diverticulitis of large intestine with perforation and abscess without bleeding Status: Acute Assessment and Plan: 06/01: CT abdomen and pelvis yesterday showed perforated diverticulitis at the proximal sigmoid colon with rectal contrast extending into an adjacent abscess that tracts to a larger pelvic abscess where the percutaneous transgluteal drain is located. There is additionally a few small loculated abscesses without contrast enhancement in the lower abdomen that are not amenable to percutaneous drainage. Discussed CT findings with Dr. Langford, who will be speaking with family and the patient regarding possible surgical options at this point. POD 1 for placement of descending end colostomy and repair of small bowel enterotomy x [address] Langford. Continue with IV antibiotics Rocehpin and Flagyl IVF LR at 30 ml per hour + TPN at 40 ml per hour DVT prophylaxis with Lovenox per surgery PRN Dilaudid or morphine for pain control. No oral medications at this time. NG tube was removed PT/OT can continue--recommending SNF OOB to chair. IS already ordered. DC Edmonds catheter today. Voiding spontaneously 06/09: Ordered full liquid diet per surgery, NPO after midnight 06/10: Liquid diet resumed after drain evaluation, no drain change required. 06/11: Diet advanced to heart healthy continued with supplements. TPN continues to infuse but expect this to be decreased and titrated off over the next couple days 06/12: Patient ate full breakfast tray this morning. TPN is being weaned by surgery 06/13: Still limited PO intake, TPN still infusing 40 mL/hr. Lipids off past 24 hours, triglycerides improved. 06/14: Improved oral intake new development of right upper quadrant abdominal pain. TPN still infusing. (2) Positive blood cultures: Code(s): R78.81 - Bacteremia Status: Acute Assessment and Plan: E coli bacteremia, on Rocephin and Flagyl (abscess culture Bacteroides and E. coli) Repeat blood cultures from 05/26 were negative for growth Unable to achieve source control to abscess with surgery on 06/04 given recent [place]. Diverting ostomy was placed and pelvic abscess was left with IR drain. Anticipate needing antibiotics halfway. Leukocytosis has improved though. 06/06 WBC 8.7-->9.[address] of her abdomen and pelvis in a couple of days to assess remaining pelvic abscess and determine antibiotic duration 06/08: Repeat CTA in results as followed, 1. Interval diverting colostomy formation of the left lower quadrant. 2. Slight decrease in size of a left pelvic abscess with percutaneous drainage catheter in place. 3. 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 Abscess in the midabdomen without significant change. 5. Small pleural effusions with passive atelectasis in the lower lobes. 06/10: 1. Functioning left transgluteal percutaneous abscess drain with no residual abscess along the draining sinus tract which extends to the perforated diverticulum at the proximal aspect of the Senior's pouch. Given this finding the planned catheter upsizing and new catheter placement were deferred. 06/11: antibiotics have been changed to Cipro and Flagyl oral, IV antibiotics have been discontinued. (3) Protein calorie malnutrition: Code(s): E46 - Unspecified protein-calorie malnutrition Status: Acute Assessment and Plan: Consulted dietitian post-op given NPO status TPN orders were obtained. Re-order daily before 1400. 06/06 K 3.2, mg 1.2, phos 2.1. Replacing with K+phos and Mg 2 gram. Monitor daily CMP Hyperglycemia 2/2 TPN. Added Q6 accu checks and sliding scale insulin with hypoglycemic protocol. BG consistently in the 200's. Add Lantus 7 units HS---increased to 10 units HS for better control. Dietitian recommending Arnel supplements. 06/10: Patient continues
[2023-06-14 12:13] LABS: Glucose Point of Care 148 mg/dl (65-105)
[2023-06-14 14:00] VITALS: BP 138/68; PULSE 73; RESP 14; TEMP 36.9; O2SAT 96
--- NOTE | 2023-06-14 14:39 | PCOTNOTE ---
Attempted this afternoon with OT treatment session. Patient declined, Patient stated she is waiting on the FILLING MIXER to come remove her drain tube. Patient requested therapy try back tomorrow.
--- NOTE | 2023-06-14 15:32 | PM.PNGS ---
Progress Note: A&P Assessment and Plan (1) Protein calorie malnutrition: Code(s): E46 - Unspecified protein-calorie malnutrition Status: Acute Assessment and Plan: Albumin up slightly but still low. Poor appetite and still poor intake, but slowly improving and taking in supplements. Will decrease TPN rate to 20 mL/hr and discontinue TPN after this bag. Encouraged oral intake. Continue calorie count and will reassess tomorrow. Continue supplements. (2) Colonic diverticular abscess: Code(s): K57.20 - Diverticulitis of large intestine with perforation and abscess without bleeding Status: Acute Assessment and Plan: Postop day 10 from placement of descending end colostomy for diversion from perforated sigmoid colon. Most recent pelvis CT on 06/10 showed decompression of the pelvic abscess where the perc drain is located. Percutaneous pelvic drain with no output, therefore this was removed today. Continue oral antibiotics. Patient has been accepted to [facility] for discharge. Depending on when the patient is discharged, could consider removing her may prior to discharge. Midline incision is healing well. Plan I have discussed the patient's case and plan of care with Dr. Langford. Subjective Subjective Date/Time Seen: 06/14/23 15:32 Post Op day: 10 (Placement of descending end colostomy and repair of small bowel entertomy x 1) Patient reports: no new complaints and afebrile Interval history: Chart reviewed since seen last. Patient is seen with her daughter at the bedside. No output from the perc drain x 3 days. She is still not eating much and has a poor appetite. She did better this morning and ate a better breakfast. She has taken in at least 2 of her supplements per day per the daughter. Her TPN is still at 40 mL/hr. She denies any abdominal pain or other specific complaints at this time. Dr. Langford requested for me to remove her perc drain this afternoon. Exam Const: General: comfortable, no acute distress and awake GI: Inspection: non-distended, incision (dry and healing well, no erythema, may intact) and other (ostomy functioning with stool in bag and stoma pink and viable) GI Palp: Yes Soft to palpation, No Tenderness to palpation present (GI) and No Guarding due to palpation present (GI) Auscultation: normal bowel sounds Other: Left transgluteal perc drain was removed at the bedside, gauze dressing applied. Objective Data Vital Signs Vital Signs: Vital Signs - 24 hr 06/13/23 21:21 06/13/23 20:00 06/14/23 06:00 Temperature 97.6 F 97.2 F L Pulse Rate 81 81 63 Respiratory Rate 18 18 18 Blood Pressure 132/58 L 139/74 Pulse Oximetry 98 98 92 Oxygen Delivery Room Air Fraction of Inspired Oxygen 06/14/23 08:00 Temperature Pulse Rate Respiratory Rate Blood Pressure Pulse Oximetry Oxygen Delivery Room Air Fraction of Inspired Oxygen Intake/Output Intake/Output: Intake & Output 06/11/23 06/12/23 06/13/23 06/14/23 23:59 23:59 23:59 23:59 Intake Total 2495 2495 2625 370 Output Total 1020 975 450 Balance 1475 1520 2175 370 Meds/Results Medications: Active Medications Generic Name Dose Route Start Last Admin Trade Name Freq PRN Reason Stop Dose Admin Acetaminophen 650 mg 06/08/23 15:10 06/11/23 14:21 Acetaminophen 325 Mg Tablet PO 650 mg Q4H PRN Administration Headache Hydrocodone Bitart/Acetaminophen 1 tab 06/09/23 10:58 Hydrocodone/Acetaminophen (*Crx) 5-325 Mg Tablet PO Q4H PRN Pain Rated 4-6 Hydrocodone Bitart/Acetaminophen 1 tab 06/09/23 10:58 Hydrocodone/Acetaminophen (*Crx) 7.5-325 Mg Tablet PO Q4H PRN Pain Rated 7-10 Ciprofloxacin 500 mg 06/10/23 21:00 06/14/23 09:54 Ciprofloxacin 500 Mg Tab PO 500 mg Q12HR SANDIE Administration Dextrose 12.5 gm 06/05/23 18:37 Dextrose 50% 25 Gm/50 Ml Syringe IV PUSH PRN PRN Hypoglycemia Protocol Furosemide 40 m
[2023-06-14] MEDS: HYDROcodone/acetaminophen (*CRX) 7.5-325 MG TABLET 1 TAB PO (15:33)
--- NOTE | 2023-06-14 16:21 | PCPTNOTE ---
PT not completed this afternoon due to patient awaiting drain removal. PT will continue to follow per plan of care.
[2023-06-14 18:07] LABS: Glucose Point of Care 117 mg/dl (65-105)
[2023-06-14 22:00] VITALS: BP 130/62; PULSE 80; RESP 18; TEMP 37; O2SAT 97
[2023-06-15 00:06] LABS: Glucose Point of Care 99 mg/dl (65-105)
[2023-06-15 06:00] VITALS: BP 137/61; PULSE 78; RESP 18; TEMP 37.1; O2SAT 100
[2023-06-15] MEDS: metroNIDAZOLE 250 MG TABLET 500 MG PO ×3 (06:11→21:15)
[2023-06-15] MEDS: CENTRAL LINE FLUSH 10 ML IV PUSH ×3 (06:11→21:17)
[2023-06-15 06:26] LABS: Glucose Point of Care 109 mg/dl (65-105)
[2023-06-15 08:00] VITALS: PULSE 78; RESP 18; O2SAT 100
[2023-06-15 09:12] LABS: Basophils Absolute Auto 0.1 K/mm3 (0.0-0.1); Basophils Percent Auto 0.8 % (0.2-1.2); Eosinophils Absolute Auto 0.1 K/mm3 (0-0.3); Hematocrit 29.4 % (37.0-47.0); Hemoglobin 9.1 g/dL (12.0-15.0); Immature Granulocyte Absolute 0.08 K/mm3 (0.00-0.031); Immature Granulocyte Percent A 1.1 % (0-0.5); Immature Platelet Fraction Pct 7.5 % (0.9-11.2); Lymphocytes Absolute Auto 1.48 K/mm3 (0.9-3.2); Lymphocytes Percent Auto 20.6 % (18.3-44.2); Mean Corpuscular Hemoglobin 30.6 pg (26-34); Mean Platelet Volume 12.7 fl (7.4-10.4); Monocytes Absolute Auto 0.8 K/mm3 (0.1-0.6); Monocytes Percent Auto 11.3 % (2.6-8.5); Neutrophils Absolute Auto 4.7 K/mm3 (1.3-6.7); Neutrophils Percent Auto 65.2 % (45.5-73.1); Platelet Count Result 74 k/mm3 (150-375); Red Blood Count 2.97 M/mm3 (4.2-5.4); Red Cell Distribution Width 16.7 % (11.5-14.5); White Blood Count 7.2 K/mm3 (4.5-10.0)
[2023-06-15 09:18] LABS: Alanine Aminotransferase 34 U/L (6-35); Albumin Level 2.2 g/dL (3.5-5.1); Alkaline Phosphatase 91 U/L (38-126); Anion Gap 4 mmol/L (8-16); Aspartate Amino Transferase 66 U/L (14-36); Bilirubin,Total 0.7 mg/dL (0.2-1.3); Blood Urea Nitrogen 22 mg/dL (7-17); Carbon Dioxide 29 mmol/L (22-30); Chloride 102 mmol/L (98-107); Estimated CRCL calculation 35 ml/min; Estimated Glomerular Filt Rate > 60; Glucose 107 mg/dL (65-110); Potassium 3.5 mmol/L (3.4-5.0); Sodium 135 mmol/L (137-145)
[2023-06-15] MEDS: METOPROLOL TARTRATE 12.5 MG TABLET PO (09:44)
[2023-06-15] MEDS: LATANOPROST 0.005% OP SOLN 2.5 ML BTL 1 DROP EACH EYE (09:44)
[2023-06-15] MEDS: LOSARTAN POTASSIUM 12.5 MG TABLET PO (09:44)
[2023-06-15] MEDS: SIMVASTATIN 20 MG TABLET PO (09:44)
[2023-06-15] MEDS: FUROSEMIDE 40 MG TABLET PO (09:44)
[2023-06-15] MEDS: CIPROFLOXACIN 500 MG TAB PO ×2 (09:44→21:16)
[2023-06-15 10:00] LABS: Anisocytosis 1+ (NORMAL); Hypochromasia 1+ (NORMAL); Ovalocytes 1+ (NORMAL); Platelet Estimate Decreased (Adequate); Poikilocytosis 1+ (NORMAL); Schistocytes None Seen (NORMAL)
--- NOTE | 2023-06-15 11:11 | PCOTNOTE ---
Attempted to see Patient at this time. Patient's sister present. Patient declined at this time due to stating she is attempting to eat but would rather just have fluids. Patient was educated on the importance of good nutrition for increased healing. Will try back at a later time.
--- NOTE | 2023-06-15 11:55 | PCNFU ---
Nutrition Follow-Up Complete: Severe protein calorie malnutrition related to chronic loss of appetite and acute altered GI function as evidenced by NFPE findings of severe muscle wasting and fat loss. Goal:Improve PO intake to at least 50% meals and supplements Maintain current weight Pt current nutrition is Heart healthy, Ensure compact BID. Nutrition recommendation: continue with current plan of care Last recorded weight is 74.1 kg. Bowel Motility: No BM recorded at this time Labs Reviewed: Hgb:9.1, HCT:29.4, Alb:2.2, NA:135, BUN:22 Meds Noted: zofran, KCL, lovenox, lantus/novolog Skin: no skin breakdown noted Additional Notes: Pt is on a heart healthy diet. TPN is now d/c'd. Intake remains poor, mostly 10-25, some 50%. Ensure compact on tray and pt reports she is drinking it each meal. Encouraged her to continue. Will increased to TID with meals. Monitoring intakes, weights, labs, diet tolerance, plan of care Follow up in 5 days
--- NOTE | 2023-06-15 13:32 | PM.IMPN ---
Progress Note: A&P Assessment and Plan (1) Colonic diverticular abscess: Code(s): K57.20 - Diverticulitis of large intestine with perforation and abscess without bleeding Status: Acute Assessment and Plan: 06/01: CT abdomen and pelvis yesterday showed perforated diverticulitis at the proximal sigmoid colon with rectal contrast extending into an adjacent abscess that tracts to a larger pelvic abscess where the percutaneous transgluteal drain is located. There is additionally a few small loculated abscesses without contrast enhancement in the lower abdomen that are not amenable to percutaneous drainage. Discussed CT findings with Dr. Langford, who will be speaking with family and the patient regarding possible surgical options at this point. POD 1 for placement of descending end colostomy and repair of small bowel enterotomy x [address] Langford. Continue with IV antibiotics Rocehpin and Flagyl IVF LR at 30 ml per hour + TPN at 40 ml per hour DVT prophylaxis with Lovenox per surgery PRN Dilaudid or morphine for pain control. No oral medications at this time. NG tube was removed PT/OT can continue--recommending SNF OOB to chair. IS already ordered. DC Edmonds catheter today. Voiding spontaneously 06/09: Ordered full liquid diet per surgery, NPO after midnight 06/10: Liquid diet resumed after drain evaluation, no drain change required. 06/11: Diet advanced to heart healthy continued with supplements. TPN continues to infuse but expect this to be decreased and titrated off over the next couple days 06/12: Patient ate full breakfast tray this morning. TPN is being weaned by surgery 06/13: Still limited PO intake, TPN still infusing 40 mL/hr. Lipids off past 24 hours, triglycerides improved. 06/14: Improved oral intake new development of right upper quadrant abdominal pain. TPN still infusing. 06/15: TPN off, patient feeling like her stomach is upset (2) Positive blood cultures: Code(s): R78.81 - Bacteremia Status: Acute Assessment and Plan: E coli bacteremia, on Rocephin and Flagyl (abscess culture Bacteroides and E. coli) Repeat blood cultures from 05/26 were negative for growth Unable to achieve source control to abscess with surgery on 06/04 given recent [place]. Diverting ostomy was placed and pelvic abscess was left with IR drain. 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 Leukocytosis has improved though. 11/5 WBC 8.7-->9.[address] of her abdomen and pelvis in a couple of days to assess remaining pelvic abscess and determine antibiotic duration 06/08: Repeat CTA in results as followed, 1. Interval diverting colostomy formation of the left lower quadrant. 2. Slight decrease in size of a left pelvic abscess with percutaneous drainage catheter in place. 3. 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 Abscess in the midabdomen without significant change. 5. Small pleural effusions with passive atelectasis in the lower lobes. 06/10: 1. Functioning left transgluteal percutaneous abscess drain with no residual abscess along the draining sinus tract which extends to the perforated diverticulum at the proximal aspect of the Senior's pouch. Given this finding the planned catheter upsizing and new catheter placement were deferred. 06/11: antibiotics have been changed to Cipro and Flagyl oral, IV antibiotics have been discontinued. (3) Protein calorie malnutrition: Code(s): E46 - Unspecified protein-calorie malnutrition Status: Acute Assessment and Plan: Consulted dietitian post-op given NPO status TPN orders were obtained. Re-order daily before 1400. 06/06 K 3.2, mg 1.2, phos 2.1. Replacing with K+phos and Mg 2 gram. Monitor daily CMP Hyperglycemia 2/2 TPN. Added Q6 accu checks and sliding scale insulin with hypoglycemic protocol. BG consistently in the 200's. Add Lantus 7 units HS---increased to 10 units HS for better control. Dietitian iraida
--- NOTE | 2023-06-15 13:44 | PCPTNOTE ---
Patient refused treatment this session. Patient states nursing staff assisted with bathing and a bed change and she is too tired to participate in therapy this afternoon. PT will continue to follow per plan of care.
[2023-06-15 14:00] VITALS: BP 131/76; PULSE 75; RESP 14; TEMP 36.1; O2SAT 99
--- NOTE | 2023-06-15 14:35 | PCOTNOTE ---
Attempted again this afternoon. Patient in bed and declines to perform bed mobility, transfers. Patient's son-in-law present. Patient verbalized her daughter is at the facility she is supposed to be transferred to and she will wait until she gets back to perform activity. Patient was educated the importance of self care and her decreased initiation to perform activity. Patient is self limiting. Will speak with OT about therapy frequency.
--- NOTE | 2023-06-15 15:37 | PM.PNGS ---
Progress Note: A&P Assessment and Plan (1) Protein calorie malnutrition: Code(s): E46 - Unspecified protein-calorie malnutrition Status: Acute Assessment and Plan: TPN stopped and appetite improved today. Although intake is low, it is improving and she is taking in a supplement with each meal. Continue eo encourage oral intake and supplements. (2) Colonic diverticular abscess: Code(s): K57.20 - Diverticulitis of large intestine with perforation and abscess without bleeding Status: Acute Assessment and Plan: Postop day 11 from placement of descending end colostomy for diversion from perforated sigmoid colon. Most recent pelvis CT on 06/10 showed decompression of the pelvic abscess where the perc drain is located. Percutaneous pelvic drain removed yesterday. Midline incision is healing well. Okay to discharge from a surgical standpoint to SNF. Still waiting for placement. Will have patient follow-up with Dr. Langford in 2 weeks and will likely have staple removal at that time. Plan I have discussed the patient's case and plan of care with Dr. Langford. Subjective Subjective Date/Time Seen: 06/15/23 15:37 Patient reports: no new complaints Interval history: Patient seen today. She is feeling well today without any specific complaints. She states her appetite has improved today after TPN stopped yesterday. No Abdominal pain, nausea, or vomiting. Perc drain removed yesterday. Still waiting for placement to SNF. Exam Const: General: comfortable and no acute distress GI: Inspection: non-distended, incision (dry and healing well, no erythema, may intact) and other (ostomy functioning with stool in bag and stoma pink and viable) GI Palp: Yes Soft to palpation, No Tenderness to palpation present (GI) and No Guarding due to palpation present (GI) Auscultation: normal bowel sounds Objective Data Vital Signs Vital Signs: Vital Signs - 24 hr 06/14/23 22:00 06/14/23 20:00 06/15/23 06:00 Temperature 98.6 F 98.8 F Pulse Rate 80 78 Respiratory Rate 18 18 Blood Pressure 130/62 137/61 Pulse Oximetry 97 100 Oxygen Delivery Room Air Fraction of Inspired Oxygen 06/15/23 08:00 06/15/23 14:00 Temperature 96.9 F L Pulse Rate 78 75 Respiratory Rate 18 14 Blood Pressure 131/76 Pulse Oximetry 100 99 Oxygen Delivery Room Air Fraction of Inspired Oxygen 21 Intake/Output Intake/Output: Intake & Output 06/12/23 06/13/23 06/14/23 06/15/23 23:59 23:59 23:59 23:59 Intake Total 2495 2625 810 118 Output Total 975 450 850 450 Balance 1520 2175 -40 -099 Meds/Results Medications: Active Medications Generic Name Dose Route Start Last Admin Trade Name Freq PRN Reason Stop Dose Admin Acetaminophen 650 mg 06/08/23 15:10 06/11/23 14:21 Acetaminophen 325 Mg Tablet PO 650 mg Q4H PRN Administration Headache Hydrocodone Bitart/Acetaminophen 1 tab 06/09/23 10:58 Hydrocodone/Acetaminophen (*Crx) 5-325 Mg Tablet PO Q4H PRN Pain Rated 4-6 Hydrocodone Bitart/Acetaminophen 1 tab 06/09/23 10:58 06/14/23 15:33 Hydrocodone/Acetaminophen (*Crx) 7.5-325 Mg Tablet PO 1 tab Q4H PRN Administration Pain Rated 7-10 Ciprofloxacin 500 mg 06/10/23 21:00 06/15/23 09:44 Ciprofloxacin 500 Mg Tab PO 500 mg Q12HR SANDIE Administration Dextrose 12.5 gm 06/05/23 18:37 Dextrose 50% 25 Gm/50 Ml Syringe IV PUSH PRN PRN Hypoglycemia Protocol Furosemide 40 mg 06/09/23 09:00 06/15/23 09:44 Furosemide 40 Mg Tablet PO 40 mg DAILY SANDIE Administration Glucagon 1 mg 06/05/23 18:37 Glucagon For Inj 1 Mg Vial IM PRN PRN Hypoglycemia Protocol Glucose 15 gm 06/05/23 18:37 Glucose Oral Gel 15 Gm Of Glucse In 37.5 Gm Tube PO PRN PRN Hypoglycemia Protocol Dextrose 1,000 mls @ 50 mls/hr 06/04/23 17:02 Dextrose 10% IV CONT .Q20H PRN if PN is interrupted Ibuprofen 400 mg/ Sodium
[2023-06-15 20:00] VITALS: PULSE 75; RESP 14; O2SAT 99
[2023-06-15 22:00] VITALS: BP 148/77; PULSE 76; RESP 16; TEMP 36.3; O2SAT 100
[2023-06-16 06:00] VITALS: BP 141/73; PULSE 76; RESP 18; TEMP 36.2; O2SAT 99
[2023-06-16] MEDS: CENTRAL LINE FLUSH 10 ML IV PUSH ×3 (06:02→21:25)
[2023-06-16] MEDS: metroNIDAZOLE 250 MG TABLET 500 MG PO ×3 (06:02→21:25)
[2023-06-16 06:18] LABS: Basophils Absolute Auto 0.1 K/mm3 (0.0-0.1); Basophils Percent Auto 0.7 % (0.2-1.2); Eosinophils Absolute Auto 0.1 K/mm3 (0-0.3); Eosinophils Percent Auto 0.9 % (0-4.4); Hematocrit 29.4 % (37.0-47.0); Immature Granulocyte Absolute 0.11 K/mm3 (0.00-0.031); Immature Granulocyte Percent A 1.4 % (0-0.5); Immature Platelet Fraction Pct 6.5 % (0.9-11.2); Lymphocytes Absolute Auto 1.41 K/mm3 (0.9-3.2); Lymphocytes Percent Auto 18.3 % (18.3-44.2); Mean Corpuscular HGB Conc 30.6 g/dl (32-36); Mean Corpuscular Hemoglobin 30.5 pg (26-34); Mean Corpuscular Volume 99.7 fl (80-100); Monocytes Absolute Auto 0.8 K/mm3 (0.1-0.6); Monocytes Percent Auto 9.9 % (2.6-8.5); Neutrophils Absolute Auto 5.3 K/mm3 (1.3-6.7); Neutrophils Percent Auto 68.8 % (45.5-73.1); Platelet Count Result 87 k/mm3 (150-375); Red Blood Count 2.95 M/mm3 (4.2-5.4); Red Cell Distribution Width 16.8 % (11.5-14.5); White Blood Count 7.7 K/mm3 (4.5-10.0)
[2023-06-16 06:24] LABS: Alanine Aminotransferase 33 U/L (6-35); Albumin Level 2.2 g/dL (3.5-5.1); Alkaline Phosphatase 92 U/L (38-126); Anion Gap 4 mmol/L (8-16); Aspartate Amino Transferase 65 U/L (14-36); Bilirubin,Total 0.7 mg/dL (0.2-1.3); Blood Urea Nitrogen 19 mg/dL (7-17); Calcium 7.9 mg/dL (8.4-10.2); Carbon Dioxide 30 mmol/L (22-30); Chloride 102 mmol/L (98-107); Estimated CRCL calculation 32 ml/min; Estimated Glomerular Filt Rate 57; Glucose 115 mg/dL (65-110); Potassium 3.3 mmol/L (3.4-5.0); Sodium 136 mmol/L (137-145)
[2023-06-16 07:08] LABS: Poikilocytosis 1+ (NORMAL)
[2023-06-16 07:09] LABS: Ovalocytes 1+ (NORMAL); Platelet Estimate Decreased (Adequate); Schistocytes Rare (NORMAL)
[2023-06-16 08:57] VITALS: PULSE 76
[2023-06-16] MEDS: CIPROFLOXACIN 500 MG TAB PO ×2 (08:57→21:25)
[2023-06-16] MEDS: LOSARTAN POTASSIUM 12.5 MG TABLET PO (08:57)
[2023-06-16] MEDS: METOPROLOL TARTRATE 12.5 MG TABLET PO (08:57)
[2023-06-16] MEDS: FUROSEMIDE 40 MG TABLET PO (08:58)
[2023-06-16] MEDS: SIMVASTATIN 20 MG TABLET PO (08:58)
[2023-06-16] MEDS: LATANOPROST 0.005% OP SOLN 2.5 ML BTL 1 DROP EACH EYE (08:59)
--- NOTE | 2023-06-16 13:00 | PM.IMPN ---
Progress Note: A&P Assessment and Plan (1) Colonic diverticular abscess: Code(s): K57.20 - Diverticulitis of large intestine with perforation and abscess without bleeding Status: Acute Assessment and Plan: 06/01: CT abdomen and pelvis yesterday showed perforated diverticulitis at the proximal sigmoid colon with rectal contrast extending into an adjacent abscess that tracts to a larger pelvic abscess where the percutaneous transgluteal drain is located. There is additionally a few small loculated abscesses without contrast enhancement in the lower abdomen that are not amenable to percutaneous drainage. Discussed CT findings with Dr. Langford, who will be speaking with family and the patient regarding possible surgical options at this point. POD 1 for placement of descending end colostomy and repair of small bowel enterotomy x [address] Langford. Continue with IV antibiotics Rocehpin and Flagyl IVF LR at 30 ml per hour + TPN at 40 ml per hour DVT prophylaxis with Lovenox per surgery PRN Dilaudid or morphine for pain control. No oral medications at this time. NG tube was removed PT/OT can continue--recommending SNF OOB to chair. IS already ordered. DC Edmonds catheter today. Voiding spontaneously 06/09: Ordered full liquid diet per surgery, NPO after midnight 06/10: Liquid diet resumed after drain evaluation, no drain change required. 06/11: Diet advanced to heart healthy continued with supplements. TPN continues to infuse but expect this to be decreased and titrated off over the next couple days 06/12: Patient ate full breakfast tray this morning. TPN is being weaned by surgery 06/13: Still limited PO intake, TPN still infusing 40 mL/hr. Lipids off past 24 hours, triglycerides improved. 06/14: Improved oral intake new development of right upper quadrant abdominal pain. TPN still infusing. 06/15: TPN off, patient feeling like her stomach is upset 06/16: Tolerating a diet per patient reports. Intake seems fair to poor. (2) Positive blood cultures: Code(s): R78.81 - Bacteremia Status: Acute Assessment and Plan: E coli bacteremia, on Rocephin and Flagyl (abscess culture Bacteroides and E. coli) Repeat blood cultures from 05/26 were negative for growth Unable to achieve source control to abscess with surgery on 06/04 given recent [place]. Diverting ostomy was placed and pelvic abscess was left with IR drain. 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 Leukocytosis has improved though. 06/06 WBC 8.7-->9.[address] of her abdomen and pelvis in a couple of days to assess remaining pelvic abscess and determine antibiotic duration 06/08: Repeat CTA in results as followed, 1. Interval diverting colostomy formation of the left lower quadrant. 2. Slight decrease in size of a left pelvic abscess with percutaneous drainage catheter in place. 3. 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 Abscess in the midabdomen without significant change. 5. Small pleural effusions with passive atelectasis in the lower lobes. 06/10: 1. Functioning left transgluteal percutaneous abscess drain with no residual abscess along the draining sinus tract which extends to the perforated diverticulum at the proximal aspect of the Senior's pouch. Given this finding the planned catheter upsizing and new catheter placement were deferred. 06/11: antibiotics have been changed to Cipro and Flagyl oral, IV antibiotics have been discontinued. (3) Protein calorie malnutrition: Code(s): E46 - Unspecified protein-calorie malnutrition Status: Acute Assessment and Plan: Consulted dietitian post-op given NPO status TPN orders were obtained. Re-order daily before 1400. 06/06 K 3.2, mg 1.2, phos 2.1. Replacing with K+phos and Mg 2 gram. Monitor daily CMP Hyperglycemia 2/2 TPN. Added Q6 accu checks and sliding scale insulin with hypoglycemic protocol. BG consistently in the 200's. Add Lant
[2023-06-16 14:50] VITALS: BP 143/68; PULSE 75; RESP 16; TEMP 36.4; O2SAT 100
[2023-06-16 17:34] LABS: Glucose Point of Care 120 mg/dl (65-105)
[2023-06-16 22:00] VITALS: BP 138/73; PULSE 82; RESP 14; TEMP 36.1; O2SAT 98
[2023-06-16 22:35] LABS: Glucose Point of Care 108 mg/dl (65-105)
[2023-06-17 06:00] VITALS: BP 130/67; PULSE 81; RESP 14; TEMP 36.1; O2SAT 99
[2023-06-17] MEDS: metroNIDAZOLE 250 MG TABLET 500 MG PO ×3 (06:41→20:19)
[2023-06-17] MEDS: CENTRAL LINE FLUSH 20 ML IV PUSH (06:44)
[2023-06-17 07:00] LABS: Basophils Absolute Auto 0.1 K/mm3 (0.0-0.1); Basophils Percent Auto 0.8 % (0.2-1.2); Eosinophils Absolute Auto 0.1 K/mm3 (0-0.3); Eosinophils Percent Auto 0.9 % (0-4.4); Hematocrit 27.6 % (37.0-47.0); Hemoglobin 8.6 g/dL (12.0-15.0); Immature Granulocyte Absolute 0.09 K/mm3 (0.00-0.031); Immature Granulocyte Percent A 1.2 % (0-0.5); Lymphocytes Absolute Auto 1.87 K/mm3 (0.9-3.2); Lymphocytes Percent Auto 24.3 % (18.3-44.2); Mean Corpuscular HGB Conc 31.2 g/dl (32-36); Mean Corpuscular Hemoglobin 31.3 pg (26-34); Mean Corpuscular Volume 100.4 fl (80-100); Mean Platelet Volume 12.8 fl (7.4-10.4); Monocytes Absolute Auto 0.7 K/mm3 (0.1-0.6); Monocytes Percent Auto 9.6 % (2.6-8.5); Neutrophils Absolute Auto 4.9 K/mm3 (1.3-6.7); Neutrophils Percent Auto 63.2 % (45.5-73.1); Platelet Count Result 101 k/mm3 (150-375); Red Blood Count 2.75 M/mm3 (4.2-5.4); White Blood Count 7.7 K/mm3 (4.5-10.0)
[2023-06-17 07:21] LABS: Alanine Aminotransferase 32 U/L (6-35); Albumin Level 2.3 g/dL (3.5-5.1); Alkaline Phosphatase 90 U/L (38-126); Anion Gap 6 mmol/L (8-16); Aspartate Amino Transferase 64 U/L (14-36); Bilirubin,Total 0.7 mg/dL (0.2-1.3); Blood Urea Nitrogen 18 mg/dL (7-17); Calcium 7.9 mg/dL (8.4-10.2); Carbon Dioxide 28 mmol/L (22-30); Chloride 104 mmol/L (98-107); Estimated CRCL calculation 32 ml/min; Estimated Glomerular Filt Rate 57; Glucose 110 mg/dL (65-110); Potassium 3.1 mmol/L (3.4-5.0); Sodium 138 mmol/L (137-145)
[2023-06-17 08:13] LABS: Glucose Point of Care 112 mg/dl (65-105)
--- NOTE | 2023-06-17 08:23 | PM.IMPN ---
Progress Note: A&P Assessment and Plan (1) Colonic diverticular abscess: Code(s): K57.20 - Diverticulitis of large intestine with perforation and abscess without bleeding Status: Acute Assessment and Plan: 06/01: CT abdomen and pelvis yesterday showed perforated diverticulitis at the proximal sigmoid colon with rectal contrast extending into an adjacent abscess that tracts to a larger pelvic abscess where the percutaneous transgluteal drain is located. There is additionally a few small loculated abscesses without contrast enhancement in the lower abdomen that are not amenable to percutaneous drainage. Discussed CT findings with Dr. Langford, who will be speaking with family and the patient regarding possible surgical options at this point. POD 1 for placement of descending end colostomy and repair of small bowel enterotomy x [address] Langford. Continue with IV antibiotics Rocehpin and Flagyl IVF LR at 30 ml per hour + TPN at 40 ml per hour DVT prophylaxis with Lovenox per surgery PRN Dilaudid or morphine for pain control. No oral medications at this time. NG tube was removed PT/OT can continue--recommending SNF OOB to chair. IS already ordered. DC Edmonds catheter today. Voiding spontaneously 06/09: Ordered full liquid diet per surgery, NPO after midnight 06/10: Liquid diet resumed after drain evaluation, no drain change required. 06/11: Diet advanced to heart healthy continued with supplements. TPN continues to infuse but expect this to be decreased and titrated off over the next couple days 06/12: Patient ate full breakfast tray this morning. TPN is being weaned by surgery 06/13: Still limited PO intake, TPN still infusing 40 mL/hr. Lipids off past 24 hours, triglycerides improved. 06/14: Improved oral intake new development of right upper quadrant abdominal pain. TPN still infusing. 06/15: TPN off, patient feeling like her stomach is upset 06/16: Tolerating a diet per patient reports. Intake seems fair to poor. 06/17: Continue to encourage good PO intake. (2) Positive blood cultures: Code(s): R78.81 - Bacteremia Status: Acute Assessment and Plan: E coli bacteremia, on Rocephin and Flagyl (abscess culture Bacteroides and E. coli) Repeat blood cultures from 05/26 were negative for growth Unable to achieve source control to abscess with surgery on 06/04 given recent [place]. Diverting ostomy was placed and pelvic abscess was left with IR drain. 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 Leukocytosis has improved though. 06/06 WBC 8.7-->9.[address] of her abdomen and pelvis in a couple of days to assess remaining pelvic abscess and determine antibiotic duration 06/08: Repeat CTA in results as followed, 1. Interval diverting colostomy formation of the left lower quadrant. 2. Slight decrease in size of a left pelvic abscess with percutaneous drainage catheter in place. 3. 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 Abscess in the midabdomen without significant change. 5. Small pleural effusions with passive atelectasis in the lower lobes. 06/10: 1. Functioning left transgluteal percutaneous abscess drain with no residual abscess along the draining sinus tract which extends to the perforated diverticulum at the proximal aspect of the Senior's pouch. Given this finding the planned catheter upsizing and new catheter placement were deferred. 06/11: antibiotics have been changed to Cipro and Flagyl oral, IV antibiotics have been discontinued. 06/17: D/C PICC line (3) Protein calorie malnutrition: Code(s): E46 - Unspecified protein-calorie malnutrition Status: Acute Assessment and Plan: Consulted dietitian post-op given NPO status TPN orders were obtained. Re-order daily before 1400. 06/06 K 3.2, mg 1.2, phos 2.1. Replacing with K+phos and Mg 2 gram. Monitor daily CMP Hyperglycemia 2/2 TPN. Added Q6 accu checks and sliding scale insulin wi
[2023-06-17 08:46] LABS: Magnesium 1.8 mg/dL (1.6-2.3)
[2023-06-17 09:07] VITALS: PULSE 81
[2023-06-17] MEDS: METOPROLOL TARTRATE 12.5 MG TABLET PO (09:07)
[2023-06-17] MEDS: LOSARTAN POTASSIUM 12.5 MG TABLET PO (09:07)
[2023-06-17] MEDS: CIPROFLOXACIN 500 MG TAB PO ×2 (09:07→20:20)
[2023-06-17] MEDS: FUROSEMIDE 40 MG TABLET PO (09:07)
[2023-06-17] MEDS: SIMVASTATIN 20 MG TABLET PO (09:07)
[2023-06-17] MEDS: POTASSIUM CHLORIDE 20 MEQ ER TABLET 80 MEQ PO (09:09)
[2023-06-17] MEDS: LATANOPROST 0.005% OP SOLN 2.5 ML BTL 1 DROP EACH EYE (09:24)
[2023-06-17 11:42] LABS: Glucose Point of Care 170 mg/dl (65-105)
--- NOTE | 2023-06-17 12:35 | PC.NURSE ---
okay to leave in picc until wednesday before d/c per Natali MORE
[2023-06-17 14:00] VITALS: BP 144/73; PULSE 77; RESP 18; TEMP 36.6; O2SAT 99
[2023-06-17 17:00] LABS: Glucose Point of Care 85 mg/dl (65-105)
[2023-06-17 21:27] LABS: Glucose Point of Care 135 mg/dl (65-105)
[2023-06-17 22:00] VITALS: BP 142/74; PULSE 82; RESP 18; TEMP 36.2; O2SAT 98
[2023-06-18] MEDS: metroNIDAZOLE 250 MG TABLET 500 MG PO ×2 (05:47→13:35)
[2023-06-18 06:00] VITALS: BP 154/80; PULSE 84; RESP 14; TEMP 36; O2SAT 100
[2023-06-18 06:01] LABS: Basophils Absolute Auto 0.1 K/mm3 (0.0-0.1); Basophils Percent Auto 0.8 % (0.2-1.2); Eosinophils Absolute Auto 0.1 K/mm3 (0-0.3); Eosinophils Percent Auto 1.2 % (0-4.4); Hematocrit 29.5 % (37.0-47.0); Hemoglobin 9.2 g/dL (12.0-15.0); Immature Granulocyte Absolute 0.05 K/mm3 (0.00-0.031); Immature Granulocyte Percent A 0.6 % (0-0.5); Lymphocytes Absolute Auto 1.94 K/mm3 (0.9-3.2); Lymphocytes Percent Auto 23.5 % (18.3-44.2); Mean Corpuscular HGB Conc 31.2 g/dl (32-36); Mean Corpuscular Hemoglobin 31.1 pg (26-34); Mean Corpuscular Volume 99.7 fl (80-100); Mean Platelet Volume 12.2 fl (7.4-10.4); Monocytes Absolute Auto 0.8 K/mm3 (0.1-0.6); Monocytes Percent Auto 9.8 % (2.6-8.5); Neutrophils Absolute Auto 5.3 K/mm3 (1.3-6.7); Neutrophils Percent Auto 64.1 % (45.5-73.1); Platelet Count Result 132 k/mm3 (150-375); Red Blood Count 2.96 M/mm3 (4.2-5.4); Red Cell Distribution Width 17.5 % (11.5-14.5); White Blood Count 8.3 K/mm3 (4.5-10.0)
[2023-06-18 06:10] LABS: Alanine Aminotransferase 34 U/L (6-35); Albumin Level 2.6 g/dL (3.5-5.1); Alkaline Phosphatase 100 U/L (38-126); Anion Gap 6 mmol/L (8-16); Aspartate Amino Transferase 52 U/L (14-36); Bilirubin,Total 0.7 mg/dL (0.2-1.3); Blood Urea Nitrogen 16 mg/dL (7-17); Calcium 8.4 mg/dL (8.4-10.2); Carbon Dioxide 27 mmol/L (22-30); Chloride 105 mmol/L (98-107); Estimated CRCL calculation 32 ml/min; Estimated Glomerular Filt Rate 57; Glucose 111 mg/dL (65-110); Potassium 3.9 mmol/L (3.4-5.0); Sodium 138 mmol/L (137-145)
[2023-06-18 08:01] LABS: Glucose Point of Care 103 mg/dl (65-105)
--- NOTE | 2023-06-18 09:13 | PM.DS ---
DS: Admitting Diagnosis Discharge Date 06/18/23 Admitting Diagnosis NSTEMI, Diverticulitis with perforation, HTN, HLD, DONOVAN. DS: Discharge Diagnosis Discharge Diagnosis Plan NSTEMI, Diverticulitis with perforation, HTN, HLD, DONOVAN, Bacteremia, thrombocytopenia DS: Summary Hospital Course Reason for hospitalization: NSTEMI, Diverticulitis Hospital Course: Promise English is an 87 year old female who presented s/p recent covid with lower abdominal pain and lab evidence of NSTEMI. The patient was found to have diverticulitis with sigmoid perforation. She underwent surgery with a percutaneous drain placed initially, although at a later time underwent a colon resection with diverting colostomy. She has done well postoperatively and is currently POD 12. She was briefly on TPN but is now tolerating diet and surgical incision and ostomy appear wdl. There should be 2 week f/u in place with general surgery. Culture results intraoperatively show bacteriodies and e. coli. There were positive blood cultures for e. coli. The patient will be completing a course of ciprofloxacin/flagyl upon discharge. In regards to the NSTEMI - troponin plateaued and was downtrending. There has not been active chest pain or ongoing concerns in regards to this. An aspirin and statin will need to continue. She is additionally on metoprolol and lasix now. On day of discharge she is in no distress. She will be transitioning to a swing bed for further rehabilitative services today. Status at Discharge Cognitive/behavioral status at discharge: AO3 without new deficit. Time Spent with Patient Time attestation: Total time spent providing and/or coordinating discharge services: >35 minutes Exam Narrative: GENERAL APPEARANCE: Appears to be in no acute distress. HEAD: normocephalic atraumatic EYES: EOMI. Vision grossly intact. ENT: Hearing grossly intact, no nasal discharge NECK: Neck supple, trachea midline. CARDIAC: Normal S1/S2. Rhythm is regular. No murmurs, rubs, or gallops. No cyanosis or pallor. Extremities are warm and well perfused. LUNGS: Clear to auscultation without rales, rhonchi, wheezing or diminished breath sounds. Respirations even and unlabored. ABDOMEN: BS positive x 4 quadrants. Soft, nondistended, nontender. Colostomy with brown drainage, no surrounding erythema. Midline staple line is c/d/i without erythema or drainage. MSK: No joint tenderness/swelling, fair strength in all extremities. PERIPHERAL VASCULAR: Peripheral pulses palpable. Normal perfusion, cap refill <2 seconds. No edema. NEURO: Follows commands. No focal deficits. SKIN: [place] without lesions or eruptions. PSYCH: Stable, no paranoia or delusional thinking. DS: Data Data Completed and Pending Labs on day of discharge: Labs from last 24 hours 06/18/23 06/18/23 06/17/23 Unknown 07:46 20:21 WBC 8.3 RBC 2.96 L Hgb 9.2 L Hct 29.5 L MCV 99.7 MCH 31.1 MCHC 31.2 L RDW 17.5 H Plt Count 132 L MPV 12.2 H Immature Gran % (Auto) 0.6 H Neut % (Auto) 64.1 Lymph % (Auto) 23.5 [place] % (Auto) 9.8 H Eos % (Auto) 1.2 Baso % (Auto) 0.8 Lymph # (Auto) 1.94 [place] # (Auto) 0.8 H Eos # (Auto) 0.1 Baso # (Auto) 0.1 Abs Immat Gran (auto) 0.05 H Absolute Neuts (auto) 5.3 Absolute Nucleated RBC 0.0 Nucleated RBC % 0.0 Sodium 138 Potassium 3.9 Chloride 105 Carbon Dioxide 27 Anion Gap 6 L BUN 16 Creatinine 1.10 H Estim Creat Clear Calc 32 Estimated GFR 57 L Glucose 111 H POC Capillary Glucose 103 135 H Calcium 8.4 Total Bilirubin 0.7 AST 52 H ALT 34 Alkaline Phosphatase 100 Total Protein 6.0 L Albumin 2.6 L 06/17/23 06/17/23 16:57 11:36 WBC RBC Hgb Hct MCV MCH MCHC RDW Plt Count MPV Immature Gran % (Auto) Neut % (Auto) Lymph % (Auto) [place] % (Auto) Eos % (Auto) Baso % (Auto) Lymph # (Auto) [place] # (Auto
[2023-06-18 09:35] VITALS: PULSE 84
[2023-06-18] MEDS: METOPROLOL SUCCINATE EXT REL 12.5 MG TABCR PO (09:35)
[2023-06-18] MEDS: FUROSEMIDE 40 MG TABLET PO (09:35)
[2023-06-18] MEDS: CIPROFLOXACIN 500 MG TAB PO (09:35)
[2023-06-18] MEDS: LOSARTAN POTASSIUM 12.5 MG TABLET PO (09:35)
[2023-06-18] MEDS: SIMVASTATIN 20 MG TABLET PO (09:35)
[2023-06-18] MEDS: LATANOPROST 0.005% OP SOLN 2.5 ML BTL 1 DROP EACH EYE (09:36)
[2023-06-18] MEDS: NEOMYCIN/POLYMYXIN/BACITRACIN OINTMENT PACKET 1 PACKET (11:34)
[2023-06-18 12:00] LABS: Glucose Point of Care 131 mg/dl (65-105)
[2023-06-18 14:00] VITALS: BP 159/84; PULSE 85; RESP 16; TEMP 36.6; O2SAT 100
--- NOTE | 2023-06-18 14:25 | PCOTNOTE ---
Patient being prepped for discharge this afternoon. Patient unavailable for therapy services. RN working with Patient on dressing changes.
== END 2023-06-18 15:50 | disposition swing bed (61) | DRG 329 ==
LOC: ANHED 14:23 → ANHIMU 18:14 → ANH3MEDSUR 05-28 18:59
PROVIDERS: Chiropractor; Internal Medicine; Nurse Practitioner; Nurse Practitioner Acute Care; Nurse Practitioner Family; Radiology Diagnostic Radiology; Surgery; Admitting Provider Internal Medicine; Emergency Provider Emergency Medicine; PCP Family Medicine; Visit Provider Nurse Practitioner Family
PROC: 0D1M0Z4 Bypass Descending Colon to Cutaneous, Open Approach (ICD-10-PCS; CPT 49000; principal; 2023-06-04 13:30)
DX: K57.20 Diverticulitis of large intestine with perforation and abscess without bleeding (principal); I21.4 Non-ST elevation (NSTEMI) myocardial infarction; N17.9 Acute kidney failure, unspecified; R78.81 Bacteremia; E46 Unspecified protein-calorie malnutrition; K91.71 Accidental puncture and laceration of a digestive system organ or structure during a digestive system procedure; I50.1 Left ventricular failure, unspecified; I11.0 Hypertensive heart disease with heart failure; I95.81 Postprocedural hypotension; E87.6 Hypokalemia; H35.30 Unspecified macular degeneration; Z87.891 Personal history of nicotine dependence; Z86.16 Personal history of COVID-19; B96.20 Unspecified Escherichia coli [E. coli] as the cause of diseases classified elsewhere
CPT/HCPCS: 36415; 36430; 36569; 71045; 71275; 72192; 74174; 74177; 75989; 80048; 80053; 81001; 82570; 82728; 82948; 83540; 83550; 83605; 83690; 83735; 83880; 83930; 83935; 84100; 84300; 84466; 84478; 84484; 85025; 85027; 85055; 85610; 85730; 86850; 86900; 86901; 86923; 87040; 87070; 87075; 87076; 87077; 87086; 87186; 87205; 93005; 93306; 93922; 96361; 96365; 96366; 96367; 96375; 97110; 97161; 97164; 97165; 97166; 97530; 97535; 99291; A9270; C1729; C1769; G0378; J0696; J1100; J1644; J1650; J1741; J1815; J1836; J1940; J2270; J2371; J2405; J2543; J3010; J3475; J3480; J7030; J7040; J7050; J7120; P9016; P9017; P9047; Q9967

== ENCOUNTER 2023-06-18 16:37 | Inpatient (IN) | payer MEDICARE, BC, SELFPAY ==
[2023-06-18 17:03] VITALS: BMI 17.8
--- NOTE | 2023-06-18 17:33 | ADMGEN ---
This patient, Promise English, was admitted to 2nd Floor Room 208-1. Patient/family oriented to hospital policies and general routines including ID bracelet, bed and alarms, visiting hours, pain management, procedures, bathroom and other care routines, personal items, smoking policy, room service/diet, and visiting hours. Daughter Angella has ostomy supplies from [employer] in her car and will bring them up, she will also bring in pt clothes tomorrow. Pt has no glasses with her currently and her partials are at home. Daughter states the IMU has a copy of the DNR-Modified code (meds only) paperwork but she will try to bring a copy in if she can find it. Call light in reach, rails up Information on how to activate the Rapid Response Team has been discussed. Patient/Family are encouraged to report perceived risks to care and to ask questions if they do not understand what they are told or what they should do.
[2023-06-18 17:49] VITALS: BP 155/85; PULSE 96; RESP 16; TEMP 36.6; O2SAT 92
--- NOTE | 2023-06-18 18:43 | PC.NURSE ---
pictures of coccyx wound taken and loaded into computer, barrier cream and antifungal cream applied to area, pt attempted to use commode with no luck, depend on, dressing from picc removal on R upper arm is c/d/i, rails up, call light in reach
--- NOTE | 2023-06-18 19:11 | PC.NURSE ---
daughter has brought up extra ostomy supplied, placed in room on bedside table, bed alarm on
[2023-06-18] MEDS: SIMVASTATIN 10 MG TABLET 20 MG PO (20:20)
[2023-06-18] MEDS: CIPROFLOXACIN 500 MG TAB PO (20:21)
[2023-06-18] MEDS: ACETAMINOPHEN 325 MG TABLET 650 MG PO (20:22)
[2023-06-18] MEDS: metroNIDAZOLE 250 MG TABLET 500 MG PO (21:02)
[2023-06-19] VITALS: BP 118/59; PULSE 87; RESP 20; TEMP 36.5; O2SAT 98
--- NOTE | 2023-06-19 00:19 | PC.NURSE ---
Pt up to the commode with assist of two, walker and gait belt. Pt voided 250 ml of clear, lucille urine and returned to bed with assist of two, gait belt and walker. Pt repositioned to her side.
--- NOTE | 2023-06-19 02:01 | PC.NURSE ---
Pt asleep and no signs of discomfort noted.
--- NOTE | 2023-06-19 04:10 | PC.NURSE ---
Pt asleep and no signs of discomfort noted. Side rails up x2 and call [place]chola within reach.
[2023-06-19] MEDS: metroNIDAZOLE 250 MG TABLET 500 MG PO ×3 (06:07→20:59)
--- NOTE | 2023-06-19 06:20 | PC.NURSE ---
Pt given flagyl 500 mg po in applesauce which she took without difficulty. Pt up to the commode with assist of two, gait belt and walker. Pt voided 200 ml of clear lucille urine. Pt back to bed with assist of two, gait belt and walker.
[2023-06-19 08:00] VITALS: BP 140/73; PULSE 99; RESP 18; TEMP 36.7; O2SAT 99
[2023-06-19] MEDS: CIPROFLOXACIN 500 MG TAB PO ×2 (09:47→20:56)
[2023-06-19 09:48] VITALS: PULSE 79
[2023-06-19] MEDS: METOPROLOL SUCCINATE EXT REL 12.5 MG TABCR PO (09:48)
[2023-06-19] MEDS: FUROSEMIDE 40 MG TABLET PO (09:49)
[2023-06-19] MEDS: LOSARTAN POTASSIUM 25 MG TABLET 12.5 MG PO (09:49)
[2023-06-19] MEDS: TIMOLOL MALEATE 0.5% OP SOLN 5 ML BOTTLE 1 DROP EACH EYE ×2 (09:50→20:56)
[2023-06-19] MEDS: DORZOLAMIDE HCL 2% OPHTH DROPS 1 DROP EACH EYE ×2 (09:50→20:57)
[2023-06-19] MEDS: LATANOPROST 0.005% OP SOLN 2.5 ML BTL 1 DROP EACH EYE (09:50)
--- NOTE | 2023-06-19 10:46 | PM.IMHP ---
H&P: HPI History of Present Illness Date/Time: 06/19/23 10:46 Chief Complaint: Weakness, Diverticulities Narrative: This is a 87 year old female that presented from [facility] for REhab/ Swing. Mrs English is a frail elderly women that has weakness she was admitted there with a NON StEMI and diverticulitis with abscess that required surgical intervention in which she needed a Colostomy. Patient was on feeding currently taking in po . Mrs English will be follow by physical therapy and will been seen by surgeon in which he will remove the may that currently are in place. Patient family/ Daughter is one of her main providers. I have read her notes and she will need to be encouraged to eat and drink as well as continue to work with therapy. Mrs. English denies any pain at this time and is very soft spoken . After review of old charts there were question about wether or not patient needs to be started on ASA as cardiology states in notes that patient needs to be on medication as she was on Lovenox at previous hospital not sure if she if ASA is contraindicated but will need to address on Wednesday . After review of chart from [place] patient was never on ASA but we will reevaluate and call to ensure that we are not missing anything. Family states that patient is a Modified Code and states that they only want medication I did not personally fill out paper work with patient as I was informed that daughter will bring in paper work in the morning. Review of Systems Review of Systems: Frail soft spoken female colostomy noted with bag in place. Swollen legs All systems reviewed & are unremarkable except as noted in HPI and below PMFSH Past Medical History Medical History Hyperlipidemia Hypertension Macular degeneration disease Ovarian cyst Surgical History Surgical History H/O ovarian cystectomy No pertinent past surgical history Family History Family History Mother Hypertension Social History Social History Social History: She is and she lives home alone. She has 1 child who is the durable power first aid attendant. The patient is a full code. She is a former smoker. 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 Sexual Orientation (if Verbalized by the Patient): Straight or Heterosexual Spiritual care concerns: No Meds Home Medications and Allergies Home Medications Medication Instructions Recorded Confirmed Type dorzolamide 22.3 mg-timolol 6.8 1 drp EACH EYE Q12H 05/22/23 06/18/23 History mg/mL eye drops latanoprost 0.005 % eye drops 1 drp EACH EYE DAILY 05/22/23 06/18/23 History simvastatin 20 mg tablet 20 mg PO HS 05/22/23 06/18/23 History ciprofloxacin HCl 500 mg tablet 500 mg PO Q12HR 7 days #14 tabs 06/16/23 06/18/23 Rx metronidazole 250 mg tablet 500 mg PO Q8HR 7 days #42 tabs 06/16/23 06/18/23 Rx furosemide 40 mg tablet 40 mg PO DAILY #30 tabs 06/17/23 06/18/23 Rx losartan 25 mg tablet 12.5 mg PO DAILY #30 tabs 06/17/23 06/18/23 Rx metoprolol succinate 25 mg 12.5 mg PO DAILY #30 tabs 06/17/23 06/18/23 Rx tablet,extended rele
[2023-06-19 16:00] VITALS: BP 128/74; PULSE 78; RESP 19; TEMP 36.3; O2SAT 98
[2023-06-19] MEDS: SIMVASTATIN 10 MG TABLET 20 MG PO (20:56)
[2023-06-19 23:03] VITALS: BP 152/71; PULSE 76; RESP 19; TEMP 36.8; O2SAT 98
[2023-06-20] MEDS: metroNIDAZOLE 250 MG TABLET 500 MG PO ×3 (06:49→21:04)
[2023-06-20 08:00] VITALS: BP 99/53; PULSE 78; RESP 17; TEMP 36.5; O2SAT 99
[2023-06-20] MEDS: LOSARTAN POTASSIUM 25 MG TABLET 12.5 MG PO (08:53)
[2023-06-20] MEDS: CIPROFLOXACIN 500 MG TAB PO ×2 (08:53→21:04)
[2023-06-20] MEDS: FUROSEMIDE 40 MG TABLET PO (08:53)
[2023-06-20 08:54] VITALS: PULSE 77
[2023-06-20] MEDS: METOPROLOL SUCCINATE EXT REL 12.5 MG TABCR PO (08:54)
[2023-06-20] MEDS: LATANOPROST 0.005% OP SOLN 2.5 ML BTL 1 DROP EACH EYE (08:54)
[2023-06-20] MEDS: DORZOLAMIDE HCL 2% OPHTH DROPS 1 DROP EACH EYE ×2 (08:54→21:01)
[2023-06-20] MEDS: TIMOLOL MALEATE 0.5% OP SOLN 5 ML BOTTLE 1 DROP EACH EYE ×2 (08:54→21:02)
--- NOTE | 2023-06-20 12:26 | PC.NURSE ---
Clarified code status with pt's daughter, Angella Lee. Pt is a modified code with meds only. Daughter will bring copy of advance directive tomorrow. DITCH REPAIRER notifed.
[2023-06-20 16:00] VITALS: BP 118/70; PULSE 88; RESP 16; TEMP 36.3; O2SAT 97
[2023-06-20] MEDS: SIMVASTATIN 10 MG TABLET 20 MG PO (21:04)
[2023-06-20 23:04] VITALS: BP 126/66; PULSE 82; RESP 14; TEMP 36.8; O2SAT 97
[2023-06-21 08:00] VITALS: BP 142/72; PULSE 73; RESP 16; TEMP 36.4; O2SAT 98
[2023-06-21 08:43] VITALS: PULSE 78
[2023-06-21] MEDS: LATANOPROST 0.005% OP SOLN 2.5 ML BTL 1 DROP EACH EYE (08:43)
[2023-06-21] MEDS: FUROSEMIDE 40 MG TABLET PO (08:43)
[2023-06-21] MEDS: METOPROLOL SUCCINATE EXT REL 12.5 MG TABCR PO (08:43)
[2023-06-21] MEDS: LOSARTAN POTASSIUM 25 MG TABLET 12.5 MG PO (08:43)
[2023-06-21] MEDS: TIMOLOL MALEATE 0.5% OP SOLN 5 ML BOTTLE 1 DROP EACH EYE ×2 (08:54→21:01)
[2023-06-21] MEDS: DORZOLAMIDE HCL 2% OPHTH DROPS 1 DROP EACH EYE ×2 (08:55→21:00)
--- NOTE | 2023-06-21 11:50 | PC.NURSE ---
up with assist to bsc and into recliner for lunch. sm amt of soft brown stool in colostomy. bag emptied and bag flushed. tolerated. well. she is very quiet talk
--- NOTE | 2023-06-21 14:38 | P.PNCROSS_ITS ---
Event Note Event Note Event Note: Called and left Message for Cardiology to call me back for the baby aSa . I d id call and discuss with Dr. Finch about restarting her hgb and or if it was contraindicated since it was a baby asa she may benefit the last hgb 9.2 we will recheck labs in the morning and plt 158. We will check labs and possibly restart ASA in the AM.
[2023-06-21 15:32] VITALS: BP 113/60; PULSE 77; RESP 18; TEMP 36.6; O2SAT 98
--- NOTE | 2023-06-21 16:17 | PC.NURSE ---
pt daughter , sophia Perales. updated on daily activities and current vitals. pt states feeling somewhat stronger . call canchola in reach. encouraged to ring canchola if needed
--- NOTE | 2023-06-21 18:59 | PC.NURSE ---
report to kemi batres rn. all questions answered. bedside report answered.
[2023-06-21] MEDS: SIMVASTATIN 10 MG TABLET 20 MG PO (21:00)
[2023-06-21] MEDS: MELATONIN 5 MG TABLET PO (21:00)
[2023-06-22] VITALS: BP 141/69; PULSE 74; RESP 16; TEMP 36.5; O2SAT 96
[2023-06-22 05:40] LABS: Hematocrit 26.9 % (35.0-42.0); Hemoglobin 8.6 g/dL (11.7-13.8); Mean Corpuscular Hemoglobin 31.5 pg (27.0-31.0); Mean Corpuscular Volume 98.5 fL (78.0-102.0); Mean Platelet Volume 10.9 fl (9.2-11.8); Platelet Count Result 169 K/mm3 (150-420); Red Blood Count 2.73 M/mm3 (4.20-5.40); White Blood Count 6.2 K/mm3 (4.8-10.8)
[2023-06-22 05:50] LABS: Anion Gap 4 mmol/L (8-16); Blood Urea Nitrogen 13 mg/dL (7-18); Calcium 7.9 mg/dL (8.5-10.1); Carbon Dioxide 32 mmol/L (21-32); Chloride 106 mmol/L (98-108); Estimated CRCL calculation 25 ml/min; Estimated Glomerular Filt Rate 50; Glucose 112 mg/dL (70-99); Osmolality Calculated 295 mOsm/kg (285-295); Potassium 2.8 mmol/L (3.5-5.1); Sodium 142 mmol/L (136-145)
[2023-06-22 08:00] VITALS: BP 128/74; PULSE 82; RESP 18; TEMP 36.6; O2SAT 98
[2023-06-22] MEDS: TIMOLOL MALEATE 0.5% OP SOLN 5 ML BOTTLE 1 DROP EACH EYE ×2 (09:01→20:56)
[2023-06-22 09:02] VITALS: PULSE 84
[2023-06-22] MEDS: LOSARTAN POTASSIUM 25 MG TABLET 12.5 MG PO (09:02)
[2023-06-22] MEDS: FUROSEMIDE 40 MG TABLET PO (09:02)
[2023-06-22] MEDS: METOPROLOL SUCCINATE EXT REL 12.5 MG TABCR PO (09:02)
[2023-06-22] MEDS: LATANOPROST 0.005% OP SOLN 2.5 ML BTL 1 DROP EACH EYE (09:02)
[2023-06-22] MEDS: DORZOLAMIDE HCL 2% OPHTH DROPS 1 DROP EACH EYE ×2 (09:02→20:56)
--- NOTE | 2023-06-22 09:37 | PC.NURSE ---
patient up in recliner. feet up on foot stool. has a flat affect. speech is always so soft. hard to understand at times. gets agravated if she has to repeat. claims never mind. explained if i could hear her and understand i am very willing to do as she pleases. then speaks up slightly. very quiet claims this also all started after surgery.
--- NOTE | 2023-06-22 10:45 | PC.NURSE ---
colostomy bag changed. stoma is pink and moist. sutures intact around stoma. skin looks good and intact. no irritation. 22 may on midline incision. open to air. well approx. encouraged to assist and did explain the procedure. patient remains quiet and not really wanting to engage in activity.
--- NOTE | 2023-06-22 13:08 | P.PNCROSS_ITS ---
Event Note Event Note Event Note: Patient labs has a abnormal labs potassium 2.8 placed on oral potassium of 40 m eq will recheck levels in the morning.
--- NOTE | 2023-06-22 13:08 | PM.EVENT ---
Event Note Event Note Event Note: Patient labs has a abnormal labs potassium 2.8 placed on oral potassium of 40 meq will recheck levels in the morning.
[2023-06-22] MEDS: ONDANSETRON HCL ODT 4 MG TABLET PO (13:43)
[2023-06-22] MEDS: POTASSIUM CHLORIDE 20 MEQ ER TABLET 40 MEQ PO (14:13)
[2023-06-22 16:00] VITALS: BP 106/51; PULSE 72; RESP 16; TEMP 36.4; O2SAT 98
[2023-06-22] MEDS: MELATONIN 5 MG TABLET PO (20:56)
[2023-06-22] MEDS: SIMVASTATIN 10 MG TABLET 20 MG PO (20:56)
[2023-06-23] VITALS: BP 105/47; PULSE 74; RESP 16; TEMP 36.4; O2SAT 99
[2023-06-23 05:45] LABS: Potassium 3.6 mmol/L (3.5-5.1)
[2023-06-23 08:00] VITALS: BP 122/57; PULSE 72; RESP 16; TEMP 36.4
[2023-06-23] MEDS: POTASSIUM CHLORIDE 20 MEQ ER TABLET PO (09:08)
[2023-06-23 09:09] VITALS: PULSE 76
[2023-06-23] MEDS: LOSARTAN POTASSIUM 25 MG TABLET 12.5 MG PO (09:09)
[2023-06-23] MEDS: FUROSEMIDE 40 MG TABLET PO (09:09)
[2023-06-23] MEDS: METOPROLOL SUCCINATE EXT REL 12.5 MG TABCR PO (09:09)
[2023-06-23] MEDS: ASPIRIN 81 MG ENTERIC TABLET PO (09:11)
[2023-06-23] MEDS: DORZOLAMIDE HCL 2% OPHTH DROPS 1 DROP EACH EYE ×2 (09:11→20:42)
[2023-06-23] MEDS: LATANOPROST 0.005% OP SOLN 2.5 ML BTL 1 DROP EACH EYE (09:12)
[2023-06-23] MEDS: TIMOLOL MALEATE 0.5% OP SOLN 5 ML BOTTLE 1 DROP EACH EYE ×2 (09:12→20:42)
[2023-06-23 15:56] VITALS: BP 108/58; PULSE 70; RESP 16; TEMP 35.9; O2SAT 98
[2023-06-23 19:56] VITALS: PULSE 70; RESP 16; O2SAT 98
[2023-06-23] MEDS: SIMVASTATIN 10 MG TABLET 20 MG PO (20:42)
[2023-06-23] MEDS: MELATONIN 5 MG TABLET PO (20:42)
[2023-06-24] VITALS: BP 124/55; PULSE 70; RESP 16; TEMP 36.4; O2SAT 98
[2023-06-24 07:55] VITALS: BP 139/76; PULSE 83; RESP 16; TEMP 36.2; O2SAT 98
[2023-06-24 08:11] VITALS: PULSE 88
[2023-06-24] MEDS: POTASSIUM CHLORIDE 20 MEQ ER TABLET PO (08:11)
[2023-06-24] MEDS: METOPROLOL SUCCINATE EXT REL 12.5 MG TABCR PO (08:11)
[2023-06-24] MEDS: ASPIRIN 81 MG ENTERIC TABLET PO (08:12)
[2023-06-24] MEDS: LOSARTAN POTASSIUM 25 MG TABLET 12.5 MG PO (08:12)
[2023-06-24] MEDS: FUROSEMIDE 40 MG TABLET PO (08:12)
[2023-06-24] MEDS: TIMOLOL MALEATE 0.5% OP SOLN 5 ML BOTTLE 1 DROP EACH EYE ×2 (08:13→20:26)
[2023-06-24] MEDS: DORZOLAMIDE HCL 2% OPHTH DROPS 1 DROP EACH EYE ×2 (08:13→20:26)
[2023-06-24] MEDS: LATANOPROST 0.005% OP SOLN 2.5 ML BTL 1 DROP EACH EYE (08:13)
--- NOTE | 2023-06-24 10:52 | PM.IMPN ---
Progress Note: A&P Assessment and Plan (1) Physical debility: Code(s): R53.81 - Other malaise Status: Acute Assessment and Plan: Weakness from prolonged hospitalization post diverticular rupture with abscess later requiring diverting colostomy, NSTEMI, Takotsubo cardiomyopathy. PT/OT working with patient to regain independence for eventual home discharge with daughter. (2) Protein calorie malnutrition: Code(s): E46 - Unspecified protein-calorie malnutrition Status: Acute Assessment and Plan: Dietitian requests regular diet with Ensure supplements t.i.d. and Arnel 30 mL b.i.d. (3) Thrombocytopenia: Code(s): D69.6 - Thrombocytopenia, unspecified Status: Acute Assessment and Plan: normalized as of last blood draw (4) Acute renal failure: Code(s): N17.9 - Acute kidney failure, unspecified Status: Acute Assessment and Plan: encourage fluids and will monitor patient labs (5) Non-ST elevation [place] (NSTEMI): Code(s): I21.4 - Non-ST elevation (NSTEMI) myocardial infarction Status: Acute Assessment and Plan: aspirin continued as recommended by Cardiology and okay by surgery (6) Hyperlipidemia: Code(s): E78.5 - Hyperlipidemia, unspecified Status: Chronic Assessment and Plan: continue home medication (7) Hypertension: Code(s): I10 - Essential (primary) hypertension Status: Acute Assessment and Plan: monitor blood pressure continue home medication will adjust as needed. (8) Colostomy in place: Code(s): Z93.3 - Colostomy status Status: Acute Time Spent With Patient Time with patient: 15 - 25 minutes Subjective Date/time seen: 06/24/23 10:52 Interval history: This an 87-year-old female patient participating in swing bed program for acute rehabilitation after perforated diverticulitis with abscess and ultimate diverting colostomy. during hospitalization patient was also noted to had a heart attack with cardiomyopathy Takotsubo-like pattern on Echocardiogram. Patient is participating with physical therapy and occupational therapy. She is able to ambulate with assistance and wheeled walker. Patient will require wheeled walker upon discharge. Patient reports periodically queasy feeling stomach without pain. Good stool output in colostomy. Fair appetite. No fever or chills. Mild leg swelling/heaviness reported. No chest pain or difficulty breathing but patient notes her voice is not strong, it cuts out while speaking. Review of Systems Review of Systems: All systems reviewed & are unremarkable except as noted in HPI and below Exam Narrative: GENERAL APPEARANCE: Appears to be in no acute distress. HEAD: normocephalic atraumatic EYES: EOMI. Vision grossly intact. ENT: Hearing grossly intact, no nasal discharge NECK: Neck supple, trachea midline. CARDIAC: Normal S1/S2. Rhythm is regular. No murmurs, rubs, or gallops. No cyanosis or pallor. Extremities are warm and well perfused. LUNGS: Clear to auscultation without rales, rhonchi, wheezing or diminished breath sounds. Respirations even and unlabored. ABDOMEN: BS positive x 4 quadrants. Soft, nondistended, nontender. Colostomy with brown drainage, no surrounding erythema. Midline staple line is c/d/i without erythema or drainage. MSK: No joint tenderness/swelling, fair strength in all extremities. PERIPHERAL VASCULAR: Peripheral pulses palpable. Normal perfusion, cap refill <2 seconds. Mild lower extremity swelling NEURO: Follows commands. No focal deficits. SKIN: without lesions or eruptions. PSYCH: Stable, dysthymic mood, quiet affect Objective Data Vital Signs Vital Signs: Vital Signs - 24 hr 06/23/23 15:56 06/23/23 19:56 06/24/23 00:00 Temperature 35.9 C L 36.4 C L Pulse Rate 70 70 70 Respiratory Rate 16 16 16 Blood Pressure 108/58 L 124/55 L Pulse Oximetry 98 98 98 Oxygen Delivery Room Air Room Air Room A
--- NOTE | 2023-06-24 11:24 | PC.NURSE ---
myrna manpower development specialist aware of dietary recommendations. new orders
[2023-06-24 16:00] VITALS: BP 124/63; PULSE 74; RESP 16; TEMP 37; O2SAT 94
[2023-06-24 20:00] VITALS: BP 137/56; PULSE 68; RESP 20; TEMP 36.8; O2SAT 99
[2023-06-24] MEDS: SIMVASTATIN 10 MG TABLET 20 MG PO (20:25)
--- NOTE | 2023-06-24 22:34 | PC.NURSE ---
report to shelly leiva. all questions answered
[2023-06-24 23:59] VITALS: BP 137/56; PULSE 68; RESP 18; TEMP 36.8; O2SAT 99
[2023-06-25 08:00] VITALS: BP 140/73; PULSE 81; RESP 16; TEMP 36.6; O2SAT 98
[2023-06-25] MEDS: LOSARTAN POTASSIUM 25 MG TABLET 12.5 MG PO (08:55)
[2023-06-25 08:56] VITALS: PULSE 81
[2023-06-25] MEDS: POTASSIUM CHLORIDE 20 MEQ ER TABLET PO (08:56)
[2023-06-25] MEDS: METOPROLOL SUCCINATE EXT REL 12.5 MG TABCR PO (08:56)
[2023-06-25] MEDS: ASPIRIN 81 MG ENTERIC TABLET PO (08:56)
[2023-06-25] MEDS: FUROSEMIDE 40 MG TABLET PO (08:56)
[2023-06-25] MEDS: DORZOLAMIDE HCL 2% OPHTH DROPS 1 DROP EACH EYE ×2 (08:57→20:45)
[2023-06-25] MEDS: TIMOLOL MALEATE 0.5% OP SOLN 5 ML BOTTLE 1 DROP EACH EYE ×2 (08:57→20:45)
[2023-06-25] MEDS: LATANOPROST 0.005% OP SOLN 2.5 ML BTL 1 DROP EACH EYE (08:57)
[2023-06-25 16:00] VITALS: BP 134/72; PULSE 77; RESP 22; TEMP 37.7; O2SAT 98
[2023-06-25 20:00] VITALS: PULSE 77; RESP 22; O2SAT 98
[2023-06-25] MEDS: SIMVASTATIN 10 MG TABLET 20 MG PO (20:45)
[2023-06-25] MEDS: MELATONIN 5 MG TABLET PO (20:46)
[2023-06-26] VITALS: BP 136/68; PULSE 76; RESP 16; TEMP 37.3; O2SAT 99
[2023-06-26 08:00] VITALS: BP 137/67; PULSE 75; RESP 16; TEMP 36.4; O2SAT 98
[2023-06-26 09:27] VITALS: PULSE 81
[2023-06-26] MEDS: FUROSEMIDE 40 MG TABLET PO (09:27)
[2023-06-26] MEDS: METOPROLOL SUCCINATE EXT REL 12.5 MG TABCR PO (09:27)
[2023-06-26] MEDS: ASPIRIN 81 MG ENTERIC TABLET PO (09:27)
[2023-06-26] MEDS: DORZOLAMIDE HCL 2% OPHTH DROPS 1 DROP EACH EYE ×2 (09:28→20:49)
[2023-06-26] MEDS: LATANOPROST 0.005% OP SOLN 2.5 ML BTL 1 DROP EACH EYE (09:28)
[2023-06-26] MEDS: LOSARTAN POTASSIUM 25 MG TABLET 12.5 MG PO (09:28)
[2023-06-26] MEDS: TIMOLOL MALEATE 0.5% OP SOLN 5 ML BOTTLE 1 DROP EACH EYE ×2 (09:28→20:49)
[2023-06-26] MEDS: POTASSIUM CHLORIDE 20 MEQ ER TABLET PO (09:29)
[2023-06-26 16:00] VITALS: BP 134/69; PULSE 75; RESP 16; TEMP 36.8; O2SAT 100
[2023-06-26 20:00] VITALS: PULSE 75; RESP 16; O2SAT 100
[2023-06-26] MEDS: SIMVASTATIN 10 MG TABLET 20 MG PO (20:46)
[2023-06-26] MEDS: MELATONIN 5 MG TABLET PO (20:46)
[2023-06-27] VITALS: BP 145/71; PULSE 77; RESP 16; TEMP 37; O2SAT 97
--- NOTE | 2023-06-27 06:49 | PC.NURSE ---
Patient had a good night -is able to sit up independently, and was up 3 times to the toilet. She seemed slightly more talkative tonight. Patient was given education on the colostomy.
[2023-06-27 07:59] LABS: Basophils Absolute Auto 0.05 K/mm3 (0.00-0.10); Basophils Percent Auto 0.6 % (0.0-1.0); Eosinophils Absolute Auto 0.25 K/mm3 (0.02-0.50); Eosinophils Percent Auto 2.8 % (1.0-6.0); Hematocrit 27.7 % (35.0-42.0); Hemoglobin 8.6 g/dL (11.7-13.8); Immature Granulocyte Absolute 0.04 K/mm3 (0.00-0.00); Immature Granulocyte Percent A 0.4 % (0.0-0.0); Lymphocytes Absolute Auto 2.43 K/mm3 (1.10-4.50); Lymphocytes Percent Auto 26.7 % (18.0-42.0); Mean Corpuscular Hemoglobin 31.4 pg (27.0-31.0); Mean Corpuscular Volume 101.1 fL (78.0-102.0); Mean Platelet Volume 12.2 fl (9.2-11.8); Monocytes Absolute Auto 0.98 K/mm3 (0.10-0.90); Monocytes Percent Auto 10.8 % (2.0-11.0); Neutrophils Absolute Auto 5.3 K/mm3 (1.7-7.2); Neutrophils Percent Auto 58.7 % (50.0-70.0); Platelet Count Result 225 K/mm3 (150-420); Red Blood Count 2.74 M/mm3 (4.20-5.40); Red Cell Distribution Width 17.8 % (11.6-14.4); White Blood Count 9.1 K/mm3 (4.8-10.8)
[2023-06-27 08:00] VITALS: BP 143/71; PULSE 74; RESP 16; TEMP 36.8; O2SAT 95
[2023-06-27 08:15] LABS: Anion Gap 3 mmol/L (8-16); Blood Urea Nitrogen 12 mg/dL (7-18); Calcium 8.6 mg/dL (8.5-10.1); Carbon Dioxide 34 mmol/L (21-32); Chloride 107 mmol/L (98-108); Estimated CRCL calculation 28 ml/min; Estimated Glomerular Filt Rate 56; Glucose 115 mg/dL (70-99); Osmolality Calculated 298 mOsm/kg (285-295); Phosphorus 3.6 mg/dL (2.6-4.7); Potassium 3.7 mmol/L (3.5-5.1); Sodium 144 mmol/L (136-145)
[2023-06-27] MEDS: POTASSIUM CHLORIDE 20 MEQ ER TABLET PO (08:51)
[2023-06-27 08:52] VITALS: PULSE 90
[2023-06-27] MEDS: METOPROLOL SUCCINATE EXT REL 12.5 MG TABCR PO (08:52)
[2023-06-27] MEDS: ASPIRIN 81 MG ENTERIC TABLET PO (08:53)
[2023-06-27] MEDS: LOSARTAN POTASSIUM 25 MG TABLET 12.5 MG PO (08:53)
[2023-06-27] MEDS: DORZOLAMIDE HCL 2% OPHTH DROPS 1 DROP EACH EYE ×2 (08:56→20:30)
[2023-06-27] MEDS: TIMOLOL MALEATE 0.5% OP SOLN 5 ML BOTTLE 1 DROP EACH EYE ×2 (08:56→20:30)
[2023-06-27] MEDS: LATANOPROST 0.005% OP SOLN 2.5 ML BTL 1 DROP EACH EYE (08:56)
[2023-06-27] MEDS: FUROSEMIDE 40 MG TABLET PO (09:00)
--- NOTE | 2023-06-27 12:50 | PC.NURSE ---
Patient experiencing frequent urination today. Proof Tester encouraged patient to drink more fluids, due to poor fluid intake. Will continue to monitor.
--- NOTE | 2023-06-27 14:20 | PM.EVENT ---
Event Note Event Note Event Note: Patient having frequent urination with urgency today. UA with micro and reflex culture ordered. Patient denies fever/chills or dysuria. Urine results with trace leukocyte esterase and 0-3 white blood cells. Urine is mildly alkalotic at 7.5 pH no other abnormalities noted. Will continue to have nursing monitor for any other signs urine infection. Patient's glucose was also stable and consistent on labs drawn this morning. Exam: GENERAL APPEARANCE: Appears to be in no acute distress. HEAD: normocephalic atraumatic EYES:? EOMI. Vision grossly intact. ENT: Hearing grossly intact, no nasal discharge NECK: Neck supple, trachea midline. CARDIAC: Normal S1/S2. Rhythm is regular. No murmurs, rubs, or gallops. No cyanosis or pallor. Extremities are warm and well perfused. LUNGS: Clear to auscultation without rales, rhonchi, wheezing or diminished breath sounds. Respirations even and unlabored. ABDOMEN: BS positive x 4 quadrants. Soft, nondistended, nontender. Colostomy with brown drainage, no surrounding erythema. Midline staple line is c/d/i without erythema or drainage. MSK: No joint tenderness/swelling, fair strength in all extremities. PERIPHERAL VASCULAR: Peripheral pulses palpable. Normal perfusion, cap refill <2 seconds. Mild lower extremity swelling NEURO: Follows commands. No focal deficits. SKIN:? without lesions or eruptions. PSYCH: Stable, dysthymic mood, quiet affect ? Total visit time 10 minutes
[2023-06-27 15:19] LABS: Appearance Urine Clear (Clear); Bilirubin Urine Negative (Negative); Blood Urine Negative (Negative); Color Urine Light Yellow (Yellow); Glucose Urine UA Negative (Negative); Ketones Urine Negative (Negative); Leukocyte Esterase Ur Trace LEU/UL (Negative); Nitrate Urine Negative (Negative); Protein Urine Negative (Negative); Urobilinogen Urine 0.2 mg/dL (0.2-1.0); pH Urine 7.5 (5.0-8.0)
[2023-06-27 15:27] LABS: Add Urine Microscopic? YES; WBC Urine 0-3 /hpf (0-3)
[2023-06-27 16:00] VITALS: BP 130/62; PULSE 78; RESP 16; TEMP 36; O2SAT 98
[2023-06-27 20:00] VITALS: PULSE 78; RESP 16; O2SAT 98
[2023-06-27] MEDS: MELATONIN 5 MG TABLET PO (20:30)
[2023-06-27] MEDS: SIMVASTATIN 10 MG TABLET 20 MG PO (20:31)
[2023-06-28] VITALS: BP 139/70; PULSE 81; RESP 16; TEMP 37; O2SAT 98
--- NOTE | 2023-06-28 06:13 | PC.NURSE ---
Patient did well tonight. She slept well, and was up 3 times to use the commode. She is able to sit up on the side of the bed independently, but needs stand by assist with ambulation. She is doing well with getting up out of bed, but still struggles with lifting her legs to get back in bed. She is independent with toilet and hand hygeine. The colostomy did not need to be emptied tonight, so was unable to work on this skill.
[2023-06-28 08:00] VITALS: BP 140/70; PULSE 82; RESP 14; TEMP 36.8; O2SAT 99
[2023-06-28 09:38] VITALS: PULSE 84
[2023-06-28] MEDS: LOSARTAN POTASSIUM 25 MG TABLET 12.5 MG PO (09:38)
[2023-06-28] MEDS: METOPROLOL SUCCINATE EXT REL 12.5 MG TABCR PO (09:38)
[2023-06-28] MEDS: ASPIRIN 81 MG ENTERIC TABLET PO (09:38)
[2023-06-28] MEDS: POTASSIUM CHLORIDE 20 MEQ ER TABLET (09:39)
[2023-06-28] MEDS: TIMOLOL MALEATE 0.5% OP SOLN 5 ML BOTTLE 1 DROP EACH EYE ×2 (09:39→20:49)
[2023-06-28] MEDS: FUROSEMIDE 40 MG TABLET PO (09:39)
[2023-06-28] MEDS: LATANOPROST 0.005% OP SOLN 2.5 ML BTL 1 DROP EACH EYE (09:40)
[2023-06-28] MEDS: DORZOLAMIDE HCL 2% OPHTH DROPS 1 DROP EACH EYE ×2 (09:40→20:48)
--- NOTE | 2023-06-28 11:10 | P.PNCROSS_ITS ---
Event Note Event Note Event Note: Nursing staff reports 13 pound weight loss. Patient's appetite is grossly unch anged. We will add Megace 40 mg BID and titrate up to QID if needed. Diet has already been changed to regular diet. Supplements ordered and Arnel should arrive today to get started.
[2023-06-28] MEDS: MEGESTROL ACETATE (*CHEMO) 40 MG TABLET PO ×2 (12:29→16:54)
[2023-06-28 16:00] VITALS: BP 129/66; PULSE 85; RESP 14; TEMP 36.4; O2SAT 91
--- NOTE | 2023-06-28 16:16 | PC.NURSE ---
Patient assisted to bathroom and then to bed to rest. Patient stopped and removed dentures and did own oral care. HOB elevated for comfort, call light and belongings within reach. Daughter in room viisiting.
--- NOTE | 2023-06-28 17:15 | PC.NURSE ---
Patient sitting up on side of bed for supper. Arnel given. Assist with tray set up by nurse. Call light and belongings within reach.
--- NOTE | 2023-06-28 17:49 | PC.NURSE ---
Patient c/o no appetite. Patient drand 100% of Arnel, then requested to lay down. Nurse offered ofther options to eat but patient refused. Assisted to bed and positioned for comfort. Call light and belongings within reach. Lights turned down per patient request. Patient started on Megace at supper time.
[2023-06-28 20:00] VITALS: PULSE 85; RESP 14; O2SAT 97
[2023-06-28] MEDS: SIMVASTATIN 10 MG TABLET 20 MG PO (20:49)
[2023-06-28] MEDS: MELATONIN 5 MG TABLET PO (20:49)
[2023-06-29] VITALS: BP 114/62; PULSE 79; RESP 16; TEMP 36.6; O2SAT 98
[2023-06-29 08:00] VITALS: BP 97/62; PULSE 90; RESP 16; TEMP 36.1; O2SAT 98
[2023-06-29] MEDS: POTASSIUM CHLORIDE 20 MEQ ER TABLET PO (09:45)
[2023-06-29 09:46] VITALS: PULSE 88
[2023-06-29] MEDS: TIMOLOL MALEATE 0.5% OP SOLN 5 ML BOTTLE 1 DROP EACH EYE ×2 (09:46→20:52)
[2023-06-29] MEDS: LOSARTAN POTASSIUM 25 MG TABLET 12.5 MG PO (09:46)
[2023-06-29] MEDS: MEGESTROL ACETATE (*CHEMO) 40 MG TABLET PO ×2 (09:46→17:30)
[2023-06-29] MEDS: METOPROLOL SUCCINATE EXT REL 12.5 MG TABCR PO (09:46)
[2023-06-29] MEDS: ASPIRIN 81 MG ENTERIC TABLET PO (09:46)
[2023-06-29] MEDS: LATANOPROST 0.005% OP SOLN 2.5 ML BTL 1 DROP EACH EYE (09:46)
[2023-06-29] MEDS: DORZOLAMIDE HCL 2% OPHTH DROPS 1 DROP EACH EYE ×2 (09:46→20:52)
[2023-06-29] MEDS: FUROSEMIDE 40 MG TABLET PO (09:46)
--- NOTE | 2023-06-29 14:01 | P.PNCROSS_ITS ---
Event Note Event Note Event Note: Koki had a care conference and she will stay another week she is up in [facility] and she denies the need for anything at this time and states she feels like she is doing better although she is not eating
[2023-06-29 16:00] VITALS: BP 104/64; PULSE 84; RESP 16; TEMP 36.3; O2SAT 98
[2023-06-29] MEDS: SIMVASTATIN 10 MG TABLET 20 MG PO (20:47)
[2023-06-29 23:47] VITALS: BP 116/68; PULSE 80; RESP 16; TEMP 36.4; O2SAT 97
[2023-06-30 08:00] VITALS: BP 104/64; PULSE 92; RESP 17; TEMP 36.3; O2SAT 97
[2023-06-30] MEDS: LATANOPROST 0.005% OP SOLN 2.5 ML BTL 1 DROP EACH EYE (09:40)
[2023-06-30] MEDS: TIMOLOL MALEATE 0.5% OP SOLN 5 ML BOTTLE 1 DROP EACH EYE ×2 (09:40→20:58)
[2023-06-30] MEDS: DORZOLAMIDE HCL 2% OPHTH DROPS 1 DROP EACH EYE ×2 (09:40→20:58)
[2023-06-30] MEDS: POTASSIUM CHLORIDE 20 MEQ ER TABLET PO (09:41)
[2023-06-30] MEDS: LOSARTAN POTASSIUM 25 MG TABLET 12.5 MG PO (09:41)
[2023-06-30] MEDS: ASPIRIN 81 MG ENTERIC TABLET PO (09:41)
[2023-06-30 09:42] VITALS: PULSE 92
[2023-06-30] MEDS: METOPROLOL SUCCINATE EXT REL 12.5 MG TABCR PO (09:42)
[2023-06-30] MEDS: MEGESTROL ACETATE (*CHEMO) 40 MG TABLET PO ×2 (09:42→16:51)
[2023-06-30] MEDS: FUROSEMIDE 40 MG TABLET PO (09:42)
--- NOTE | 2023-06-30 13:00 | PC.NURSE ---
Pt c/o her right ear having an earring back stuck in it. Upon inspection the patients earring has slid through the front of the ear. The ear was cleaned with alcohol. Charge nurse noted for LACQUER SPRAY BOOTH OPERATOR to look at it tomorrow.
[2023-06-30 16:00] VITALS: BP 116/80; PULSE 92; RESP 19; TEMP 36.6; O2SAT 98
[2023-06-30] MEDS: SIMVASTATIN 10 MG TABLET 20 MG PO (20:57)
[2023-06-30] MEDS: MELATONIN 5 MG TABLET PO (20:58)
[2023-07-01] VITALS: BP 108/74; PULSE 92; RESP 16; TEMP 36.9; O2SAT 97
--- NOTE | 2023-07-01 07:16 | WPDPROCEDUR ---
Foreign Body Removal Pre Procedure Pre-procedure care: Consent was obtained (Verbal Consent obtained went into Room with Renee SEO Witnessed), Correct side and site confirmed, Procedure/risks were explained and Correct patient identified Procedure Foreign Body Removal: Simple (Painease applied to right ear, Ear slightly swollen and painful pushed the earring out through the back as most of it was already out of the back . Patient tolerated well all the Earring was intact . Squeezed the ear lobe as yellowish pus came out. Ear lob red and slightly warm)
[2023-07-01 07:35] VITALS: BP 127/65; PULSE 82; RESP 16; TEMP 36.1; O2SAT 99
[2023-07-01] MEDS: TIMOLOL MALEATE 0.5% OP SOLN 5 ML BOTTLE 1 DROP EACH EYE ×2 (08:38→20:48)
[2023-07-01] MEDS: LATANOPROST 0.005% OP SOLN 2.5 ML BTL 1 DROP EACH EYE (08:38)
[2023-07-01] MEDS: POTASSIUM CHLORIDE 20 MEQ ER TABLET PO (08:38)
[2023-07-01] MEDS: DORZOLAMIDE HCL 2% OPHTH DROPS 1 DROP EACH EYE ×2 (08:38→20:48)
[2023-07-01] MEDS: FUROSEMIDE 40 MG TABLET PO (08:39)
[2023-07-01] MEDS: LOSARTAN POTASSIUM 25 MG TABLET 12.5 MG PO (08:39)
[2023-07-01] MEDS: MEGESTROL ACETATE (*CHEMO) 40 MG TABLET PO (08:39)
[2023-07-01] MEDS: ASPIRIN 81 MG ENTERIC TABLET PO (08:39)
[2023-07-01 08:40] VITALS: PULSE 82
[2023-07-01] MEDS: METOPROLOL SUCCINATE EXT REL 12.5 MG TABCR PO (08:40)
--- NOTE | 2023-07-01 13:20 | PC.NURSE ---
Note: Pt signed Absence Release as will be leaving for appointment with family.
--- NOTE | 2023-07-01 13:48 | PC.NURSE ---
Note: Left unit via w/c with daughter, pt going for MD appointment.
[2023-07-01 16:00] VITALS: BP 116/78; PULSE 82; RESP 18; TEMP 36.1; O2SAT 96
--- NOTE | 2023-07-01 16:51 | PC.NURSE ---
pt returned from outside appointment at 1620 with daughter. Brought to floor per wheelchair by nursing staff. Vital signs within normal limits upon return. Pt changed into gown with help of nursing and is in the chair for dinner.
[2023-07-01 19:45] VITALS: PULSE 82; RESP 18; O2SAT 96
[2023-07-01] MEDS: SIMVASTATIN 10 MG TABLET 20 MG PO (20:46)
[2023-07-01] MEDS: MELATONIN 5 MG TABLET PO (20:47)
[2023-07-02] VITALS: BP 142/73; PULSE 83; RESP 18; TEMP 36.8; O2SAT 95
--- NOTE | 2023-07-02 00:24 | PC.NURSE ---
Colostomy care given; Large amount of air expelled and moderate amount of soft semiformed stool. Patient encouraged to drink water and said not now. teaching on rinsing colostomy bag with cool water prior to closing. Patient verbalized understanding. Tolerated procedure well. Placed warm blanket on patient after care.
--- NOTE | 2023-07-02 04:42 | PC.NURSE ---
Kinney noise in patient bathroom and found patient on the toliet. Walker was with patient. States she woke up and had to go. Did not use or turn vice president industrial relations light. Patient assisted back to bed using walker and SBA x 1 after patient stood at sink and washed hands. Patient arron. activity well. Teaching done on safety and fall precautions and need for bed alarm to remind patient to call for nurse prior to walking to bathroom. Bed alarm activated.
[2023-07-02 07:50] VITALS: BP 138/69; PULSE 77; RESP 16; TEMP 36.6; O2SAT 99
[2023-07-02] MEDS: POTASSIUM CHLORIDE 20 MEQ ER TABLET PO (08:24)
[2023-07-02 08:25] VITALS: PULSE 77
[2023-07-02] MEDS: FUROSEMIDE 40 MG TABLET PO (08:25)
[2023-07-02] MEDS: ASPIRIN 81 MG ENTERIC TABLET PO (08:25)
[2023-07-02] MEDS: METOPROLOL SUCCINATE EXT REL 12.5 MG TABCR PO (08:25)
[2023-07-02] MEDS: DORZOLAMIDE HCL 2% OPHTH DROPS 1 DROP EACH EYE ×2 (08:26→20:23)
[2023-07-02] MEDS: TIMOLOL MALEATE 0.5% OP SOLN 5 ML BOTTLE 1 DROP EACH EYE ×2 (08:26→20:23)
[2023-07-02] MEDS: LATANOPROST 0.005% OP SOLN 2.5 ML BTL 1 DROP EACH EYE (08:26)
[2023-07-02] MEDS: LOSARTAN POTASSIUM 25 MG TABLET 12.5 MG PO (08:26)
[2023-07-02 15:35] VITALS: BP 136/68; PULSE 75; RESP 16; TEMP 36.7; O2SAT 98
[2023-07-02] MEDS: SIMVASTATIN 10 MG TABLET 20 MG PO (20:22)
[2023-07-03] VITALS: BP 123/65; PULSE 96; RESP 16; TEMP 36.5; O2SAT 98
[2023-07-03 08:00] VITALS: BP 130/65; PULSE 94; RESP 14; TEMP 36.8; O2SAT 98
[2023-07-03] MEDS: POTASSIUM CHLORIDE 20 MEQ ER TABLET PO (08:12)
[2023-07-03 09:11] VITALS: PULSE 90
[2023-07-03] MEDS: METOPROLOL SUCCINATE EXT REL 12.5 MG TABCR PO (09:11)
[2023-07-03] MEDS: LOSARTAN POTASSIUM 25 MG TABLET 12.5 MG PO (09:11)
[2023-07-03] MEDS: FUROSEMIDE 40 MG TABLET PO (09:12)
[2023-07-03] MEDS: ASPIRIN 81 MG ENTERIC TABLET PO (09:12)
[2023-07-03] MEDS: TIMOLOL MALEATE 0.5% OP SOLN 5 ML BOTTLE 1 DROP EACH EYE ×2 (09:13→20:30)
[2023-07-03] MEDS: LATANOPROST 0.005% OP SOLN 2.5 ML BTL 1 DROP EACH EYE (09:13)
[2023-07-03] MEDS: DORZOLAMIDE HCL 2% OPHTH DROPS 1 DROP EACH EYE ×2 (09:13→20:30)
[2023-07-03 16:35] VITALS: BP 136/71; PULSE 81; RESP 16; TEMP 36.2; O2SAT 100
[2023-07-03] MEDS: SIMVASTATIN 10 MG TABLET 20 MG PO (20:30)
[2023-07-03] MEDS: MELATONIN 5 MG TABLET PO (20:31)
[2023-07-04] VITALS: BP 101/68; PULSE 84; RESP 16; TEMP 36.1; O2SAT 94
[2023-07-04 08:00] VITALS: BP 120/68; PULSE 82; RESP 14; TEMP 36.8; O2SAT 98
[2023-07-04] MEDS: DORZOLAMIDE HCL 2% OPHTH DROPS 1 DROP EACH EYE ×2 (09:00→20:06)
[2023-07-04] MEDS: POTASSIUM CHLORIDE 20 MEQ ER TABLET PO (09:36)
[2023-07-04 09:37] VITALS: PULSE 84
[2023-07-04] MEDS: ASPIRIN 81 MG ENTERIC TABLET PO (09:37)
[2023-07-04] MEDS: METOPROLOL SUCCINATE EXT REL 12.5 MG TABCR PO (09:37)
[2023-07-04] MEDS: LOSARTAN POTASSIUM 25 MG TABLET 12.5 MG PO (09:38)
[2023-07-04] MEDS: FUROSEMIDE 40 MG TABLET PO (09:38)
[2023-07-04] MEDS: TIMOLOL MALEATE 0.5% OP SOLN 5 ML BOTTLE 1 DROP EACH EYE ×2 (09:39→20:06)
[2023-07-04] MEDS: LATANOPROST 0.005% OP SOLN 2.5 ML BTL 1 DROP EACH EYE (09:39)
[2023-07-04 16:35] VITALS: BP 137/62; PULSE 71; RESP 16; TEMP 36.4; O2SAT 100
[2023-07-04] MEDS: SIMVASTATIN 10 MG TABLET 20 MG PO (20:06)
[2023-07-04] MEDS: MELATONIN 5 MG TABLET PO (20:06)
[2023-07-05] VITALS: BP 99/64; PULSE 88; RESP 16; TEMP 36.4; O2SAT 95
[2023-07-05 08:00] VITALS: BP 120/60; PULSE 80; RESP 14; TEMP 36.8; O2SAT 96
[2023-07-05] MEDS: DORZOLAMIDE HCL 2% OPHTH DROPS 1 DROP EACH EYE ×2 (14:10→21:14)
[2023-07-05] MEDS: TIMOLOL MALEATE 0.5% OP SOLN 5 ML BOTTLE 1 DROP EACH EYE ×2 (14:10→21:14)
[2023-07-05] MEDS: LOSARTAN POTASSIUM 25 MG TABLET 12.5 MG PO (14:10)
[2023-07-05] MEDS: POTASSIUM CHLORIDE 20 MEQ ER TABLET PO (14:12)
[2023-07-05] MEDS: FUROSEMIDE 40 MG TABLET PO (14:12)
[2023-07-05] MEDS: ASPIRIN 81 MG ENTERIC TABLET PO (14:12)
[2023-07-05] MEDS: LATANOPROST 0.005% OP SOLN 2.5 ML BTL 1 DROP EACH EYE (14:14)
[2023-07-05 14:15] VITALS: PULSE 68
[2023-07-05] MEDS: METOPROLOL SUCCINATE EXT REL 12.5 MG TABCR PO (14:15)
[2023-07-05 15:52] VITALS: BP 129/67; PULSE 82; RESP 16; TEMP 37.3; O2SAT 98
[2023-07-05] MEDS: SIMVASTATIN 10 MG TABLET 20 MG PO (21:15)
[2023-07-05] MEDS: MELATONIN 5 MG TABLET PO (21:15)
[2023-07-06] VITALS: BP 144/69; PULSE 73; RESP 16; TEMP 36.8; O2SAT 96
[2023-07-06 08:00] VITALS: BP 108/70; PULSE 80; RESP 18; TEMP 36.1; O2SAT 97
[2023-07-06 08:31] VITALS: PULSE 82
[2023-07-06] MEDS: DORZOLAMIDE HCL 2% OPHTH DROPS 1 DROP EACH EYE ×2 (08:31→20:17)
[2023-07-06] MEDS: METOPROLOL SUCCINATE EXT REL 12.5 MG TABCR PO (08:31)
[2023-07-06] MEDS: LATANOPROST 0.005% OP SOLN 2.5 ML BTL 1 DROP EACH EYE (08:31)
[2023-07-06] MEDS: TIMOLOL MALEATE 0.5% OP SOLN 5 ML BOTTLE 1 DROP EACH EYE ×2 (08:31→20:17)
[2023-07-06] MEDS: POTASSIUM CHLORIDE 20 MEQ ER TABLET PO (08:32)
[2023-07-06] MEDS: LOSARTAN POTASSIUM 25 MG TABLET 12.5 MG PO (08:32)
[2023-07-06] MEDS: ASPIRIN 81 MG ENTERIC TABLET PO (08:33)
[2023-07-06] MEDS: FUROSEMIDE 40 MG TABLET PO (08:33)
--- NOTE | 2023-07-06 11:30 | PM.IMPN ---
Progress Note: A&P Assessment and Plan (1) Physical debility: Code(s): R53.81 - Other malaise Status: Acute Assessment and Plan: Weakness from prolonged hospitalization post diverticular rupture with abscess later requiring diverting colostomy, NSTEMI, Takotsubo cardiomyopathy. PT/OT working with patient to regain independence for eventual home discharge with daughter. Patient is participating with physical therapy and occupational therapy. She is able to ambulate with assistance and wheeled walker. Patient will require wheeled walker upon discharge. Her daughter was present during my visit and exam of the patient today. All care plan and discharge questions of patient and daughter were answered today. Labs ordered for the morning. She will be discharging on 07/08/23 with Home Health PT/OT/RN. Her VS, BP, HR have been stable on the current medication regime. (2) Protein calorie malnutrition: Code(s): E46 - Unspecified protein-calorie malnutrition Status: Acute Assessment and Plan: Dietitian requests regular diet with Ensure supplements t.i.d. and Arnel 30 mL b.i.d. stable continue to monitor daily weights after discharge. (3) Thrombocytopenia: Code(s): D69.6 - Thrombocytopenia, unspecified Status: Acute Assessment and Plan: normalized as of last blood draw no evidence of active bleeding 07/07 lab draw in the morning to F/U on (4) Acute renal failure: Code(s): N17.9 - Acute kidney failure, unspecified Status: Acute Assessment and Plan: encourage fluids and will monitor patient labs educated patient and daughter about importance of keeping up with oral hydration avoid nephrotoxic medications and CT contrast dye and hypotension and dehydration Labs ordered for the morning on 07/07 F/U with PCP for further monitoring. (5) Non-ST elevation [place] (NSTEMI): Code(s): I21.4 - Non-ST elevation (NSTEMI) myocardial infarction Status: Acute Assessment and Plan: aspirin continued as recommended by Cardiology and okay by surgery patient denies chest pain or pressure, patient denies SOB or dyspnea heart rate and rhythm on auscultation today was regular (6) Hyperlipidemia: Code(s): E78.5 - Hyperlipidemia, unspecified Status: Chronic Assessment and Plan: continue home medication monitor LFTs with labs labs ordered for morning on 07/07 F/U with PCP (7) Hypertension: Code(s): I10 - Essential (primary) hypertension Status: Acute Assessment and Plan: monitor blood pressure avoid hypotension or hypertension or orthostatic hypotension continue home medication will adjust as needed. monitor VS (8) Colostomy in place: Code(s): Z93.3 - Colostomy status Status: Acute Assessment and Plan: patient and family education regarding ostomy care, prevention of infection or complications F/U with surgeon F/U with PCP avoid constipation with OTC medications and hydration report any abnormals or concerns to PCP or Surgeon or go to ED Plan Labs ordered for the morning, 07/07 She will be discharging on 07/08/23 with Home Health PT/OT/RN. Her VS, BP, HR have been stable on the current medication regime. Time Spent With Patient Time: 55 Subjective Date/time seen: 07/06/23 11:30 Interval history: This an 87-year-old female patient participating in swing bed program for acute rehabilitation after perforated diverticulitis with abscess and ultimate diverting colostomy. during hospitalization patient was also noted to had a heart attack with cardiomyopathy Takotsubo-like pattern on Echocardiogram. Patient is participating with physical therapy and occupational therapy. She is able to ambulate with assistance and wheeled walker. Patient will require wheeled walker upon discharge. Patient reports feeling well, denies chest pain or abdominal pain. Good stool output in colostomy, ex
[2023-07-06 16:00] VITALS: BP 142/74; PULSE 97; RESP 16; TEMP 36.6; O2SAT 100
[2023-07-06] MEDS: MELATONIN 5 MG TABLET PO (20:18)
[2023-07-06] MEDS: SIMVASTATIN 10 MG TABLET 20 MG PO (20:18)
[2023-07-07] VITALS: BP 176/80; PULSE 79; RESP 16; TEMP 37; O2SAT 100
[2023-07-07 05:20] LABS: Mean Corpuscular HGB Conc 30.8 g/dL (32.0-36.0); Mean Corpuscular Volume 100.8 fL (78.0-102.0); Mean Platelet Volume 11.7 fl (9.2-11.8); Platelet Count Result 196 K/mm3 (150-420); Red Blood Count 2.58 M/mm3 (4.20-5.40); Red Cell Distribution Width 16.8 % (11.6-14.4); White Blood Count 7.7 K/mm3 (4.8-10.8)
[2023-07-07 05:39] LABS: Alanine Aminotransferase 32 U/L (14-59); Albumin Level 2.4 g/dL (3.4-5.0); Alkaline Phosphatase 74 U/L (46-116); Anion Gap 4 mmol/L (8-16); Aspartate Amino Transferase 22 U/L (15-37); Bilirubin,Total 0.4 mg/dL (0.00-1.00); Blood Urea Nitrogen 20 mg/dL (7-18); Calcium 8.8 mg/dL (8.5-10.1); Carbon Dioxide 29 mmol/L (21-32); Chloride 104 mmol/L (98-108); Estimated CRCL calculation 23 ml/min; Estimated Glomerular Filt Rate 53; Glucose 112 mg/dL (70-99); Osmolality Calculated 287 mOsm/kg (285-295); Potassium 3.8 mmol/L (3.5-5.1); Sodium 137 mmol/L (136-145); Total Protein 6.3 g/dL (6.4-8.2)
[2023-07-07 05:47] LABS: CRP 0.8 mg/dL (0.0-0.9)
[2023-07-07 06:27] LABS: Erythrocyte Sedimentation Rate 66 mm/hr (0-30)
--- NOTE | 2023-07-07 06:39 | PC.NURSE ---
Patient had a good night. She slept well, woke up 3 times to use the toilet, and was able to go right back to sleep. Patient is able to walk well using a walker and stand by assist. Patient is beginning to accept the colostomy, although she is not yet taking care of it herself. Patient is understanding instruction, and can integrate instruction into her own conversation. Patient still talks very softly, which she states is new since the surgery.
[2023-07-07 08:00] VITALS: BP 128/74; PULSE 92; RESP 16; TEMP 36.8; O2SAT 100
[2023-07-07] MEDS: POTASSIUM CHLORIDE 20 MEQ ER TABLET PO (08:58)
[2023-07-07] MEDS: FUROSEMIDE 40 MG TABLET PO (09:16)
[2023-07-07] MEDS: LOSARTAN POTASSIUM 25 MG TABLET 12.5 MG PO (09:16)
[2023-07-07] MEDS: ASPIRIN 81 MG ENTERIC TABLET PO (09:16)
[2023-07-07] MEDS: TIMOLOL MALEATE 0.5% OP SOLN 5 ML BOTTLE 1 DROP EACH EYE ×2 (09:17→21:59)
[2023-07-07] MEDS: LATANOPROST 0.005% OP SOLN 2.5 ML BTL 1 DROP EACH EYE (09:17)
[2023-07-07] MEDS: DORZOLAMIDE HCL 2% OPHTH DROPS 1 DROP EACH EYE ×2 (09:17→21:57)
[2023-07-07 09:27] VITALS: PULSE 92
[2023-07-07] MEDS: METOPROLOL SUCCINATE EXT REL 12.5 MG TABCR PO (09:27)
[2023-07-07 15:48] VITALS: BP 138/74; PULSE 78; RESP 16; TEMP 36.6; O2SAT 98
[2023-07-07] MEDS: MELATONIN 5 MG TABLET PO (21:59)
[2023-07-07] MEDS: SIMVASTATIN 10 MG TABLET 20 MG PO (21:59)
[2023-07-07 23:44] VITALS: BP 150/78; PULSE 87; RESP 18; TEMP 36.4; O2SAT 99
[2023-07-08 08:00] VITALS: BP 115/70; PULSE 88; RESP 18; TEMP 36.4; O2SAT 99
[2023-07-08] MEDS: POTASSIUM CHLORIDE 20 MEQ ER TABLET PO (08:30)
[2023-07-08] MEDS: LATANOPROST 0.005% OP SOLN 2.5 ML BTL 1 DROP EACH EYE (09:28)
[2023-07-08 09:30] VITALS: PULSE 88
[2023-07-08] MEDS: METOPROLOL SUCCINATE EXT REL 12.5 MG TABCR PO (09:30)
[2023-07-08] MEDS: FERROUS SULFATE 325 MG TABLET DR PO (09:31)
[2023-07-08] MEDS: FUROSEMIDE 40 MG TABLET PO (09:31)
[2023-07-08] MEDS: LOSARTAN POTASSIUM 25 MG TABLET 12.5 MG PO (09:31)
[2023-07-08] MEDS: ASCORBIC ACID 500 MG TABLET PO (09:31)
[2023-07-08] MEDS: ASPIRIN 81 MG ENTERIC TABLET PO (09:31)
[2023-07-08] MEDS: TIMOLOL MALEATE 0.5% OP SOLN 5 ML BOTTLE 1 DROP EACH EYE (09:33)
[2023-07-08] MEDS: DORZOLAMIDE HCL 2% OPHTH DROPS 1 DROP EACH EYE (09:34)
--- NOTE | 2023-07-08 09:39 | PM.DS ---
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 DS: Discharge Diagnosis Discharge Diagnosis (1) Physical debility: Code(s): R53.81 - Other malaise Status: Acute Assessment and Plan: Weakness from prolonged hospitalization post diverticular rupture with abscess later requiring diverting colostomy, NSTEMI, Takotsubo cardiomyopathy. PT/OT working with patient to regain independence for eventual home discharge with daughter. Patient is participating with physical therapy and occupational therapy. She is able to ambulate with assistance and wheeled walker. Patient will require wheeled walker upon discharge. Her daughter was present during my visit and exam of the patient today. All care plan and discharge questions of patient and daughter were answered today. Labs ordered for the morning. She will be discharging on 07/08/23 with Home Health PT/OT/RN. Her VS, BP, HR have been stable on the current medication regime. (2) Protein calorie malnutrition: Code(s): E46 - Unspecified protein-calorie malnutrition Status: Acute Assessment and Plan: Dietitian requests regular diet with Ensure supplements t.i.d. and Arnel 30 mL b.i.d. stable continue to monitor daily weights after discharge. (3) Thrombocytopenia: Code(s): D69.6 - Thrombocytopenia, unspecified Status: Acute Assessment and Plan: normalized as of last blood draw no evidence of active bleeding 07/07 lab draw in the morning to F/U on (4) Acute renal failure: Code(s): N17.9 - Acute kidney failure, unspecified Status: Acute Assessment and Plan: encourage fluids and will monitor patient labs educated patient and daughter about importance of keeping up with oral hydration avoid nephrotoxic medications and CT contrast dye and hypotension and dehydration Labs ordered for the morning on 07/07 F/U with PCP for further monitoring. (5) Non-ST elevation AL (NSTEMI): Code(s): I21.4 - Non-ST elevation (NSTEMI) myocardial infarction Status: Acute Assessment and Plan: aspirin continued as recommended by Cardiology and okay by surgery patient denies chest pain or pressure, patient denies SOB or dyspnea heart rate and rhythm on auscultation today was regular (6) Hyperlipidemia: Code(s): E78.5 - Hyperlipidemia, unspecified Status: Chronic Assessment and Plan: continue home medication monitor LFTs with labs labs ordered for morning on 07/07 F/U with PCP (7) Hypertension: Code(s): I10 - Essential (primary) hypertension Status: Acute Assessment and Plan: monitor blood pressure avoid hypotension or hypertension or orthostatic hypotension continue home medication will adjust as needed. monitor VS (8) Colostomy in place: Code(s): Z93.3 - Colostomy status Status: Acute Assessment and Plan: patient and family education regarding ostomy care, prevention of infection or complications F/U with surgeon F/U with PCP avoid constipation with OTC medications and hydration report any abnormals or concerns to PCP or Surgeon or go to ED (9) Anemia: Code(s): D64.9 - Anemia, unspecified Status: Acute Assessment and Plan: persistent severe anemia Hgb 8.0, Hct 26.0 on 07/06/23 likely due age and low oral intake and poor appetite and altered digestion due to Ostomy 07/08/23 ordered Iron panel and Ferritin level instructed patient at discharge to F/U with PCP for iron panel and ferritin level results started on daily Iron and Vitamin C (10) Iron deficiency: Code(s): E61.1 - Iron deficiency Status: Acute Assessment and Plan: persistent severe anemia Hgb 8.0, Hct 26.0 on 07/06/23 likely due age and low oral intake and poor appetite and
[2023-07-08 10:01] LABS: Ferritin 326 ng/mL (8-252); Iron 52 ug/dL (50-170); Percent Iron Saturation 36 % (12-57)
--- NOTE | 2023-07-08 11:45 | PC.NURSE ---
Discharge instructions reviewed with patient and her daughter. All questions answered. PT escorted via wheelchair and assisted into vehicle for discharge.
--- NOTE | 2023-07-09 08:14 | PC.NURSE ---
Doing well after discharge, daughter states care was excellent, Ysabel was awesome, dc instructions were reviewed by Ysabel, states was a 10 star experience
== END 2023-07-08 12:10 | disposition home health service (06) | DRG 947 ==
PROVIDERS: Nurse Practitioner; Nurse Practitioner Family; Admitting Provider Internal Medicine; PCP Family Medicine; Visit Provider Internal Medicine
DX: R53.81 Other malaise (principal); I21.4 Non-ST elevation (NSTEMI) myocardial infarction; E46 Unspecified protein-calorie malnutrition; N17.9 Acute kidney failure, unspecified; I51.81 Takotsubo syndrome; K57.20 Diverticulitis of large intestine with perforation and abscess without bleeding; E78.5 Hyperlipidemia, unspecified; I10 Essential (primary) hypertension; D50.9 Iron deficiency anemia, unspecified; D69.6 Thrombocytopenia, unspecified; S00.451A Superficial foreign body of right ear, initial encounter; R35.0 Frequency of micturition; R39.15 Urgency of urination; H35.30 Unspecified macular degeneration; Z93.3 Colostomy status; Z87.891 Personal history of nicotine dependence
CPT/HCPCS: 36415; 80048; 80053; 80069; 81001; 82728; 83540; 83550; 84132; 85025; 85027; 85652; 86140; 97110; 97161; 97165; 97530; 97535; A9270

== ENCOUNTER 2023-07-12 11:55 | Outpatient (NON) | payer MEDICARE, BC, SELFPAY ==
[2023-07-12 12:27] LABS: Basophils Absolute Auto 0.1 K/mm3 (0.0-0.1); Basophils Percent Auto 0.6 % (0.2-1.2); Eosinophils Absolute Auto 0.2 K/mm3 (0-0.3); Eosinophils Percent Auto 2.4 % (0-4.4); Hematocrit 35.7 % (37.0-47.0); Immature Granulocyte Absolute 0.04 K/mm3 (0.00-0.031); Immature Granulocyte Percent A 0.4 % (0-0.5); Lymphocytes Absolute Auto 3.45 K/mm3 (0.9-3.2); Lymphocytes Percent Auto 36.1 % (18.3-44.2); Mean Corpuscular HGB Conc 30.8 g/dl (32-36); Mean Corpuscular Hemoglobin 31.6 pg (26-34); Mean Corpuscular Volume 102.6 fl (80-100); Mean Platelet Volume 12.1 fl (7.4-10.4); Monocytes Absolute Auto 0.8 K/mm3 (0.1-0.6); Monocytes Percent Auto 7.9 % (2.6-8.5); Neutrophils Percent Auto 52.6 % (45.5-73.1); Platelet Count Result 250 k/mm3 (150-375); Red Blood Count 3.48 M/mm3 (4.2-5.4); Red Cell Distribution Width 16.7 % (11.5-14.5); White Blood Count 9.6 K/mm3 (4.5-10.0)
[2023-07-12 12:41] LABS: Alanine Aminotransferase 22 U/L (6-35); Albumin Level 3.8 g/dL (3.5-5.1); Alkaline Phosphatase 101 U/L (38-126); Anion Gap 10 mmol/L (8-16); Aspartate Amino Transferase 24 U/L (14-36); Bilirubin,Total 0.7 mg/dL (0.2-1.3); Blood Urea Nitrogen 15 mg/dL (7-17); Calcium 9.8 mg/dL (8.4-10.2); Carbon Dioxide 22 mmol/L (22-30); Chloride 109 mmol/L (98-107); Estimated Glomerular Filt Rate 52; Glucose 144 mg/dL (65-110); Potassium 4.5 mmol/L (3.4-5.0); Sodium 141 mmol/L (137-145)
== END 2023-07-12 11:56 | disposition home or self-care (01) ==
PROVIDERS: PCP Family Medicine; Visit Provider Family Medicine
DX: D69.6 Thrombocytopenia, unspecified (principal); E46 Unspecified protein-calorie malnutrition; R53.81 Other malaise; N17.9 Acute kidney failure, unspecified
CPT/HCPCS: 80053; 85025

== ENCOUNTER 2023-07-15 12:30 | Outpatient (CLI) | payer MEDICARE, BC, SELFPAY ==
[2023-07-15 20:01] LABS: Basophils Absolute Auto 0.1 K/mm3 (0.0-0.1); Basophils Percent Auto 0.5 % (0.2-1.2); Eosinophils Absolute Auto 0.1 K/mm3 (0-0.3); Eosinophils Percent Auto 1.4 % (0-4.4); Hematocrit 35.1 % (37.0-47.0); Hemoglobin 10.7 g/dL (12.0-15.0); Immature Granulocyte Absolute 0.08 K/mm3 (0.00-0.031); Immature Granulocyte Percent A 0.8 % (0-0.5); Immature Platelet Fraction Pct 4.2 % (0.9-11.2); Lymphocytes Absolute Auto 1.98 K/mm3 (0.9-3.2); Lymphocytes Percent Auto 19.4 % (18.3-44.2); Mean Corpuscular HGB Conc 30.5 g/dl (32-36); Mean Corpuscular Hemoglobin 31.1 pg (26-34); Mean Platelet Volume 12.3 fl (7.4-10.4); Monocytes Absolute Auto 0.8 K/mm3 (0.1-0.6); Monocytes Percent Auto 8.1 % (2.6-8.5); Neutrophils Absolute Auto 7.1 K/mm3 (1.3-6.7); Neutrophils Percent Auto 69.8 % (45.5-73.1); Platelet Count Result 174 k/mm3 (150-375); Red Blood Count 3.44 M/mm3 (4.2-5.4); Red Cell Distribution Width 17.2 % (11.5-14.5); White Blood Count 10.2 K/mm3 (4.5-10.0)
[2023-07-15 20:04] LABS: Alanine Aminotransferase 17 U/L (6-35); Albumin Level 3.4 g/dL (3.5-5.1); Alkaline Phosphatase 102 U/L (38-126); Anion Gap 4 mmol/L (8-16); Aspartate Amino Transferase 23 U/L (14-36); Bilirubin,Total 0.7 mg/dL (0.2-1.3); Blood Urea Nitrogen 21 mg/dL (7-17); Calcium 9.3 mg/dL (8.4-10.2); Carbon Dioxide 24 mmol/L (22-30); Chloride 109 mmol/L (98-107); Estimated Glomerular Filt Rate > 60; Glucose 236 mg/dL (65-110); Sodium 137 mmol/L (137-145)
[2023-07-15 21:11] LABS: Ovalocytes 1+ (NORMAL); Platelet Estimate Adequate (Adequate); Schistocytes None Seen (NORMAL)
== END 2023-07-15 12:31 | disposition home or self-care (01) ==
PROVIDERS: PCP Family Medicine; Visit Provider Family Medicine
DX: R53.83 Other fatigue (principal); Z13.228 Encounter for screening for other metabolic disorders
CPT/HCPCS: 36415; 80053; 85025; 85055

== ENCOUNTER 2023-09-02 12:47 | Outpatient (CLI) | payer MEDICARE, BC, SELFPAY ==
--- NOTE | 2023-09-02 13:02 | ECHO_ITS ---
Patient Info Name: Promise English Age: 88 years : 1935 Gender: Female Ht: 67 in Wt: 111 lbs BSA: 1.53 m2 HR: 66 bpm BP: 183 / 105 mmHg Heart Rhythm: Sinus Rhythm Technical Quality: Good Exam Date: 09/02/2023 1:11 PM Exam Location: Echo Lab Patient Status: Outpatient Admit Date: 09/02/2023 Staff Ordering Physician: Barron Jenkins DO Manager Roofing: Sulma Steven RDCS Attending Provider: Barron Jenkins DO Referring Physician: Alice MEDINA; Exam Type: CA echo doppler color flow Study Info Indications - tokosobo syndrom Complete two-dimensional, color flow and Doppler transthoracic echocardiogram is performed. Summary 1. Complete two-dimensional, color flow and Doppler transthoracic echocardiogram is performed. 2. Left ventricular chamber dimension is normal. 3. Left ventricular systolic function is normal, estimated at 60-65%. 4. The left ventricular diastolic function is grade I diastolic dysfunction. 5. E/e' 23 is significantly elevated. 6. Left atrial chamber dimension is mildly enlarged. 7. There is mild aortic valve sclerosis. 8. There is trace aortic valve regurgitation. 9. There is mild mitral valve regurgitation. 10. The tricuspid valve leaflets are mildly thickened. 11. There is moderate to severe tricuspid valve regurgitation. 12. Moderate pulmonary hypertension, estimated pulmonary arterial systolic pressure is 58 mmHg. 13. There is mild pulmonic regurgitation. Left Ventricle E/e' 23 is significantly elevated. Left ventricular chamber dimension is normal. Left ventricular systolic function is normal, estimated at 60-65%. The left ventricular diastolic function is grade I diastolic dysfunction. Right Ventricle Right ventricular systolic function is normal and with normal TAPSE 2.3 cm. Right ventricular chamber dimension is normal. Left Atria Left atrial chamber dimension is mildly enlarged. Right Atria Right atrial chamber dimension is normal. Aortic Valve The aortic valve is trileaflet. There is mild aortic valve sclerosis. There is no aortic valve stenosis. There is trace aortic valve regurgitation. Pulmonic Valve There is mild pulmonic regurgitation. Mitral Valve There is no mitral valve stenosis. There is mild mitral valve regurgitation. Tricuspid Valve The tricuspid valve leaflets are mildly thickened. There is moderate to severe tricuspid valve regurgitation. Moderate pulmonary hypertension, estimated pulmonary arterial systolic pressure is 58 mmHg. Pericardium/Pleural There is no pericardial effusion. Inferior Vena Cava Normal inferior vena cava with >50% collapse upon inspiration consistent with normal right atrial pressure, 5 mmHg. Aorta The aortic root size at the sinus of Valsalva is normal. Left Ventricular Outflow Tract Name Value Normal LVOT 2D LVOT Diameter 1.8 cm LVOT Doppler LVOT Peak Gradient 3 mmHg LVOT Mean Gradient 2 mmHg LVOT VTI 23 cm LVOT VTI/AV VTI Ratio 0.7 LVOT Stroke Volume 57 ml LVOT CO 3.2 l/min LVOT CI
== END 2023-09-02 12:48 | disposition home or self-care (01) ==
LOC: ANHCARD 12:48
PROVIDERS: PCP Family Medicine; Visit Provider Family Medicine
DX: I51.81 Takotsubo syndrome (principal); R93.1 Abnormal findings on diagnostic imaging of heart and coronary circulation; I35.8 Other nonrheumatic aortic valve disorders; I35.1 Nonrheumatic aortic (valve) insufficiency; I34.0 Nonrheumatic mitral (valve) insufficiency; I27.20 Pulmonary hypertension, unspecified; I37.1 Nonrheumatic pulmonary valve insufficiency; Z09 Encounter for follow-up examination after completed treatment for conditions other than malignant neoplasm
CPT/HCPCS: 93306

== ENCOUNTER 2024-06-15 10:51 | Outpatient (CLI) | payer MEDICARE, BC, SELFPAY ==
[2024-06-15 14:01] LABS: Basophils Percent Auto 0.6 % (0.2-1.2); Eosinophils Absolute Auto 0.2 K/mm3 (0-0.3); Eosinophils Percent Auto 2.9 % (0-4.4); Hematocrit 39.1 % (37.0-47.0); Hemoglobin 11.8 g/dL (12.0-15.0); Immature Granulocyte Absolute 0.01 K/mm3 (0.00-0.031); Immature Granulocyte Percent A 0.2 % (0-0.5); Lymphocytes Absolute Auto 2.54 K/mm3 (0.9-3.2); Lymphocytes Percent Auto 39.3 % (18.3-44.2); Mean Corpuscular HGB Conc 30.2 g/dl (32-36); Mean Corpuscular Hemoglobin 30.6 pg (26-34); Mean Corpuscular Volume 101.3 fl (80-100); Mean Platelet Volume 12.8 fl (7.4-10.4); Monocytes Absolute Auto 0.7 K/mm3 (0.1-0.6); Monocytes Percent Auto 10.2 % (2.6-8.5); Neutrophils Percent Auto 46.8 % (45.5-73.1); Platelet Count Result 196 k/mm3 (150-375); Red Blood Count 3.86 M/mm3 (4.2-5.4); Red Cell Distribution Width 15.6 % (11.5-14.5); White Blood Count 6.5 K/mm3 (4.5-10.0)
[2024-06-15 14:17] LABS: Alanine Aminotransferase 18 U/L (6-35); Albumin Level 4.1 g/dL (3.5-5.1); Alkaline Phosphatase 103 U/L (38-126); Anion Gap 6 mmol/L (4-12); Aspartate Amino Transferase 58 U/L (14-36); Bilirubin,Total 0.6 mg/dL (0.2-1.3); Blood Urea Nitrogen 26 mg/dL (7-17); Calcium 9.4 mg/dL (8.4-10.2); Carbon Dioxide 26 mmol/L (22-30); Chloride 107 mmol/L (98-107); Cholesterol 203 mg/dL (0-200); Estimated Glomerular Filt Rate 43; Glucose 111 mg/dL (65-110); HDL Direct 78 mg/dL; Potassium 4.3 mmol/L (3.4-5.0); Sodium 139 mmol/L (137-145); Triglycerides 59 mg/dL (<150)
[2024-06-15 14:27] LABS: LDL Cholesterol Direct 77 mg/dL
[2024-06-15 15:11] LABS: Iron 59 ug/dL (37-170)
[2024-06-15 15:30] LABS: Percent Iron Saturation 21 % (20-50)
[2024-06-15 21:33] LABS: Hemoglobin A1C 6.2 % (<5.7)
== END 2024-06-15 10:52 | disposition home or self-care (01) ==
LOC: ANHGOSHLAB 10:53
PROVIDERS: PCP Family Medicine; Visit Provider Family Medicine
DX: D50.9 Iron deficiency anemia, unspecified (principal); I10 Essential (primary) hypertension; R73.9 Hyperglycemia, unspecified; R53.83 Other fatigue; Z13.220 Encounter for screening for lipoid disorders; Z13.228 Encounter for screening for other metabolic disorders
CPT/HCPCS: 36415; 80053; 80061; 82728; 83036; 83540; 83550; 85025

== ENCOUNTER 2025-02-13 13:15 | Outpatient (CLI) | payer MEDICARE, BC, SELFPAY ==
--- OUTSIDE RECORDS SUMMARY | 2025-02-13 13:20 | XMS_ITS | Referral Summary ---
Author Organization [facility] Address [address] [facility] [place] [address] Care Team Providers Care Commodity Lead Name Role Phone Ric Johnston MD Primary Care Provider [phone] Encounters Date Type Department Care Team Description 12/04/2024 Orders Only [facility] [address] [place] [address] [address] [place] [address] Ric Johnston MD from Last 3 Months Allergies Active Allergy Reactions Criticality Noted Date Comments Penicillins Hives Reaction: Hives, Medications cholecalciferol (cholecalciferol) 1,000 unit tablet take 1 by Oral route once 0 0 6 Active latanoprost (XALATAN) 0.005 % ophthalmic solution instill 1 drop by ophthalmic route every day into affected eye(s) in the evening 0 3 Active ondansetron ODT (ZOFRAN-ODT) 4 mg disintegrating tablet Take 1 tablet (4 mg total) by mouth every 8 (eight) hours as needed for nausea or vomiting. 20 tablet 8 Active simvastatin (ZOCOR) 20 mg tablet TAKE 1 TABLET BY MOUTH ONCE DAILY IN THE EVENING 90 tablet 3 Active olmesartan (BENICAR) 40 mg tablet Take 1 tablet (40 mg total) by mouth daily 1 tablet 5 Active Active Problems Problem Noted Date Diagnosed Date Medicare annual wellness visit, subsequent 03/29 Assessment & Plan (03/29/2023 1:10 PM CDT): Healthy lifestyle recommended, including regular exercise (daily aerobic & twice weekly resistance training), prudent diet, regular self breast & skin examinations (1 week after cycle begins), annual mammography (starting @ age 40), calcium & vitamin D supplementation, colonoscopy (starting @ age 50 for average risk person), regular gynecologic examinations with pelvic exam & PAP smear, periodic blood pressure monitoring, & bone-density testing (starting @ age 65 in average-risk person). Routine vaccinations recommended, including annual flu vaccine, pneumonia vaccine series (if underlying conditions present or >65), new shingles vaccine (>50), & TDaP booster vaccine (every 10 years). Macrocytosis 09/08/2021 Overview (09/08/2021): Normal B12, folate levels 2018 Assessment & Plan (03/29/2023 1:10 PM CDT): following Assessment & Plan (03/09/2022 10:24 AM CDT): following Body mass index (BMI) of 19.0-19.9 in adult 11/2020 Assessment & Plan (03/29/2023 1:10 PM CDT): Body mass index is 19.85 kg/m . BMI Follow-up includes: nutrition counseling, exercise counseling, and education provided. Assessment & Plan (10/27/2022 11:48 AM CDT): Body mass index is 19.9 kg/m . BMI Follow-up includes: nutrition counseling, exercise counseling and education provided. Assessment & Plan (10/05/2022 10:02 AM WEBSPHERE PORTAL ARCHITECT): Body mass index is 19.71 kg/m . BMI Follow-up includes: nutrition counseling, exercise counseling and education provided. Assessment & Plan (09/07/2022 10:03 AM WEBSPH[employer] PORTAL ARCHITECT): Body mass index is 19.48 kg/m . BMI Follow-up includes: nutrition counseling, exercise counseling and education provided. Assessment & Plan (03/09/2022 10:22 AM CDT): Body mass index is 19.11 kg/m . BMI Follow-up includes: nutrition counseling, exercise counseling and education provided. Assessment & Plan (09/08/2021 10:57 AM WEBSPHERE PORTAL ARCHITECT): Body mass index is 19.53 kg/m . BMI Follow-up includes: nutrition counseling, exercise counseling and education provided. Assessment & Plan (03/06/2021 11:36 AM CDT): Body mass index is 19.05 kg/m . BMI Follow-up includes: nutrition counseling, exercise counseling and education provided. Inflammatory arthritis 09/03/2020 Assessment & Plan (03/29/2023 1:09 PM CDT): Symptomatic therapy Assessment & Plan (03/09/2022 10:22 AM CDT): Symptomatic therapy Assessment & Plan (03/06/2021 11:24 AM CDT): Symptomatic therapy Assessment & Plan (09/03/2020 11:55 AM WEBSP[employer] PORTAL ARCHITECT): Medrol dosepack If sx recur, consider further evaluation Osteopenia of multiple sites 02/21/2019 Overview (03/06/2021): Pt could not tolerate therapy per Dr Agee She declines further DEXA testing Assessment & Plan (03/29/2023 1:09 PM CDT): Discussed maintenance of appropriate dietary calcium along with OTC vitamin D Discussed regular weight-bearing & resistance exercises for building bone strength Reviewed DEXA testing (if performed) & appropriate interval DEXA testing Assessment & Plan (03/09/2022 10:23 AM CDT): Discussed maintenance of appropriate dietary calcium along with OTC vitamin D Discussed regular weight-bearing & resistance exercises for building bone strength Reviewed DEXA testing (if performed) & appropriate interval DEXA testing Assessment & Plan (03/06/2021 11:23 AM CDT): Discussed maintenance of appropriate dietary calcium along with OTC vitamin D Discussed regular weight-bearing & resistance exercises for building bone strength Reviewed DEXA testing (if performed) & appropriate interval DEXA testing Assessment & Plan (02/29/2020 11:24 AM CDT): Discussed maintenance of appropriate dietary calcium along with OTC vitamin D Discussed regular weight-bearing & resistance exercises for building bone strength Reviewed DEXA testing (if performed) & appropriate interval DEXA testing Pt declines repeat testing or treatment Assessment & Plan (02/21/2019 10:37 AM CDT): Discussed maintenance of appropriate dietary calcium along with OTC vitamin D Discussed regular weight-bearing & resistance exercises for building bone strength Reviewed DEXA testing (if performed) & appropriate interval DEXA testing Pt declines further DEXA testing Mixed hyperlipidemia 02/15/2018 Assessment & Plan (03/29/2023 1:09 PM CDT): We discussed continued statin therapy (if appropriate), regular blood pressure monitoring, daily aerobic & twice-weekly resistance exercise, & a prudent diet (high in fiber, low in fat & salt) = DASH diet Assessment & Plan (09/07/2022 10:14 AM WEBSP[employer] PORTAL ARCHITECT): We discussed continued statin therapy (if appropriate), regular blood pressure monitoring, daily aerobic & twice-weekly resistance exercise, & a prudent diet (high in fiber, low in fat & salt) = DASH diet Assessment & Plan (03/09/2022 10:23 AM CDT): We discussed continued statin therapy (if appropriate), regular blood pressure monitoring, daily aerobic & twice-weekly resistance exercise, & a prudent diet (high in fiber, low in fat & salt) = DASH diet Assessment & Plan (09/08/2021 11:01 AM WE[employer] PORTAL ARCHITECT): We discussed continued statin therapy (if appropriate), regular blood pressure monitoring, daily aerobic & twice-weekly resistance exercise, & a prudent diet (high in fiber, low in fat & salt) = DASH diet Assessment & Plan (03/06/2021 11:23 AM CDT): We discussed continued statin therapy (if appropriate), regular blood pressure monitoring, daily aerobic & twice-weekly resistance exercise, & a prudent diet (high in fiber, low in fat & salt) = DASH diet Assessment & Plan (09/03/2020 11:51 AM WE[employer] PORTAL ARCHITECT): We discussed continued statin therapy (if appropriate), regular blood pressure monitoring, daily aerobic & twice-weekly resistance exercise, & a prudent diet (high in fiber, low in fat & salt) = DASH diet Assessment & Plan (02/29/2020 11:15 AM CDT): We discussed continued statin therapy (if appropriate), regular blood pressure monitoring, daily aerobic & twice-weekly resistance exercise, & a prudent diet (high in fiber, low in fat & salt) = DASH diet Assessment & Plan (08/29/2019 2:28 PM WE[employer]SP[employer] PORTAL ARCHITECT): We discussed continued statin therapy (if appropriate), regular blood pressure monitoring, daily aerobic & twice-weekly resistance exercise, & a prudent diet (high in fiber, low in fat & salt) = DASH diet Assessment & Plan (02/21/2019 10:26 AM CDT): We discussed continued statin therapy (if appropriate), regular blood pressure monitoring, daily aerobic & twice-weekly resistance exercise, & a prudent diet (high in fiber, low in fat & salt) = DASH diet Assessment & Plan (08/23/2018 12:04 PM WE[employer] PORTAL ARCHITECT): We discussed continued statin therapy (if appropriate), regular blood pressure monitoring, daily aerobic & twice-weekly resistance exercise, & a prudent diet (high in fiber, low in fat & salt) = DASH diet Assessment & Plan (02/15/2018 11:12 AM CDT): We discussed continued statin therapy (if appropriate), regular blood pressure monitoring, daily aerobic & twice-weekly resistance exercise, & a prudent diet (high in fiber, low in fat & salt) = DASH diet Polyp of colon 02/07/2016 Overview (03/09/2022): No colonoscopy planned Assessment & Plan (03/29/2023 1:09 PM CDT): Reviewed - no fu colonoscopy planned or recommended Assessment & Plan (02/29/2020 11:27 AM CDT): Pt declines further screening & I agree Assessment & Plan (02/21/2019 10:27 AM CDT): Reviewed normal CT colonography - she is not planning fu study Glaucoma 08/24/2012 Overview (11/04/2016): Glaucoma Assessment & Plan (03/29/2023 1:08 PM CDT): Contd med mgmt Assessment & Plan (03/09/2022 10:22 AM CDT): contd med mgmt Assessment & Plan (03/06/2021 11:23 AM CDT): contd med mgmt Assessment & Plan (02/29/2020 11:15 AM CDT): contd med mgmt Assessment & Plan (02/21/2019 10:25 AM CDT): contd med mgmt Assessment & Plan (02/15/2018 11:12 AM CDT): contd med mgmt Benign hypertension 08/24/2012 Overview (11/06/2016): BENIGN HYPERTENSION Assessment & Plan (03/29/2023 1:09 PM CDT): We discussed continued medical therapy (if appropriate), regular blood pressure monitoring, daily aerobic & twice-weekly resistance exercise, prudent diet (high in fiber, low in fat, low in salt) = DASH diet, & avoidance of tobacco use, excessive alcohol use, & medications that can elevate blood pressure (NSAIDs, decongestants, stimulants). New blood pressure guidelines discussed along with implications for therapy. Assessment & Plan (10/27/2022 11:19 AM CDT): We discussed continued medical therapy (if appropriate), regular blood pressure monitoring, daily aerobic & twice-weekly resistance exercise, prudent diet (high in fiber, low in fat, low in salt) = DASH diet, & avoidance of tobacco use, excessive alcohol use, & medications that can elevate blood pressure (NSAIDs, decongestants, stimulants). New blood pressure guidelines discussed along with implications for therapy. Assessment & Plan (10/05/2022 10:05 AM WEB[employer] PORTAL ARCHITECT): Increase PM Olmesartan to 40 mg Pt declined addition of Amlodipine at this time Discussed goal 140-150/80-90 Discussed resumption of walking regularly Fu 4 weeks Assessment & Plan (09/07/2022 10:16 AM WE[employer] PORTAL ARCHITECT): We discussed continued medical therapy (if appropriate), regular blood pressure monitoring, daily aerobic & twice-weekly resistance exercise, prudent diet (high in fiber, low in fat, low in salt) = DASH diet, & avoidance of tobacco use, excessive alcohol use, & medications that can elevate blood pressure (NSAIDs, decongestants, stimulants). New blood pressure guidelines discussed along with implications for therapy. New rx: increase Benicar from 20 mg to 40 mg Assessment & Plan (03/09/2022 10:22 AM CDT): We discussed continued medical therapy (if appropriate), regular blood pressure monitoring, daily aerobic & twice-weekly resistance exercise, prudent diet (high in fiber, low in fat, low in salt) = DASH diet, & avoidance of tobacco use, excessive alcohol use, & medications that can elevate blood pressure (NSAIDs, decongestants, stimulants). New blood pressure guidelines discussed along with implications for therapy. Assessment & Plan (09/08/2021 11:02 AM WE[employer] PORTAL ARCHITECT): We discussed continued medical therapy (if appropriate), regular blood pressure monitoring, daily aerobic & twice-weekly resistance exercise, prudent diet (high in fiber, low in fat, low in salt) = DASH diet, & avoidance of tobacco use, excessive alcohol use, & medications that can elevate blood pressure (NSAIDs, decongestants, stimulants). New blood pressure guidelines discussed along with implications for therapy. Assessment & Plan (03/06/2021 11:23 AM CDT): We discussed continued medical therapy (if appropriate), regular blood pressure monitoring, daily aerobic & twice-weekly resistance exercise, prudent diet (high in fiber, low in fat, low in salt) = DASH diet, & avoidance of tobacco use, excessive alcohol use, & medications that can elevate blood pressure (NSAIDs, decongestants, stimulants). New blood pressure guidelines discussed along with implications for therapy. Assessment & Plan (09/03/2020 11:50 AM WEBSP[employer]ERE PORTAL ARCHITECT): We discussed continued medical therapy (if appropriate), regular blood pressure monitoring, daily aerobic & twice-weekly resistance exercise, prudent diet (high in fiber, low in fat, low in salt) = DASH diet, & avoidance of tobacco use, excessive alcohol use, & medications that can elevate blood pressure (NSAIDs, decongestants, stimulants). New blood pressure guidelines discussed along with implications for therapy. Assessment & Plan (02/29/2020 11:14 AM CDT): We discussed continued medical therapy (if appropriate), regular blood pressure monitoring, daily aerobic & twice-weekly resistance exercise, prudent diet (high in fiber, low in fat, low in salt) = DASH diet, & avoidance of tobacco use, excessive alcohol use, & medications that can elevate blood pressure (NSAIDs, decongestants, stimulants). New blood pressure guidelines discussed along with implications for therapy. Assessment & Plan (08/29/2019 2:28 PM WEB[employer]ERE PORTAL ARCHITECT): We discussed continued medical therapy (if appropriate), regular blood pressure monitoring, daily aerobic & twice-weekly resistance exercise, prudent diet (high in fiber, low in fat, low in salt) = DASH diet, & avoidance of tobacco use, excessive alcohol use, & medications that can elevate blood pressure (NSAIDs, decongestants, stimulants). New blood pressure guidelines discussed along with implications for therapy. Assessment & Plan (02/21/2019 10:25 AM CDT): We discussed continued medical therapy (if appropriate), regular blood pressure monitoring, daily aerobic & twice-weekly resistance exercise, prudent diet (high in fiber, low in fat, low in salt) = DASH diet, & avoidance of tobacco use, excessive alcohol use, & medications that can elevate blood pressure (NSAIDs, decongestants, stimulants). New blood pressure guidelines discussed along with implications for therapy. Assessment & Plan (08/23/2018 12:04 PM WEBSP[employer]ERE PORTAL ARCHITECT): We discussed continued medical therapy (if appropriate), regular blood pressure monitoring, daily aerobic & twice-weekly resistance exercise, prudent diet (high in fiber, low in fat, low in salt) = DASH diet, & avoidance of tobacco use, excessive alcohol use, & medications that can elevate blood pressure (NSAIDs, decongestants, stimulants). New blood pressure guidelines discussed along with implications for therapy. Assessment & Plan (02/15/2018 11:12 AM CDT): We discussed continued medical therapy (if appropriate), regular blood pressure monitoring, daily aerobic & twice-weekly resistance exercise, prudent diet (high in fiber, low in fat, low in salt) = DASH diet, & avoidance of tobacco use, excessive alcohol use, & medications that can elevate blood pressure (NSAIDs, decongestants, stimulants). New blood pressure guidelines discussed along with implications for therapy. Assessment & Plan (08/17/2017 10:55 AM WEBSPHERE PORTAL ARCHITECT): We discussed continued medical therapy (if appropriate), regular blood pressure monitoring, daily aerobic & twice-weekly resistance exercise, prudent diet (high in fiber, low in fat, low in salt) = DASH diet, & avoidance of tobacco use, excessive alcohol use, & medications that can elevate blood pressure (NSAIDs, decongestants, stimulants) Assessment & Plan (02/08/2017 10:41 AM CDT): We discussed continued medical therapy (if appropriate), regular blood pressure monitoring, daily aerobic & twice-weekly resistance exercise, prudent diet (high in fiber, low in fat, low in salt) = DASH diet, & avoidance of tobacco use, excessive alcohol use, & medications that can elevate blood pressure (NSAIDs, decongestants, stimulants) Resolved Problems Problem Noted Date Diagnosed Date Resolved Date Medicare annual wellness visit, subsequent 03/09/2022 09/07/2022 Assessment & Plan (03/09/2022 10:23 AM CDT): Healthy lifestyle recommended, including regular exercise (daily aerobic & twice weekly resistance training), prudent diet, regular self breast & skin examinations (1 week after cycle begins), annual mammography (starting @ age 40), calcium & vitamin D supplementation, colonoscopy (starting @ age 50 for average risk person), regular gynecologic examinations with pelvic exam & PAP smear, periodic blood pressure monitoring, & bone-density testing (starting @ age 65 in average-risk person). Routine vaccinations recommended, including annual flu vaccine, pneumonia vaccine series (if underlying conditions present or >65), new shingles vaccine (>50), & TDaP booster vaccine (every 10 years). Medicare annual wellness visit, subsequent 03/06/2021 09/08/2021 Assessment & Plan (03/06/2021 11:24 AM CDT): Healthy lifestyle recommended, including regular exercise (daily aerobic & twice weekly resistance training), prudent diet, regular self breast & skin examinations (1 week after cycle begins), annual mammography (starting @ age 40), calcium & vitamin D supplementation, colonoscopy (starting @ age 50 for average risk person), regular gynecologic examinations with pelvic exam & PAP smear, periodic blood pressure monitoring, & bone-density testing (starting @ age 65 in average-risk person). Routine vaccinations recommended, including annual flu vaccine, pneumonia vaccine series (if underlying conditions present or >65), new shingles vaccine (>50), & TDaP booster vaccine (every 10 years). Adult BMI <19 kg/sq m 09/03/20202020 Body mass index (BMI) 19.9 or less, adult 09/03/2020 03/06/2021 Assessment & Plan (09/03/2020 11:41 AM WEBSPHERE PORTAL ARCHITECT): Body mass index is 19.53 kg/m . BMI Follow-up includes: nutrition counseling, exercise counseling and education provided. Arthralgia 09/03/2020 03/06/2021 Medicare annual wellness visit, subsequent 02/29/2020 09/03/2020 Assessment & Plan (02/29/2020 11:28 AM CDT): Healthy lifestyle recommended, including regular exercise (daily aerobic & twice weekly resistance training), prudent diet, regular self breast & skin examinations (1 week after cycle begins), annual mammography (starting @ age 40), calcium & vitamin D supplementation, colonoscopy (starting @ age 50 for average risk person), regular gynecologic examinations with pelvic exam & PAP smear, periodic blood pressure monitoring, & bone-density testing (starting @ age 65 in average-risk person). Routine vaccinations recommended, including annual flu vaccine, pneumonia vaccine series (if underlying conditions present or >65), new shingles vaccine (>50), & TDaP booster vaccine (every 10 years). Pt continues regular mammography Urinary tract infection with hematuria 08/29/2019 02/29/2020 Assessment & Plan (08/29/2019 2:29 PM WEBSPHERE PORTAL ARCHITECT): Empiric Cipro x 3 days Medicare annual wellness visit, subsequent 02/21/2019 08/29/2019 Assessment & Plan (02/21/2019 10:26 AM CDT): Healthy lifestyle recommended, including regular exercise (daily aerobic & twice weekly resistance training), prudent diet, regular self breast & skin examinations (1 week after cycle begins), annual mammography (starting @ age 40), calcium & vitamin D supplementation, colonoscopy (starting @ age 50 for average risk person), regular gynecologic examinations with pelvic exam & PAP smear, periodic blood pressure monitoring, & bone-density testing (starting @ age 65 in average-risk person). Routine vaccinations recommended, including annual flu vaccine, pneumonia vaccine series (if underlying conditions present or >65), new shingles vaccine (>50), & TDaP booster vaccine (every 10 years). Medicare annual wellness visit, subsequent 02/15/2018 08/23/2018 Assessment & Plan (02/15/2018 11:12 AM CDT): Healthy lifestyle recommended, including regular exercise (daily aerobic & twice weekly resistance training), prudent diet, regular self breast & skin examinations (1 week after cycle begins), annual mammography (starting @ age 40), calcium & vitamin D supplementation, colonoscopy (starting @ age 50 for average risk person), regular gynecologic examinations with pelvic exam & PAP smear, periodic blood pressure monitoring, & bone-density testing (starting @ age 65 in average-risk person). Routine vaccinations recommended, including annual flu vaccine, pneumonia vaccine series (if underlying conditions present or >65), new shingles vaccine (>50), & TDaP booster vaccine (every 10 years). BMI 21.0-21.9, adult 09/14/2017 021 Assessment & Plan (02/29/2020 11:14 AM CDT): Body mass index is 21.63 kg/m . BMI Follow-up includes: nutrition counseling, exercise counseling and education provided. Assessment & Plan (08/29/2019 2:28 PM WE[employer] PORTAL ARCHITECT): Body mass index is 20.98 kg/m . BMI Follow-up includes: nutrition counseling, exercise counseling and education provided. Assessment & Plan (02/21/2019 10:12 AM CDT): Body mass index is 21.32 kg/m . BMI Follow-up includes: nutrition counseling, exercise counseling and education provided. Assessment & Plan (08/23/2018 12:00 PM WEB[employer] PORTAL ARCHITECT): Body mass index is 21.47 kg/m . BMI Follow-up includes: nutrition counseling, exercise counseling and education provided. Assessment & Plan (02/15/2018 11:09 AM CDT): Body mass index is 21.14 kg/m . BMI Follow-up includes: nutrition counseling, exercise counseling and education provided. Assessment & Plan (09/14/2017 2:53 PM WE[employer] PORTAL ARCHITECT): Body mass index is 21.63 kg/m . BMI Follow-up includes: nutrition counseling, exercise counseling and education provided. Upper respiratory tract infection 09/14/2017 09/14/2017 Influenza 09/14/2017 02/15/2018 Assessment & Plan (09/14/2017 2:59 PM WE[employer] PORTAL ARCHITECT): We discussed the likely diagnosis of influenza in light of the current symptoms & community disease activity. We discussed its high infectivity in the initial 3-5 days, especially when the respiratory symptoms are prominent. We discussed a treatment plan that includes plenty of rest (& time off from school or work if appropriate), plenty of fluids with electrolytes, appropriate diet (including salty foods to enhance hydration), scheduled anti-pyretic therapy, cough suppressant therapy, & Tamiflu therapy (if appropriate, either due to symptom duration <24- 48 hours or longer duration in the setting of a compromised host). We also discussed the likely post-viral symptoms of fatigue & malaise that often last for several weeks. We reviewed the benefit of the annual flu shot in the fall (including the patient & family) for future prevention. No role for Tamiflu Body mass index (BMI) 22.0-22.9, adult 02/08/2017 09/14/2017 Assessment & Plan (08/17/2017 10:49 AM WE[employer] PORT[employer] ARCHITECT): Body mass index is 22.44 kg/m . BMI Follow-up includes: nutrition counseling, exercise counseling and education provided. Assessment & Plan (02/08/2017 10:23 AM CDT): Body mass index is 22.11 kg/m . BMI Follow-up includes: nutrition counseling, exercise counseling and education provided. Routine general medical exam ination at a health care facility 02/08/2017 08/17/2017 Assessment & Plan (02/08/2017 10:40 AM CDT): Healthy lifestyle recommended, including regular exercise (daily aerobic & twice weekly resistance training), prudent diet, regular self breast & skin examinations (1 week after cycle begins), annual mammography (starting @ age 40), calcium & vitamin D supplementation, colonoscopy (starting @ age 50 for average risk person), regular gynecologic examinations with pelvic exam & PAP smear, periodic blood pressure monitoring, & bone-density testing (starting @ age 65 in average-risk person) Retinal hemorrhage 02/07/2016 8 Overview (11/06/2016): Retinal hemorrhage of right eye 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 02/15/2018 Overview (11/06/2016): MIXED HYPERLIPIDEMIA Assessment & Plan (08/17/2017 10:56 AM WEBSPHERE PORTAL ARCHITECT): We discussed continued statin therapy (if appropriate), regular blood pressure monitoring, daily aerobic & twice-weekly resistance exercise, & a prudent diet (high in fiber, low in fat & salt) = DASH diet Assessment & Plan (02/08/2017 10:41 AM CDT): We discussed continued statin therapy (if appropriate), regular blood pressure monitoring, daily aerobic & twice-weekly resistance exercise, & a prudent diet (high in fiber, low in fat & salt) = DASH diet 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 Overview (11/06/2016): BENIGN NEOPLASM LG BOWEL Assessment & Plan (02/08/2017 10:42 AM CDT): Reviewed normal ct colonography 2016 - no fu planned due to normal findings, age Immunizations Immunization Administration Dates Next Due Influenza, Quadrivalent, Hig h Dose, Preservative Free, Intrr 05/02/2021,09/03/2020 Influenza, Quadrivalent, Spl it, Preservative Free, Intramuscular 04/25/2014 Influenza, Split 04/24/2013 Influenza, Trivalent, Adjuva nted, Intramuscular 05/16/2019,05/19/2018 Influenza, Trivalent, High D ose, Split, Preservative Free, Intramuscular 05/16/2019,05/19/2018,05/04/2017,04/15 Influenza, Trivalent, IM (MDV) 06/02/2012 Influenza, Trivalent, Recomb inant, Egg Free, Preservative Free, Antibiotic Free, IM (FLUBLOK) 04/17/2015 Influenza, Unspecified 05/02/2022,05/04/2017 Pfizer SARS-CoV-2 Monovalent Vaccination (12+ Yrs) PURPLE 11/24/2020,11/03/2020 Pfizer SARS-CoV-2 Monovalent Vaccination (5-11 Yrs) 07/04/2021 Pneumococcal Conjugate PCV 13 04/17/2015 Pneumococcal Polysaccharide PPV23 08/02/2005 ZOSTER LIVE 05/02/2016,04/15/2016 Social History Tobacco Use Types Packs/Day Years Used Date Smoking Tobacco: Former Smokeless Tobacco: Never Alcohol Use Standard Drinks/Week Comments No 0 (1 standard drink = 0.6 oz pur e alcohol) PHQ-2 Answer Date Recorded PHQ-2 Total Score (If total score is 3 or more points, staff should administer the PHQ-9) 0 03/29/2023 Comments No Sex and Gender Information Value Date Recorded Sex Assigned at Not on file Legal Sex Female 7:44 PM WEBSPHERE PORTAL ARCHITECT Gender Identity Not on file Sexual Orientation Not on file Last Filed Vital Signs Vital Sign Reading Time Taken Comments Blood Pressure 150/98 03/29/2023 12:58 PM CDT Pulse 74 03/29/2023 12:58 PM CDT Temperature 36.5 C (97.7 F) 03/09/2022 10:01 AM CDT Respiratory Rate 16 03/09/2022 10:01 AM CDT Oxygen Saturation 92% 03/29/2023 12:58 PM CDT Inhaled Oxygen Concentration - - Weight 55.8 kg (123 lb) 03/29/2023 12:58 PM CDT Height 167.6 cm (5' 6) 03/29/2023 12:58 PM CDT Body Mass Index 19.85 03/29/2023 12:58 PM CDT Plan of Treatment Not on file Insurance MEDICARE [facility] MEDICARE [facility] Care Teams Commodity Lead Relationship Specialty Start Date End Date Ric Johnston MD [address] [facility] [address] [place] [address] PCP - General Internal Medicine 09/14/17
--- OUTSIDE RECORDS SUMMARY | 2025-02-13 13:20 | XMS_ITS | Clinical Summary ---
Author Organization [facility] [email or web address] Address [address] [place] [address] Care Team Providers Care Biodiesel Production Technician Name Role Phone Ric hSea MD Primary Care Provider [phone] Source Comments [facility],non-owned Affiliates and Associated Physician Practices is amultiple site organization consisting of ambulatory clinics and hospital sitesin [place], [place], [place] and [place]. This disclosure is being madepursuant to the Care Everywhere program and may not contain all information available regarding this patient. Last updated 18.[facility] [email or web address] Allergies Active Allergy Reactions Criticality Noted Date Comments Lidocaine Medium 07/06/2017 Penicillins Rash Medium 07/06/2017 Medications * Be aware that medications may not be up to date on this document. Alwaysverify current medications with the patient. latanoprost (XALATAN) 0.005 % ophthalmic solution Instill 1 drop into both eyes at bedtime 06/02/2017 Active olmesartan (BENICAR) 20 MG tablet Take 20 mg by mouth once daily 03/02/2017 Active simvastatin (ZOCOR) 20 MG tablet Take 20 mg by mouth at bedtime 06/01/2017 Active aspirin (ASPIRIN) 81 MG tablet Take 81 mg by mouth Once daily every other day 08/24/2012 Active vitamin D3 (CHOLECALCIFERO L) 1000 UNITS tablet Take 1,000 Units by mouth once daily 02/07/2016 Active Social History Tobacco Use Types Packs/Day Years Used Date Smoking Tobacco: Former Smokeless Tobacco: Never Alcohol Use Standard Drinks/Week Comments No 0 (1 standard drink = 0.6 oz pur e alcohol) Comments No Sex and Gender Information Value Date Recorded Sex Assigned at Not on file Legal Sex Female 11:40 AM CDT Gender Identity Not on file Sexual Orientation Not on file Last Filed Vital Signs Vital Sign Reading Time Taken Comments Blood Pressure 122/80 07/06/2017 1:50 PM FUNCTIONAL SKILLS TUTOR Pulse - - Temperature - - Respiratory Rate - - Oxygen Saturation - - Inhaled Oxygen Concentration - - Weight 61.9 kg (136 lb 8 oz) 07/06/2017 1:50 PM FUNCTIONAL SKILLS TUTOR Height 166.4 cm (5' 5.5) 07/06/2017 1:50 PM FUNCTIONAL SKILLS TUTOR Body Mass Index 22.37 07/06/2017 1:50 PM FUNCTIONAL SKILLS TUTOR Plan of Treatment Health Maintenance Due Date Last Done Comments BONE DENSITY TESTING 1935 MEDICARE AWV 12 MONTHS 1936 DTAP/TDAP/TD VACCINES (1 - Tdap) 1955 PNEUMOCOCCAL VACCINE 50+ (1 of 1 - PCV) 1986 ZOSTER VACCINE (1 of 2) 1986 Respiratory Syncytial Virus (RSV) Vaccine Pt: or over 60 yrs (1 - 1-dose 75+ series) 2011 COVID-19 VACCINE ( season) 2024 DEPRESSION SCREENING 08/02/2024 INFLUENZA VACCINE (#1) 2025 7, 05/02/2016, 04/17/2015, Additional history exists HEPATITIS B VACCINE Aged Out No longe r eligible based on patient's age to complete this topic HIB VACCINE Aged Out No longer eligi ble based on patient's age to complete this topic HPV VACCINE Aged Out No longer eligi ble based on patient's age to complete this topic MENINGOCOCCAL (Group B) VACCINE SHARED DECISION-MAKING Aged Out No longer eligible based on patient's age to complete this topic MENINGOCOCCAL GROUPS A/C/Y/W VACCINE Aged Out No longer eligible based on patient's age to complete this topic Insurance MEDICARE [facility] Address: [facility] [address] [place] [address] MEDICARE Care Teams Biodiesel Production Technician Relationship Specialty Start Date End Date Ric Shea MD PCP - General Infectious Disease 07/06/17
--- OUTSIDE RECORDS SUMMARY | 2025-02-13 13:20 | XMS_ITS | Clinical Summary ---
Author Organization [facility] Address [address] [address] Care Team Providers Care Gasateria Attendant Name Role Phone Ric Johnston MD Primary Care Provider [phone] Allergies Active Allergy Reactions Criticality Noted Date [...] provided. Assessment & Plan (10/05/2022 10:02 AM RELIGIOUS STUDIES PROFESSOR): Body mass index is 19.71 kg/m . BMI Follow-up includes: nutrition counseling, exercise counseling and education provided. Assessment & Plan (09/07/2022 10:03 AM RELIGIOUS STUDIES PROFESSOR): Body mass index is 19.48 kg/m . BMI Follow-up includes: nutrition counseling, exercise counseling and education provided. Assessment & Plan (03/09/2022 10:22 AM CDT): Body mass index is 19.11 kg/m . BMI Follow-up includes: nutrition counseling, exercise counseling and education provided. Assessment & Plan (09/08/2021 10:57 AM RELIGIOUS STUDIES PROFESSOR): Body mass index is 19.53 kg/m . [...] therapy Assessment & Plan (09/03/2020 11:55 AM RELIGIOUS STUDIES PROFESSOR): Medrol dosepack If sx recur, consider further [...] diet Assessment & Plan (09/07/2022 10:14 AM RELIGIOUS STUDIES PROFESSOR): We discussed continued statin therapy (if appropriate), [...] diet Assessment & Plan (09/08/2021 11:01 AM RELIGIOUS STUDIES PROFESSOR): We discussed continued statin therapy (if appropriate), [...] diet Assessment & Plan (09/03/2020 11:51 AM RELIGIOUS STUDIES PROFESSOR): We discussed continued statin therapy (if appropriate), [...] diet Assessment & Plan (08/29/2019 2:28 PM RELIGIOUS STUDIES PROFESSOR): We discussed continued statin therapy (if appropriate), [...] diet Assessment & Plan (08/23/2018 12:04 PM RELIGIOUS STUDIES PROFESSOR): We discussed continued statin therapy (if appropriate), [...] therapy. Assessment & Plan (10/05/2022 10:05 AM RELIGIOUS STUDIES PROFESSOR): Increase PM Olmesartan to 40 mg Pt declined addition of Amlodipine at this time Discussed goal 140-150/80-90 Discussed resumption of walking regularly Fu 4 weeks Assessment & Plan (09/07/2022 10:16 AM RELIGIOUS STUDIES PROFESSOR): We discussed continued medical therapy (if appropriate), [...] therapy. Assessment & Plan (09/08/2021 11:02 AM RELIGIOUS STUDIES PROFESSOR): We discussed continued medical therapy (if appropriate), [...] therapy. Assessment & Plan (09/03/2020 11:50 AM RELIGIOUS STUDIES PROFESSOR): We discussed continued medical therapy (if appropriate), [...] therapy. Assessment & Plan (08/29/2019 2:28 PM RELIGIOUS STUDIES PROFESSOR): We discussed continued medical therapy (if appropriate), [...] therapy. Assessment & Plan (08/23/2018 12:04 PM RELIGIOUS STUDIES PROFESSOR): We discussed continued medical therapy (if appropriate), [...] therapy. Assessment & Plan (08/17/2017 10:55 AM RELIGIOUS STUDIES PROFESSOR): We discussed continued medical therapy (if appropriate), [...] 03/06/2021 Assessment & Plan (09/03/2020 11:41 AM RELIGIOUS STUDIES PROFESSOR): Body mass index is 19.53 kg/m . [...] 02/29/2020 Assessment & Plan (08/29/2019 2:29 PM RELIGIOUS STUDIES PROFESSOR): Empiric Cipro x 3 days Medicare annual [...] provided. Assessment & Plan (08/29/2019 2:28 PM RELIGIOUS STUDIES PROFESSOR): Body mass index is 20.98 kg/m . BMI Follow-up includes: nutrition counseling, exercise counseling and education provided. Assessment & Plan (02/21/2019 10:12 AM CDT): Body mass index is 21.32 kg/m . BMI Follow-up includes: nutrition counseling, exercise counseling and education provided. Assessment & Plan (08/23/2018 12:00 PM RELIGIOUS STUDIES PROFESSOR): Body mass index is 21.47 kg/m . BMI Follow-up includes: nutrition counseling, exercise counseling and education provided. Assessment & Plan (02/15/2018 11:09 AM CDT): Body mass index is 21.14 kg/m . BMI Follow-up includes: nutrition counseling, exercise counseling and education provided. Assessment & Plan (09/14/2017 2:53 PM RELIGIOUS STUDIES PROFESSOR): Body mass index is 21.63 kg/m . BMI Follow-up includes: nutrition counseling, exercise counseling and education provided. Upper respiratory tract infection 09/14/2017 09/14/2017 Influenza 09/14/2017 02/15/2018 Assessment & Plan (09/14/2017 2:59 PM RELIGIOUS STUDIES PROFESSOR): We discussed the likely diagnosis of influenza [...] 09/14/2017 Assessment & Plan (08/17/2017 10:49 AM RELIGIOUS STUDIES PROFESSOR): Body mass index is 22.44 kg/m . [...] HYPERLIPIDEMIA Assessment & Plan (08/17/2017 10:56 AM RELIGIOUS STUDIES PROFESSOR): We discussed continued statin therapy (if appropriate), [...] fu planned due to normal findings, age Encounters Date Type Department Care Team Description 12/04/2024 Orders Only [facility] [address] [place] [address] [place] [phone] Ric Johnston MD from Last 3 Months Immunizations Immunization Administration Dates Next Due Influenza, [...] Pneumococcal Polysaccharide PPV23 08/02/2005 ZOSTER LIVE 05/02/2016,04/15/2016 Surgical History Surgery Date Site/Laterality Comments APPENDECTOMY 08/02/1959 - 08/01/1960 ADHESIOLYSIS 08/02/1977 - 08/01/1978 OVARIAN CYST SURGERY 08/02/1959 - 08/01/1960 Medical History Medical History Date Comments COVID-19 virus infection 2022 Family History Medical History Relation Name Comments Colon cancer Mother Stroke Mother Relation Name Status Comments Mother Social History Tobacco Use Types Packs/Day Years [...] on file Legal Sex Female 7:44 PM RELIGIOUS STUDIES PROFESSOR Gender Identity Not on file Sexual Orientation Not on file Obstetrics History Last Filed Vital Signs Vital Sign Reading [...] 03/29/2023 12:58 PM CDT Plan of Treatment Health Maintenance Due Date Last Done Comments Osteoporosis Screening-Bone Density Scan 1935 DTaP/Tdap/Td Vaccine (1 - Tdap) 1947 Hepatitis B Screening 1954 Zoster Vaccine (2 of 3) 06/27/2016 05/02/2016, 04/15 Depression Screening 03/29/2024 03/29/2023, 10/27/2022, 10/05/2022, Additional history exists Fall Risk Assessment 03/29/2024 03/29/2023, 10/27/2022, 10/05/2022, Additional history exists Well Visit 65+ 03/29/2024 03/29/2023, 03/2022, 03/06/2021, Additional history exists Covid-19 Vaccine (3 2023-2 5 season) 2024 07/04/2021, 11/24/2020, 11/03/2020 Influenza Vaccine (#1) 2025 , 05/02/2021, 09/03/2020, Additional history exists Pneumococcal vaccine 65+ Completed 04/17/2015, 08/2005 Insurance MEDICARE [facility] TRADITIONAL MEDICARE [facility] FEDER[facility] Care Teams Gasateria Attendant Relationship Specialty Start Date End Date Ric Johnston MD [address] [place] [address] PCP - General Internal Medicine 09/14/17
== END 2025-02-13 13:16 | disposition home or self-care (01) ==
LOC: ANHAUDIO 13:16
PROVIDERS: PCP Family Medicine; Visit Provider Family Medicine
DX: H90.3 Sensorineural hearing loss, bilateral (principal)
CPT/HCPCS: 92557; 92567

== ENCOUNTER 2025-06-07 15:00 | Outpatient (RCR) | payer SELFPAY | END 2025-06-07 23:59 | disposition home or self-care (01) | LOC: ANHAUDIO 15:00 | PROVIDERS: PCP Family Medicine; Visit Provider Family Medicine | DX: Z46.1 Encounter for fitting and adjustment of hearing aid (principal) | CPT/HCPCS: 99199; V5261 ==